=== PATIENT | female | born 1930 ===

== ENCOUNTER 2017-06-21 14:39 | Inpatient (IN) | payer MEDICARE, MEDICAID ==
[2017-06-21] MEDS ORDERED: Iohexol 240 (50 ml) PO ONE (16:01)
[2017-06-21] MEDS ORDERED: Iohexol 240 (50 ml) ONE (16:18)
[2017-06-21 16:35] LABS: BASO % 0.3 % (0.0-2.0); EOS % 0.4 % (0.0-4.0); LYMPH # 0.5 K/uL (1.0-4.3); LYMPH % 16.1 % (20.0-40.0); MEAN CELL VOLUME 93.2 fl (81.0-99.0); MEAN CORPUSCULAR HEMOGLOBIN 29.6 pg (27.0-31.0); MEAN CORPUSCULAR HGB CONC 31.7 g/dL (33.0-37.0); MEAN PLATELET VOLUME 10.7 fl (7.2-11.7); MONO # 0.1 K/uL (0.0-0.8); MONO % 4.3 % (0.0-10.0); NEUT # 2.7 K/uL (1.8-7.0); NEUT % 78.9 % (50.0-75.0); RED CELL DISTRIBUTION WIDTH 13.4 % (11.5-14.5); WHITE BLOOD COUNT 3.4 K/uL (4.8-10.8)
[2017-06-21] MEDS ORDERED: Morphine 4 MG/ML VIAL IV ONE (16:36)
--- NOTE | 2017-06-21 16:46 | ED PDOC ---
HPI: Abdomen Time Seen by Provider: 06/21/17 15:00 Chief Complaint (Nursing): Abdominal Pain Chief Complaint (Provider): Abdominal pain History Per: Patient History/Exam Limitations: no limitations Onset/Duration Of Symptoms: Days (x1) Current Symptoms Are (Timing): Still Present Severity: Mild Pain Scale Rating Of: 3 Location Of Pain/Discomfort: Diffuse Associated Symptoms: Nausea, Urinary Symptoms (dysuria, ). denies: Fever, Vomiting, Diarrhea Additional Complaint(s): Clarice Cazares is an 86 year old female, with a past medical history of hypertension, who presents to the emergency department complaining of diffuse abdominal pain associated with difficulty urinating, and nausea. Patient has a pacemaker in place. She denies any fever, vomiting or diarrhea. No further medical complaints. PMD: None provided. Past Medical History Reviewed: Historical Data, Nursing Documentation, Vital Signs Vital Signs: Last Vital Signs Temp 97.9 F 06/30/17 16:00 Pulse 92 H 06/30/17 16:00 Resp 16 06/30/17 16:01 BP 127/71 06/30/17 16:00 Pulse Ox 98 06/30/17 17:20 - Medical History PMH: HTN, Hypercholesterolemia Denies: Chronic Kidney Disease - Surgical History Surgical History: Pacemaker - Family History Family History: States: Unknown Family Hx - Social History Current smoker - smoking cessation education provided: No Alcohol: None Drugs: Denies - Home Medications Home Medications: Ambulatory Orders Medication Instructions Recorded Aspirin [Aspirin Chewable] 1 tab PO DAILY 06/21/17 Carvedilol [Coreg] 1 tab PO DAILY 06/21/17 Esomeprazole Magnesium [Nexium] 40 mg PO DAILY 06/21/17 Ferrous Sulfate [Feosol] 1 tab PO DAILY 06/21/17 Glycerin/Propylene Glycol [Soothe 2 drp OU DAILY 06/21/17 Lubricant Eye Drops] Magnesium Oxide [Magnesium] 400 mg PO DAILY 06/21/17 Mirtazapine [Remeron] 15 mg PO DAILY 06/21/17 Rivaroxaban [Xarelto] 1 tab PO DAILY 06/21/17 Valsartan/Hydrochlorothiazide 1 tab PO DAILY 06/21/17 [Diovan Hct 320-12.5 mg Tab] Vit C/E/Zn/Coppr/Lutein/Zeaxan 2 cap PO DAILY 06/21/17 [Preservision Areds 2 Softgel] amLODIPine [Norvasc] 1 tab PO DAILY 06/21/17 - Allergies Allergies/Adverse Reactions: Allergies Allergy/AdvReac Type Severity Reaction Status Date / Time No Known Allergies Allergy Verified 06/21/17 14:42 Review of Systems ROS Statement: Except As Marked, All Systems Reviewed And Found Negative Constitutional: Negative for: Fever Gastrointestinal: Positive for: Nausea, Abdominal Pain (diffused). Negative for : Vomiting, Diarrhea Genitourinary Female: Positive for: Dysuria Physical Exam - Reviewed Nursing Documentation Reviewed: Yes Vital Signs Reviewed: Yes - Physical Exam Appears: Positive for: Non-toxic, No Acute Distress, Uncomfortable Head Exam: Positive for: ATRAUMATIC, NORMAL INSPECTION, NORMOCEPHALIC Skin: Positive for: Normal Color, Warm, Dry Eye Exam: Positive for: EOMI, Normal appearance, PERRL Neck: Positive for: Normal, Painless ROM, Supple Cardiovascular/Chest: Positive for: Regular Rate, Rhythm. Negative for: Murmur Respiratory: Positive for: Normal Breath Sounds. Negative for: Respiratory Distress Gastrointestinal/Abdominal: Positive for: Tenderness (diffused ). Negative for : Guarding, Rebound Back: Positive for: Normal Inspection. Negative for: L CVA Tenderness, R CVA Tenderness Extremity: Positive for: Normal ROM. Negative for: Pedal Edema, Deformity, Swelling Neurologic/Psych: Positive for: Alert, Oriented - Laboratory Results Result Diagrams: 06/30/17 04:25 06/30/17 04:25 - ECG O2 Sat by Pulse Oximetry: 98 (RA) Pulse Ox Interpretation: Normal Medical Decision Making Medical Decision Making: Initial Impression: Abdominal pain rule out intraabdominal pathology Initial Plan: --Abd & Pelvis PO & IV contrast [CT] --Comp Metabolic Panel --Omnipaque 240 50 ml PO --Morphine 2 mg IV --Zofran Inj 4 mg IV --Urine culture --Urinalysis --reevaluation 1700 -Patient will be signed out to Dr. Martinez, pending labs and CT. Scribe Attestation: Documented by Quan Boateng, acting as a scribe for Arcelia Solorio MD Provider Scribe Attestation: All medical record entries made by the Scribe were at my direction and personally dictated by me. I have reviewed the chart and agree that the record accurately reflects my personal performance of the history, physical exam, medical decision making, and the department course for this patient. I have also personally directed, reviewed, and agree with the discharge instructions and disposition. Disposition - Clinical Impression Clinical Impression: Perforated sigmoid colon - Patient ED Disposition Is Patient to be Admitted: Transfer of Care - Disposition Disposition: Transfer of Care Disposition Time: 17:00 Condition: STABLE
--- NOTE | 2017-06-21 16:52 | ED PDOC ---
- Laboratory Results Result Diagrams: 06/30/17 04:25 07/01/17 06:15 - ECG O2 Sat by Pulse Oximetry: 98 (RA) Medical Decision Making Medical Decision Makin -Patient will be transferred to [place] by Dr. Solorio, pending labs and CT 1900 Stable in ED. Pending CT abdomen. Labs reviewed. Disposition Counseled Patient/Family Regarding: Studies Performed, Diagnosis - Clinical Impression Clinical Impression: Perforated sigmoid colon, Abdominal pain - POA Present On Arrival: None - Disposition Disposition: Transfer of Care Disposition Time: 19:00 Condition: STABLE Patient Signed Over To: Ramakrishna Smith
[2017-06-21] MEDS ORDERED: Morphine 4 MG/ML VIAL ONE ×2 (16:55→19:50)
[2017-06-21 16:56] LABS: ALB/GLOB RATIO 1.4 (1.0-2.1); BILIRUBIN,TOTAL 0.9 mg/dl (0.2-1.3); POTASSIUM 6.1 MMOL/L (3.6-5.0); TOTAL PROTEIN 7.2 G/DL (6.3-8.2)
[2017-06-21] MEDS ORDERED: Iohexol 300 100 ML IJ ONE (18:33)
[2017-06-21] MEDS ORDERED: Sodium Chloride 0.9% 50 ML IV ONE (18:34)
[2017-06-21 18:42] LABS: RBC URINE 2 /hpf (0-3); URINE BACTERIA RARE (<OCC); URINE BILIRUBIN NEGATIVE (NEGATIVE); URINE BLOOD NEGATIVE (NEGATIVE); URINE COLOR YELLOW (YELLOW); URINE GLUCOSE (UA) NEG (Normal); URINE KETONE NEGATIVE (NEGATIVE); URINE LEUKOCYTE ESTERASE NEG Leu/uL (Negative); URINE PROTEIN NEGATIVE (NEGATIVE); URINE UROBILINOGEN 0.2-1.0 mg/dL (0.2-1.0); WBC URINE < 1 /hpf (0-5)
--- NOTE | 2017-06-21 19:38 | ED PDOC ---
- Laboratory Results Result Diagrams: 06/21/17 16:32 06/21/17 21:30 - ECG O2 Sat by Pulse Oximetry: 98 (RA) Medical Decision Making Medical Decision Making: Time: 19:00 Patient is signed over to me by Dr. Martinez pending CT and reevaluation. Time: 19:38 Abdomen/Pelvis CT FINDINGS: Lower thorax: The heart is enlarged.There is streak artifact from pacemaker leads. There is a hiatal hernia. There is reflux of oral contrast into the hernia and distal esophagus. There is airspace disease at the lung bases. ABDOMEN: Liver: There is fatty infiltration of the liver. Gallbladder and bile ducts: Gallbladder is absent.There is prominence of the common duct. There is mild intrahepatic biliary ductal prominence. Pancreas: Pancreas is mildly atrophic. Spleen: unremarkable Adrenals: unremarkable Kidneys and ureters: There is a low attenuation right renal lesion too small to accurately characterize possibly cysts. There is a left renal cyst. There is bilateral cortical scarring.There is no pelvocaliectasis or ureterectasis. Stomach and bowel: Stomach is partially distended with contrast. There is a contrast fluid level. Rotation is normal. Small bowel is incompletely opacified with oral contrast. Distal small bowel loops in the pelvis are abnormal. There is mild dilatation. There is mild wall thickening and fold thickening. There is no small bowel obstruction. There is terminal ileal wall thickening. Appendix is not visualized.Colon is incompletely distended which limits evaluation. There is scattered diverticulosis. There is sigmoid diverticulitis. There is perforation with free air and free fluid in the pelvis. Appendix: See stomach and bowel PELVIS: Bladder: Bladder is partially distended. There is bladder wall thickening. There is a Rivera catheter. There is air in the bladder. Reproductive: Uterus is not visualized suggesting hysterectomy. There are no adnexal masses. ABDOMEN and PELVIS: Intraperitoneal space: There is free fluid in the pelvis. There is free air in the pelvis. Bones/joints: Bony structures are osteopenic. There are degenerative changes. There is L5 spondylolysis with spondylolisthesis. There is narrowing of the L5-S1 disc space. Soft tissues: There is a fat containing ventral hernia. There is a small fat containing umbilical hernia. There is surgical mesh in the abdominal wall. There are multiple surgical clips in the right inguinal region. 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 There are vascular calcifications. Lymph nodes: There are is shotty adenopathy. IMPRESSION: Perforated sigmoid diverticulitis with ileus 20:[address] Kirt Medley who agrees to consult on patient. Dr. Haynes, hospitalist aware. Dr. Johnson, surgical specialist, at bedside evaluating patient. Patient seen and examined at bedside, abdomen is distended and diffusely tender, however no acute abdomen at this time. Cultures gathered, fluids started, ABx given, NGT and rivera inserted. Scribe Attestation: Documented by Cortney Shannon acting as a scribe for Ramakrishna Smith MD. Scribe Attestation: All medical record entries made by the Scribe were at my direction and personally dictated by me. I have reviewed the chart and agree that the record accurately reflects my personal performance of the history, physical exam, medical decision making, and the department course for this patient. I have also personally directed, reviewed, and agree with the discharge instructions and disposition. Disposition - Clinical Impression Clinical Impression: Perforated sigmoid colon - POA Present On Arrival: None - Disposition Disposition: Admitted as In-Patient Disposition Time: 20:00 Condition: STABLE
[2017-06-21] MEDS ORDERED: Sodium Chloride 0.9% 1,000 ML IV STA (19:39)
[2017-06-21] MEDS ORDERED: Piperacillin/Tazobact 3.375 GM in Sodium Chloride 0.9% 100 ML IVPB STA (19:45)
[2017-06-21] MEDS ORDERED: Morphine 4 MG/ML VIAL IVP STA (19:46)
[2017-06-21] MEDS ORDERED: Sodium Chloride 0.9% 1,000 ML IV SCH (20:30)
[2017-06-21 20:38] LABS: VENOUS BLOOD GAS BASE EXCESS 2.4 mmol/L (0.0-2.0); VENOUS BLOOD GAS PCO2 60 mmHg (40-60); VENOUS BLOOD PH 7.31 (7.32-7.43)
--- NOTE | 2017-06-21 20:51 | CP.PCM.HP ---
History of Present Illness - History of Present Illness History of Present Illness: PCP: Luz Liu MD Chief Complaint: Abdominal pain The patient was seen and examined in [facility] ED with her family present HPI: The Hx was obtained from the Patient , her Son and with review of the medical chart. She is an 86 years old Female with hx of Left Total Knee replaement, HTN, and Cardiac arrhythmia with Permanent Pacemaker inserted, . She comes to the ED with 2 weeks of diffuse abdominal pain which has become worse over the past day and associated with nausea, diarrhea and dysuria. She refers no fever, Chills, PMH: HTN; HLD; Cardiac dysrrhythmia on Xarelto; PSH: Varicose veins Stripping X4; Appendectomy; Cholecystectomy; Permanent Pace Maker Insertion;Umbilical and left inguinal hernia reapir with Mesh; Left Total Knee replacement SH: Never Smoked; no alcohol; no illegal drugs; Live alone FH: States: Unknown Family Hx Allergies: NKDA Medications: Reviewed Present on Admission - Present on Admission Any Indicators Present on Admission: No History of DVT/PE: No History of Uncontrolled Diabetes: No Urinary Catheter: No Decubitus Ulcer Present: No Review of Systems - Constitutional Constitutional: Headache. absent: Anorexia, Fever, Lethargy, Malaise - EENT Eyes: Requires Corrective Lenses. absent: Diplopia, Dry Eye, Floaters Ears: absent: Decreased Hearing, Ear Discharge, Tinnitus Nose/Mouth/Throat: absent: Epistaxis, Nasal Congestion, Nasal Discharge, Sinus Pressure, Bleeding Gums, Change in Voice - Cardiovascular Cardiovascular: Syncope. absent: Chest Pain, Dyspnea, Leg Edema, Leg Ulcers - Respiratory Respiratory: absent: Cough, Dyspnea, Snoring, Chest Congestion - Gastrointestinal Gastrointestinal: Abdominal Pain, Diarrhea, Nausea. absent: Constipation, Melena - Musculoskeletal Musculoskeletal: Arthralgias. absent: Muscle Cramps, Muscle Weakness - Integumentary Integumentary: absent: Skin Pain, Skin Ulcer, Sores, Striae, Swelling - Psychiatric Psychiatric: absent: Anxiety, Depression, Panic Attacks - Endocrine Endocrine: absent: Palpitations, Polydipsia, Polyphagia, Polyuria - Hematologic/Lymphatic Hematologic: absent: Easy Bleeding, Easy Bruising Past Patient History - Past Medical History & Family History Past Medical History?: Yes - Past Social History Smoking Status: Never Smoked Chewing Tobacco Use: No Cigar Use: No Alcohol: None Drugs: Denies Home Situation {Lives}: Alone - CARDIAC Hx Hypercholesterolemia: Yes Hx Hypertension: Yes Hx Pacemaker: Yes - PULMONARY Hx Respiratory Disorders: No - NEUROLOGICAL Hx Neurological Disorder: No - HEENT Hx HEENT Problems: No - RENAL Hx Chronic Kidney Disease: No - ENDOCRINE/METABOLIC Hx Endocrine Disorders: No - HEMATOLOGICAL/ONCOLOGICAL Hx Blood Disorders: No - INTEGUMENTARY Hx Dermatological Problems: No - MUSCULOSKELETAL/RHEUMATOLOGICAL Hx Musculoskeletal Disorders: No - GASTROINTESTINAL Hx Gastrointestinal Disorders: No - GENITOURINARY/GYNECOLOGICAL Hx Genitourinary Disorders: No - PSYCHIATRIC Hx Psychophysiologic Disorder: No Hx Substance Use: No - SURGICAL HISTORY Hx Surgeries: Yes Hx Appendectomy: Yes Hx Herniorrhaphy: Yes Hx Hysterectomy: Yes Other/Comment: Stripping of varicose veins Meds Allergies/Adverse Reactions: Allergies Allergy/AdvReac Type Severity Reaction Status Date / Time No Known Allergies Allergy Verified 06/21/17 14:42 Physical Exam - Constitutional Appears: No Acute Distress - Head Exam Head Exam: ATRAUMATIC, NORMAL INSPECTION, NORMOCEPHALIC - Eye Exam Eye Exam: EOMI, Normal appearance Pupil Exam: NORMAL ACCOMODATION, PERRL - ENT Exam ENT Exam: absent: Mucous Membranes Moist, Normal External Ear Exam, Normal Oropharynx - Neck Exam Neck exam: Positive for: Full Rom, Normal Inspection. Negative for: Lymphadenopathy, Tenderness - Respiratory Exam Respiratory Exam: Clear to Auscultation Bilateral, NORMAL BREATHING PATTERN. absent: Rales, Rhonchi, Wheezes - Cardiovascular Exam Cardiovascular Exam: REGULAR RHYTHM, RRR, +S1, +S2. absent: Gallop, JVD - GI/Abdominal Exam Additional comments: Flat, soft, periumbilical tenderness, No guarding, no rebound, decreased bowel sounds - Rectal Exam Rectal Exam: Deferred - Extremities Exam Extremities exam: Positive for: full ROM, normal inspection. Negative for: calf tenderness, pedal edema - Back Exam Back exam: NORMAL INSPECTION. absent: CVA tenderness (L), CVA tenderness (R) - Neurological Exam Neurological exam: CN II-XII Intact, Oriented x3, Reflexes Normal - Psychiatric Exam Psychiatric exam: Normal Affect, Normal Mood - Skin Skin Exam: Dry, Intact, Normal Color, Warm Results - Vital Signs Recent Vital Signs: Last Vital Signs Temp 100.3 F H 06/21/17 20:02 Pulse 88 06/21/17 20:02 Resp 16 11/28/17 20:02 BP 133/58 L 06/21/17 20:02 Pulse Ox 91 L 06/21/17 20:02 - Labs Result Diagrams: 06/21/17 16:32 06/21/17 21:30 Labs: Laboratory Results - last 24 hr 06/21/17 06/21/17 06/21/17 16:32 16:32 18:30 WBC 3.4 L RBC 4.08 Hgb 12.1 Hct 38.0 MCV 93.2 MCH 29.6 MCHC 31.7 L RDW 13.4 Plt Count 142 MPV 10.7 Neut % (Auto) 78.9 H Lymph % (Auto) 16.1 L Ramsey % (Auto) 4.3 Eos % (Auto) 0.4 Baso % (Auto) 0.3 Neut # 2.7 Lymph # 0.5 L Ramsey # 0.1 Eos # 0.0 Baso # 0.0 pO2 VBG pH VBG pCO2 VBG HCO3 VBG Total CO2 VBG O2 Sat (Calc) VBG Base Excess VBG Potassium Glucose Lactate FiO2 Sodium 138 Potassium 6.1 H Chloride 100 Carbon Dioxide 28 Anion Gap 16 BUN 29 H Creatinine 1.1 Est GFR ( Amer) 57 Est GFR (Non-Af Amer) 47 Random Glucose 105 Calcium 9.0 Total Bilirubin 0.9 AST 34 ALT 29 Alkaline Phosphatase 68 Total Protein 7.2 Albumin 4.2 Globulin 3.0 Albumin/Globulin Ratio 1.4 Venous Blood Potassium Urine Color Yellow Urine Clarity Clear Urine pH 6.0 Ur Specific [place] 1.016 Urine Protein Negative Urine Glucose (UA) Neg Urine Ketones Negative Urine Blood Negative Urine Nitrate Negative Urine Bilirubin Negative Urine Urobilinogen 0.2-1.0 Ur Leukocyte Esterase Neg Urine RBC (Auto) 2 Urine Microscopic WBC < 1 Urine Bacteria Rare 06/21/17 20:20 WBC RBC Hgb Hct MCV MCH MCHC RDW Plt Count MPV Neut % (Auto) Lymph % (Auto) Ramsey % (Auto) Eos % (Auto) Baso % (Auto) Neut # Lymph # Ramsey # Eos # Baso # pO2 25 L VBG pH 7.31 L VBG pCO2 60 VBG HCO3 25.2 VBG Total CO2 32.0 H VBG O2 Sat (Calc) 46.4 VBG Base Excess 2.4 H VBG Potassium 5.8 H Glucose 111 H Lactate 2.4 H FiO2 21.0 Sodium 131.0 L Potassium Chloride 98.0 Carbon Dioxide Anion Gap BUN Creatinine Est GFR ( Amer) Est GFR (Non-Af Amer) Random Glucose Calcium Total Bilirubin AST ALT Alkaline Phosphatase Total Protein Albumin Globulin Albumin/Globulin Ratio Venous Blood Potassium 5.8 H Urine Color Urine Clarity Urine pH Ur Specific [place] Urine Protein Urine Glucose (UA) Urine Ketones Urine Blood Urine Nitrate Urine Bilirubin Urine Urobilinogen Ur Leukocyte Esterase Urine RBC (Auto) Urine Microscopic WBC Urine Bacteria - EKG Data EKG comments: Sinus Rhythm with PVC 96/min Low voltage - Imaging and Cardiology CT scan - abdomen Status: Report reviewed by me Additional comment: EXAM: CT Abdomen and Pelvis With Intravenous Contrast EXAM DATE/TIME: 06/21/2017 4:01 PM FINDINGS: Lower thorax: The heart is enlarged.There is streak artifact from pacemaker leads. There is a hiatal hernia. There is reflux of oral contrast into the hernia and distal esophagus. There is airspace disease at the lung bases. ABDOMEN: Liver: There is fatty infiltration of the liver. Gallbladder and bile ducts: Gallbladder is absent.There is prominence of the common duct. There is mild intrahepatic biliary ductal prominence. Pancreas: Pancreas is mildly atrophic. Spleen: unremarkable Adrenals: unremarkable Kidneys and ureters: There is a low attenuation right renal lesion too small to accurately characterize possibly cysts. There is a left renal cyst. There is bilateral cortical scarring.There is no pelvocaliectasis or ureterectasis. Stomach and bowel: Stomach is partially distended with contrast. There is a contrast fluid level. Rotation is normal. Small bowel is incompletely opacified with oral contrast. Distal small bowel loops in the pelvis are abnormal. There is mild dilatation. There is mild wall thickening and fold thickening. There is no small bowel obstruction. There is terminal ileal wall thickening. Appendix is not visualized.Colon is incompletely distended which limits evaluation. There is scattered diverticulosis. There is sigmoid diverticulitis. There is perforation with free air and free fluid in the pelvis. Appendix: See stomach and bowel PELVIS: Bladder: Bladder is partially distended. There is bladder wall thickening. There is a Harris catheter. There is air in the bladder. Reproductive: Uterus is not visualized suggesting hysterectomy. There are no adnexal masses. ABDOMEN and PELVIS: Intraperitoneal space: There is free fluid in the pelvis. There is free air in the pelvis. Bones/joints: Bony structures are osteopenic. There are degenerative changes. There is L5 spondylolysis with spondylolisthesis. There is narrowing of the L5-S1 disc space. Soft tissues: There is a fat containing ventral hernia. There is a small fat containing umbilical hernia. There is surgical mesh in the abdominal wall. There are multiple surgical clips in the right inguinal region. 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 There are vascular calcifications. Lymph nodes: There are is shotty adenopathy. IMPRESSION: Perforated sigmoid diverticulitis with ileus Additional findings as described above. CT scan - chest Status: Image reviewed by me Additional comment: Increased bronchovascular markings No active disease Assessment & Plan - Assessment and Plan (Free Text) Assessment: #. Perforated Sygmoid Diverticulitis with Ileus #. Dehydration #. HTN #. Hx of Cardiac Dysrrhythmia with PPM Plan: 86 years old Female with hx of Left Total Knee replaement, HTN, and Cardiac arrhythmia with Permanent Pacemaker inserted,. She comes to the ED with 2 weeks of diffuse abdominal pain which has become worse over the past day and associated with nausea, diarrhea and dysuria. She refers no fever, Chills, #. Perforated Sygmoid Diverticulitis with Ileus - Consult Dr Medley surgery - NG tube placed in ED - Pain management - Zosyn - Zofran #. Dehydration - IV fluids - follow Renal labs #. HTN - Will treat with IV metoprolol #. Hx of Cardiac Dysrrhythmia with PPM - cardiac monitoring - Hold Xarelto at least 24 hrs prior to surgery - Cardiology consult for Clearance to surgery Dr Blanchard 3> Stress Ulcer prophylaxis with Pepcid #. DVT prophylaxis with SCD #. Code Status: Full - Date & Time Date: 06/21/17 Time: 20:51
--- NOTE | 2017-06-21 21:14 | CP.PCM.CON ---
History of Present Illness - History of Present Illness History of Present Illness: General Surgery Consult Note for Dr. Medley Reason for consult: perforated acute diverticulitis 86 F with PMH of HTN, HLD, arrthymias presents to [facility] ED for complaint of diffuse abdominal pain. History was supplemented by her Son. She reports that she has had this pain for 2 weeks. SHe states that she has never experienced this type of pain before. She reports gradual onset and has gotten progressively worse. She decided to come in today because the was worse over the past day. Patient reports associated nausea and diarrhea. Patient rates pain as severe. She describes pain as constant as sharp located diffusely throughout abdomen. Moving and certain positions exacerbates her pain but denies alleviatinf factors. Admits to subjective fever/chills. Denies palpitations, cp, sob, vomiting, constipation, incontinence, melena, hematemesis , hematochezia. PMD: Dr. Luz Liu PMH: HTN; HLD; Cardiac arrthymia on anticoagulation Meds: As per EMR (includes ASA and Xarelto) Allergies: NKDA PSH: Varicose veins Stripping X4, Appendectomy, Cholecystectomy, Permanent Pace Maker Insertion, Umbilical hernia repair, inguinal hernia repair with Mesh; Left Total Knee replacement FH: unknown Social: denies [place]/illicit drug use; Lives alone Past Patient History - Past Social History Alcohol: None Drugs: Denies - CARDIAC Hx Hypercholesterolemia: Yes Hx Hypertension: Yes Hx Pacemaker: Yes - PULMONARY Hx Respiratory Disorders: No - NEUROLOGICAL Hx Neurological Disorder: No - HEENT Hx HEENT Problems: No - RENAL Hx Chronic Kidney Disease: No - ENDOCRINE/METABOLIC Hx Endocrine Disorders: No - HEMATOLOGICAL/ONCOLOGICAL Hx Blood Disorders: No - INTEGUMENTARY Hx Dermatological Problems: No - MUSCULOSKELETAL/RHEUMATOLOGICAL Hx Musculoskeletal Disorders: No - PSYCHIATRIC Hx Psychophysiologic Disorder: No Hx Substance Use: No - SURGICAL HISTORY Hx Surgeries: Yes Meds Allergies/Adverse Reactions: Allergies Allergy/AdvReac Type Severity Reaction Status Date / Time No Known Allergies Allergy Verified 06/21/17 14:42 - Medications Medications: Current Medications Sodium Chloride (Sodium Chloride 0.9%) 1,000 mls @ 125 mls/hr IV .Q8H TERRY Stop: 06/22/17 20:18 Physical Exam - Constitutional Appears: Toxic, No Acute Distress - Head Exam Head Exam: ATRAUMATIC, NORMOCEPHALIC - Eye Exam Eye Exam: EOMI, Normal appearance Pupil Exam: PERRL - ENT Exam ENT Exam: Mucous Membranes Dry - Respiratory Exam Respiratory Exam: NORMAL BREATHING PATTERN - Cardiovascular Exam Cardiovascular Exam: REGULAR RHYTHM Additional comments: AICD on L chest - GI/Abdominal Exam GI & Abdominal Exam: Distended, Firm, Guarding, Hernia (ventral hernia), Rebound , Tenderness (diffuse) - Extremities Exam Extremities exam: Positive for: normal capillary refill, pedal pulses present - Back Exam Back exam: absent: CVA tenderness (L), CVA tenderness (R) - Neurological Exam Neurological exam: Alert, CN II-XII Intact, Oriented x3 - Psychiatric Exam Psychiatric exam: Normal Affect, Normal Mood - Skin Skin Exam: Dry, Intact, Normal Color, Warm Results - Vital Signs Recent Vital Signs: Last Vital Signs Temp 100.3 F H 06/21/17 20:02 Pulse 88 06/21/17 20:02 Resp 16 06/21/17 20:02 BP 133/58 L 06/21/17 20:02 Pulse Ox 91 L 06/21/17 20:02 - Labs Result Diagrams: 06/21/17 16:32 06/21/17 21:30 Labs: Laboratory Results - last 24 hr 06/21/17 06/21/17 06/21/17 16:32 16:32 18:30 WBC 3.4 L RBC 4.08 Hgb 12.1 Hct 38.0 MCV 93.2 MCH 29.6 MCHC 31.7 L RDW 13.4 Plt Count 142 MPV 10.7 Neut % (Auto) 78.9 H Lymph % (Auto) 16.1 L [place] % (Auto) 4.3 Eos % (Auto) 0.4 Baso % (Auto) 0.3 Neut # 2.7 Lymph # 0.5 L [place] # 0.1 Eos # 0.0 Baso # 0.0 pO2 VBG pH VBG pCO2 VBG HCO3 VBG Total CO2 VBG O2 Sat (Calc) VBG Base Excess VBG Potassium Glucose Lactate FiO2 Sodium 138 Potassium 6.1 H Chloride 100 Carbon Dioxide 28 Anion Gap 16 BUN 29 H Creatinine 1.1 Est GFR ( Amer) 57 Est GFR (Non-Af Amer) 47 Random Glucose 105 Calcium 9.0 Total Bilirubin 0.9 AST 34 ALT 29 Alkaline Phosphatase 68 Total Protein 7.2 Albumin 4.2 Globulin 3.0 Albumin/Globulin Ratio 1.4 Venous Blood Potassium Urine Color Yellow Urine Clarity Clear Urine pH 6.0 Ur Specific [place] 1.016 Urine Protein Negative Urine Glucose (UA) Neg Urine Ketones Negative Urine Blood Negative Urine Nitrate Negative Urine Bilirubin Negative Urine Urobilinogen 0.2-1.0 Ur Leukocyte Esterase Neg Urine RBC (Auto) 2 Urine Microscopic WBC < 1 Urine Bacteria Rare 06/21/17 20:20 WBC RBC Hgb Hct MCV MCH MCHC RDW Plt Count MPV Neut % (Auto) Lymph % (Auto) [place] % (Auto) Eos % (Auto) Baso % (Auto) Neut # Lymph # [place] # Eos # Baso # pO2 25 L VBG pH 7.31 L VBG pCO2 60 VBG HCO3 25.2 VBG Total CO2 32.0 H VBG O2 Sat (Calc) 46.4 VBG Base Excess 2.4 H VBG Potassium 5.8 H Glucose 111 H Lactate 2.4 H FiO2 21.0 Sodium 131.0 L Potassium Chloride 98.0 Carbon Dioxide Anion Gap BUN Creatinine Est GFR ( Amer) Est GFR (Non-Af Amer) Random Glucose Calcium Total Bilirubin AST ALT Alkaline Phosphatase Total Protein Albumin Globulin Albumin/Globulin Ratio Venous Blood Potassium 5.8 H Urine Color Urine Clarity Urine pH Ur Specific [place] Urine Protein Urine Glucose (UA) Urine Ketones Urine Blood Urine Nitrate Urine Bilirubin Urine Urobilinogen Ur Leukocyte Esterase Urine RBC (Auto) Urine Microscopic WBC Urine Bacteria Assessment & Plan - Assessment and Plan (Free Text) Plan: 86 F with perforated acute diverticulitis -NPO -IV fluids -IV antibiotics -NG tube/rivera -Strict I's & O's -Analgesics/Anti-emetics/Anti-pyretics PRN -Plan for OR Tue -Discussed with Dr. Galindo Umaña PGY1
[2017-06-21 21:47] LABS: PARTIAL THROMBOPLASTIN TIME 34.4 Seconds (25.6-37.1)
[2017-06-21] MEDS: Sodium Chloride 0.9% 1,000 ML IV SCH (22:26)
[2017-06-22] MEDS: Piperacillin/Tazobact 3.375 GM in Sodium Chloride 0.9% 100 ML IVPB SCH ×4 (01:45→23:00)
[2017-06-22] MEDS ORDERED: Metoprolol 1 mg/ml Inj IVP SCH (04:00)
--- NOTE | 2017-06-22 04:56 | PCM.RRT ---
<Luis Manuel Shannon - Last Filed: 06/22/17 04:53> [employer]ATION WORKER Nurse Assessment - Situation TEA PLANTATION WORKER Responder Arrival Time: 03:40 Location: 4th floor Room Number: 403 [employer] PLANTATION WORK[employer] Reason for Call: Hypotension TEA PLANTATION WORKER Called By: RN - IV IV Inserted during TEA PLANTATION WORKER?: No - Respiratory Oxygen Delivery Method: Nasal Cannula Received Nebulizer Treatments: No Was the Patient Ventilated with Bag/Mask 100% O2?: No Secretions Suctioned?: No Was the Patient Intubated?: No Was the Patient Placed on a Ventilator?: No - Diagnostic Test Ordered EKG: No Chest X-Ray: No CT Scan: No CPR started during TEA PLANTATION WORKER?: No I.Reason for TEA PLANTATION WORKER - A) Acute Change in Patient: (Select all that apply): Staff member or family is worried about patient, Acute change in SBP below (80) Subjective: TEA PLANTATION WORKER was called due to Hypotension for 86 years old Female who is admitted for perforated diverticulitis, s/p 3L IVF, with PMH of Left Total Knee replaement, HTN, and Cardiac arrhythmia with Permanent Pacemaker inserted. Upon arrival, patient is alert, awake and verbally responsive, BP: 108/62. Right femoral line placed during TEA PLANTATION WORKER by medical surgical tech and patient was started on IVF. Possible surgery today for perforated diverticulitis. Case discussed with Dr. Haynes --- Luis Manuel Shannon, PGY-1 - Neurological Status (Select all that apply): Alert, Responsive, Verbal, Follows Commands - Respiratory Oxygen Delivery Method: Nasal Cannula @L/min - Constitutional Appears: No Acute Distress - Head Head Exam: ATRAUMATIC, NORMAL INSPECTION, NORMOCEPHALIC - Eyes Eye Exam: EOMI, Normal appearance - Respiratory Exam Respiratory Exam: Clear to Ausculation Bilateral, NORMAL BREATHING PATTERN - Cardiovascular Exam Cardiovascular Exam: REGULAR RHYTHM, RRR, +S1, +S2. absent: Gallop, JVD - GI/Abdominal Exam Additional comments: Flat, soft, periumbilical tenderness, No guarding, no rebound, decreased bowel sounds - Neurological Exam Neurological Exam: Alert, Awake, Oriented x3 - Extremities Exam Additional comments: Varicose veins <Jerald Haynes - Last Filed: 06/22/17 07:20> TE[employer] PLANTATION WORKER Nurse Assessment - Vital Signs Vital Signs: Rapid Response Vital Sign Blood Pressure 48/35 - Vital Signs at end of TEA PLANTATION WORKER Vital Signs at end of TEA PLANTATION WORKER: Rapid Response End Vital Sign Blood Pressure 135/72 Attending/Attestation - Attestation I have personally seen and examined this patient.: No I have fully participated in the care of the patient.: No I have reviewed all pertinent clinical information, including history, physical exam and plan: No Notes (Text): 06/22/17 07:15 I saw and examined this patientshoulder to shoulder with Dr Shannon. The impression and plan mentioned represent my direcct inpu, The Patiet's Blood pressure droped to a s SBP of 40, #. Hypovolemic Shock with Septic Shock - IV fluids alone could not increase the BP - A Rigfht Femoral TLC was inserted by the vice president of advertising. - [facility] s[facility] started. The Family was notified.
[2017-06-22] MEDS: Sodium Chloride 0.9% 1,000 ML IV SCH ×4 (05:08→20:44)
[2017-06-22] MEDS ORDERED: Sodium Chloride 0.9% 1,000 ML IV SCH ×3 (05:30→08:45)
[2017-06-22 05:58] LABS: EOS % 0.1 % (0.0-4.0); HEMATOCRIT 28.6 % (34.0-47.0); LYMPH # 0.7 K/uL (1.0-4.3); LYMPH % 9.1 % (20.0-40.0); MEAN CELL VOLUME 94.6 fl (81.0-99.0); MEAN CORPUSCULAR HEMOGLOBIN 30.3 pg (27.0-31.0); MEAN CORPUSCULAR HGB CONC 32.1 g/dL (33.0-37.0); MEAN PLATELET VOLUME 11.8 fl (7.2-11.7); MONO # 0.3 K/uL (0.0-0.8); MONO % 4.1 % (0.0-10.0); NEUT # 6.3 K/uL (1.8-7.0); NEUT % 86.7 % (50.0-75.0); PLATELET COUNT 96 K/uL (130-400); RED CELL DISTRIBUTION WIDTH 13.5 % (11.5-14.5); WHITE BLOOD COUNT 7.3 K/uL (4.8-10.8)
[2017-06-22 06:03] LABS: CALCIUM 6.9 mg/dL (8.4-10.2); POTASSIUM 4.3 MMOL/L (3.6-5.0)
--- NOTE | 2017-06-22 08:06 | CARD ---
APPROVED REPORT EKG Measurement Heart [id number] <Conclusion> Sinus rhythm with occasional premature ventricular complexes Nonspecific ST and T wave abnormality Abnormal ECG
[2017-06-22 08:19] LABS: ABG ALLEN TEST YES; ARTERIAL BLOOD GAS HCO3 19.9 mmol/L (21-28); ARTERIAL BLOOD GAS O2 CAPACITY 12.9 mL/dL (16-24); ARTERIAL BLOOD GAS O2 CONTENT 12.3 ML/dL (15-23); ARTERIAL BLOOD GAS PH 7.25 (7.35-7.45); ARTERIAL BLOOD GAS PO2 70 mm/Hg (80-100); ARTERIAL BLOOD HGB O2 SAT 94.1 % (95.0-98.0); CARBOXYHEMOGLOBIN 1.1 % (0.5-1.5); HHB 4.3 % (0.0-5.0); METHEMOGLOBIN 0.5 % (0.0-3.0)
--- NOTE | 2017-06-22 08:46 | RAD ---
HISTORY: Abdominal pain COMPARISON: 05/21/2016 FINDINGS: LUNGS: No active pulmonary disease. PLEURA: No significant pleural effusion identified, no pneumothorax apparent. CARDIOVASCULAR: Cardiomegaly. No evidence of acute, significant cardiovascular disease. Position/ configuration of pacemaker Satisfactory. OSSEOUS STRUCTURES: No significant abnormalities. VISUALIZED UPPER ABDOMEN: Normal. OTHER FINDINGS: None. IMPRESSION: No active disease. No significant interval change compared to the prior examination(s). Concordant results with the preliminary interpretation rendered by the emergency department physician procedure. :
[2017-06-22] MEDS: HYDROmorphone 0.5 mg/0.5 ml ISec IVP SCH ×3 (09:00→16:34)
--- NOTE | 2017-06-22 09:56 | CP.PCM.CON ---
History of Present Illness - History of Present Illness History of Present Illness: This 86-year-old female, came to the emergency room with approximately 10-14 days of diffuse abdominal pain along with intense nausea and diarrhea. She denies any chills or fever and is being treated for a ruptured diverticulum. She has a medical history that includes a knee replacement last year and has had a defibrillator inserted for "an irregular heartbeat"approximately 9 years back and has been taking Xarelto last couple of years. She denies any history of chest pain or myocardial infarction. Following her knee replacement she went through physical therapy and subsequently had capacity to independently ambulate 2-3 blocks without getting short of breath. There is no prior history of pedal edema or orthopnea. Her last dose of aspirin and Xarelto was yesterday. The patient arrived in the emergency room profoundly hypotensive and has been on intravenous IV fluids and antibiotic ever since. This morning between 6:00 and 8:00 she had made approximately 80 mL of urine. On examination this is an elderly lady who was lying flat in bed with a nasogastric tube in place attached to low intermittent suction, and able to carry on a conversation. She was alert, awake and coherent. Her extremities were warm and there was no central or peripheral cyanosis. Her heart rate was 80 bpm and regular and her blood pressure was 84/50 mmHg. Her jugular venous pressure was not elevated and there was no edema over her lower extremity. There were no carotid bruits. Pedal pulses were well felt. There were varicosities over both lower extremities and the patient had a history of venous stripping in the past. [place] was not palpable. First and second heart sounds are normal. There was a very brief apical systolic murmur. There was no gallop rhythm and there were no rales. Her abdomen had diffuse tenderness intestinal sounds were distant. Her electrocardiogram showed sinus rhythm with nonspecific ST changes. There were no Q waves indicative of a prior myocardial infarction. Her lab data showed elevated lactate at admission with a normal level subsequently. This morning she is mildly azotemic with a creatinine of 1.3 mg percent. Her potassium was normal. Blood gases were noted. 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 History of AICD implant for cardiac arrhythmia the precise nature of which is uncertain. Patient's systolic blood pressure has significantly improved since her admission with intravenous fluid resuscitation and her ability to produce 80 mL of urine over 2 hours indicated significant improvement in her renal perfusion, and by inference her cardiac output. I have discussed her case with the surgeon. From the point of view of having taken Xarelto she could go to surgery 24 hours from now, while the effect of aspirin will take 6 more days to wear off. I also requested an echocardiogram to evaluate her left ventricular systolic function. Past Patient History - Past Medical History & Family History Past Medical History?: Yes - Past Social History Smoking Status: Never Smoked Chewing Tobacco Use: No Cigar Use: No Alcohol: None Drugs: Denies Home Situation {Lives}: Alone - CARDIAC Hx Hypercholesterolemia: Yes Hx Hypertension: Yes Hx Pacemaker: Yes - PULMONARY Hx Respiratory Disorders: No - NEUROLOGICAL Hx Neurological Disorder: No - HEENT Hx HEENT Problems: No - RENAL Hx Chronic Kidney Disease: No - ENDOCRINE/METABOLIC Hx Endocrine Disorders: No - HEMATOLOGICAL/ONCOLOGICAL Hx Blood Disorders: No - INTEGUMENTARY Hx Dermatological Problems: No - MUSCULOSKELETAL/RHEUMATOLOGICAL Hx Musculoskeletal Disorders: No - GASTROINTESTINAL Hx Gastrointestinal Disorders: No - GENITOURINARY/GYNECOLOGICAL Hx Genitourinary Disorders: No - PSYCHIATRIC Hx Psychophysiologic Disorder: No Hx Substance Use: No - SURGICAL HISTORY Hx Surgeries: Yes Hx Appendectomy: Yes Hx Herniorrhaphy: Yes Hx Hysterectomy: Yes Other/Comment: Stripping of varicose veins - ANESTHESIA Hx Anesthesia: Yes Hx Anesthesia Reactions: No Hx Malignant Hyperthermia: No Has any member of the family had a problem w/ anesthesia?: No Meds Allergies/Adverse Reactions: Allergies Allergy/AdvReac Type Severity Reaction Status Date / Time No Known Allergies Allergy Verified 06/21/17 14:42 - Medications Medications: Current Medications Acetaminophen (Tylenol 650 Mg Supp) 650 mg DE Q6 PRN PRN Reason: Fever >100.4 F Hydromorphone HCl (Dilaudid) 0.5 mg IVP Q4 TERRY Piperacillin Sod/Tazobactam (Sod 3.375 gm/ Sodium Chloride) 100 mls @ 100 mls/ hr IVPB Q6 TERRY PRN Reason: Protocol Last Admin: 06/22/17 01:45 Dose: 100 mls/hr Sodium Chloride (Sodium Chloride 0.9%) 1,000 mls @ 200 mls/hr IV .Q5H TERRY Stop: 06/23/17 20:18 Last Admin: 06/22/17 06:11 Dose: 200 mls/hr Norepinephrine Bitartrate 4 mg (/ Dextrose) 254 mls @ 9.52 mls/hr IV .Q24H TERRY ; 2.5 MCG/MIN PRN Reason: Protocol Last Titration: 06/22/17 07:00 Dose: 10 mcg/min, 38.1 mls/hr Sodium Chloride (Sodium Chloride 0.9%) 1,000 mls @ 999 mls/hr IV .Q1H1M TERRY Stop: 06/23/17 07:14 Metoprolol Tartrate (Lopressor) 2.5 mg IVP Q6 TERRY Last Admin: 06/22/17 05:07 Dose: Not Given Ondansetron HCl (Zofran Inj) 4 mg IVP Q6 PRN PRN Reason: Nausea/Vomiting Pantoprazole Sodium (Protonix Inj) 40 mg IVP DAILY [facility] Results - Vital Signs Recent Vital Signs: Last Vital Signs Temp 97.6 F 06/22/17 08:00 Pulse 75 06/22/17 08:00 Resp 14 06/22/17 08:00 BP 105/84 06/22/17 08:00 Pulse Ox 97 06/22/17 08:00 - Labs Result Diagrams: 06/22/17 04:40 06/22/17 04:40 Labs: Laboratory Results - last 24 hr 06/21/17 06/21/17 06/21/17 16:32 16:32 18:30 WBC 3.4 L RBC 4.08 Hgb 12.1 Hct 38.0 MCV 93.2 MCH 29.6 MCHC 31.7 L RDW 13.4 Plt Count 142 MPV 10.7 Neut % (Auto) 78.9 H Lymph % (Auto) 16.1 L [place] % (Auto) 4.3 Eos % (Auto) 0.4 Baso % (Auto) 0.3 Neut # 2.7 Lymph # 0.5 L [place] # 0.1 Eos # 0.0 Baso # 0.0 PT INR APTT pCO2 pO2 HCO3 ABG pH ABG Total CO2 ABG O2 Saturation ABG O2 Content ABG Base Excess ABG Hemoglobin ABG Carboxyhemoglobin POC ABG HHb (Measured) ABG Methemoglobin ABG O2 Capacity Rich Test VBG pH VBG pCO2 VBG HCO3 VBG Total CO2 VBG O2 Sat (Calc) VBG Base Excess VBG Potassium A-a O2 Difference Hgb O2 Saturation Glucose Lactate FiO2 Sodium 138 Potassium 6.1 H Chloride 100 Carbon Dioxide 28 Anion Gap 16 BUN 29 H Creatinine 1.1 Est GFR ( Amer) 57 Est GFR (Non-Af Amer) 47 POC Glucose (mg/dL) Random Glucose 105 Lactic Acid Calcium 9.0 Total Bilirubin 0.9 AST 34 ALT 29 Alkaline Phosphatase 68 Total Protein 7.2 Albumin 4.2 Globulin 3.0 Albumin/Globulin Ratio 1.4 Venous Blood Potassium Urine Color Yellow Urine Clarity Clear Urine pH 6.0 Ur Specific [place] 1.016 Urine Protein Negative Urine Glucose (UA) Neg Urine Ketones Negative Urine Blood Negative Urine Nitrate Negative Urine Bilirubin Negative Urine Urobilinogen 0.2-1.0 Ur Leukocyte Esterase Neg Urine RBC (Auto) 2 Urine Microscopic WBC < 1 Urine Bacteria Rare Blood Type Antibody Screen BBK History Checked 06/21/17 06/21/17 06/21/17 20:20 21:30 21:30 WBC RBC Hgb Hct MCV MCH MCHC RDW Plt Count MPV Neut % (Auto) Lymph % (Auto) [place] % (Auto) Eos % (Auto) Baso % (Auto) Neut # Lymph # [place] # Eos # Baso # PT 16.0 H INR 1.4 H APTT 34.4 pCO2 pO2 25 L HCO3 ABG pH ABG Total CO2 ABG O2 Saturation ABG O2 Content ABG Base Excess ABG Hemoglobin ABG Carboxyhemoglobin POC ABG HHb (Measured) ABG Methemoglobin ABG O2 Capacity Rich Test VBG pH 7.31 L VBG pCO2 60 VBG HCO3 25.2 VBG Total CO2 32.0 H VBG O2 Sat (Calc) 46.4 VBG Base Excess 2.4 H VBG Potassium 5.8 H A-a O2 Difference Hgb O2 Saturation Glucose 111 H Lactate 2.4 H FiO2 21.0 Sodium 131.0 L Potassium Chloride 98.0 Carbon Dioxide Anion Gap BUN Creatinine Est GFR ( Amer) Est GFR (Non-Af Amer) POC Glucose (mg/dL) Random Glucose Lactic Acid Calcium Total Bilirubin AST ALT Alkaline Phosphatase Total Protein Albumin Globulin Albumin/Globulin Ratio Venous Blood Potassium 5.8 H Urine Color Urine Clarity Urine pH Ur Specific [place] Urine Protein Urine Glucose (UA) Urine Ketones Urine Blood Urine Nitrate Urine Bilirubin Urine Urobilinogen Ur Leukocyte Esterase Urine RBC (Auto) Urine Microscopic WBC Urine Bacteria Blood Type O POSITIVE Antibody Screen Negative BBK History Checked No verified bt 06/21/17 06/22/17 06/22/17 21:30 03:02 04:40 WBC 7.3 D RBC 3.02 L Hgb 9.2 L D Hct 28.6 L MCV 94.6 MCH 30.3 MCHC 32.1 L RDW 13.5 Plt Count 96 L D MPV 11.8 H Neut % (Auto) 86.7 H Lymph % (Auto) 9.1 L [place] % (Auto) 4.1 Eos % (Auto) 0.1 Baso % (Auto) 0.0 Neut # 6.3 Lymph # 0.7 L [place] # 0.3 Eos # 0.0 Baso # 0.0 PT INR APTT pCO2 pO2 HCO3 ABG pH ABG Total CO2 ABG O2 Saturation ABG O2 Content ABG Base Excess ABG Hemoglobin ABG Carboxyhemoglobin POC ABG HHb (Measured) ABG Methemoglobin ABG O2 Capacity Rich Test VBG pH VBG pCO2 VBG HCO3 VBG Total CO2 VBG O2 Sat (Calc) VBG Base Excess VBG Potassium A-a O2 Difference Hgb O2 Saturation Glucose Lactate FiO2 Sodium Potassium 5.0 Chloride Carbon Dioxide Anion Gap BUN Creatinine Est GFR ( Amer) Est GFR (Non-Af Amer) POC Glucose (mg/dL) 121 H Random Glucose Lactic Acid Calcium Total Bilirubin AST ALT Alkaline Phosphatase Total Protein Albumin Globulin Albumin/Globulin Ratio Venous Blood Potassium Urine Color Urine Clarity Urine pH Ur Specific [place] Urine Protein Urine Glucose (UA) Urine Ketones Urine Blood Urine Nitrate Urine Bilirubin Urine Urobilinogen Ur Leukocyte Esterase Urine RBC (Auto) Urine Microscopic WBC Urine Bacteria Blood Type Antibody Screen BBK History Checked 06/22/17 06/22/17 06/22/17 04:40 08:10 08:51 WBC RBC Hgb Hct MCV MCH MCHC RDW Plt Count MPV Neut % (Auto) Lymph % (Auto) [place] % (Auto) Eos % (Auto) Baso % (Auto) Neut # Lymph # [place] # Eos # Baso # PT INR APTT pCO2 47 H pO2 70 L HCO3 19.9 L ABG pH 7.25 L ABG Total CO2 22.0 ABG O2 Saturation 95.6 ABG O2 Content 12.3 L ABG Base Excess -6.4 L ABG Hemoglobin 9.2 L ABG Carboxyhemoglobin 1.1 POC ABG HHb (Measured) 4.3 ABG Methemoglobin 0.5 ABG O2 Capacity 12.9 L Rich Test Yes VBG pH VBG pCO2 VBG HCO3 VBG Total CO2 VBG O2 Sat (Calc) VBG Base Excess VBG Potassium A-a O2 Difference 71.0 Hgb O2 Saturation 94.1 L Glucose Lactate FiO2 28.0 Sodium 138 Potassium 4.3 Chloride 108 H Carbon Dioxide 22 Anion Gap 12 BUN 26 H Creatinine 1.3 H Est GFR ( Amer) 47 Est GFR (Non-Af Amer) 39 POC Glucose (mg/dL) Random Glucose 104 Lactic Acid 1.8 Calcium 6.9 L Total Bilirubin AST ALT Alkaline Phosphatase Total Protein Albumin Globulin Albumin/Globulin Ratio Venous Blood Potassium Urine Color Urine Clarity Urine pH Ur Specific [place] Urine Protein Urine Glucose (UA) Urine Ketones Urine Blood Urine Nitrate Urine Bilirubin Urine Urobilinogen Ur Leukocyte Esterase Urine RBC (Auto) Urine Microscopic WBC Urine Bacteria Blood Type Antibody Screen BBK History Checked
[2017-06-22 09:59] LABS: NEUTROPHIL 75 % (42-75); TOTAL CELLS COUNTED 100
[2017-06-22 10:09] LABS: LARGE PLATELETS PRESENT
--- NOTE | 2017-06-22 11:41 | CP.CCUPN ---
CCU Subjective - Physician Review Subjective (Free Text): 86F admitted overnight for perforated bowel 2 Sigmoid diverticulitis, transferred to ICU post [employer] eval for hypotension. BPs improved after initial fluid challenge of 1.5L followed by Norepinephrine drip. Urine output remained oliguric overnight, improved a bit after fluid challenge. PMH and PSH reviewed. Home meds reviewed and last dose of Xarelto was yesterday according to son. Presently eyes closed, but easily arousable, c/o abdominal pain on palpation. No BMS reported overnight. Other vitals reviewed, and I/O's noted. Allergies: NKDA Meds: Norvasc, Coreg, Nexium, Remeron, Valsartan, MVIs, Feosol. ROS: No other pertinent negs or positives on 10+ system review. PMSFH: All Nursing and physician documentation reviewed to date; no new pertinent info noted relevant to current medical problems. MAJOR PROBLEMS: 1. Perforated Sigmoid diverticulitis 2. Severe sepsis/ shock 2 #1 3. Azotemia / Dehydration: r/o ALBER 4. Thromobocytopenia / Coagulopathy PLAN: 1. IVF resuscitation / hydration. 2. Taper vasopressors if BP tolerates. 3. Lactate levels have improved. 4. Empiric abx coverage noted. 5. Hold antihypertensives and Psych drugs for now. 6. Check repeat coags. Last dose of Xarelto almost 24H ago; and has been on ASA. Low platelets 2 septic process, r/o DIC, check Fibrinogen level. If operative procedure considered, will need platelet transfusion and FFP. But no need for acute reversal with PCC. 7. Surgical eval reviewed. Conservative mgmt contemplated. CCU Objective - Vital Signs / Intake & Output Vital Signs (Last 4 hours): Vital Signs Temp Pulse Resp BP Pulse Ox 06/22/17 10:00 75 11 L 71/49 L 10 L 06/22/17 09:00 73 10 L 78/44 L 96 06/22/17 08:00 97.6 F 75 14 105/84 97 Intake and Output (Last 8hrs): Intake & Output 06/21/17 06/22/17 06/22/17 22:59 06:59 14:59 Intake Total 0 2000 Output Total 125 Balance 0 1875 Intake: IV 0 1999 Output: Urine 125 Urethral (Harris) 125 - Physical Exam Head: Positive for: Normocephalic Pupils: Positive for: PERRL Conjunctiva: Positive for: Normal. Negative for: Icteric Mouth: Positive for: Moist Mucous Membranes Neck: Positive for: Normal Range of Motion. Negative for: JVD Respiratory/Chest: Positive for: Clear to Auscultation. Negative for: Accessory Muscle Use, Wheezes Cardiovascular: Positive for: Regular Rate and Rhythm, Normal S1, S2, Tachycardic. Negative for: Murmurs, Rub Abdomen: Positive for: Tenderness, Distention (minimal), Guarding Lower Extremity: Positive for: NORMAL PULSES. Negative for: CALF TENDERNESS, Cyanosis Neurological: Positive for: GCS=15, Motor Func Grossly Intact, Normal Sensory Function Skin: Positive for: Warm, Dry. Negative for: Rashes Psychiatric: Positive for: Alert, Oriented x 3 - Medications Active Medications: Active Medications Generic Name Dose Route Start Last Admin Trade Name Freq PRN Reason Stop Dose Admin Acetaminophen 650 mg 06/21/17 22:04 Tylenol 650 Mg Supp MI Q6 PRN Fever >100.4 F Hydromorphone HCl 0.5 mg 06/22/17 05:25 Dilaudid IVP Q4 TERRY Piperacillin Sod/Tazobactam 100 mls @ 100 mls/hr 06/22/17 02:45 06/22/17 01: 45 Sod 3.375 gm/ Sodium Chloride IVPB 100 mls/hr Q6 TERRY Administration Protocol Sodium Chloride 1,000 mls @ 200 mls/hr 06/22/17 05:20 06/22/17 10:00 Sodium Chloride 0.9% IV 06/23/17 20:18 200 mls/hr .Q5H TERRY Administration Norepinephrine Bitartrate 4 mg 254 mls @ 9.52 mls/hr 06/22/17 06:00 06/22/17 10:21 / Dextrose IV 12.5 mcg/min .Q24H TERRY 47.62 mls/hr Protocol Titration 2.5 MCG/MIN Sodium Chloride 1,000 mls @ 999 mls/hr 06/22/17 07:15 Sodium Chloride 0.9% IV 06/23/17 07:14 .Q1H1M TERRY Metoprolol Tartrate 2.5 mg 06/22/17 04:00 06/22/17 05:07 Lopressor IVP Not Given Q6 TERRY Ondansetron HCl 4 mg 06/21/17 21:14 Zofran Inj IVP Q6 PRN Nausea/Vomiting Pantoprazole Sodium 40 mg 06/22/17 09:00 06/22/17 10:27 Protonix Inj IVP 40 mg DAILY TERRY Administration - Patient Studies Lab Studies: Lab Studies 06/22/17 06/22/17 06/22/17 Range/Units 08:51 08:10 04:40 WBC (4.8-10.8) K/uL RBC (3.80-5.20) Mil/uL Hgb (12.0-16.0) g/dL Hct (34.0-47.0) % MCV (81.0-99.0) fl MCH (27.0-31.0) pg MCHC (33.0-37.0) g/dL RDW (11.5-14.5) % Plt Count (130-400) K/uL MPV (7.2-11.7) fl Neut % (Auto) (50.0-75.0) % Lymph % (Auto) (20.0-40.0) % [place] % (Auto) (0.0-10.0) % Eos % (Auto) (0.0-4.0) % Baso % (Auto) (0.0-2.0) % Neut # (1.8-7.0) K/uL Lymph # (1.0-4.3) K/uL [place] # (0.0-0.8) K/uL Eos # (0.0-0.7) K/uL Baso # (0.0-0.2) K/uL Neutrophils % (Manual) (42-75) % Band Neutrophils % (0-2) % Lymphocytes % (Manual) (20-50) % Monocytes % (Manual) (0-10) % Toxic Granulation Platelet Estimate (NORMAL) Large Platelets Hypochromasia (manual) Tear Drop Cells Ovalocytes [place] Cells Schistocytes PT (9.8-13.1) Seconds INR (0.9-1.2) APTT (25.6-37.1) Seconds pCO2 47 H (35-45) mm/Hg pO2 70 L (30-55) mm/Hg HCO3 19.9 L (21-28) mmol/L ABG pH 7.25 L (7.35-7.45) ABG Total CO2 22.0 (22-28) mmol/L ABG O2 Saturation 95.6 (95-98) % ABG O2 Content 12.3 L (15-23) ML/dL ABG Base Excess -6.4 L (-2.0-3.0) mmol/L ABG Hemoglobin 9.2 L (11.7-17.4) g/dL ABG Carboxyhemoglobin 1.1 (0.5-1.5) % POC ABG HHb (Measured) 4.3 (0.0-5.0) % ABG Methemoglobin 0.5 (0.0-3.0) % ABG O2 Capacity 12.9 L (16-24) mL/dL Rich Test Yes VBG pH (7.32-7.43) VBG pCO2 (40-60) mmHg VBG HCO3 mmol/L VBG Total CO2 (22-28) mmol/L VBG O2 Sat (Calc) (40-65) % VBG Base Excess (0.0-2.0) mmol/L VBG Potassium (3.6-5.2) mmol/L A-a O2 Difference 71.0 mm/Hg Hgb O2 Saturation 94.1 L (95.0-98.0) % Glucose (65-105) mg/dL Lactate (0.7-2.1) mmol/L FiO2 28.0 % Sodium 138 (132-148) mmol/l Potassium 4.3 (3.6-5.0) MMOL/L Chloride 108 H (98-107) mmol/L Carbon Dioxide 22 (22-30) mmol/L Anion Gap 12 (10-20) BUN 26 H (7-17) mg/dl Creatinine 1.3 H (0.7-1.2) mg/dl Est GFR ( Amer) 47 Est GFR (Non-Af Amer) 39 POC Glucose (mg/dL) (65-110) mg/dL Random Glucose 104 (65-105) mg/dL Lactic Acid 1.8 (0.7-2.1) MMOL/L Calcium 6.9 L (8.4-10.2) mg/dL Total Bilirubin (0.2-1.3) mg/dl AST (14-36) U/L ALT (9-52) U/L Alkaline Phosphatase (38-126) U/L Total Protein (6.3-8.2) G/DL Albumin (3.5-5.0) g/dL Globulin (2.2-3.9) gm/dL Albumin/Globulin Ratio (1.0-2.1) Venous Blood Potassium (3.6-5.2) mmol/L Urine Color (YELLOW) Urine Clarity (Clear) Urine pH (5.0-8.0) Ur Specific [place] (1.003-1.030) Urine Protein (NEGATIVE) mg/dL Urine Glucose (UA) (Normal) mg/dL Urine Ketones (NEGATIVE) mg/dL Urine Blood (NEGATIVE) Urine Nitrate (NEGATIVE) Urine Bilirubin (NEGATIVE) Urine Urobilinogen (0.2-1.0) mg/dL Ur Leukocyte Esterase (Negative) [place]/uL Urine RBC (Auto) (0-3) /hpf Urine Microscopic WBC (0-5) /hpf Urine Bacteria (<OCC) Blood Type Antibody Screen BBK History Checked 06/22/17 06/22/17 06/21/17 Range/Units 04:40 03:02 21:30 WBC 7.3 D (4.8-10.8) K/uL RBC 3.02 L (3.80-5.20) Mil/uL Hgb 9.2 L D (12.0-16.0) g/dL Hct 28.6 L (34.0-47.0) % MCV 94.6 (81.0-99.0) fl MCH 30.3 (27.0-31.0) pg MCHC 32.1 L (33.0-37.0) g/dL RDW 13.5 (11.5-14.5) % Plt Count 96 L D (130-400) K/uL MPV 11.8 H (7.2-11.7) fl Neut % (Auto) 86.7 H (50.0-75.0) % Lymph % (Auto) 9.1 L (20.0-40.0) % [place] % (Auto) 4.1 (0.0-10.0) % Eos % (Auto) 0.1 (0.0-4.0) % Baso % (Auto) 0.0 (0.0-2.0) % Neut # 6.3 (1.8-7.0) K/uL Lymph # 0.7 L (1.0-4.3) K/uL [place] # 0.3 (0.0-0.8) K/uL Eos # 0.0 (0.0-0.7) K/uL Baso # 0.0 (0.0-0.2) K/uL Neutrophils % (Manual) 75 (42-75) % Band Neutrophils % 12 H* (0-2) % Lymphocytes % (Manual) 10 L (20-50) % Monocytes % (Manual) 3 (0-10) % Toxic Granulation Present Platelet Estimate Decreased L (NORMAL) Large Platelets Present Hypochromasia (manual) Slight Tear Drop Cells Slight Ovalocytes Slight [place] Cells Slight Schistocytes Slight PT (9.8-13.1) Seconds INR (0.9-1.2) APTT (25.6-37.1) Seconds pCO2 (35-45) mm/Hg pO2 (30-55) mm/Hg HCO3 (21-28) mmol/L ABG pH (7.35-7.45) ABG Total CO2 (22-28) mmol/L ABG O2 Saturation (95-98) % ABG O2 Content (15-23) ML/dL ABG Base Excess (-2.0-3.0) mmol/L ABG Hemoglobin (11.7-17.4) g/dL ABG Carboxyhemoglobin (0.5-1.5) % POC ABG HHb (Measured) (0.0-5.0) % ABG Methemoglobin (0.0-3.0) % ABG O2 Capacity (16-24) mL/dL Rich Test VBG pH (7.32-7.43) VBG pCO2 (40-60) mmHg VBG HCO3 mmol/L VBG Total CO2 (22-28) mmol/L VBG O2 Sat (Calc) (40-65) % VBG Base Excess (0.0-2.0) mmol/L VBG Potassium (3.6-5.2) mmol/L A-a O2 Difference mm/Hg Hgb O2 Saturation (95.0-98.0) % Glucose (65-105) mg/dL Lactate (0.7-2.1) mmol/L FiO2 % Sodium (132-148) mmol/l Potassium 5.0 (3.6-5.0) MMOL/L Chloride (98-107) mmol/L Carbon Dioxide (22-30) mmol/L Anion Gap (10-20) BUN (7-17) mg/dl Creatinine (0.7-1.2) mg/dl Est GFR ( Amer) Est GFR (Non-Af Amer) POC Glucose (mg/dL) 121 H (65-110) mg/dL Random Glucose (65-105) mg/dL Lactic Acid (0.7-2.1) MMOL/L Calcium (8.4-10.2) mg/dL Total Bilirubin (0.2-1.3) mg/dl AST (14-36) U/L ALT (9-52) U/L Alkaline Phosphatase (38-126) U/L Total Protein (6.3-8.2) G/DL Albumin (3.5-5.0) g/dL Globulin (2.2-3.9) gm/dL Albumin/Globulin Ratio (1.0-2.1) Venous Blood Potassium (3.6-5.2) mmol/L Urine Color (YELLOW) Urine Clarity (Clear) Urine pH (5.0-8.0) Ur Specific [place] (1.003-1.030) Urine Protein (NEGATIVE) mg/dL Urine Glucose (UA) (Normal) mg/dL Urine Ketones (NEGATIVE) mg/dL Urine Blood (NEGATIVE) Urine Nitrate (NEGATIVE) Urine Bilirubin (NEGATIVE) Urine Urobilinogen (0.2-1.0) mg/dL Ur Leukocyte Esterase (Negative) [place]/uL Urine RBC (Auto) (0-3) /hpf Urine Microscopic WBC (0-5) /hpf Urine Bacteria (<OCC) Blood Type Antibody Screen BBK History Checked 06/21/17 06/21/17 06/21/17 Range/Units 21:30 21:30 20:20 WBC (4.8-10.8) K/uL RBC (3.80-5.20) Mil/uL Hgb (12.0-16.0) g/dL Hct (34.0-47.0) % MCV (81.0-99.0) fl MCH (27.0-31.0) pg MCHC (33.0-37.0) g/dL RDW (11.5-14.5) % Plt Count (130-400) K/uL MPV (7.2-11.7) fl Neut % (Auto) (50.0-75.0) % Lymph % (Auto) (20.0-40.0) % [place] % (Auto) (0.0-10.0) % Eos % (Auto) (0.0-4.0) % Baso % (Auto) (0.0-2.0) % Neut # (1.8-7.0) K/uL Lymph # (1.0-4.3) K/uL [place] # (0.0-0.8) K/uL Eos # (0.0-0.7) K/uL Baso # (0.0-0.2) K/uL Neutrophils % (Manual) (42-75) % Band Neutrophils % (0-2) % Lymphocytes % (Manual) (20-50) % Monocytes % (Manual) (0-10) % Toxic Granulation Platelet Estimate (NORMAL) Large Platelets Hypochromasia (manual) Tear Drop Cells Ovalocytes [place] Cells Schistocytes PT 16.0 H (9.8-13.1) Seconds INR 1.4 H (0.9-1.2) APTT 34.4 (25.6-37.1) Seconds pCO2 (35-45) mm/Hg pO2 25 L (30-55) mm/Hg HCO3 (21-28) mmol/L ABG pH (7.35-7.45) ABG Total CO2 (22-28) mmol/L ABG O2 Saturation (95-98) % ABG O2 Content (15-23) ML/dL ABG Base Excess (-2.0-3.0) mmol/L ABG Hemoglobin (11.7-17.4) g/dL ABG Carboxyhemoglobin (0.5-1.5) % POC ABG HHb (Measured) (0.0-5.0) % ABG Methemoglobin (0.0-3.0) % ABG O2 Capacity (16-24) mL/dL Rich Test VBG pH 7.31 L (7.32-7.43) VBG pCO2 60 (40-60) mmHg VBG HCO3 25.2 mmol/L VBG Total CO2 32.0 H (22-28) mmol/L VBG O2 Sat (Calc) 46.4 (40-65) % VBG Base Excess 2.4 H (0.0-2.0) mmol/L VBG Potassium 5.8 H (3.6-5.2) mmol/L A-a O2 Difference mm/Hg Hgb O2 Saturation (95.0-98.0) % Glucose 111 H (65-105) mg/dL Lactate 2.4 H (0.7-2.1) mmol/L FiO2 21.0 % Sodium 131.0 L (132-148) mmol/l Potassium (3.6-5.0) MMOL/L Chloride 98.0 (98-107) mmol/L Carbon Dioxide (22-30) mmol/L Anion Gap (10-20) BUN (7-17) mg/dl Creatinine (0.7-1.2) mg/dl Est GFR ( Amer) Est GFR (Non-Af Amer) POC Glucose (mg/dL) (65-110) mg/dL Random Glucose (65-105) mg/dL Lactic Acid (0.7-2.1) MMOL/L Calcium (8.4-10.2) mg/dL Total Bilirubin (0.2-1.3) mg/dl AST (14-36) U/L ALT (9-52) U/L Alkaline Phosphatase (38-126) U/L Total Protein (6.3-8.2) G/DL Albumin (3.5-5.0) g/dL Globulin (2.2-3.9) gm/dL Albumin/Globulin Ratio (1.0-2.1) Venous Blood Potassium 5.8 H (3.6-5.2) mmol/L Urine Color (YELLOW) Urine Clarity (Clear) Urine pH (5.0-8.0) Ur Specific [place] (1.003-1.030) Urine Protein (NEGATIVE) mg/dL Urine Glucose (UA) (Normal) mg/dL Urine Ketones (NEGATIVE) mg/dL Urine Blood (NEGATIVE) Urine Nitrate (NEGATIVE) Urine Bilirubin (NEGATIVE) Urine Urobilinogen (0.2-1.0) mg/dL Ur Leukocyte Esterase (Negative) [place]/uL Urine RBC (Auto) (0-3) /hpf Urine Microscopic WBC (0-5) /hpf Urine Bacteria (<OCC) Blood Type O POSITIVE Antibody Screen Negative BBK History Checked No verified bt 06/21/17 06/21/17 06/21/17 Range/Units 18:30 16:32 16:32 WBC 3.4 L (4.8-10.8) K/uL RBC 4.08 (3.80-5.20) Mil/uL Hgb 12.1 (12.0-16.0) g/dL Hct 38.0 (34.0-47.0) % MCV 93.2 (81.0-99.0) fl MCH 29.6 (27.0-31.0) pg MCHC 31.7 L (33.0-37.0) g/dL RDW 13.4 (11.5-14.5) % Plt Count 142 (130-400) K/uL MPV 10.7 (7.2-11.7) fl Neut % (Auto) 78.9 H (50.0-75.0) % Lymph % (Auto) 16.1 L (20.0-40.0) % [place] % (Auto) 4.3 (0.0-10.0) % Eos % (Auto) 0.4 (0.0-4.0) % Baso % (Auto) 0.3 (0.0-2.0) % Neut # 2.7 (1.8-7.0) K/uL Lymph # 0.5 L (1.0-4.3) K/uL [place] # 0.1 (0.0-0.8) K/uL Eos # 0.0 (0.0-0.7) K/uL Baso # 0.0 (0.0-0.2) K/uL Neutrophils % (Manual) (42-75) % Band Neutrophils % (0-2) % Lymphocytes % (Manual) (20-50) % Monocytes % (Manual) (0-10) % Toxic Granulation Platelet Estimate (NORMAL) Large Platelets Hypochromasia (manual) Tear Drop Cells Ovalocytes [place] Cells Schistocytes PT (9.8-13.1) Seconds INR (0.9-1.2) APTT (25.6-37.1) Seconds pCO2 (35-45) mm/Hg pO2 (30-55) mm/Hg HCO3 (21-28) mmol/L ABG pH (7.35-7.45) ABG Total CO2 (22-28) mmol/L ABG O2 Saturation (95-98) % ABG O2 Content (15-23) ML/dL ABG Base Excess (-2.0-3.0) mmol/L ABG Hemoglobin (11.7-17.4) g/dL ABG Carboxyhemoglobin (0.5-1.5) % POC ABG HHb (Measured) (0.0-5.0) % ABG Methemoglobin (0.0-3.0) % ABG O2 Capacity (16-24) mL/dL Rich Test VBG pH (7.32-7.43) VBG pCO2 (40-60) mmHg VBG HCO3 mmol/L VBG Total CO2 (22-28) mmol/L VBG O2 Sat (Calc) (40-65) % VBG Base Excess (0.0-2.0) mmol/L VBG Potassium (3.6-5.2) mmol/L A-a O2 Difference mm/Hg Hgb O2 Saturation (95.0-98.0) % Glucose (65-105) mg/dL Lactate (0.7-2.1) mmol/L FiO2 % Sodium 138 (132-148) mmol/l Potassium 6.1 H (3.6-5.0) MMOL/L Chloride 100 (98-107) mmol/L Carbon Dioxide 28 (22-30) mmol/L Anion Gap 16 (10-20) BUN 29 H (7-17) mg/dl Creatinine 1.1 (0.7-1.2) mg/dl Est GFR ( Amer) 57 Est GFR (Non-Af Amer) 47 POC Glucose (mg/dL) (65-110) mg/dL Random Glucose 105 (65-105) mg/dL Lactic Acid (0.7-2.1) MMOL/L Calcium 9.0 (8.4-10.2) mg/dL Total Bilirubin 0.9 (0.2-1.3) mg/dl AST 34 (14-36) U/L ALT 29 (9-52) U/L Alkaline Phosphatase 68 (38-126) U/L Total Protein 7.2 (6.3-8.2) G/DL Albumin 4.2 (3.5-5.0) g/dL Globulin 3.0 (2.2-3.9) gm/dL Albumin/Globulin Ratio 1.4 (1.0-2.1) Venous Blood Potassium (3.6-5.2) mmol/L Urine Color Yellow (YELLOW) Urine Clarity Clear (Clear) Urine pH 6.0 (5.0-8.0) Ur Specific [place] 1.016 (1.003-1.030) Urine Protein Negative (NEGATIVE) mg/dL Urine Glucose (UA) Neg (Normal) mg/dL Urine Ketones Negative (NEGATIVE) mg/dL Urine Blood Negative (NEGATIVE) Urine Nitrate Negative (NEGATIVE) Urine Bilirubin Negative (NEGATIVE) Urine Urobilinogen 0.2-1.0 (0.2-1.0) mg/dL Ur Leukocyte Esterase Neg (Negative) [place]/uL Urine RBC (Auto) 2 (0-3) /hpf Urine Microscopic WBC < 1 (0-5) /hpf Urine Bacteria Rare (<OCC) Blood Type Antibody Screen BBK History Checked Laboratory Results - last 24 hr 06/21/17 06/21/17 06/21/17 16:32 16:32 18:30 WBC 3.4 L RBC 4.08 Hgb 12.1 Hct 38.0 MCV 93.2 MCH 29.6 MCHC 31.7 L RDW 13.4 Plt Count 142 MPV 10.7 Neut % (Auto) 78.9 H Lymph % (Auto) 16.1 L [place] % (Auto) 4.3 Eos % (Auto) 0.4 Baso % (Auto) 0.3 Neut # 2.7 Lymph # 0.5 L [place] # 0.1 Eos # 0.0 Baso # 0.0 Neutrophils % (Manual) Band Neutrophils % Lymphocytes % (Manual) Monocytes % (Manual) Toxic Granulation Platelet Estimate Large Platelets Hypochromasia (manual) Tear Drop Cells Ovalocytes [place] Cells Schistocytes PT INR APTT pCO2 pO2 HCO3 ABG pH ABG Total CO2 ABG O2 Saturation ABG O2 Content ABG Base Excess ABG Hemoglobin ABG Carboxyhemoglobin POC ABG HHb (Measured) ABG Methemoglobin ABG O2 Capacity Rich Test VBG pH VBG pCO2 VBG HCO3 VBG Total CO2 VBG O2 Sat (Calc) VBG Base Excess VBG Potassium A-a O2 Difference Hgb O2 Saturation Glucose Lactate FiO2 Sodium 138 Potassium 6.1 H Chloride 100 Carbon Dioxide 28 Anion Gap 16 BUN 29 H Creatinine 1.1 Est GFR ( Amer) 57 Est GFR (Non-Af Amer) 47 POC Glucose (mg/dL) Random Glucose 105 Lactic Acid Calcium 9.0 Total Bilirubin 0.9 AST 34 ALT 29 Alkaline Phosphatase 68 Total Protein 7.2 Albumin 4.2 Globulin 3.0 Albumin/Globulin Ratio 1.4 Venous Blood Potassium Urine Color Yellow Urine Clarity Clear Urine pH 6.0 Ur Specific [place] 1.016 Urine Protein Negative Urine Glucose (UA) Neg Urine Ketones Negative Urine Blood Negative Urine Nitrate Negative Urine Bilirubin Negative Urine Urobilinogen 0.2-1.0 Ur Leukocyte Esterase Neg Urine RBC (Auto) 2 Urine Microscopic WBC < 1 Urine Bacteria Rare Blood Type Antibody Screen BBK History Checked 06/21/17 06/21/17 06/21/17 20:20 21:30 21:30 WBC RBC Hgb Hct MCV MCH MCHC RDW Plt Count MPV Neut % (Auto) Lymph % (Auto) [place] % (Auto) Eos % (Auto) Baso % (Auto) Neut # Lymph # [place] # Eos # Baso # Neutrophils % (Manual) Band Neutrophils % Lymphocytes % (Manual) Monocytes % (Manual) Toxic Granulation Platelet Estimate Large Platelets Hypochromasia (manual) Tear Drop Cells Ovalocytes [place] Cells Schistocytes PT 16.0 H INR 1.4 H APTT 34.4 pCO2 pO2 25 L HCO3 ABG pH ABG Total CO2 ABG O2 Saturation ABG O2 Content ABG Base Excess ABG Hemoglobin ABG Carboxyhemoglobin POC ABG HHb (Measured) ABG Methemoglobin ABG O2 Capacity Rich Test VBG pH 7.31 L VBG pCO2 60 VBG HCO3 25.2 VBG Total CO2 32.0 H VBG O2 Sat (Calc) 46.4 VBG Base Excess 2.4 H VBG Potassium 5.8 H A-a O2 Difference Hgb O2 Saturation Glucose 111 H Lactate 2.4 H FiO2 21.0 Sodium 131.0 L Potassium Chloride 98.0 Carbon Dioxide Anion Gap BUN Creatinine Est GFR ( Amer) Est GFR (Non-Af Amer) POC Glucose (mg/dL) Random Glucose Lactic Acid Calcium Total Bilirubin AST ALT Alkaline Phosphatase Total Protein Albumin Globulin Albumin/Globulin Ratio Venous Blood Potassium 5.8 H Urine Color Urine Clarity Urine pH Ur Specific [place] Urine Protein Urine Glucose (UA) Urine Ketones Urine Blood Urine Nitrate Urine Bilirubin Urine Urobilinogen Ur Leukocyte Esterase Urine RBC (Auto) Urine Microscopic WBC Urine Bacteria Blood Type O POSITIVE Antibody Screen Negative BBK History Checked No verified bt 06/21/17 06/22/17 06/22/17 21:30 03:02 04:40 WBC 7.3 D RBC 3.02 L Hgb 9.2 L D Hct 28.6 L MCV 94.6 MCH 30.3 MCHC 32.1 L RDW 13.5 Plt Count 96 L D MPV 11.8 H Neut % (Auto) 86.7 H Lymph % (Auto) 9.1 L [place] % (Auto) 4.1 Eos % (Auto) 0.1 Baso % (Auto) 0.0 Neut # 6.3 Lymph # 0.7 L [place] # 0.3 Eos # 0.0 Baso # 0.0 Neutrophils % (Manual) 75 Band Neutrophils % 12 H* Lymphocytes % (Manual) 10 L Monocytes % (Manual) 3 Toxic Granulation Present Platelet Estimate Decreased L Large Platelets Present Hypochromasia (manual) Slight Tear Drop Cells Slight Ovalocytes Slight [place] Cells Slight Schistocytes Slight PT INR APTT pCO2 pO2 HCO3 ABG pH ABG Total CO2 ABG O2 Saturation ABG O2 Content ABG Base Excess ABG Hemoglobin ABG Carboxyhemoglobin POC ABG HHb (Measured) ABG Methemoglobin ABG O2 Capacity Rich Test VBG pH VBG pCO2 VBG HCO3 VBG Total CO2 VBG O2 Sat (Calc) VBG Base Excess VBG Potassium A-a O2 Difference Hgb O2 Saturation Glucose Lactate FiO2 Sodium Potassium 5.0 Chloride Carbon Dioxide Anion Gap BUN Creatinine Est GFR ( Amer) Est GFR (Non-Af Amer) POC Glucose (mg/dL) 121 H Random Glucose Lactic Acid Calcium Total Bilirubin AST ALT Alkaline Phosphatase Total Protein Albumin Globulin Albumin/Globulin Ratio Venous Blood Potassium Urine Color Urine Clarity Urine pH Ur Specific [place] Urine Protein Urine Glucose (UA) Urine Ketones Urine Blood Urine Nitrate Urine Bilirubin Urine Urobilinogen Ur Leukocyte Esterase Urine RBC (Auto) Urine Microscopic WBC Urine Bacteria Blood Type Antibody Screen BBK History Checked 06/22/17 06/22/17 06/22/17 04:40 08:10 08:51 WBC RBC Hgb Hct MCV MCH MCHC RDW Plt Count MPV Neut % (Auto) Lymph % (Auto) [place] % (Auto) Eos % (Auto) Baso % (Auto) Neut # Lymph # [place] # Eos # Baso # Neutrophils % (Manual) Band Neutrophils % Lymphocytes % (Manual) Monocytes % (Manual) Toxic Granulation Platelet Estimate Large Platelets Hypochromasia (manual) Tear Drop Cells Ovalocytes [place] Cells Schistocytes PT INR APTT pCO2 47 H pO2 70 L HCO3 19.9 L ABG pH 7.25 L ABG Total CO2 22.0 ABG O2 Saturation 95.6 ABG O2 Content 12.3 L ABG Base Excess -6.4 L ABG Hemoglobin 9.2 L ABG Carboxyhemoglobin 1.1 POC ABG HHb (Measured) 4.3 ABG Methemoglobin 0.5 ABG O2 Capacity 12.9 L Rich Test Yes VBG pH VBG pCO2 VBG HCO3 VBG Total CO2 VBG O2 Sat (Calc) VBG Base Excess VBG Potassium A-a O2 Difference 71.0 Hgb O2 Saturation 94.1 L Glucose Lactate FiO2 28.0 Sodium 138 Potassium 4.3 Chloride 108 H Carbon Dioxide 22 Anion Gap 12 BUN 26 H Creatinine 1.3 H Est GFR ( Amer) 47 Est GFR (Non-Af Amer) 39 POC Glucose (mg/dL) Random Glucose 104 Lactic Acid 1.8 Calcium 6.9 L Total Bilirubin AST ALT Alkaline Phosphatase Total Protein Albumin Globulin Albumin/Globulin Ratio Venous Blood Potassium Urine Color Urine Clarity Urine pH Ur Specific [place] Urine Protein Urine Glucose (UA) Urine Ketones Urine Blood Urine Nitrate Urine Bilirubin Urine Urobilinogen Ur Leukocyte Esterase Urine RBC (Auto) Urine Microscopic WBC Urine Bacteria Blood Type Antibody Screen BBK History Checked Review of Systems - Review of Systems All systems: reviewed and no additional remarkable complaints except (as above) Critical Care Progress Note - Nutrition Nutrition: Nutrition Category Date Time Status NPO Diet [DIET] Diets 06/21/17 Breakfast Active
--- NOTE | 2017-06-22 11:58 | CARD ---
APPROVED REPORT EXAM: Two-dimensional and M-mode echocardiogram with Doppler and color Doppler. Other Information Quality : GoodRhythm : Pacemaker INDICATION Abnormal EKG/Arrhythmia Surgery/Intervention ICD/Pacemaker: 2D DIMENSIONS IVSd0.92 (0.7-1.1cm)LVDd3.84 (3.9-5.9cm) LVOT Diameter2.09 (1.8-2.4cm)PWd0.96 (0.7-1.1cm) IVSs1.27 (0.8-1.2cm)LVDs2.68 (2.5-4.0cm) FS (%) 30.1 %PWs1.19 (0.8-1.2cm) M-Mode DIMENSIONS Left Atrium (MM)4.72 (2.5-4.0cm)IVSd0.66 (0.7-1.1cm) Aortic Root3.47 (2.2-3.7cm)LVDd6.81 (4.0-5.6cm) Aortic Cusp Exc.2.07 (1.5-2.0cm)PWd0.83 (0.7-1.1cm) IVSs1.21 cmFS (%) 41 % LVDs4.03 (2.0-3.8cm)PWs1.68 cm Mitral Valve MV E Fxoocxhr60.0cm/sMV DECEL [id number] A Ptaoqlsn82.5cm/s MV [id number]/A ratio1.1MVA (PHT)5.55cm2 TDI E/Lateral E'0.0E/Medial E'0.0 Pulmonary Valve PV Peak Qhxyfqmp25.6cm/s Tricuspid Valve TR Peak [id number] [id number] Peak Gr.23mmHg [id number] LEFT VENTRICLE The left ventricle is normal size. The left ventricular function is normal. The left ventricular ejection fraction is within the normal range. The Ejection Fraction is 60-65%. There is normal LV segmental wall motion. The left ventricular diastolic function is normal. RIGHT VENTRICLE The right ventricle is normal size. The right ventricular systolic function is normal. ATRIA The left atrium is mildly dilated. The right atrium size is normal. AORTIC VALVE The aortic valve is normal in structure. No aortic regurgitation is present. There is no aortic valvular stenosis. MITRAL VALVE The mitral valve is normal in structure. There is no mitral valve stenosis. Mitral regurgitation is mild. TRICUSPID VALVE The tricuspid valve is normal in structure. There is no tricuspid valve regurgitation noted. PULMONIC VALVE The pulmonary valve is normal in structure. There is no pulmonic valvular regurgitation. GREAT VESSELS The aortic root is normal in size. The IVC is normal in size and collapses >50% with inspiration. PERICARDIAL EFFUSION The pericardium appears normal. <Conclusion> The left atrium is mildly dilated. Mitral regurgitation is mild. The left ventricle is normal size. The left ventricular function is normal. The left ventricular ejection fraction is within the normal range. The Ejection Fraction is 60-65%.
--- NOTE | 2017-06-22 12:48 | CP.PCM.PN ---
Subjective - Date & Time of Evaluation Date of Evaluation: 06/22/17 Time of Evaluation: 11:30 - Subjective Subjective: Pt is afebrile at present Tmax 100.3 on admission alert, oriented, not in distress on pressors- Levophed abd pain controlled however abd tender to palpation Full Code Surrogate decision maker - wil Pichardo Objective - Vital Signs/Intake and Output Vital Signs (last 24 hours): Temp Pulse Resp BP Pulse Ox 98.2 F 80 20 93/60 L 95 06/22/17 12:00 06/22/17 12:00 06/22/17 12:00 06/22/17 12:00 06/22/17 12:00 Intake and Output: 06/22/17 06/22/17 06:59 18:59 Intake Total 0 2254 Output Total 170 Balance 0 2084 - Medications Medications: Current Medications Acetaminophen (Tylenol 650 Mg Supp) 650 mg [place] Q6 PRN PRN Reason: Fever >100.4 F Hydromorphone HCl (Dilaudid) 0.5 mg IVP Q4 TERRY Piperacillin Sod/Tazobactam (Sod 3.375 gm/ Sodium Chloride) 100 mls @ 100 mls/ hr IVPB Q6 TERRY PRN Reason: Protocol Last Admin: 06/22/17 01:45 Dose: 100 mls/hr Sodium Chloride (Sodium Chloride 0.9%) 1,000 mls @ 200 mls/hr IV .Q5H TERRY Stop: 06/23/17 20:18 Last Admin: 06/22/17 10:00 Dose: 200 mls/hr Norepinephrine Bitartrate 4 mg (/ Dextrose) 254 mls @ 9.52 mls/hr IV .Q24H TERRY ; 2.5 MCG/MIN PRN Reason: Protocol Last Admin: 06/22/17 11:55 Dose: 12.5 mcg/min, 47.62 mls/hr Sodium Chloride (Sodium Chloride 0.9%) 1,000 mls @ 999 mls/hr IV .Q1H1M TERRY Stop: 06/23/17 07:14 Metoprolol Tartrate (Lopressor) 2.5 mg IVP Q6 TERRY Last Admin: 06/22/17 05:07 Dose: Not Given Ondansetron HCl (Zofran Inj) 4 mg IVP Q6 PRN PRN Reason: Nausea/Vomiting Pantoprazole Sodium (Protonix Inj) 40 mg IVP DAILY TERRY Last Admin: 06/22/17 10:27 Dose: 40 mg - Labs Labs: 06/22/17 04:40 06/22/17 04:40 PT 16.0 Seconds (9.8-13.1) H 06/21/17 21:30 INR 1.4 (0.9-1.2) H 06/21/17 21:30 APTT 34.4 Seconds (25.6-37.1) 06/21/17 21:30 - Constitutional Appears: No Acute Distress - Head Exam Head Exam: NORMAL INSPECTION, NORMOCEPHALIC - Eye Exam Eye Exam: EOMI, Normal appearance Pupil Exam: NORMAL ACCOMODATION - ENT Exam ENT Exam: Mucous Membranes Dry, Normal External Ear Exam - Neck Exam Neck Exam: Full ROM. absent: Meningismus - Respiratory Exam Respiratory Exam: NORMAL BREATHING PATTERN. absent: Rales, Wheezes, Respiratory Distress - Cardiovascular Exam Cardiovascular Exam: REGULAR RHYTHM, +S1, +S2 - GI/Abdominal Exam GI & Abdominal Exam: Distended, Guarding, Tenderness, Hypoactive Bowel Sounds - Extremities Exam Extremities Exam: Full ROM, Normal Capillary Refill. absent: Calf Tenderness, Pedal Edema - Back Exam Back Exam: absent: CVA tenderness (L), CVA tenderness (R) - Psychiatric Exam Psychiatric exam: Normal Affect, Normal Mood - Skin Skin Exam: Dry, Normal Color, Warm Assessment and Plan (1) Septic shock Status: Acute (2) Perforated sigmoid colon Status: Acute (3) ALBER (acute kidney injury) Status: Acute (4) History of cardiac arrhythmia Status: Chronic - Assessment and Plan (Free Text) Assessment: 86y/o lady with hx of Cardiac Arrhythmia s/p PPM , on Xarelto , came in bec of abd pain. CT of abdomen : Perforated Sigmoid Diverticulitis Pt developed hypotension - admitted to ICU , started on IVF fluid resuscitation , Levophed and IV antibiotics. Surgery consulted. (1) Septic shock sec to perforated sigmoid Diverticulitis Status: Acute Pt in ICU IVF resuscitation on Levophed cont IV Zosyn Surgery consulted - discussed case with Dr Zunilda Medley- rec medicl management for now ID consult (2) Perforated sigmoid colon Status: Acute (3) ALBER (acute kidney injury) Status: Acute likely sec to Sepsis oliguric IVF hydration maintain BP with pressors (4) History of cardiac arrhythmia Status: Chronic unclear cardiac diagnosis hx of Pacemaker placement pt on Xarelto -on hold for now in anticipation of poss surgery Cardiology consulted- Dr Blanchard 5. Thrombocytopenia probs ec to Sepsis will monitor
--- NOTE | 2017-06-22 13:43 | CP.PCM.PN ---
Subjective - Date & Time of Evaluation Date of Evaluation: 06/22/17 Time of Evaluation: 09:30 - Subjective Subjective: General Surgery Pt S&E at bedside this AM. Pt currently able to talk and converse during encounter. Harris, NGT, and TLC R. Fem in place. One one pressor at this time. Denies F/C CP/SOB N/V/D Objective - Vital Signs/Intake and Output Vital Signs (last 24 hours): Temp Pulse Resp BP Pulse Ox 98.2 F 80 20 93/60 L 95 06/22/17 12:00 06/22/17 12:00 06/22/17 12:00 06/22/17 12:00 06/22/17 12:00 Intake and Output: 06/22/17 06/22/17 06:59 18:59 Intake Total 0 2254 Output Total 170 Balance 0 2084 - Medications Medications: Current Medications Acetaminophen (Tylenol 650 Mg Supp) 650 mg [place] Q6 PRN PRN Reason: Fever >100.4 F Hydromorphone HCl (Dilaudid) 0.5 mg IVP Q4 TERRY Piperacillin Sod/Tazobactam (Sod 3.375 gm/ Sodium Chloride) 100 mls @ 100 mls/ hr IVPB Q6 TERRY PRN Reason: Protocol Last Admin: 06/22/17 01:45 Dose: 100 mls/hr Sodium Chloride (Sodium Chloride 0.9%) 1,000 mls @ 200 mls/hr IV .Q5H TERRY Stop: 06/23/17 20:18 Last Admin: 06/22/17 10:00 Dose: 200 mls/hr Norepinephrine Bitartrate 4 mg (/ Dextrose) 254 mls @ 9.52 mls/hr IV .Q24H TERRY ; 2.5 MCG/MIN PRN Reason: Protocol Last Admin: 06/22/17 11:55 Dose: 12.5 mcg/min, 47.62 mls/hr Sodium Chloride (Sodium Chloride 0.9%) 1,000 mls @ 999 mls/hr IV .Q1H1M TERRY Stop: 06/23/17 07:14 Metoprolol Tartrate (Lopressor) 2.5 mg IVP Q6 TERRY Last Admin: 06/22/17 05:07 Dose: Not Given Ondansetron HCl (Zofran Inj) 4 mg IVP Q6 PRN PRN Reason: Nausea/Vomiting Pantoprazole Sodium (Protonix Inj) 40 mg IVP DAILY TERRY Last Admin: 06/22/17 10:27 Dose: 40 mg - Labs Labs: 06/22/17 04:40 06/22/17 04:40 PT 16.0 Seconds (9.8-13.1) H 06/21/17 21:30 INR 1.4 (0.9-1.2) H 06/21/17 21:30 APTT 34.4 Seconds (25.6-37.1) 06/21/17 21:30 - Constitutional Appears: Non-toxic, No Acute Distress - Eye Exam Eye Exam: absent: Scleral icterus - ENT Exam ENT Exam: Mucous Membranes Dry - Respiratory Exam Respiratory Exam: NORMAL BREATHING PATTERN. absent: Accessory Muscle Use, Respiratory Distress - Cardiovascular Exam Cardiovascular Exam: Tachycardia, +S1, +S2. absent: Bradycardia - GI/Abdominal Exam GI & Abdominal Exam: Distended, Guarding, Soft, Tenderness, Rebound. absent: Firm, Rigid Additional comments: tenderness to palpation in RLQ and LLQ involuntary guarding - Extremities Exam Extremities Exam: Normal Inspection. absent: Calf Tenderness - Neurological Exam Neurological Exam: Alert, Awake - Skin Skin Exam: Intact Assessment and Plan - Assessment and Plan (Free Text) Assessment: 86F perforated diverticulitis, no free air seen on imaging Plan: - continue aggressive fluid rehydration - strict I/O - NPO - f/u AM labs - serial abd exams - discussed w/ surgical attending Santana Palacios PGY1
--- NOTE | 2017-06-22 14:33 | PN ---
DATE: 06/22/2017 SUBJECTIVE: Ms. Cazares is an 86-year-old female very well known to me that was admitted last night with a diagnoses of an acute abdomen, sepsis, severe dehydration, ruptured perforated diverticulitis. She is a well known patient with multiple medical problems, on Xarelto. She developed abdominal pain approximately 2 weeks previous to admission and has progressively gotten worse. She came to the Emergency Room when the pain did not subside and she was distended. The CT scan showed pelvic fluid and CT scan consistent with ruptured diverticulitis. She was admitted, and with my consultation, we began aggressive hydration. This was slightly deficient. She was transferred to ICU, placed on vasopressors. At this point, we are weaning her from the vasopressors, increasing the intravenous fluids. After a bolus of 2 L, she is starting to put out approximately 20 to 25 mL of urine an hour. PHYSICAL EXAMINATION: GENERAL: She is awake, alert, oriented x3. States she has no abdominal pain at this point unless she is pressed. HEENT: She is normocephalic, atraumatic. CHEST: Clear. HEART: S1, S2. Regular rate and rhythm. ABDOMEN: Slightly distended, but not much for her habitus. She has pelvic guarding and rebound. The upper abdomen is very soft. EXTREMITIES: Bilaterally symmetrical. LABORATORY DATA: Her white count upon admission was 3.4, repeat this morning is 7.3; her hemoglobin upon admission was 12.1, today is 9.2. The INR is 1.4. Blood gas done this morning shows metabolic acidosis with a base excess of -6.4. Her electrolytes are within normal limits even though yesterday, the potassium was 6.1, today is 4.3; creatinine is 1.3. DIAGNOSIS: Pelvic peritonitis, possibly from a perforated diverticulitis. PLAN: I had discussed at length with the family at this point because of Xarelto and because of the INR, I would like to hold off any surgical intervention. Second, we need to aggressively hydrate her before we will contemplate any surgical intervention. The daughter and son and , all were explained and all in agreement to try conservative treatment until her risks are somewhat decreased. We will follow very closely with you. Kirt Medley MD [facility] # [phone]
[2017-06-22 14:59] LABS: ABG ALLEN TEST YES; ARTERIAL BLOOD GAS PH 7.28 (7.35-7.45); ARTERIAL BLOOD GAS PO2 56 mm/Hg (80-100)
[2017-06-22] MEDS: HYDROmorphone 0.5 mg/0.5 ml ISec IVP PRN ×2 (18:07→23:53)
[2017-06-23] MEDS: metroNIDAZOLE 500mg/100ml NS 100 ML IVPB SCH ×3 (02:00→18:38)
[2017-06-23] MEDS: Piperacillin/Tazobact 3.375 GM in Sodium Chloride 0.9% 100 ML IVPB SCH ×2 (05:09→09:31)
[2017-06-23 05:18] LABS: BASO % 0.2 % (0.0-2.0); EOS # 0.1 K/uL (0.0-0.7); EOS % 0.6 % (0.0-4.0); HEMATOCRIT 26.5 % (34.0-47.0); LYMPH # 0.6 K/uL (1.0-4.3); LYMPH % 6.9 % (20.0-40.0); MEAN CELL VOLUME 93.5 fl (81.0-99.0); MEAN CORPUSCULAR HEMOGLOBIN 30.2 pg (27.0-31.0); MEAN CORPUSCULAR HGB CONC 32.3 g/dL (33.0-37.0); MEAN PLATELET VOLUME 11.7 fl (7.2-11.7); MONO # 0.1 K/uL (0.0-0.8); MONO % 1.5 % (0.0-10.0); NEUT # 8.6 K/uL (1.8-7.0); NEUT % 90.8 % (50.0-75.0); PLATELET COUNT 78 K/uL (130-400); RED CELL DISTRIBUTION WIDTH 13.9 % (11.5-14.5); WHITE BLOOD COUNT 9.4 K/uL (4.8-10.8)
[2017-06-23 05:32] LABS: ALB/GLOB RATIO 1.1 (1.0-2.1); BILIRUBIN,TOTAL 0.5 mg/dl (0.2-1.3); CALCIUM 6.8 mg/dL (8.4-10.2); POTASSIUM 3.9 MMOL/L (3.6-5.0); TOTAL PROTEIN 5.4 G/DL (6.3-8.2)
[2017-06-23 05:39] LABS: VENOUS BLOOD GAS BASE EXCESS -5.3 mmol/L (0.0-2.0); VENOUS BLOOD GAS MODE 2L NC; VENOUS BLOOD GAS PCO2 44 mmHg (40-60); VENOUS BLOOD PH 7.29 (7.32-7.43)
[2017-06-23] MEDS: HYDROmorphone 0.5 mg/0.5 ml ISec IVP PRN (06:53)
--- NOTE | 2017-06-23 08:21 | CP.PCM.PCO ---
Physician Communication Note - Physician Communication Note Physician Communication Note: OR for exploratory lap @ ~ 1PM
--- NOTE | 2017-06-23 09:31 | CP.PCM.PN ---
Subjective - Date & Time of Evaluation Date of Evaluation: 06/23/17 Time of Evaluation: 08:40 - Subjective Subjective: Laying flat comfortably Afebrile Sinus rhythm at 78 BPM BP 110/74 mm Hg No gallop, no rales JVP flat, no calf tenderness, no oedema over feet Echo of reviewed LV syst function well preserved Harris catheter bag has 300 Ml of urine in it (last emptied at 6 AM) Labs show no leucosytosis and normal creatinin, K+ normal Pt stable to go to OR if needed. Objective - Vital Signs/Intake and Output Vital Signs (last 24 hours): Temp Pulse Resp BP Pulse Ox 98.7 F 84 14 103/43 L 91 L 06/23/17 08:00 06/23/17 08:00 06/23/17 08:00 06/23/17 08:00 06/23/17 08:00 Intake and Output: 06/23/17 06/23/17 06:59 18:59 Intake Total 1493 Output Total 440 Balance 1053 - Medications Medications: Current Medications Acetaminophen (Tylenol 650 Mg Supp) 650 mg [place] Q6 PRN PRN Reason: Fever >100.4 F Hydromorphone HCl (Dilaudid) 0.5 mg IVP Q4 PRN PRN Reason: Pain, moderate (4-7) Last Admin: 06/23/17 06:53 Dose: 0.5 mg Piperacillin Sod/Tazobactam (Sod 3.375 gm/ Sodium Chloride) 100 mls @ 100 mls/ hr IVPB Q6 TERRY PRN Reason: Protocol Last Admin: 06/23/17 05:09 Dose: 100 mls/hr Fluconazole (Diflucan Iv 100 Mg/50 Ml Ns) 50 mls @ 50 mls/hr IVPB DAILY TERRY PRN Reason: Protocol Metronidazole (Flagyl 500mg/100ml Ns) 100 mls @ 100 mls/hr IVPB Q8 TERRY PRN Reason: Protocol Last Admin: 06/23/17 02:00 Dose: 100 mls/hr Metoprolol Tartrate (Lopressor) 2.5 mg IVP Q6 TERRY Last Admin: 06/22/17 05:07 Dose: Not Given Ondansetron HCl (Zofran Inj) 4 mg IVP Q6 PRN PRN Reason: Nausea/Vomiting Pantoprazole Sodium (Protonix Inj) 40 mg IVP DAILY TERRY Last Admin: 06/22/17 10:27 Dose: 40 mg - Labs Labs: 06/23/17 04:20 06/23/17 04:20 PT 16.0 Seconds (9.8-13.1) H 06/21/17 21:30 INR 1.4 (0.9-1.2) H 06/21/17 21:30 APTT 18.8 Seconds (25.6-37.1) L D 06/23/17 04:20
--- NOTE | 2017-06-23 09:52 | RAD ---
PROCEDURE: CHEST RADIOGRAPH, 1 VIEW HISTORY: hypoxia COMPARISON: Chest radiograph dated 06/21/2017. FINDINGS: LUNGS: Stable chronic prominence of the bilateral interstitial markings. PLEURA: No pneumothorax or pleural fluid seen. CARDIOVASCULAR: Left subclavian access AICD/ pacemaker redemonstrated. Cardiomediastinal silhouette stably prominent. . OSSEOUS STRUCTURES: Unchanged. VISUALIZED UPPER ABDOMEN: Normal. OTHER FINDINGS: Enteric tube, unchanged. IMPRESSION: No active disease. No significant interval change.
[2017-06-23] MEDS: Fluconazole IV 100mg/50 ml NS 50 ML IVPB SCH (10:51)
--- NOTE | 2017-06-23 10:53 | CP.PCM.CON ---
History of Present Illness - History of Present Illness History of Present Illness: Infectious Disease Consultation Note- asked to see this patietn at the request of for help with antibiotic management in pt. with perforated intestine. HPI- History obtained mostly from the medical chart and hospitalist and some from patient herself as she is weak in ICU. Pt. is a pleasant 86 year old female with PMH of HTN, cardiac arrythmia s/p PPM , left knee total knee replacement who came in to ED the other day with c/o 2 weeks of worsening abdominal pain . as per pt. pain got much worse the other day along with new onset nausea and hence she came to Ed to be evaluated and on admission CT she was found to have perforated sigmoid diverticuli . pt. had SUPPORT ARCHITECT yesterday for HTN and hence was transferred to ICU and was given fluid bolus and pressors but is off pressor today. pt. is awake and alert in ICU but has NGT in placing draianing bilious fluid and she c/o all over abdominal pain but denies any diarrhea and denies any dysurea. per hospitalist pt. may go for surgery if coags get better. pt. has been on IV zosyn as per primary team I added flagyl and IV fluconazole as well. PMH: HTN; HLD; Cardiac dysrrhythmia on Xarelto; PSH: Varicose veins Stripping X4; Appendectomy; Cholecystectomy; Permanent Pace Maker Insertion;Umbilical and left inguinal hernia reapir with Mesh; Left Total Knee replacement SH: Never Smoked; no alcohol; no illegal drugs; Live alone FH: States: Unknown Family Hx Allergies: NKDA Review of Systems - Review of Systems Review of Systems: ROS- denies any fever or chills, denies any PÉREZ, denies any cough, denies any sob, denies any chest pain, denies any vomiting but had nausea on admission, + abdominal pain throughout her abdomen, denies any diarrhea Past Patient History - Past Medical History & Family History Past Medical History?: Yes - Past Social History Smoking Status: Never Smoked Alcohol: None Drugs: Denies Home Situation {Lives}: Alone - CARDIAC Hx Hypercholesterolemia: Yes Hx Hypertension: Yes Hx Pacemaker: Yes - PULMONARY Hx Respiratory Disorders: No - NEUROLOGICAL Hx Neurological Disorder: No - HEENT Hx HEENT Problems: No - RENAL Hx Chronic Kidney Disease: No - ENDOCRINE/METABOLIC Hx Endocrine Disorders: No - HEMATOLOGICAL/ONCOLOGICAL Hx Blood Disorders: No - INTEGUMENTARY Hx Dermatological Problems: No - MUSCULOSKELETAL/RHEUMATOLOGICAL Hx Musculoskeletal Disorders: No - GASTROINTESTINAL Hx Gastrointestinal Disorders: No - GENITOURINARY/GYNECOLOGICAL Hx Genitourinary Disorders: No - PSYCHIATRIC Hx Psychophysiologic Disorder: No Hx Substance Use: No - SURGICAL HISTORY Hx Surgeries: Yes - ANESTHESIA Hx Anesthesia: Yes Hx Anesthesia Reactions: No Hx Malignant Hyperthermia: No Has any member of the family had a problem w/ anesthesia?: No Meds Allergies/Adverse Reactions: Allergies Allergy/AdvReac Type Severity Reaction Status Date / Time No Known Allergies Allergy Verified 06/21/17 14:42 - Medications Medications: Current Medications Acetaminophen (Tylenol 650 Mg Supp) 650 mg MI Q6 PRN PRN Reason: Fever >100.4 F Hydromorphone HCl (Dilaudid) 0.5 mg IVP Q4 PRN PRN Reason: Pain, moderate (4-7) Last Admin: 06/23/17 06:53 Dose: 0.5 mg Piperacillin Sod/Tazobactam (Sod 3.375 gm/ Sodium Chloride) 100 mls @ 100 mls/ hr IVPB Q6 TERRY PRN Reason: Protocol Last Admin: 06/23/17 09:31 Dose: 100 mls/hr Fluconazole (Diflucan Iv 100 Mg/50 Ml Ns) 50 mls @ 50 mls/hr IVPB DAILY TERRY PRN Reason: Protocol Last Admin: 06/23/17 10:51 Dose: 50 mls/hr Metronidazole (Flagyl 500mg/100ml Ns) 100 mls @ 100 mls/hr IVPB Q8 TERRY PRN Reason: Protocol Last Admin: 06/23/17 09:26 Dose: 100 mls/hr Metoprolol Tartrate (Lopressor) 2.5 mg IVP Q6 [facility] Last Admin: 06/22/17 05:07 Dose: Not Given Ondansetron HCl (Zofran Inj) 4 mg IVP Q6 PRN PRN Reason: Nausea/Vomiting Pantoprazole Sodium (Protonix Inj) 40 mg IVP DAILY [facility] Last Admin: 06/23/17 09:30 Dose: 40 mg Physical Exam - Constitutional Appears: No Acute Distress - Head Exam Head Exam: ATRAUMATIC - Eye Exam Eye Exam: EOMI, PERRL - ENT Exam Additional comments: has NGT in place draining bilious fluid - Neck Exam Neck exam: Positive for: Full Rom - Respiratory Exam Respiratory Exam: Clear to Auscultation Bilateral, NORMAL BREATHING PATTERN - Cardiovascular Exam Cardiovascular Exam: RRR, +S1, +S2 - GI/Abdominal Exam Additional comments: mildly distended, + tenderness throughout all 4 quadrants,, does have some bowel sounds + guarding - Extremities Exam Extremities exam: Positive for: normal inspection - Neurological Exam Neurological exam: Alert, Oriented x3 Results - Vital Signs Recent Vital Signs: Last Vital Signs Temp 98.7 F 06/23/17 08:00 Pulse 84 06/23/17 08:00 Resp 14 06/23/17 08:00 BP 103/43 L 06/23/17 08:00 Pulse Ox 91 L 06/23/17 08:00 - Labs Result Diagrams: 06/23/17 04:20 06/23/17 04:20 Labs: Laboratory Results - last 24 hr 06/21/17 06/22/17 06/23/17 21:30 14:45 04:20 WBC 9.4 RBC 2.83 L Hgb 8.6 L Hct 26.5 L MCV 93.5 MCH 30.2 MCHC 32.3 L RDW 13.9 Plt Count 78 L MPV 11.7 Neut % (Auto) 90.8 H Lymph % (Auto) 6.9 L [place] % (Auto) 1.5 Eos % (Auto) 0.6 Baso % (Auto) 0.2 Neut # 8.6 H Lymph # 0.6 L [place]ill # 0.1 Eos # 0.1 Baso # 0.0 PT INR APTT pCO2 41 pO2 56 L HCO3 19.0 L ABG pH 7.28 L ABG Total CO2 20.6 L ABG O2 Saturation 91.3 L ABG Base Excess -7.1 L Rich Test Yes ABG Potassium 4.2 VBG pH VBG pCO2 VBG HCO3 VBG Total CO2 VBG O2 Sat (Calc) VBG Base Excess VBG Potassium A-a O2 Difference 92.0 Sodium 137.0 Chloride 112.0 H Glucose 119 H Lactate 1.1 FiO2 28.0 Potassium Carbon Dioxide Anion Gap BUN Creatinine Est GFR ( Amer) Est GFR (Non-Af Amer) Random Glucose Lactic Acid Calcium Total Bilirubin AST ALT Alkaline Phosphatase Total Protein Albumin Globulin Albumin/Globulin Ratio Arterial Blood Potassium 4.2 Venous Blood Potassium Blood Type O POSITIVE Antibody Screen Negative Crossmatch See Detail BBK History Checked No verified bt 06/23/17 06/23/17 06/23/17 04:20 04:20 04:20 WBC RBC Hgb Hct MCV MCH MCHC RDW Plt Count MPV Neut % (Auto) Lymph % (Auto) [place] % (Auto) Eos % (Auto) Baso % (Auto) Neut # Lymph # [place]ill # Eos # Baso # PT INR APTT 18.8 L D pCO2 pO2 HCO3 ABG pH ABG Total CO2 ABG O2 Saturation ABG Base Excess Rich Test ABG Potassium VBG pH VBG pCO2 VBG HCO3 VBG Total CO2 VBG O2 Sat (Calc) VBG Base Excess VBG Potassium A-a O2 Difference Sodium 140 Chloride 111 H Glucose Lactate FiO2 Potassium 3.9 Carbon Dioxide 22 Anion Gap 11 BUN 18 H Creatinine 1.1 Est GFR ( Amer) 57 Est GFR (Non-Af Amer) 47 Random Glucose 112 H Lactic Acid 1.3 Calcium 6.8 L Total Bilirubin 0.5 AST 203 H D ALT 347 H D Alkaline Phosphatase 92 Total Protein 5.4 L Albumin 2.8 L D Globulin 2.6 Albumin/Globulin Ratio 1.1 Arterial Blood Potassium Venous Blood Potassium Blood Type Antibody Screen Crossmatch BBK History Checked 06/23/17 06/23/17 06/23/17 05:16 08:56 10:07 WBC RBC Hgb Hct MCV MCH MCHC RDW Plt Count MPV Neut % (Auto) Lymph % (Auto) [place] % (Auto) Eos % (Auto) Baso % (Auto) Neut # Lymph # [place]ill # Eos # Baso # PT Cancelled 19.0 H INR Cancelled 1.7 H APTT pCO2 pO2 37 HCO3 ABG pH ABG Total CO2 ABG O2 Saturation ABG Base Excess Rich Test ABG Potassium VBG pH 7.29 L VBG pCO2 44 VBG HCO3 19.9 VBG Total CO2 22.6 VBG O2 Sat (Calc) 79.9 H VBG Base Excess -5.3 L VBG Potassium 3.8 A-a O2 Difference Sodium 138.0 Chloride 111.0 H Glucose 116 H Lactate 1.4 FiO2 28.0 Potassium Carbon Dioxide Anion Gap BUN Creatinine Est GFR ( Amer) Est GFR (Non-Af Amer) Random Glucose Lactic Acid Calcium Total Bilirubin AST ALT Alkaline Phosphatase Total Protein Albumin Globulin Albumin/Globulin Ratio Arterial Blood Potassium Venous Blood Potassium 3.8 Blood Type Antibody Screen Crossmatch BBK History Checked Laboratory Results - last 72 hr 06/21/17 06/21/17 06/21/17 16:32 16:32 18:30 WBC 3.4 L RBC 4.08 Hgb 12.1 Hct 38.0 MCV 93.2 MCH 29.6 MCHC 31.7 L RDW 13.4 Plt Count 142 MPV 10.7 Neut % (Auto) 78.9 H Lymph % (Auto) 16.1 L [place] % (Auto) 4.3 Eos % (Auto) 0.4 Baso % (Auto) 0.3 Neut # 2.7 Lymph # 0.5 L [place]ill # 0.1 Eos # 0.0 Baso # 0.0 Neutrophils % (Manual) Band Neutrophils % Lymphocytes % (Manual) Monocytes % (Manual) Metamyelocytes % Toxic Granulation Platelet Estimate Large Platelets Hypochromasia (manual) Tear Drop Cells Ovalocytes [place] Cells Schistocytes PT INR APTT pCO2 pO2 HCO3 ABG pH ABG Total CO2 ABG O2 Saturation ABG O2 Content ABG Base Excess ABG Hemoglobin ABG Carboxyhemoglobin POC ABG HHb (Measured) ABG Methemoglobin ABG O2 Capacity Rich Test ABG Potassium VBG pH VBG pCO2 VBG HCO3 VBG Total CO2 VBG O2 Sat (Calc) VBG Base Excess VBG Potassium A-a O2 Difference Hgb O2 Saturation Glucose Lactate FiO2 Sodium 138 Potassium 6.1 H Chloride 100 Carbon Dioxide 28 Anion Gap 16 BUN 29 H Creatinine 1.1 Est GFR ( Amer) 57 Est GFR (Non-Af Amer) 47 POC Glucose (mg/dL) Random Glucose 105 Lactic Acid Calcium 9.0 Total Bilirubin 0.9 AST 34 ALT 29 Alkaline Phosphatase 68 Total Protein 7.2 Albumin 4.2 Globulin 3.0 Albumin/Globulin Ratio 1.4 Arterial Blood Potassium Venous Blood Potassium Urine Color Yellow Urine Clarity Clear Urine pH 6.0 Ur Specific [place]nn 1.016 Urine Protein Negative Urine Glucose (UA) Neg Urine Ketones Negative Urine Blood Negative Urine Nitrate Negative Urine Bilirubin Negative Urine Urobilinogen 0.2-1.0 Ur Leukocyte Esterase Neg Urine RBC (Auto) 2 Urine Microscopic WBC < 1 Urine Bacteria Rare Blood Type Antibody Screen Crossmatch BBK History Checked 11/28/17 11/28/17 11/28/17 20:20 21:30 21:30 WBC RBC Hgb Hct MCV MCH MCHC RDW Plt Count MPV Neut % (Auto) Lymph % (Auto) [place] % (Auto) Eos % (Auto) Baso % (Auto) Neut # Lymph # [place] # Eos # Baso # Neutrophils % (Manual) Band Neutrophils % Lymphocytes % (Manual) Monocytes % (Manual) Metamyelocytes % Toxic Granulation Platelet Estimate Large Platelets Hypochromasia (manual) Tear Drop Cells Ovalocytes [place] Cells Schistocytes PT 16.0 H INR 1.4 H APTT 34.4 pCO2 pO2 25 L HCO3 ABG pH ABG Total CO2 ABG O2 Saturation ABG O2 Content ABG Base Excess ABG Hemoglobin ABG Carboxyhemoglobin POC ABG HHb (Measured) ABG Methemoglobin ABG O2 Capacity Rich Test ABG Potassium VBG pH 7.31 L VBG pCO2 60 VBG HCO3 25.2 VBG Total CO2 32.0 H VBG O2 Sat (Calc) 46.4 VBG Base Excess 2.4 H VBG Potassium 5.8 H A-a O2 Difference Hgb O2 Saturation Glucose 111 H Lactate 2.4 H FiO2 21.0 Sodium 131.0 L Potassium Chloride 98.0 Carbon Dioxide Anion Gap BUN Creatinine Est GFR ( Amer) Est GFR (Non-Af Amer) POC Glucose (mg/dL) Random Glucose Lactic Acid Calcium Total Bilirubin AST ALT Alkaline Phosphatase Total Protein Albumin Globulin Albumin/Globulin Ratio Arterial Blood Potassium Venous Blood Potassium 5.8 H Urine Color Urine Clarity Urine pH Ur Specific [place] Urine Protein Urine Glucose (UA) Urine Ketones Urine Blood Urine Nitrate Urine Bilirubin Urine Urobilinogen Ur Leukocyte Esterase Urine RBC (Auto) Urine Microscopic WBC Urine Bacteria Blood Type O POSITIVE Antibody Screen Negative Crossmatch See Detail BBK History Checked No verified bt 06/21/17 06/22/17 06/22/17 21:30 03:02 04:40 WBC 7.3 D RBC 3.02 L Hgb 9.2 L D Hct 28.6 L MCV 94.6 MCH 30.3 MCHC 32.1 L RDW 13.5 Plt Count 96 L D MPV 11.8 H Neut % (Auto) 86.7 H Lymph % (Auto) 9.1 L [place] % (Auto) 4.1 Eos % (Auto) 0.1 Baso % (Auto) 0.0 Neut # 6.3 Lymph # 0.7 L [place]ill # 0.3 Eos # 0.0 Baso # 0.0 Neutrophils % (Manual) 75 Band Neutrophils % 12 H* Lymphocytes % (Manual) 10 L Monocytes % (Manual) 3 Metamyelocytes % Toxic Granulation Present Platelet Estimate Decreased L Large Platelets Present Hypochromasia (manual) Slight Tear Drop Cells Slight Ovalocytes Slight [place] Cells Slight Schistocytes Slight PT INR APTT pCO2 pO2 HCO3 ABG pH ABG Total CO2 ABG O2 Saturation ABG O2 Content ABG Base Excess ABG Hemoglobin ABG Carboxyhemoglobin POC ABG HHb (Measured) ABG Methemoglobin ABG O2 Capacity Rich Test ABG Potassium VBG pH VBG pCO2 VBG HCO3 VBG Total CO2 VBG O2 Sat (Calc) VBG Base Excess VBG Potassium A-a O2 Difference Hgb O2 Saturation Glucose Lactate FiO2 Sodium Potassium 5.0 Chloride Carbon Dioxide Anion Gap BUN Creatinine Est GFR ( Amer) Est GFR (Non-Af Amer) POC Glucose (mg/dL) 121 H Random Glucose Lactic Acid Calcium Total Bilirubin AST ALT Alkaline Phosphatase Total Protein Albumin Globulin Albumin/Globulin Ratio Arterial Blood Potassium Venous Blood Potassium Urine Color Urine Clarity Urine pH Ur Specific [place] Urine Protein Urine Glucose (UA) Urine Ketones Urine Blood Urine Nitrate Urine Bilirubin Urine Urobilinogen Ur Leukocyte Esterase Urine RBC (Auto) Urine Microscopic WBC Urine Bacteria Blood Type Antibody Screen Crossmatch BBK History Checked 06/22/17 06/22/17 06/22/17 04:40 08:10 08:51 WBC RBC Hgb Hct MCV MCH MCHC RDW Plt Count MPV Neut % (Auto) Lymph % (Auto) [place] % (Auto) Eos % (Auto) Baso % (Auto) Neut # Lymph # [place] # Eos # Baso # Neutrophils % (Manual) Band Neutrophils % Lymphocytes % (Manual) Monocytes % (Manual) Metamyelocytes % Toxic Granulation Platelet Estimate Large Platelets Hypochromasia (manual) Tear Drop Cells Ovalocytes [place] Cells Schistocytes PT INR APTT pCO2 47 H pO2 70 L HCO3 19.9 L ABG pH 7.25 L ABG Total CO2 22.0 ABG O2 Saturation 95.6 ABG O2 Content 12.3 L ABG Base Excess -6.4 L ABG Hemoglobin 9.2 L ABG Carboxyhemoglobin 1.1 POC ABG HHb (Measured) 4.3 ABG Methemoglobin 0.5 ABG O2 Capacity 12.9 L Rich Test Yes ABG Potassium VBG pH VBG pCO2 VBG HCO3 VBG Total CO2 VBG O2 Sat (Calc) VBG Base Excess VBG Potassium A-a O2 Difference 71.0 Hgb O2 Saturation 94.1 L Glucose Lactate FiO2 28.0 Sodium 138 Potassium 4.3 Chloride 108 H Carbon Dioxide 22 Anion Gap 12 BUN 26 H Creatinine 1.3 H Est GFR ( Amer) 47 Est GFR (Non-Af Amer) 39 POC Glucose (mg/dL) Random Glucose 104 Lactic Acid 1.8 Calcium 6.9 L Total Bilirubin AST ALT Alkaline Phosphatase Total Protein Albumin Globulin Albumin/Globulin Ratio Arterial Blood Potassium Venous Blood Potassium Urine Color Urine Clarity Urine pH Ur Specific [place] Urine Protein Urine Glucose (UA) Urine Ketones Urine Blood Urine Nitrate Urine Bilirubin Urine Urobilinogen Ur Leukocyte Esterase Urine RBC (Auto) Urine Microscopic WBC Urine Bacteria Blood Type Antibody Screen Crossmatch BBK History Checked 06/22/17 06/23/17 06/23/17 14:45 04:20 04:20 WBC 9.4 RBC 2.83 L Hgb 8.6 L Hct 26.5 L MCV 93.5 MCH 30.2 MCHC 32.3 L RDW 13.9 Plt Count 78 L MPV 11.7 Neut % (Auto) 90.8 H Lymph % (Auto) 6.9 L [place] % (Auto) 1.5 Eos % (Auto) 0.6 Baso % (Auto) 0.2 Neut # 8.6 H Lymph # 0.6 L [place] # 0.1 Eos # 0.1 Baso # 0.0 Neutrophils % (Manual) 83 H Band Neutrophils % 5 H Lymphocytes % (Manual) 10 L Monocytes % (Manual) 1 Metamyelocytes % 1 H Toxic Granulation Present Platelet Estimate Decreased L Large Platelets Hypochromasia (manual) Slight Tear Drop Cells Ovalocytes Slight [place] Cells Schistocytes PT INR APTT pCO2 41 pO2 56 L HCO3 19.0 L ABG pH 7.28 L ABG Total CO2 20.6 L ABG O2 Saturation 91.3 L ABG O2 Content ABG Base Excess -7.1 L ABG Hemoglobin ABG Carboxyhemoglobin POC ABG HHb (Measured) ABG Methemoglobin ABG O2 Capacity Rich Test Yes ABG Potassium 4.2 VBG pH VBG pCO2 VBG HCO3 VBG Total CO2 VBG O2 Sat (Calc) VBG Base Excess VBG Potassium A-a O2 Difference 92.0 Hgb O2 Saturation Glucose 119 H Lactate 1.1 FiO2 28.0 Sodium 137.0 140 Potassium 3.9 Chloride 112.0 H 111 H Carbon Dioxide 22 Anion Gap 11 BUN 18 H Creatinine 1.1 Est GFR ( Amer) 57 Est GFR (Non-Af Amer) 47 POC Glucose (mg/dL) Random Glucose 112 H Lactic Acid Calcium 6.8 L Total Bilirubin 0.5 AST 203 H D ALT 347 H D Alkaline Phosphatase 92 Total Protein 5.4 L Albumin 2.8 L D Globulin 2.6 Albumin/Globulin Ratio 1.1 Arterial Blood Potassium 4.2 Venous Blood Potassium Urine Color Urine Clarity Urine pH Ur Specific [place] Urine Protein Urine Glucose (UA) Urine Ketones Urine Blood Urine Nitrate Urine Bilirubin Urine Urobilinogen Ur Leukocyte Esterase Urine RBC (Auto) Urine Microscopic WBC Urine Bacteria Blood Type Antibody Screen Crossmatch BBK History Checked 06/23/17 06/23/17 06/23/17 04:20 04:20 05:16 WBC RBC Hgb Hct MCV MCH MCHC RDW Plt Count MPV Neut % (Auto) Lymph % (Auto) [place] % (Auto) Eos % (Auto) Baso % (Auto) Neut # Lymph # [place] # Eos # Baso # Neutrophils % (Manual) Band Neutrophils % Lymphocytes % (Manual) Monocytes % (Manual) Metamyelocytes % Toxic Granulation Platelet Estimate Large Platelets Hypochromasia (manual) Tear Drop Cells Ovalocytes [place] Cells Schistocytes PT INR APTT 18.8 L D pCO2 pO2 37 HCO3 ABG pH ABG Total CO2 ABG O2 Saturation ABG O2 Content ABG Base Excess ABG Hemoglobin ABG Carboxyhemoglobin POC ABG HHb (Measured) ABG Methemoglobin ABG O2 Capacity Rich Test ABG Potassium VBG pH 7.29 L VBG pCO2 44 VBG HCO3 19.9 VBG Total CO2 22.6 VBG O2 Sat (Calc) 79.9 H VBG Base Excess -5.3 L VBG Potassium 3.8 A-a O2 Difference Hgb O2 Saturation Glucose 116 H Lactate 1.4 FiO2 28.0 Sodium 138.0 Potassium Chloride 111.0 H Carbon Dioxide Anion Gap BUN Creatinine Est GFR ( Amer) Est GFR (Non-Af Amer) POC Glucose (mg/dL) Random Glucose Lactic Acid 1.3 Calcium Total Bilirubin AST ALT Alkaline Phosphatase Total Protein Albumin Globulin Albumin/Globulin Ratio Arterial Blood Potassium Venous Blood Potassium 3.8 Urine Color Urine Clarity Urine pH Ur Specific [place] Urine Protein Urine Glucose (UA) Urine Ketones Urine Blood Urine Nitrate Urine Bilirubin Urine Urobilinogen Ur Leukocyte Esterase Urine RBC (Auto) Urine Microscopic WBC Urine Bacteria Blood Type Antibody Screen Crossmatch BBK History Checked 06/23/17 06/23/17 08:56 10:07 WBC RBC Hgb Hct MCV MCH MCHC RDW Plt Count MPV Neut % (Auto) Lymph % (Auto) [place] % (Auto) Eos % (Auto) Baso % (Auto) Neut # Lymph # [place] # Eos # Baso # Neutrophils % (Manual) Band Neutrophils % Lymphocytes % (Manual) Monocytes % (Manual) Metamyelocytes % Toxic Granulation Platelet Estimate Large Platelets Hypochromasia (manual) Tear Drop Cells Ovalocytes [place] Cells Schistocytes PT Cancelled 19.0 H INR Cancelled 1.7 H APTT pCO2 pO2 HCO3 ABG pH ABG Total CO2 ABG O2 Saturation ABG O2 Content ABG Base Excess ABG Hemoglobin ABG Carboxyhemoglobin POC ABG HHb (Measured) ABG Methemoglobin ABG O2 Capacity Rich Test ABG Potassium VBG pH VBG pCO2 VBG HCO3 VBG Total CO2 VBG O2 Sat (Calc) VBG Base Excess VBG Potassium A-a O2 Difference Hgb O2 Saturation Glucose Lactate FiO2 Sodium Potassium Chloride Carbon Dioxide Anion Gap BUN Creatinine Est GFR ( Amer) Est GFR (Non-Af Amer) POC Glucose (mg/dL) Random Glucose Lactic Acid Calcium Total Bilirubin AST ALT Alkaline Phosphatase Total Protein Albumin Globulin Albumin/Globulin Ratio Arterial Blood Potassium Venous Blood Potassium Urine Color Urine Clarity Urine pH Ur Specific [place] Urine Protein Urine Glucose (UA) Urine Ketones Urine Blood Urine Nitrate Urine Bilirubin Urine Urobilinogen Ur Leukocyte Esterase Urine RBC (Auto) Urine Microscopic WBC Urine Bacteria Blood Type Antibody Screen Crossmatch BBK History Checked Microbiology 06/22/17 11:24 Naris MRSA Culture (Admit) - Final MRSA NOT DETECTED 06/21/17 20:35 Blood Blood Culture - Preliminary NO GROWTH AFTER 24 HOURS 06/21/17 20:15 Blood Blood Culture - Preliminary NO GROWTH AFTER 24 HOURS Accession No. : [id number] Patient Name / ID : LING IVEY / [id number] Exam Date : 06/23/2017 00:45:26 ( Approved ) Study Comment : Sex / Age : F / 86Y Creator : Abhishek Lovelace MD Dictator : Abhishek Lovelace MD Sales Associate Fishing : Rug Inspector : Abhishek Lovelace MD Approver2 : Report Date : 06/23/2017 09:50:49 My Comment : PROCEDURE: CHEST RADIOGRAPH, 1 VIEW HISTORY: hypoxia COMPARISON: Chest radiograph dated 06/21/2017. FINDINGS: LUNGS: Stable chronic prominence of the bilateral interstitial markings. PLEURA: No pneumothorax or pleural fluid seen. CARDIOVASCULAR: Left subclavian access AICD/ pacemaker redemonstrated. Cardiomediastinal silhouette stably prominent. . OSSEOUS STRUCTURES: Unchanged. VISUALIZED UPPER ABDOMEN: Normal. OTHER FINDINGS: Enteric tube, unchanged. IMPRESSION: No active disease. No significant interval change. Accession No. : [id number] Patient Name / ID : LING IVEY / [id number] Exam Date : 06/21/2017 18:40:14 ( Approved ) Study Comment : Sex / Age : F / 86Y Creator : ELVA POTTER Dictator : Sales Associate Fishing : Rug Inspector : ELVA POTTER Approver2 : Report Date : 06/21/2017 19:38:00 My Comment : [facility] Division of Radiology [address] [place] [address] Tel. no. Patient Name: LONI DUBON Pt. Address: [address] [place] [address] Rec #: [id number] [place] [address]: Lyndsey MCCOY,Arcelia Berry Pt HOME Order Location: [facility] : 1930 Female Age: 86 Order #: [id number] Reason for exam: abd pain CT Scan ABD PELVIS PO IV CONTRAST Exam Date: 06/21/17 This imaging exam was performed at [facility] ADDENDUM Addendum created by Elva Potter MD on 06/21/2017 7:46:27 PM EST Findings were discussed with Dr. Smith at 7:46 PM EST on 06/21/2017. Initial report created on 06/21/2017 7:38:13 PM EST EXAM: CT Abdomen and Pelvis With Intravenous Contrast EXAM DATE/TIME: 06/21/2017 4:01 PM CLINICAL HISTORY: 86 years old, female; Pain; Abdominal pain; Generalized; Patient HX: Pat C/O of diffused abdominal pain associated with difficoultu urinating and nausea; Additional info: Abd pain TECHNIQUE: Axial computed tomography images of the abdomen and pelvis with intravenous contrast. All CT scans at this facility use one or more dose reduction techniques, viz.: automated exposure control; ma/kV adjustment per patient size (including targeted exams where dose is matched to indication; i.e. head); or iterative reconstruction technique. Coronal and sagittal reformatted images were created and reviewed. CONTRAST: 95 mL of OMNIPAQUE 300 administered intravenously. COMPARISON: There are no prior studies for comparison. FINDINGS: Lower thorax: The heart is enlarged.There is streak artifact from pacemaker leads. There is a hiatal hernia. There is reflux of oral contrast into the hernia and distal esophagus. There is airspace disease at the lung bases. ABDOMEN: Liver: There is fatty infiltration of the liver. Gallbladder and bile ducts: Gallbladder is absent.There is prominence of the common duct. There is mild intrahepatic biliary ductal prominence. Pancreas: Pancreas is mildly atrophic. Spleen: unremarkable Adrenals: unremarkable Kidneys and ureters: There is a low attenuation right renal lesion too small to accurately characterize possibly cysts. There is a left renal cyst. There is bilateral cortical scarring.There is no pelvocaliectasis or ureterectasis. Stomach and bowel: Stomach is partially distended with contrast. There is a contrast fluid level. Rotation is normal. Small bowel is incompletely opacified with oral contrast. Distal small bowel loops in the pelvis are abnormal. There is mild dilatation. There is mild wall thickening and fold thickening. There is no small bowel obstruction. There is terminal ileal wall thickening. Appendix is not visualized.Colon is incompletely distended which limits evaluation. There is scattered diverticulosis. There is sigmoid diverticulitis. There is perforation with free air and free fluid in the pelvis. Appendix: See stomach and bowel PELVIS: Bladder: Bladder is partially distended. There is bladder wall thickening. There is a Harris catheter. There is air in the bladder. Reproductive: Uterus is not visualized suggesting hysterectomy. There are no adnexal masses. ABDOMEN and PELVIS: Intraperitoneal space: There is free fluid in the pelvis. There is free air in the pelvis. Bones/joints: Bony structures are osteopenic. There are degenerative changes. There is L5 spondylolysis with spondylolisthesis. There is narrowing of the L5-S1 disc space. Soft tissues: There is a fat containing ventral hernia. There is a small fat containing umbilical hernia. There is surgical mesh in the abdominal wall. There are multiple surgical clips in the right inguinal region. 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 There are vascular calcifications. Lymph nodes: There are is shotty adenopathy. IMPRESSION: Perforated sigmoid diverticulitis with ileus Additional findings as described above. Addendum Dictated By: Elva Potter MD Addendum Dictated Date Time:06/21/17 Addendum Signed by:Elva Potter MD Addendum signed Date Time: 06/21/171945 Addendum Transcribed By: ESTEBAN Addendum Transcribed Date Time: 06/21/17 KAITLIN/BRAIN EXAM: CT Abdomen and Pelvis With Intravenous Contrast EXAM DATE/TIME: 06/21/2017 4:01 PM CLINICAL HISTORY: 86 years old, female; Pain; Abdominal pain; Generalized; Patient HX: Pat C/O of diffused abdominal pain associated with difficoultu urinating and nausea; Additional info: Abd pain TECHNIQUE: Axial computed tomography images of the abdomen and pelvis with intravenous contrast. All CT scans at this facility use one or more dose reduction techniques, viz.: automated exposure control; ma/kV adjustment per patient size (including targeted exams where dose is matched to indication; i.e. head); or iterative reconstruction technique. Coronal and sagittal reformatted images were created and reviewed. CONTRAST: 95 mL of OMNIPAQUE 300 administered intravenously. COMPARISON: There are no prior studies for comparison. FINDINGS: Lower thorax: The heart is enlarged.There is streak artifact from pacemaker leads. There is a hiatal hernia. There is reflux of oral contrast into the hernia and distal esophagus. There is airspace disease at the lung bases. ABDOMEN: Liver: There is fatty infiltration of the liver. Gallbladder and bile ducts: Gallbladder is absent.There is prominence of the common duct. There is mild intrahepatic biliary ductal prominence. Pancreas: Pancreas is mildly atrophic. Spleen: unremarkable Adrenals: unremarkable Kidneys and ureters: There is a low attenuation right renal lesion too small to accurately characterize possibly cysts. There is a left renal cyst. There is bilateral cortical scarring.There is no pelvocaliectasis or ureterectasis. Stomach and bowel: Stomach is partially distended with contrast. There is a contrast fluid level. Rotation is normal. Small bowel is incompletely opacified with oral contrast. Distal small bowel loops in the pelvis are abnormal. There is mild dilatation. There is mild wall thickening and fold thickening. There is no small bowel obstruction. There is terminal ileal wall thickening. Appendix is not visualized.Colon is incompletely distended which limits evaluation. There is scattered diverticulosis. There is sigmoid diverticulitis. There is perforation with free air and free fluid in the pelvis. Appendix: See stomach and bowel PELVIS: Bladder: Bladder is partially distended. There is bladder wall thickening. There is a Harris catheter. There is air in the bladder. Reproductive: Uterus is not visualized suggesting hysterectomy. There are no adnexal masses. ABDOMEN and PELVIS: Intraperitoneal space: There is free fluid in the pelvis. There is free air in the pelvis. Bones/joints: Bony structures are osteopenic. There are degenerative changes. There is L5 spondylolysis with spondylolisthesis. There is narrowing of the L5-S1 disc space. Soft tissues: There is a fat containing ventral hernia. There is a small fat containing umbilical hernia. There is surgical mesh in the abdominal wall. There are multiple surgical clips in the right inguinal region. 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 There are vascular calcifications. Lymph nodes: There are is shotty adenopathy. IMPRESSION: Perforated sigmoid diverticulitis with ileus Additional findings as described above. Dictated By: Elva Potter MD, MD Dictated Date/Time: 06/21/171937 Signed By: Elva Potter MD Date Signed: 1935 Transcribed By: ESTEBAN Transcribe Date/Time : 06/21/171937 KAITLIN/BRAIN Assessment & Plan (1) Perforated sigmoid colon Status: Acute (2) Septic shock Status: Acute (3) History of cardiac arrhythmia Status: Chronic - Assessment and Plan (Free Text) Assessment: A/P- 86 year old female with perforated sigmoid diverticuli . pt. afebrile and has normal wbc count but has elevated lactate level. blood cx- neg x [address] report note and all imaging and labs reviewed. advise to continue to cover with broad spectrum antibiotics and antifungal in light of perforated colon . plan- continue with IV zosyn. day #2. continue with IV flagyl and IV fluconazole day #1. f/u surgical input. f/u lactate and WBC levels. all above d/w patient and with and with [facility] . ICU time spent 60 minutes.
[2017-06-23] MEDS ORDERED: Sodium Chloride 0.9% 1,000 ML IV SCH (11:00)
[2017-06-23] MEDS ORDERED: Desmopressin 4 mcg/ml Inj (10 ml) IV ONE (11:05)
[2017-06-23] MEDS ORDERED: Phytonadione 1 mg/0.5 ml Inj (Neonatal) IM ONE (11:07)
[2017-06-23 11:13] LABS: METAMYELOCYTE 1 % (0-0); NEUTROPHIL 83 % (42-75); TOTAL CELLS COUNTED 100
[2017-06-23] MEDS ORDERED: Phytonadione 10 mg/ml Inj (Adult) IVPB ONE (11:13)
--- NOTE | 2017-06-23 11:40 | CP.PCM.PN ---
Subjective - Date & Time of Evaluation Date of Evaluation: 06/23/17 Time of Evaluation: 10:45 - Subjective Subjective: No fever hemodynamically stable, off pressors abd pain controlled denies CP no SOB Plan for Surgery today Platelet 78 - Platelet transfusion ordered INR= 1.7 - transfused 2 units FFP , 2 more units ordered Objective - Vital Signs/Intake and Output Vital Signs (last 24 hours): Temp Pulse Resp BP Pulse Ox 98.7 F 84 14 103/43 L 91 L 06/23/17 08:00 06/23/17 08:00 06/23/17 08:00 06/23/17 08:00 06/23/17 08:00 Intake and Output: 06/23/17 06/23/17 06:59 18:59 Intake Total 1493 Output Total 440 Balance 1053 - Medications Medications: Current Medications Acetaminophen (Tylenol 650 Mg Supp) 650 mg GA Q6 PRN PRN Reason: Fever >100.4 F Desmopressin Acetate (Ddavp) 10 mcg IV ONCE ONE Stop: 06/23/17 11:06 Hydromorphone HCl (Dilaudid) 0.5 mg IVP Q4 PRN PRN Reason: Pain, moderate (4-7) Last Admin: 06/23/17 06:53 Dose: 0.5 mg Piperacillin Sod/Tazobactam (Sod 3.375 gm/ Sodium Chloride) 100 mls @ 100 mls/ hr IVPB Q6 TERRY PRN Reason: Protocol Last Admin: 06/23/17 09:31 Dose: 100 mls/hr Fluconazole (Diflucan Iv 100 Mg/50 Ml Ns) 50 mls @ 50 mls/hr IVPB DAILY TERRY PRN Reason: Protocol Last Admin: 06/23/17 10:51 Dose: 50 mls/hr Metronidazole (Flagyl 500mg/100ml Ns) 100 mls @ 100 mls/hr IVPB Q8 TERRY PRN Reason: Protocol Last Admin: 06/23/17 09:26 Dose: 100 mls/hr Sodium Chloride (Sodium Chloride 0.9%) 1,000 mls @ 150 mls/hr IV .Q6H40M TERRY Stop: 06/26/17 10:54 Metoprolol Tartrate (Lopressor) 2.5 mg IVP Q6 TERRY Last Admin: 06/22/17 05:07 Dose: Not Given Ondansetron HCl (Zofran Inj) 4 mg IVP Q6 PRN PRN Reason: Nausea/Vomiting Pantoprazole Sodium (Protonix Inj) 40 mg IVP DAILY TERRY Last Admin: 06/23/17 09:30 Dose: 40 mg Phytonadione (Vitamin K Inj) 10 mg IVPB ONCE ONE Stop: 06/23/17 11:14 - Labs Labs: 06/23/17 04:20 06/23/17 04:20 PT 19.0 Seconds (9.8-13.1) H 06/23/17 10:07 INR 1.7 (0.9-1.2) H 06/23/17 10:07 APTT 18.8 Seconds (25.6-37.1) L D 06/23/17 04:20 - Constitutional Appears: No Acute Distress - Head Exam Head Exam: NORMAL INSPECTION, NORMOCEPHALIC - Eye Exam Eye Exam: EOMI, Normal appearance Pupil Exam: NORMAL ACCOMODATION - ENT Exam ENT Exam: Mucous Membranes Dry, Normal External Ear Exam - Neck Exam Neck Exam: Full ROM. absent: Meningismus - Respiratory Exam Respiratory Exam: NORMAL BREATHING PATTERN. absent: Rales, Wheezes, Respiratory Distress - Cardiovascular Exam Cardiovascular Exam: REGULAR RHYTHM, +S1, +S2 - GI/Abdominal Exam GI & Abdominal Exam: Distended, Guarding, Tenderness, Hypoactive Bowel Sounds - Extremities Exam Extremities Exam: Full ROM, Normal Capillary Refill. absent: Calf Tenderness, Pedal Edema - Back Exam Back Exam: absent: CVA tenderness (L), CVA tenderness (R) - Psychiatric Exam Psychiatric exam: Normal Affect, Normal Mood - Skin Skin Exam: Dry, Normal Color, Warm Assessment and Plan (1) Septic shock Status: Acute (2) Perforated sigmoid colon Status: Acute (3) ALBER (acute kidney injury) Status: Acute (4) History of cardiac arrhythmia Status: Chronic - Assessment and Plan (Free Text) Assessment: 86y/o lady with hx of Cardiac Arrhythmia s/p PPM , on Xarelto , came in bec of abd pain. CT of abdomen : Perforated Sigmoid Diverticulitis Initially admitted to [facility] , started on IVF fluid and IV antibiotics, Surgery consulted. Pt then had [employer] for Hypotension - transferred to ICU - started on IVF resuscitation , Levophed. Plan for Surgery this afternoon. (1) Septic shock sec to perforated sigmoid Diverticulitis Status: Acute Pt in ICU IVF resuscitation was on Levophed- now off BP stable cont IV Zosyn, IV Flagyl added by Dr Rice Surgery consulted - Dr Zunilda Medley- plan for (2) Perforated sigmoid colon Status: Acute as above (3) ALBER (acute kidney injury) Status: Acute likely sec to Sepsis initially oliguric , UO better today IVF hydration, now off pressors (4) History of cardiac arrhythmia Status: Chronic unclear cardiac diagnosis hx of Pacemaker placement pt was on Xarelto at home Cardiology consulted- Dr Blanchard 5. Thrombocytopenia/ Coagulopathy prob sec to Sepsis INR=1.7 Platelet =78 Hematology consult: discussed case with Dr Dawn Blanchard - rec FFP , platelet transfusion DDAVP 30 minutes prior to surgery Vit K 10 mg IV given 6. Abn LFT ? sec to Shock liver, meds will monitor DVT proph : SCD no anticoag sec to low Platelet and coagulopathy
[2017-06-23] MEDS ORDERED: Phytonadione 10 MG in Dextrose 5% In Water 50 ML IV ONE (12:00)
[2017-06-23 12:16] LABS: HEMATOCRIT 30.3 % (34.0-47.0); MEAN CELL VOLUME 93.4 fl (81.0-99.0); MEAN CORPUSCULAR HEMOGLOBIN 30.1 pg (27.0-31.0); MEAN CORPUSCULAR HGB CONC 32.2 g/dL (33.0-37.0)
[2017-06-23 12:23] LABS: PARTIAL THROMBOPLASTIN TIME 34.8 Seconds (25.6-37.1)
[2017-06-23] MEDS ORDERED: Lidocaine 1% Inj (20ml) ONE (12:25)
[2017-06-23] MEDS ORDERED: ceFAZolin IV 1 gm in Dextrose 1 GM/50 ML BAG IVPB ONE (12:25)
[2017-06-23] MEDS ORDERED: ceFAZolin IV 1 gm in Dextrose 0 GM/0 ML BAG IVPB ONE (12:25)
[2017-06-23] MEDS ORDERED: Bupivacaine 0.5% Inj(30mL) ONE (12:25)
[2017-06-23] MEDS ORDERED: metroNIDAZOLE 500mg/100ml NS 0 ML IVPB ONE (12:31)
--- NOTE | 2017-06-23 13:39 | CP.CCUPN ---
CCU Subjective - Physician Review Subjective (Free Text): Arousable and responsive, NGT has drained approx 1800 ml. Intermittent abd pain , relieved with Dilaudid. Had SOB last night, IVF NSS stopped for a few hours. Other vitals reviewed, and I/O's noted. ROS: No other pertinent negs or positives on 10+ system review. PMSFH: All Nursing and physician documentation reviewed to date; no new pertinent info noted relevant to current medical problems. CXR: Increased congestive changes bibasilar areas (my interp). MAJOR PROBLEMS: 1. Perforated Sigmoid diverticulitis 2. Severe sepsis/ shock 2 #1 3. Azotemia / Dehydration: r/o ALBER 4. Thrombocytopenia / Coagulopathy PLAN: 1. Decrease IVF hydration, Lasix prn. Check ECHO, SvO2. 2. Tapered vasopressor off. 3. Lactate levels have normalized. 4. Empiric abx coverage noted. 5. Hold antihypertensives and Psych drugs for now. 6. Coags still elevated, may be hemodilutional effect, too. PMD with Heme Onc ordering more FFP, Vit K and DDAVP. CCU Objective - Vital Signs / Intake & Output Vital Signs (Last 4 hours): Vital Signs Temp Pulse Resp BP Pulse Ox 06/23/17 12:00 97.5 F L 87 15 132/59 L 92 L Intake and Output (Last 8hrs): Intake & Output 06/22/17 06/23/17 06/23/17 22:59 06:59 14:59 Intake Total 9594 769 0015 Output Total 485 335 500 Balance 627 300 550 Intake: IV 2930 746 5740 Oral 0 Blood Product 375 Output: Gastric Amount 180 Right Nares 180 Urine 305 335 500 Urethral (Harris) 305 335 500 - Physical Exam Head: Positive for: Normocephalic Pupils: Positive for: PERRL Conjunctiva: Positive for: Normal. Negative for: Icteric Mouth: Positive for: Moist Mucous Membranes Neck: Positive for: Normal Range of Motion. Negative for: JVD Respiratory/Chest: Positive for: Clear to Auscultation. Negative for: Accessory Muscle Use, Wheezes Cardiovascular: Positive for: Regular Rate and Rhythm, Normal S1, S2, Tachycardic. Negative for: Murmurs, Rub Abdomen: Positive for: Tenderness, Distention (minimal), Guarding Lower Extremity: Positive for: NORMAL PULSES. Negative for: CALF TENDERNESS, Cyanosis Neurological: Positive for: GCS=15, Motor Func Grossly Intact, Normal Sensory Function Skin: Positive for: Warm, Dry. Negative for: Rashes Psychiatric: Positive for: Alert, Oriented x 3 - Medications Active Medications: Active Medications Generic Name Dose Route Start Last Admin Trade Name Freq PRN Reason Stop Dose Admin Acetaminophen 650 mg 06/21/17 22:04 Tylenol 650 Mg Supp NV Q6 PRN Fever >100.4 F Hydromorphone HCl 0.5 mg 06/22/17 18:01 06/23/17 06:53 Dilaudid IVP 0.5 mg Q4 PRN Administration Pain, moderate (4-7) Piperacillin Sod/Tazobactam 100 mls @ 100 mls/hr 06/22/17 02:45 06/23/17 09: 31 Sod 3.375 gm/ Sodium Chloride IVPB 100 mls/hr Q6 TERRY Administration Protocol Fluconazole 50 mls @ 50 mls/hr 06/23/17 09:00 06/23/17 10:51 Diflucan Iv 100 Mg/50 Ml Ns IVPB 50 mls/hr DAILY TERRY Administration Protocol Metronidazole 100 mls @ 100 mls/hr 06/23/17 01:00 06/23/17 09:26 Flagyl 500mg/100ml Ns IVPB 100 mls/hr Q8 TERRY Administration Protocol Sodium Chloride 1,000 mls @ 150 mls/hr 06/23/17 11:00 Sodium Chloride 0.9% IV 06/26/17 10:54 .[id number] [facility] Metoprolol Tartrate 2.5 mg 06/22/17 04:00 06/22/17 05:07 Lopressor IVP Not Given Q6 [facility] Ondansetron HCl 4 mg 06/21/17 21:14 Zofran Inj IVP Q6 PRN Nausea/Vomiting Pantoprazole Sodium 40 mg 06/22/17 09:00 06/23/17 09:30 Protonix Inj IVP 40 mg DAILY TERRY Administration - Patient Studies Lab Studies: Microbiology Studies 06/21/17 18:30 Urine Culture - Final Urine,Catheterized No Growth (<1,000 CFU/ML) 06/22/17 11:24 MRSA Culture (Admit) - Final Naris MRSA NOT DETECTED 06/21/17 20:35 Blood Culture - Preliminary Blood NO GROWTH AFTER 24 HOURS 06/21/17 20:15 Blood Culture - Preliminary Blood NO GROWTH AFTER 24 HOURS Lab Studies 06/23/17 06/23/17 06/23/17 Range/Units 12:06 12:06 10:07 WBC 9.0 (4.8-10.8) K/uL RBC 3.25 L (3.80-5.20) Mil/uL Hgb 9.8 L (12.0-16.0) g/dL Hct 30.3 L (34.0-47.0) % MCV 93.4 (81.0-99.0) fl MCH 30.1 (27.0-31.0) pg MCHC 32.2 L (33.0-37.0) g/dL RDW 14.0 (11.5-14.5) % Plt Count 78 L (130-400) K/uL MPV (7.2-11.7) fl Neut % (Auto) (50.0-75.0) % Lymph % (Auto) (20.0-40.0) % [place] % (Auto) (0.0-10.0) % Eos % (Auto) (0.0-4.0) % Baso % (Auto) (0.0-2.0) % Neut # (1.8-7.0) K/uL Lymph # (1.0-4.3) K/uL [place] # (0.0-0.8) K/uL Eos # (0.0-0.7) K/uL Baso # (0.0-0.2) K/uL Neutrophils % (Manual) (42-75) % Band Neutrophils % (0-2) % Lymphocytes % (Manual) (20-50) % Monocytes % (Manual) (0-10) % Metamyelocytes % (0-0) % Toxic Granulation Platelet Estimate (NORMAL) Hypochromasia (manual) Ovalocytes PT 18.6 H 19.0 H INR 1.7 H 1.7 H APTT 34.8 D (25.6-37.1) Seconds pCO2 (35-45) mm/Hg pO2 (80-100) mm/Hg HCO3 (21-28) mmol/L ABG pH (7.35-7.45) ABG Total CO2 (22-28) mmol/L ABG O2 Saturation (95-98) % ABG Base Excess (-2.0-3.0) mmol/L Rich Test ABG Potassium (3.6-5.2) mmol/L VBG pH (7.32-7.43) VBG pCO2 (40-60) mmHg VBG HCO3 mmol/L VBG Total CO2 (22-28) mmol/L VBG O2 Sat (Calc) (40-65) % VBG Base Excess (0.0-2.0) mmol/L VBG Potassium (3.6-5.2) mmol/L A-a O2 Difference mm/Hg Sodium (132-148) mmol/L Chloride (98-107) mmol/L Glucose (65-105) mg/dL Lactate (0.7-2.1) mmol/L FiO2 % Potassium (3.6-5.0) MMOL/L Carbon Dioxide (22-30) mmol/L Anion Gap (10-20) BUN (7-17) mg/dl Creatinine (0.7-1.2) mg/dl Est GFR ( Amer) Est GFR (Non-Af Amer) Random Glucose (65-105) mg/dL Lactic Acid (0.7-2.1) MMOL/L Calcium (8.4-10.2) mg/dL Total Bilirubin (0.2-1.3) mg/dl AST (14-36) U/L ALT (9-52) U/L Alkaline Phosphatase (38-126) U/L Total Protein (6.3-8.2) G/DL Albumin (3.5-5.0) g/dL Globulin (2.2-3.9) gm/dL Albumin/Globulin Ratio (1.0-2.1) Procalcitonin (0.19-0.49) NG/ML Arterial Blood Potassium (3.6-5.2) mmol/L Venous Blood Potassium (3.6-5.2) mmol/L Blood Type Antibody Screen Crossmatch BBK History Checked 06/23/17 06/23/17 06/23/17 Range/Units 08:56 05:16 04:20 WBC (4.8-10.8) K/uL RBC (3.80-5.20) Mil/uL Hgb (12.0-16.0) g/dL Hct (34.0-47.0) % MCV (81.0-99.0) fl MCH (27.0-31.0) pg MCHC (33.0-37.0) g/dL RDW (11.5-14.5) % Plt Count (130-400) K/uL MPV (7.2-11.7) fl Neut % (Auto) (50.0-75.0) % Lymph % (Auto) (20.0-40.0) % [place] % (Auto) (0.0-10.0) % Eos % (Auto) (0.0-4.0) % Baso % (Auto) (0.0-2.0) % Neut # (1.8-7.0) K/uL Lymph # (1.0-4.3) K/uL [place] # (0.0-0.8) K/uL Eos # (0.0-0.7) K/uL Baso # (0.0-0.2) K/uL Neutrophils % (Manual) (42-75) % Band Neutrophils % (0-2) % Lymphocytes % (Manual) (20-50) % Monocytes % (Manual) (0-10) % Metamyelocytes % (0-0) % Toxic Granulation Platelet Estimate (NORMAL) Hypochromasia (manual) Ovalocytes PT Cancelled INR Cancelled APTT 18.8 L D (25.6-37.1) Seconds pCO2 (35-45) mm/Hg pO2 37 (80-100) mm/Hg HCO3 (21-28) mmol/L ABG pH (7.35-7.45) ABG Total CO2 (22-28) mmol/L ABG O2 Saturation (95-98) % ABG Base Excess (-2.0-3.0) mmol/L Rich Test ABG Potassium (3.6-5.2) mmol/L VBG pH 7.29 L (7.32-7.43) VBG pCO2 44 (40-60) mmHg VBG HCO3 19.9 mmol/L VBG Total CO2 22.6 (22-28) mmol/L VBG O2 Sat (Calc) 79.9 H (40-65) % VBG Base Excess -5.3 L (0.0-2.0) mmol/L VBG Potassium 3.8 (3.6-5.2) mmol/L A-a O2 Difference mm/Hg Sodium 138.0 (132-148) mmol/L Chloride 111.0 H (98-107) mmol/L Glucose 116 H (65-105) mg/dL Lactate 1.4 (0.7-2.1) mmol/L FiO2 28.0 % Potassium (3.6-5.0) MMOL/L Carbon Dioxide (22-30) mmol/L Anion Gap (10-20) BUN (7-17) mg/dl Creatinine (0.7-1.2) mg/dl Est GFR ( Amer) Est GFR (Non-Af Amer) Random Glucose (65-105) mg/dL Lactic Acid (0.7-2.1) MMOL/L Calcium (8.4-10.2) mg/dL Total Bilirubin (0.2-1.3) mg/dl AST (14-36) U/L ALT (9-52) U/L Alkaline Phosphatase (38-126) U/L Total Protein (6.3-8.2) G/DL Albumin (3.5-5.0) g/dL Globulin (2.2-3.9) gm/dL Albumin/Globulin Ratio (1.0-2.1) Procalcitonin (0.19-0.49) NG/ML Arterial Blood Potassium (3.6-5.2) mmol/L Venous Blood Potassium 3.8 (3.6-5.2) mmol/L Blood Type Antibody Screen Crossmatch BBK History Checked 06/23/17 06/23/17 06/23/17 Range/Units 04:20 04:20 04:20 WBC (4.8-10.8) K/uL RBC (3.80-5.20) Mil/uL Hgb (12.0-16.0) g/dL Hct (34.0-47.0) % MCV (81.0-99.0) fl MCH (27.0-31.0) pg MCHC (33.0-37.0) g/dL RDW (11.5-14.5) % Plt Count (130-400) K/uL MPV (7.2-11.7) fl Neut % (Auto) (50.0-75.0) % Lymph % (Auto) (20.0-40.0) % [place] % (Auto) (0.0-10.0) % Eos % (Auto) (0.0-4.0) % Baso % (Auto) (0.0-2.0) % Neut # (1.8-7.0) K/uL Lymph # (1.0-4.3) K/uL [place] # (0.0-0.8) K/uL Eos # (0.0-0.7) K/uL Baso # (0.0-0.2) K/uL Neutrophils % (Manual) (42-75) % Band Neutrophils % (0-2) % Lymphocytes % (Manual) (20-50) % Monocytes % (Manual) (0-10) % Metamyelocytes % (0-0) % Toxic Granulation Platelet Estimate (NORMAL) Hypochromasia (manual) Ovalocytes PT INR APTT (25.6-37.1) Seconds pCO2 (35-45) mm/Hg pO2 (80-100) mm/Hg HCO3 (21-28) mmol/L ABG pH (7.35-7.45) ABG Total CO2 (22-28) mmol/L ABG O2 Saturation (95-98) % ABG Base Excess (-2.0-3.0) mmol/L Rich Test ABG Potassium (3.6-5.2) mmol/L VBG pH (7.32-7.43) VBG pCO2 (40-60) mmHg VBG HCO3 mmol/L VBG Total CO2 (22-28) mmol/L VBG O2 Sat (Calc) (40-65) % VBG Base Excess (0.0-2.0) mmol/L VBG Potassium (3.6-5.2) mmol/L A-a O2 Difference mm/Hg Sodium 140 (132-148) mmol/L Chloride 111 H (98-107) mmol/L Glucose (65-105) mg/dL Lactate (0.7-2.1) mmol/L FiO2 % Potassium 3.9 (3.6-5.0) MMOL/L Carbon Dioxide 22 (22-30) mmol/L Anion Gap 11 (10-20) BUN 18 H (7-17) mg/dl Creatinine 1.1 (0.7-1.2) mg/dl Est GFR ( Amer) 57 Est GFR (Non-Af Amer) 47 Random Glucose 112 H (65-105) mg/dL Lactic Acid 1.3 (0.7-2.1) MMOL/L Calcium 6.8 L (8.4-10.2) mg/dL Total Bilirubin 0.5 (0.2-1.3) mg/dl AST 203 H D (14-36) U/L ALT 347 H D (9-52) U/L Alkaline Phosphatase 92 (38-126) U/L Total Protein 5.4 L (6.3-8.2) G/DL Albumin 2.8 L D (3.5-5.0) g/dL Globulin 2.6 (2.2-3.9) gm/dL Albumin/Globulin Ratio 1.1 (1.0-2.1) Procalcitonin 33.88 H (0.19-0.49) NG/ML Arterial Blood Potassium (3.6-5.2) mmol/L Venous Blood Potassium (3.6-5.2) mmol/L Blood Type Antibody Screen Crossmatch BBK History Checked 06/23/17 06/22/17 06/21/17 Range/Units 04:20 14:45 21:30 WBC 9.4 (4.8-10.8) K/uL RBC 2.83 L (3.80-5.20) Mil/uL Hgb 8.6 L (12.0-16.0) g/dL Hct 26.5 L (34.0-47.0) % MCV 93.5 (81.0-99.0) fl MCH 30.2 (27.0-31.0) pg MCHC 32.3 L (33.0-37.0) g/dL RDW 13.9 (11.5-14.5) % Plt Count 78 L (130-400) K/uL MPV 11.7 (7.2-11.7) fl Neut % (Auto) 90.8 H (50.0-75.0) % Lymph % (Auto) 6.9 L (20.0-40.0) % [place] % (Auto) 1.5 (0.0-10.0) % Eos % (Auto) 0.6 (0.0-4.0) % Baso % (Auto) 0.2 (0.0-2.0) % Neut # 8.6 H (1.8-7.0) K/uL Lymph # 0.6 L (1.0-4.3) K/uL [place] # 0.1 (0.0-0.8) K/uL Eos # 0.1 (0.0-0.7) K/uL Baso # 0.0 (0.0-0.2) K/uL Neutrophils % (Manual) 83 H (42-75) % Band Neutrophils % 5 H (0-2) % Lymphocytes % (Manual) 10 L (20-50) % Monocytes % (Manual) 1 (0-10) % Metamyelocytes % 1 H (0-0) % Toxic Granulation Present Platelet Estimate Decreased L (NORMAL) Hypochromasia (manual) Slight Ovalocytes Slight PT INR APTT (25.6-37.1) Seconds pCO2 41 (35-45) mm/Hg pO2 56 L (80-100) mm/Hg HCO3 19.0 L (21-28) mmol/L ABG pH 7.28 L (7.35-7.45) ABG Total CO2 20.6 L (22-28) mmol/L ABG O2 Saturation 91.3 L (95-98) % ABG Base Excess -7.1 L (-2.0-3.0) mmol/L Rich Test Yes ABG Potassium 4.2 (3.6-5.2) mmol/L VBG pH (7.32-7.43) VBG pCO2 (40-60) mmHg VBG HCO3 mmol/L VBG Total CO2 (22-28) mmol/L VBG O2 Sat (Calc) (40-65) % VBG Base Excess (0.0-2.0) mmol/L VBG Potassium (3.6-5.2) mmol/L A-a O2 Difference 92.0 mm/Hg Sodium 137.0 (132-148) mmol/L Chloride 112.0 H (98-107) mmol/L Glucose 119 H (65-105) mg/dL Lactate 1.1 (0.7-2.1) mmol/L FiO2 28.0 % Potassium (3.6-5.0) MMOL/L Carbon Dioxide (22-30) mmol/L Anion Gap (10-20) BUN (7-17) mg/dl Creatinine (0.7-1.2) mg/dl Est GFR ( Amer) Est GFR (Non-Af Amer) Random Glucose (65-105) mg/dL Lactic Acid (0.7-2.1) MMOL/L Calcium (8.4-10.2) mg/dL Total Bilirubin (0.2-1.3) mg/dl AST (14-36) U/L ALT (9-52) U/L Alkaline Phosphatase (38-126) U/L Total Protein (6.3-8.2) G/DL Albumin (3.5-5.0) g/dL Globulin (2.2-3.9) gm/dL Albumin/Globulin Ratio (1.0-2.1) Procalcitonin (0.19-0.49) NG/ML Arterial Blood Potassium 4.2 (3.6-5.2) mmol/L Venous Blood Potassium (3.6-5.2) mmol/L Blood Type O POSITIVE Antibody Screen Negative Crossmatch See Detail BBK History Checked No verified bt Laboratory Results - last 24 hr 06/21/17 06/22/17 06/23/17 21:30 14:45 04:20 WBC 9.4 RBC 2.83 L Hgb 8.6 L Hct 26.5 L MCV 93.5 MCH 30.2 MCHC 32.3 L RDW 13.9 Plt Count 78 L MPV 11.7 Neut % (Auto) 90.8 H Lymph % (Auto) 6.9 L [place] % (Auto) 1.5 Eos % (Auto) 0.6 Baso % (Auto) 0.2 Neut # 8.6 H Lymph # 0.6 L [place] # 0.1 Eos # 0.1 Baso # 0.0 Neutrophils % (Manual) 83 H Band Neutrophils % 5 H Lymphocytes % (Manual) 10 L Monocytes % (Manual) 1 Metamyelocytes % 1 H Toxic Granulation Present Platelet Estimate Decreased L Hypochromasia (manual) Slight Ovalocytes Slight PT INR APTT pCO2 41 pO2 56 L HCO3 19.0 L ABG pH 7.28 L ABG Total CO2 20.6 L ABG O2 Saturation 91.3 L ABG Base Excess -7.1 L Rich Test Yes ABG Potassium 4.2 VBG pH VBG pCO2 VBG HCO3 VBG Total CO2 VBG O2 Sat (Calc) VBG Base Excess VBG Potassium A-a O2 Difference 92.0 Sodium 137.0 Chloride 112.0 H Glucose 119 H Lactate 1.1 FiO2 28.0 Potassium Carbon Dioxide Anion Gap BUN Creatinine Est GFR ( Amer) Est GFR (Non-Af Amer) Random Glucose Lactic Acid Calcium Total Bilirubin AST ALT Alkaline Phosphatase Total Protein Albumin Globulin Albumin/Globulin Ratio Procalcitonin Arterial Blood Potassium 4.2 Venous Blood Potassium Blood Type O POSITIVE Antibody Screen Negative Crossmatch See Detail BBK History Checked No verified bt 06/23/17 06/23/17 06/23/17 04:20 04:20 04:20 WBC RBC Hgb Hct MCV MCH MCHC RDW Plt Count MPV Neut % (Auto) Lymph % (Auto) [place] % (Auto) Eos % (Auto) Baso % (Auto) Neut # Lymph # [place] # Eos # Baso # Neutrophils % (Manual) Band Neutrophils % Lymphocytes % (Manual) Monocytes % (Manual) Metamyelocytes % Toxic Granulation Platelet Estimate Hypochromasia (manual) Ovalocytes PT INR APTT pCO2 pO2 HCO3 ABG pH ABG Total CO2 ABG O2 Saturation ABG Base Excess Rich Test ABG Potassium VBG pH VBG pCO2 VBG HCO3 VBG Total CO2 VBG O2 Sat (Calc) VBG Base Excess VBG Potassium A-a O2 Difference Sodium 140 Chloride 111 H Glucose Lactate FiO2 Potassium 3.9 Carbon Dioxide 22 Anion Gap 11 BUN 18 H Creatinine 1.1 Est GFR ( Amer) 57 Est GFR (Non-Af Amer) 47 Random Glucose 112 H Lactic Acid 1.3 Calcium 6.8 L Total Bilirubin 0.5 AST 203 H D ALT 347 H D Alkaline Phosphatase 92 Total Protein 5.4 L Albumin 2.8 L D Globulin 2.6 Albumin/Globulin Ratio 1.1 Procalcitonin 33.88 H Arterial Blood Potassium Venous Blood Potassium Blood Type Antibody Screen Crossmatch BBK History Checked 06/23/17 06/23/17 06/23/17 04:20 05:16 08:56 WBC RBC Hgb Hct MCV MCH MCHC RDW Plt Count MPV Neut % (Auto) Lymph % (Auto) [place] % (Auto) Eos % (Auto) Baso % (Auto) Neut # Lymph # [place] # Eos # Baso # Neutrophils % (Manual) Band Neutrophils % Lymphocytes % (Manual) Monocytes % (Manual) Metamyelocytes % Toxic Granulation Platelet Estimate Hypochromasia (manual) Ovalocytes PT Cancelled INR Cancelled APTT 18.8 L D pCO2 pO2 37 HCO3 ABG pH ABG Total CO2 ABG O2 Saturation ABG Base Excess Rich Test ABG Potassium VBG pH 7.29 L VBG pCO2 44 VBG HCO3 19.9 VBG Total CO2 22.6 VBG O2 Sat (Calc) 79.9 H VBG Base Excess -5.3 L VBG Potassium 3.8 A-a O2 Difference Sodium 138.0 Chloride 111.0 H Glucose 116 H Lactate 1.4 FiO2 28.0 Potassium Carbon Dioxide Anion Gap BUN Creatinine Est GFR ( Amer) Est GFR (Non-Af Amer) Random Glucose Lactic Acid Calcium Total Bilirubin AST ALT Alkaline Phosphatase Total Protein Albumin Globulin Albumin/Globulin Ratio Procalcitonin Arterial Blood Potassium Venous Blood Potassium 3.8 Blood Type Antibody Screen Crossmatch BBK History Checked 06/23/17 06/23/17 06/23/17 10:07 12:06 12:06 WBC 9.0 RBC 3.25 L Hgb 9.8 L Hct 30.3 L MCV 93.4 MCH 30.1 MCHC 32.2 L RDW 14.0 Plt Count 78 L MPV Neut % (Auto) Lymph % (Auto) [place] % (Auto) Eos % (Auto) Baso % (Auto) Neut # Lymph # [place] # Eos # Baso # Neutrophils % (Manual) Band Neutrophils % Lymphocytes % (Manual) Monocytes % (Manual) Metamyelocytes % Toxic Granulation Platelet Estimate Hypochromasia (manual) Ovalocytes PT 19.0 H 18.6 H INR 1.7 H 1.7 H APTT 34.8 D pCO2 pO2 HCO3 ABG pH ABG Total CO2 ABG O2 Saturation ABG Base Excess Rich Test ABG Potassium VBG pH VBG pCO2 VBG HCO3 VBG Total CO2 VBG O2 Sat (Calc) VBG Base Excess VBG Potassium A-a O2 Difference Sodium Chloride Glucose Lactate FiO2 Potassium Carbon Dioxide Anion Gap BUN Creatinine Est GFR ( Amer) Est GFR (Non-Af Amer) Random Glucose Lactic Acid Calcium Total Bilirubin AST ALT Alkaline Phosphatase Total Protein Albumin Globulin Albumin/Globulin Ratio Procalcitonin Arterial Blood Potassium Venous Blood Potassium Blood Type Antibody Screen Crossmatch BBK History Checked Critical Care Progress Note - Nutrition Nutrition: Nutrition Category Date Time Status NPO Diet [DIET] Diets 06/21/17 Breakfast Active
[2017-06-23] MEDS ORDERED: Lactated Ringer's 1,000 ML IV ONE (14:55)
[2017-06-23] MEDS ORDERED: Rocuronium 10 mg/ml (5 ml) ONE ×2 (14:58→15:49)
[2017-06-23] MEDS ORDERED: Etomidate 20 mg/10ml Inj IV ONE (14:58)
[2017-06-23] MEDS ORDERED: Phenylephrine 10 mg/ml Inj ONE (15:17)
[2017-06-23] MEDS ORDERED: Liquid Adhesive TOP ONE ×2 (15:52→16:00)
--- NOTE | 2017-06-23 16:41 | PCM.SURG1 ---
Surgeon's Initial Post Op Note - Surgeon's Notes Surgeon: ludy Powdered Sugar Supervisor: stacy manning Type of Anesthesia: General Endo Anesthesia Administered By: teresa Pre-Operative Diagnosis: perforated diverticulitis Operative Findings: intramesenteric perforation Post-Operative Diagnosis: same Operation Performed: colon resection with end colostomy Specimen/Specimens Removed: sigmoid Estimated Blood Loss: EBL {In ML}: 50 Drains Used: Ryan Breen Post-Op Condition: Poor Date of Surgery/Procedure: 06/23/17 Time of Surgery/Procedure: 15:15
[2017-06-23] MEDS: Lactated Ringer's 1,000 ML IV SCH (18:39)
--- NOTE | 2017-06-23 21:24 | OP ---
PROCEDURE DATE: 06/23/2017 PREOPERATIVE DIAGNOSIS: Perforated diverticulitis. POSTOPERATIVE DIAGNOSIS: Perforated diverticulitis. PROCEDURE: Laparotomy, sigmoid resection and end colostomy. SURGEON: Kirt Medley MD. OIL CHANGE TECHNICIAN: Dr. Phan and Dr. Gonsalez. TYPE OF ANESTHESIA: General endotracheal. ANESTHESIA ADMINISTERED BY: Dr. Banda. OPERATIVE FINDINGS: Intramesenteric perforation. DESCRIPTION OF PROCEDURE: After obtaining informed consent, the patient was taken to the operating room. After time-out obtained and induction of general endotracheal anesthesia was obtained, the abdomen was prepped and draped in usual manner. The abdomen was entered through a midline incision from the umbilicus to the pubis. This was carried down into the abdominal cavity using hemocautery availing the part of the mesh of the previous umbilical hernia. This part of the mesh was resected and sent down for pathological evaluation. At this point, a full laparotomy revealed a very thickened, dusky distal sigmoid with some ischemic changes. There was some fluid in the pelvis, but no feces. No purulent material, although cultures were obtained. At this point, at the level of the distal descending colon, using a TAINA, the colon was divided. This area had severe diverticulosis. Using the Harmonic scalpel, the mesocolon was taken down all the way through the peritoneal reflection of the rectum. At this point, it was obvious that the perforation had been contained in between the mesocolon, so using a contour, the rectosigmoid was divided distal to the perforation removing the specimen and sending it to pathological examination. The area was copiously irrigated with saline. The mesocolon itself was visualized for meticulous hemostasis placing multiple fine suture ligatures of fine Vicryl. At this point, an incision was made in the left lower quadrant to accept the end colostomy. This was done and the colon was matured without any difficulty. Once this was done and making sure that hemostasis was excellent, a Ryan drain was placed at the pelvic cavity, brought out through separate incision. The abdomen was then closed using heavy PDS in a running fashion, the skin with nydia. The end colostomy was now matured using fine Vicryl from the fascia to the serosa and then maturing the ostomy with fine Vicryl to the skin. The estimated blood loss was 50 mL. The patient tolerated the procedure very well and was transferred to recovery room in critical condition. Kirt Medley MD
[2017-06-24] MEDS: HYDROmorphone 0.5 mg/0.5 ml ISec IVP PRN ×4 (00:21→21:39)
[2017-06-24] MEDS: Lactated Ringer's 1,000 ML IV SCH ×2 (01:00→08:49)
[2017-06-24] MEDS: metroNIDAZOLE 500mg/100ml NS 100 ML IVPB SCH ×3 (02:00→17:02)
[2017-06-24] MEDS: Piperacillin/Tazobact 3.375 GM in Sodium Chloride 0.9% 100 ML IVPB SCH ×4 (05:00→21:38)
[2017-06-24 05:42] LABS: ABG ALLEN TEST YES; ABG MECHANICAL RATE 12; ARTERIAL BLOOD GAS HCO3 26.3 mmol/L (21-28); ARTERIAL BLOOD GAS MODE PRVC AC; ARTERIAL BLOOD GAS PO2 162 mm/Hg (80-100); ATERIAL BLOOD GAS PEEP 4
[2017-06-24 06:24] LABS: BASO % 0.1 % (0.0-2.0); EOS % 0.3 % (0.0-4.0); HEMATOCRIT 27.6 % (34.0-47.0); LYMPH # 0.8 K/uL (1.0-4.3); LYMPH % 9.5 % (20.0-40.0); MEAN CELL VOLUME 91.7 fl (81.0-99.0); MEAN CORPUSCULAR HEMOGLOBIN 30.2 pg (27.0-31.0); MEAN CORPUSCULAR HGB CONC 32.9 g/dL (33.0-37.0); MEAN PLATELET VOLUME 11.9 fl (7.2-11.7); MONO # 0.2 K/uL (0.0-0.8); MONO % 2.7 % (0.0-10.0); NEUT # 7.1 K/uL (1.8-7.0); NEUT % 87.4 % (50.0-75.0); RED CELL DISTRIBUTION WIDTH 14.1 % (11.5-14.5); WHITE BLOOD COUNT 8.2 K/uL (4.8-10.8)
[2017-06-24 06:42] LABS: ALKALINE PHOSPHATASE 75 U/L (38-126); ALT/SGPT 191 U/L (9-52); AST/SGOT 77 U/L (14-36); BILIRUBIN,TOTAL 0.8 mg/dl (0.2-1.3); BLOOD UREA NITROGEN 16 mg/dl (7-17); CALCIUM 7.7 mg/dL (8.4-10.2); CARBON DIOXIDE 25 mmol/L (22-30); CHLORIDE 109 mmol/L (98-107); GFR AFRICAN-AMERICAN > 60; GLUCOSE,RANDOM 95 mg/dL (65-105); POTASSIUM 3.5 MMOL/L (3.6-5.0); SODIUM 141 mmol/l (132-148); TOTAL PROTEIN 5.2 G/DL (6.3-8.2)
--- NOTE | 2017-06-24 08:30 | CP.PCM.PN ---
Subjective - Date & Time of Evaluation Date of Evaluation: 06/24/17 Time of Evaluation: 08:30 - Subjective Subjective: Patient seen and examined bedside. elderly female of stated age , lying in bed intubated on MV PRVc/ Ac mode 7/450/5/50 % with ABG this AM 31/162/26/7.5, not sedated, not on pressors. Responds to name calling by opening her eyes, points to her abdomen when asked if she has any pain. s/p colon resection and colostomy yesterday. Colostomy bag to LLQ with brownish liquid output , Ellis rabago to RLq with serosanguinous output BP 95/44 HR 85 saturating 98 % , afebrile CXR today showed right side pleural effusion (pending official report ) WBC 8.2 Hgb 9.1 Plt 91 INR 1.7 Na 141 Cl 109 K 3.5 AST/ALt 77/[address] with minimal output 110 ml Objective - Vital Signs/Intake and Output Vital Signs (last 24 hours): Temp Pulse Resp BP Pulse Ox 97.5 F L 83 12 123/62 100 06/23/17 20:00 06/24/17 06:00 06/24/17 06:00 06/24/17 06:00 06/24/17 06:00 Intake and Output: 06/24/17 06/24/17 06:59 18:59 Intake Total 1975 125 Output Total 1400 Balance 575 125 - Medications Medications: Current Medications Acetaminophen (Tylenol 650 Mg Supp) 650 mg MS Q6 PRN PRN Reason: Fever >100.4 F Hydromorphone HCl (Dilaudid) 0.5 mg IVP Q4 PRN PRN Reason: Pain, moderate (4-7) Last Admin: 06/24/17 07:09 Dose: 0.5 mg Hydromorphone HCl (Dilaudid) 0.5 mg IVP Q4 PRN PRN Reason: Pain, severe (8-10) Fluconazole (Diflucan Iv 100 Mg/50 Ml Ns) 50 mls @ 50 mls/hr IVPB DAILY TERRY PRN Reason: Protocol Last Admin: 06/23/17 10:51 Dose: 50 mls/hr Metronidazole (Flagyl 500mg/100ml Ns) 100 mls @ 100 mls/hr IVPB Q8 TERRY PRN Reason: Protocol Last Admin: 06/24/17 02:00 Dose: 100 mls/hr Lactated Ringer's (Lactated Ringer's) 1,000 mls @ 125 mls/hr IV .Q8H [facility] Last Admin: 06/24/17 01:00 Dose: 125 mls/hr Piperacillin Sod/Tazobactam (Sod 3.375 gm/ Sodium Chloride) 100 mls @ 100 mls/ hr IVPB Q6 TERRY PRN Reason: Protocol Last Admin: 06/24/17 05:00 Dose: 100 mls/hr Metoprolol Tartrate (Lopressor) 2.5 mg IVP Q6 [facility] Last Admin: 06/22/17 05:07 Dose: Not Given Ondansetron HCl (Zofran Inj) 4 mg IVP Q6 PRN PRN Reason: Nausea/Vomiting Pantoprazole Sodium (Protonix Inj) 40 mg IVP DAILY [facility] Last Admin: 06/23/17 09:30 Dose: 40 mg - Labs Labs: 06/24/17 05:30 06/24/17 05:30 PT 18.6 Seconds (9.8-13.1) H 06/23/17 12:06 INR 1.7 (0.9-1.2) H 06/23/17 12:06 APTT 34.8 Seconds (25.6-37.1) D 06/23/17 12:06 - Constitutional Appears: Other (intubated on MV not sedated , responds to name calling ) - Head Exam Head Exam: ATRAUMATIC, NORMAL INSPECTION, NORMOCEPHALIC - Eye Exam Eye Exam: EOMI, PERRL Pupil Exam: NORMAL ACCOMODATION - ENT Exam ENT Exam: Mucous Membranes Dry - Neck Exam Neck Exam: Normal Inspection - Respiratory Exam Respiratory Exam: Decreased Breath Sounds (right base) Additional comments: coarse breath sounds bilaterally good air entry bilaterally - Cardiovascular Exam Cardiovascular Exam: REGULAR RHYTHM, RRR, +S1, +S2. absent: JVD - GI/Abdominal Exam GI & Abdominal Exam: Soft, Tenderness, Normal Bowel Sounds. absent: Guarding, Rebound Additional comments: midline surgical incision with dressing , dry and intact RLQ Ellis Rabago drainage with sero sanguineous output LLQ colostomy in place with brownish liquid output - Rectal Exam Rectal Exam: Deferred - Extremities Exam Extremities Exam: Normal Capillary Refill, Normal Inspection. absent: Pedal Edema Additional comments: upper extremity edema - Neurological Exam Additional comments: responds to name calling by opening her eyes and follows simple commands - Skin Skin Exam: Dry, Warm Assessment and Plan - Assessment and Plan (Free Text) Assessment: 86y/o lady with hx of Cardiac Arrhythmia s/p PPM , on Xarelto , came in bec of abd pain. CT of abdomen showed Perforated Sigmoid Diverticulitis Initially admitted to Tele , started on IVF fluid and IV antibiotics, Surgery consulted. Pt then had [employer] for Hypotension - transferred to ICU - started on IVF resuscitation Levophed.Patient taken to OR yesterday by surgery and underwent colon resection with colostomy . today is post op day 1 , intubated on MV, responding to verbal command, not on pressors. 1. Septic shock sec to perforated sigmoid Diverticulitis Acute s/p colon resection with colostomy performed 06/23. Surgery following colostomy bag to LLQ with brownish liquid output and bowel sounds present Was on levophed drip initially but at present maintaining her BP without pressors Continue IVF Vent management . Will try to wean off vent . CXR today showed RLL pleural effusion On Zosyn , Flagyl and diflucan 2.Perforated sigmoid colon Acute as above s/p colon resection with colsotomy 3. ALBER (acute kidney injury)-improved Acute likely sec to Sepsis initially oliguric . with 2300 ml urine output last 24 hours Continue IVF hydration and monitor I/O 4.Anemia of acute blood loss Hgb dropped from 12-- 9.1 s/p 1 unit PRBC transfusion preop. Will transfuse 1 more unit today as per hematology Hem/on consulted Dr. Blanchard 5. Thrombocytopenia/ Coagulopathy prob sec to Sepsis INR=1.7 Platelet 91 today. s/p 4 unit Platelet transfusion yesterday. Will transfuse 1 more unit Plt and 1 FFP today Hematology consult with Dr Dawn Blanchard appreciated DDAVP Vit K 10 mg IV given 6. Respiratory insufficiency post op Intubated for surgery and kept intubated CX today showed RLL pleural effusion on MV PRVC / AC mode 7/450/5/50 % with ABG 31/162/26/7.5 Will start weaning protocol 7. History of cardiac arrhythmia Chronic unclear cardiac diagnosis hx of Pacemaker placement pt was on Xarelto at home Cardiology consulted- Dr Blanchard and patient cleared for surgery 8. Abn LFT sec to Shock liver improving 9.Hypokalemia secondary to NPO status and GI loss replace 10.DVT prophylaxis SCD no anticoag sec to low Platelet and coagulopathy
[2017-06-24] MEDS: Fluconazole IV 100mg/50 ml NS 50 ML IVPB SCH (08:48)
--- NOTE | 2017-06-24 09:08 | RAD ---
PROCEDURE: CHEST RADIOGRAPH, 1 VIEW HISTORY: post intubation from OR COMPARISON: Chest radiograph performed approximately 16 hours prior. FINDINGS: LUNGS: Stable chronic prominence of the bilateral interstitial markings with superimposed pulmonary vascular congestion. Bibasilar atelectasis. PLEURA: Small bilateral pleural effusions. No appreciable pneumothorax. CARDIOVASCULAR: Left subclavian access AICD/ pacemaker redemonstrated. Cardiomediastinal silhouette stably prominent. OSSEOUS STRUCTURES: Unchanged. VISUALIZED UPPER ABDOMEN: Normal. OTHER FINDINGS: Interval intubation with catheter tip at the level of the janneth. Enteric tube, unchanged. IMPRESSION: Interval intubation with catheter tip at the level of janneth. Slight retraction is recommended. Pulmonary vascular congestion with development of small bilateral pleural effusions. At the time of this dictation, a more recent chest radiograph had already been performed.
[2017-06-24] MEDS ORDERED: Potassium CL 10 MEQ/50 ML 50 ML IVPB ONE (09:12)
--- NOTE | 2017-06-24 09:42 | CP.PCM.PN ---
Subjective - Date & Time of Evaluation Date of Evaluation: 06/24/17 Time of Evaluation: 08:20 - Subjective Subjective: Pt had exploratory lap. yesterday followed by partial colectomy Has been in the ICU since and has done well Has a steady sinus rhythm with BP 110/70 mm Hg Chest clear, heart sounds pure Excellent urine out put Today's labs show no leucocytosis and BUN/Creatinin continuing to drop K+ being replaced Stable from cardiac point of view. Objective - Vital Signs/Intake and Output Vital Signs (last 24 hours): Temp Pulse Resp BP Pulse Ox 99.1 F 79 8 L 95/44 L 97 06/24/17 08:46 06/24/17 08:46 06/24/17 08:46 06/24/17 08:46 06/24/17 08:46 Intake and Output: 06/24/17 06/24/17 06:59 18:59 Intake Total 1975 375 Output Total 1400 Balance 575 375 - Medications Medications: Current Medications Acetaminophen (Tylenol 650 Mg Supp) 650 mg MS Q6 PRN PRN Reason: Fever >100.4 F Hydromorphone HCl (Dilaudid) 0.5 mg IVP Q4 PRN PRN Reason: Pain, moderate (4-7) Last Admin: 06/24/17 07:09 Dose: 0.5 mg Hydromorphone HCl (Dilaudid) 0.5 mg IVP Q4 PRN PRN Reason: Pain, severe (8-10) Fluconazole (Diflucan Iv 100 Mg/50 Ml Ns) 50 mls @ 50 mls/hr IVPB DAILY TERRY PRN Reason: Protocol Last Admin: 06/24/17 08:48 Dose: 50 mls/hr Metronidazole (Flagyl 500mg/100ml Ns) 100 mls @ 100 mls/hr IVPB Q8 TERRY PRN Reason: Protocol Last Admin: 06/24/17 08:49 Dose: 100 mls/hr Lactated Ringer's (Lactated Ringer's) 1,000 mls @ 125 mls/hr IV .Q8H [facility] Last Admin: 06/24/17 08:49 Dose: 125 mls/hr Piperacillin Sod/Tazobactam (Sod 3.375 gm/ Sodium Chloride) 100 mls @ 100 mls/ hr IVPB Q6 TERRY PRN Reason: Protocol Last Admin: 06/24/17 05:00 Dose: 100 mls/hr Potassium Chloride (Potassium Cl 10meq/50ml Sterile Water) 50 mls @ 50 mls/hr IVPB ONCE ONE Stop: 06/24/17 10:11 Metoprolol Tartrate (Lopressor) 2.5 mg IVP Q6 [facility] Last Admin: 06/22/17 05:07 Dose: Not Given Ondansetron HCl (Zofran Inj) 4 mg IVP Q6 PRN PRN Reason: Nausea/Vomiting Pantoprazole Sodium (Protonix Inj) 40 mg IVP DAILY [facility] Last Admin: 06/24/17 08:50 Dose: 40 mg - Labs Labs: 06/24/17 05:30 06/24/17 05:30 PT 18.6 Seconds (9.8-13.1) H 06/23/17 12:06 INR 1.7 (0.9-1.2) H 06/23/17 12:06 APTT 34.8 Seconds (25.6-37.1) D 06/23/17 12:06
--- NOTE | 2017-06-24 09:59 | CP.PCM.PN ---
Subjective - Date & Time of Evaluation Date of Evaluation: 06/24/17 Time of Evaluation: 07:00 - Subjective Subjective: GENERAL SURGERY PROGRESS NOTE FOR DR. SANCHEZ Patient seen and examined at bedside in the ICU. She remains intubated but is awake and alert. She shakes her head no when asked if she has pain. There is small amount of brown liquid in the colostomy. NG tube has minimal output. Overnight, urine had 1400cc and Ryan had 60cc output over 12 hour shift. On PRVC: Peep 5, FIO2 50%, RR 8 Objective - Vital Signs/Intake and Output Vital Signs (last 24 hours): Temp Pulse Resp BP Pulse Ox 99.1 F 79 8 L 95/44 L 97 06/24/17 08:46 06/24/17 08:46 06/24/17 08:46 06/24/17 08:46 06/24/17 08:46 Intake and Output: 06/24/17 06/24/17 06:59 18:59 Intake Total 1975 375 Output Total 1400 Balance 575 375 - Medications Medications: Current Medications Acetaminophen (Tylenol 650 Mg Supp) 650 mg AR Q6 PRN PRN Reason: Fever >100.4 F Hydromorphone HCl (Dilaudid) 0.5 mg IVP Q4 PRN PRN Reason: Pain, moderate (4-7) Last Admin: 06/24/17 07:09 Dose: 0.5 mg Hydromorphone HCl (Dilaudid) 0.5 mg IVP Q4 PRN PRN Reason: Pain, severe (8-10) Fluconazole (Diflucan Iv 100 Mg/50 Ml Ns) 50 mls @ 50 mls/hr IVPB DAILY TERRY PRN Reason: Protocol Last Admin: 06/24/17 08:48 Dose: 50 mls/hr Metronidazole (Flagyl 500mg/100ml Ns) 100 mls @ 100 mls/hr IVPB Q8 TERRY PRN Reason: Protocol Last Admin: 06/24/17 08:49 Dose: 100 mls/hr Lactated Ringer's (Lactated Ringer's) 1,000 mls @ 125 mls/hr IV .Q8H [facility] Last Admin: 06/24/17 08:49 Dose: 125 mls/hr Piperacillin Sod/Tazobactam (Sod 3.375 gm/ Sodium Chloride) 100 mls @ 100 mls/ hr IVPB Q6 TERRY PRN Reason: Protocol Last Admin: 06/24/17 05:00 Dose: 100 mls/hr Potassium Chloride (Potassium Cl 10meq/50ml Sterile Water) 50 mls @ 50 mls/hr IVPB ONCE ONE Stop: 06/24/17 10:11 Metoprolol Tartrate (Lopressor) 2.5 mg IVP Q6 [facility] Last Admin: 06/22/17 05:07 Dose: Not Given Ondansetron HCl (Zofran Inj) 4 mg IVP Q6 PRN PRN Reason: Nausea/Vomiting Pantoprazole Sodium (Protonix Inj) 40 mg IVP DAILY [facility] Last Admin: 06/24/17 08:50 Dose: 40 mg - Labs Labs: 06/24/17 05:30 06/24/17 05:30 PT 18.6 Seconds (9.8-13.1) H 06/23/17 12:06 INR 1.7 (0.9-1.2) H 06/23/17 12:06 APTT 34.8 Seconds (25.6-37.1) D 06/23/17 12:06 - Constitutional Appears: Non-toxic, No Acute Distress - Head Exam Head Exam: ATRAUMATIC, NORMAL INSPECTION - Respiratory Exam Respiratory Exam: NORMAL BREATHING PATTERN (on mechanical ventilation). absent : Respiratory Distress - Cardiovascular Exam Cardiovascular Exam: +S1, +S2 - GI/Abdominal Exam GI & Abdominal Exam: Soft, Tenderness (tender around midline incision). absent : Distended, Firm, Guarding, Rigid, Rebound Additional comments: small amount dried blood on dressing Colostomy bag with gas and small amount brown liquid Ryan drain with serous drainage - Extremities Exam Additional comments: TLC in Right femoral - Neurological Exam Neurological Exam: Alert, Awake, Oriented x3 - Psychiatric Exam Psychiatric exam: Normal Affect, Normal Mood - Skin Skin Exam: Dry, Normal Color, Warm Assessment and Plan - Assessment and Plan (Free Text) Assessment: 86yo F with perforated diverticulitis s/p colon resection with end colostomy POD #1 - Has small amount liquid in colostomy - Will continue to follow up Ryan output and NG tube output - Will monitor for return of bowel function - Discussed plan with Dr. Galindo Vila PGY-3
--- NOTE | 2017-06-24 10:03 | RAD ---
HISTORY: intubated COMPARISON: Chest radiograph dated 06/23/2017 FINDINGS: LUNGS: Pulmonary vascular congestion. Bibasilar atelectasis. PLEURA: Similar small bilateral pleural effusions. No pneumothorax apparent. CARDIOVASCULAR: Left subclavian access AICD/ pacemaker unchanged. Cardiomediastinal silhouette stably enlarged. OSSEOUS STRUCTURES: Unchanged. VISUALIZED UPPER ABDOMEN: Right upper quadrant surgical clips. OTHER FINDINGS: Endotracheal tube has been slightly retracted, but the tip is just above the janneth. Enteric tube, unchanged. IMPRESSION: Endotracheal tube tip just above the janneth; slight retraction is recommended. Similar pulmonary vascular congestion and small bilateral pleural effusions.
--- NOTE | 2017-06-24 10:34 | CP.PCM.CON ---
History of Present Illness - History of Present Illness History of Present Illness: This is a 86 yrs old female who was admitted with severe abdominal pain, . On CT scan she was found to have a ruptured diverticuli. she also has a h/o left hector replacement, Hypertension, arrythmia on xarelto, and has a permanent pacemaker in place. Because of the xarelto pt was not able to go for surgery the same day. I was called to help with the coagulation problem. Pt's INR was also elevated to 1.7. She had already received 2 units of FFP and she was being managed conservatively with NGT, Fluids , antibiotics and pressors. I gave her another 2 units of FFP, for the elevated INR, 2 units of platelets because they were low due to the sepsis. She was also given DDAVP and yesterday was sent to surgery. She had no problems during surgery but is intubated. This morning she alert awake and responds to questions. Her vital signs are more or less stablw. WBC is 8.2, hgb is 9.1gms, and platelets 91K. Past Patient History - Past Medical History & Family History Past Medical History?: Yes - Past Social History Smoking Status: Never Smoked Alcohol: None Drugs: Denies Home Situation {Lives}: Alone - CARDIAC Hx Hypercholesterolemia: Yes Hx Hypertension: Yes Hx Pacemaker: Yes - PULMONARY Hx Respiratory Disorders: No - NEUROLOGICAL Hx Neurological Disorder: No - HEENT Hx HEENT Problems: No - RENAL Hx Chronic Kidney Disease: No - ENDOCRINE/METABOLIC Hx Endocrine Disorders: No - HEMATOLOGICAL/ONCOLOGICAL Hx Blood Disorders: No - INTEGUMENTARY Hx Dermatological Problems: No - MUSCULOSKELETAL/RHEUMATOLOGICAL Hx Musculoskeletal Disorders: No - GASTROINTESTINAL Hx Gastrointestinal Disorders: No - GENITOURINARY/GYNECOLOGICAL Hx Genitourinary Disorders: No - PSYCHIATRIC Hx Psychophysiologic Disorder: No Hx Substance Use: No - SURGICAL HISTORY Hx Surgeries: Yes - ANESTHESIA Hx Anesthesia: Yes Hx Anesthesia Reactions: No Hx Malignant Hyperthermia: No Has any member of the family had a problem w/ anesthesia?: No Meds Allergies/Adverse Reactions: Allergies Allergy/AdvReac Type Severity Reaction Status Date / Time No Known Allergies Allergy Verified 06/21/17 14:42 - Medications Medications: Current Medications Acetaminophen (Tylenol 650 Mg Supp) 650 mg ND Q6 PRN PRN Reason: Fever >100.4 F Hydromorphone HCl (Dilaudid) 0.5 mg IVP Q4 PRN PRN Reason: Pain, moderate (4-7) Last Admin: 06/24/17 07:09 Dose: 0.5 mg Hydromorphone HCl (Dilaudid) 0.5 mg IVP Q4 PRN PRN Reason: Pain, severe (8-10) Fluconazole (Diflucan Iv 100 Mg/50 Ml Ns) 50 mls @ 50 mls/hr IVPB DAILY TERRY PRN Reason: Protocol Last Admin: 06/24/17 08:48 Dose: 50 mls/hr Metronidazole (Flagyl 500mg/100ml Ns) 100 mls @ 100 mls/hr IVPB Q8 TERRY PRN Reason: Protocol Last Admin: 06/24/17 08:49 Dose: 100 mls/hr Lactated Ringer's (Lactated Ringer's) 1,000 mls @ 125 mls/hr IV .Q8H [facility] Last Admin: 06/24/17 08:49 Dose: 125 mls/hr Piperacillin Sod/Tazobactam (Sod 3.375 gm/ Sodium Chloride) 100 mls @ 100 mls/ hr IVPB Q6 TERRY PRN Reason: Protocol Last Admin: 06/24/17 05:00 Dose: 100 mls/hr Metoprolol Tartrate (Lopressor) 2.5 mg IVP Q6 [facility] Last Admin: 06/22/17 05:07 Dose: Not Given Ondansetron HCl (Zofran Inj) 4 mg IVP Q6 PRN PRN Reason: Nausea/Vomiting Pantoprazole Sodium (Protonix Inj) 40 mg IVP DAILY [facility] Last Admin: 06/24/17 08:50 Dose: 40 mg Physical Exam - Additional Findings Additional findings: Phjysical exam; Alert, obeys commands Neck; supple, no adenopathy Chest; clear, scattered rales bilaterally Heart; RSR, no murmur Abd; Soft, bowel sounds good, there are some stools in the colostomy bag. Results - Vital Signs Recent Vital Signs: Last Vital Signs Temp 99.1 F 06/24/17 08:46 Pulse 79 06/24/17 08:46 Resp 8 L 06/24/17 08:46 BP 95/44 L 06/24/17 08:46 Pulse Ox 97 06/24/17 08:46 - Labs Result Diagrams: 06/24/17 05:30 06/24/17 05:30 Labs: Laboratory Results - last 24 hr 06/21/17 06/23/17 06/23/17 21:30 04:20 04:20 WBC RBC Hgb Hct MCV MCH MCHC RDW Plt Count MPV Neut % (Auto) Lymph % (Auto) Jack % (Auto) Eos % (Auto) Baso % (Auto) Neut # Lymph # Jack # Eos # Baso # Neutrophils % (Manual) 83 H Band Neutrophils % 5 H Lymphocytes % (Manual) 10 L Monocytes % (Manual) 1 Metamyelocytes % 1 H Toxic Granulation Present Platelet Estimate Decreased L Hypochromasia (manual) Slight Ovalocytes Slight PT INR APTT pCO2 pO2 HCO3 ABG pH ABG Total CO2 ABG O2 Saturation ABG Base Excess Rich Test ABG Potassium A-a O2 Difference Glucose Lactate Vent Mode Mechanical Rate FiO2 Tidal Volume PEEP Sodium Potassium Chloride Carbon Dioxide Anion Gap BUN Creatinine Est GFR ( Amer) Est GFR (Non-Af Amer) Random Glucose Lactic Acid Calcium Total Bilirubin AST ALT Alkaline Phosphatase Total Protein Albumin Globulin Albumin/Globulin Ratio Procalcitonin 33.88 H Arterial Blood Potassium Blood Type O POSITIVE Antibody Screen Negative Crossmatch See Detail BBK History Checked No verified bt 06/23/17 06/23/17 06/24/17 12:06 12:06 05:30 WBC 9.0 8.2 RBC 3.25 L 3.01 L Hgb 9.8 L 9.1 L Hct 30.3 L 27.6 L MCV 93.4 91.7 MCH 30.1 30.2 MCHC 32.2 L 32.9 L RDW 14.0 14.1 Plt Count 78 L 91 L MPV 11.9 H Neut % (Auto) 87.4 H Lymph % (Auto) 9.5 L Jack % (Auto) 2.7 Eos % (Auto) 0.3 Baso % (Auto) 0.1 Neut # 7.1 H Lymph # 0.8 L Jack # 0.2 Eos # 0.0 Baso # 0.0 Neutrophils % (Manual) Band Neutrophils % Lymphocytes % (Manual) Monocytes % (Manual) Metamyelocytes % Toxic Granulation Platelet Estimate Hypochromasia (manual) Ovalocytes PT 18.6 H INR 1.7 H APTT 34.8 D pCO2 pO2 HCO3 ABG pH ABG Total CO2 ABG O2 Saturation ABG Base Excess Rich Test ABG Potassium A-a O2 Difference Glucose Lactate Vent Mode Mechanical Rate FiO2 Tidal Volume PEEP Sodium Potassium Chloride Carbon Dioxide Anion Gap BUN Creatinine Est GFR ( Amer) Est GFR (Non-Af Amer) Random Glucose Lactic Acid Calcium Total Bilirubin AST ALT Alkaline Phosphatase Total Protein Albumin Globulin Albumin/Globulin Ratio Procalcitonin Arterial Blood Potassium Blood Type Antibody Screen Crossmatch BBK History Checked 06/24/17 06/24/17 06/24/17 05:30 05:30 05:32 WBC RBC Hgb Hct MCV MCH MCHC RDW Plt Count MPV Neut % (Auto) Lymph % (Auto) Jack % (Auto) Eos % (Auto) Baso % (Auto) Neut # Lymph # Jack # Eos # Baso # Neutrophils % (Manual) Band Neutrophils % Lymphocytes % (Manual) Monocytes % (Manual) Metamyelocytes % Toxic Granulation Platelet Estimate Hypochromasia (manual) Ovalocytes PT INR APTT pCO2 31 L pO2 162 H HCO3 26.3 ABG pH 7.50 H ABG Total CO2 25.2 ABG O2 Saturation 98.9 H ABG Base Excess 1.7 Rich Test Yes ABG Potassium 3.0 L A-a O2 Difference 370.0 Glucose 106 H Lactate 1.2 Vent Mode Prvc ac Mechanical Rate 12 FiO2 80.0 Tidal Volume 450 PEEP 4 Sodium 141 139.0 Potassium 3.5 L Chloride 109 H 111.0 H Carbon Dioxide 25 Anion Gap 11 BUN 16 Creatinine 1.0 Est GFR ( Amer) > 60 Est GFR (Non-Af Amer) 53 Random Glucose 95 Lactic Acid 1.8 Calcium 7.7 L Total Bilirubin 0.8 AST 77 H D ALT 191 H D Alkaline Phosphatase 75 Total Protein 5.2 L Albumin 2.7 L Globulin 2.6 Albumin/Globulin Ratio 1.0 Procalcitonin Arterial Blood Potassium 3.0 L Blood Type Antibody Screen Crossmatch BBK History Checked Assessment & Plan - Assessment and Plan (Free Text) Assessment: I Coagulopathy due to xarelto and sepsis as improved. mp; Ruptured diverticuli, needed surgery for a colectomy with a colostomy. Plan: Plan; will monitor CBC, and INR. - Date & Time Date: 06/24/17 Time: 10:48
--- NOTE | 2017-06-24 12:16 | CP.CCUPN ---
CCU Subjective - Physician Review Subjective (Free Text): Arousable and responsive, came back from OR yesterday on MV support, on 60% oxygen this AM and tolerated reduction to 50%, noted ++ positive fluid balance noted, CXR shows increased bi basilar interstitial changes c/w fluid overload. Ostomy with liquid bstool already. Other vitals reviewed, and I/O's noted. ROS: No other pertinent negs or positives on 10+ system review. PMSFH: All Nursing and physician documentation reviewed to date; no new pertinent info noted relevant to current medical problems. CXR: Increased congestive changes bibasilar areas (my interp). MAJOR PROBLEMS: 1. Perforated Sigmoid diverticulitis 2. Severe sepsis/ shock 2 #1 3. Azotemia / Dehydration: r/o ALBER 4. Thrombocytopenia / Coagulopathy PLAN: 1. Hold IVF hydration, Lasix prn. Check ECHO, SvO2. If FIO2 requirements imporve further, will try extubation today. 2. Vasopressors off. 3. Lactate levels have normalized. 4. Empiric abx coverage noted. 5. Hold antihypertensives and Psych drugs for now. CCU Objective - Vital Signs / Intake & Output Vital Signs (Last 4 hours): Vital Signs Temp Pulse Resp BP Pulse Ox 06/24/17 10:00 99.1 F 87 13 119/60 97 06/24/17 08:46 99.1 F 79 8 L 95/44 L 97 Intake and Output (Last 8hrs): Intake & Output 06/23/17 06/24/17 06/24/17 22:59 06:59 14:59 Intake Total 1450 1175 375 Output Total 460 1400 Balance 990 -225 375 Intake: IV 825 875 125 Intake, Piggyback 100 250 Blood Product 525 300 Output: Gastric Amount 110 Right Nares 110 Urine 350 1400 Urethral (Harris) 50 1400 - Physical Exam Head: Positive for: Normocephalic Pupils: Positive for: PERRL Conjunctiva: Positive for: Normal. Negative for: Icteric Mouth: Positive for: Moist Mucous Membranes Neck: Positive for: Normal Range of Motion. Negative for: JVD Respiratory/Chest: Positive for: Clear to Auscultation. Negative for: Accessory Muscle Use, Wheezes Cardiovascular: Positive for: Regular Rate and Rhythm, Normal S1, S2, Tachycardic. Negative for: Murmurs, Rub Abdomen: Positive for: Tenderness, Distention (minimal), Guarding Lower Extremity: Positive for: NORMAL PULSES. Negative for: CALF TENDERNESS, Cyanosis Neurological: Positive for: GCS=15, Motor Func Grossly Intact, Normal Sensory Function Skin: Positive for: Warm, Dry. Negative for: Rashes Psychiatric: Positive for: Alert, Oriented x 3 - Medications Active Medications: Active Medications Generic Name Dose Route Start Last Admin Trade Name Freq PRN Reason Stop Dose Admin Acetaminophen 650 mg 06/21/17 22:04 Tylenol 650 Mg Supp MA Q6 PRN Fever >100.4 F Hydromorphone HCl 0.5 mg 06/22/17 18:01 06/24/17 07:09 Dilaudid IVP 0.5 mg Q4 PRN Administration Pain, moderate (4-7) Hydromorphone HCl 0.5 mg 06/23/17 20:17 Dilaudid IVP Q4 PRN Pain, severe (8-10) Fluconazole 50 mls @ 50 mls/hr 06/23/17 09:00 06/24/17 08:48 Diflucan Iv 100 Mg/50 Ml Ns IVPB 50 mls/hr DAILY TERRY Administration Protocol Metronidazole 100 mls @ 100 mls/hr 06/23/17 01:00 06/24/17 08:49 Flagyl 500mg/100ml Ns IVPB 100 mls/hr Q8 TERRY Administration Protocol Lactated Ringer's 1,000 mls @ 125 mls/hr 06/23/17 16:30 06/24/17 08:49 Lactated Ringer's IV 125 mls/hr .Q8H TERRY Administration Piperacillin Sod/Tazobactam 100 mls @ 100 mls/hr 06/23/17 22:00 06/24/17 10: 00 Sod 3.375 gm/ Sodium Chloride IVPB 100 mls/hr Q6 TERRY Administration Protocol Metoprolol Tartrate 2.5 mg 06/22/17 04:00 06/22/17 05:07 Lopressor IVP Not Given Q6 TERRY Ondansetron HCl 4 mg 06/21/17 21:14 Zofran Inj IVP Q6 PRN Nausea/Vomiting Pantoprazole Sodium 40 mg 06/22/17 09:00 06/24/17 08:50 Protonix Inj IVP 40 mg DAILY TERRY Administration - Patient Studies Lab Studies: Microbiology Studies 06/23/17 16:54 Gram Stain - Final Other: Please Indicate Wound Culture - Preliminary NO GROWTH AFTER 24 HOURS 06/21/17 20:35 Blood Culture - Preliminary Blood NO GROWTH AFTER 48 HOURS 06/21/17 20:15 Blood Culture - Preliminary Blood NO GROWTH AFTER 48 HOURS 06/21/17 18:30 Urine Culture - Final Urine,Catheterized No Growth (<1,000 CFU/ML) 06/22/17 11:24 MRSA Culture (Admit) - Final Naris MRSA NOT DETECTED Lab Studies 06/24/17 06/24/17 06/24/17 Range/Units 05:32 05:30 05:30 WBC (4.8-10.8) K/uL RBC (3.80-5.20) Mil/uL Hgb (12.0-16.0) g/dL Hct (34.0-47.0) % MCV (81.0-99.0) fl MCH (27.0-31.0) pg MCHC (33.0-37.0) g/dL RDW (11.5-14.5) % Plt Count (130-400) K/uL MPV (7.2-11.7) fl Neut % (Auto) (50.0-75.0) % Lymph % (Auto) (20.0-40.0) % Upton % (Auto) (0.0-10.0) % Eos % (Auto) (0.0-4.0) % Baso % (Auto) (0.0-2.0) % Neut # (1.8-7.0) K/uL Lymph # (1.0-4.3) K/uL Upton # (0.0-0.8) K/uL Eos # (0.0-0.7) K/uL Baso # (0.0-0.2) K/uL PT (9.8-13.1) Seconds INR (0.9-1.2) APTT (25.6-37.1) Seconds pCO2 31 L (35-45) mm/Hg pO2 162 H (80-100) mm/Hg HCO3 26.3 (21-28) mmol/L ABG pH 7.50 H (7.35-7.45) ABG Total CO2 25.2 (22-28) mmol/L ABG O2 Saturation 98.9 H (95-98) % ABG Base Excess 1.7 (-2.0-3.0) mmol/L Rich Test Yes ABG Potassium 3.0 L (3.6-5.2) mmol/L A-a O2 Difference 370.0 mm/Hg Glucose 106 H (65-105) mg/dL Lactate 1.2 (0.7-2.1) mmol/L Vent Mode Prvc ac Mechanical Rate 12 FiO2 80.0 % Tidal Volume 450 PEEP 4 Sodium 139.0 141 (132-148) mmol/l Potassium 3.5 L (3.6-5.0) MMOL/L Chloride 111.0 H 109 H (98-107) mmol/L Carbon Dioxide 25 (22-30) mmol/L Anion Gap 11 (10-20) BUN 16 (7-17) mg/dl Creatinine 1.0 (0.7-1.2) mg/dl Est GFR ( Amer) > 60 Est GFR (Non-Af Amer) 53 Random Glucose 95 (65-105) mg/dL Lactic Acid 1.8 (0.7-2.1) MMOL/L Calcium 7.7 L (8.4-10.2) mg/dL Total Bilirubin 0.8 (0.2-1.3) mg/dl AST 77 H D (14-36) U/L ALT 191 H D (9-52) U/L Alkaline Phosphatase 75 (38-126) U/L Total Protein 5.2 L (6.3-8.2) G/DL Albumin 2.7 L (3.5-5.0) g/dL Globulin 2.6 (2.2-3.9) gm/dL Albumin/Globulin Ratio 1.0 (1.0-2.1) Procalcitonin (0.19-0.49) NG/ML Arterial Blood Potassium 3.0 L (3.6-5.2) mmol/L Blood Type Antibody Screen Crossmatch BBK History Checked 06/24/17 06/23/17 06/23/17 Range/Units 05:30 12:06 12:06 WBC 8.2 9.0 (4.8-10.8) K/uL RBC 3.01 L 3.25 L (3.80-5.20) Mil/uL Hgb 9.1 L 9.8 L (12.0-16.0) g/dL Hct 27.6 L 30.3 L (34.0-47.0) % MCV 91.7 93.4 (81.0-99.0) fl MCH 30.2 30.1 (27.0-31.0) pg MCHC 32.9 L 32.2 L (33.0-37.0) g/dL RDW 14.1 14.0 (11.5-14.5) % Plt Count 91 L 78 L (130-400) K/uL MPV 11.9 H (7.2-11.7) fl Neut % (Auto) 87.4 H (50.0-75.0) % Lymph % (Auto) 9.5 L (20.0-40.0) % Upton % (Auto) 2.7 (0.0-10.0) % Eos % (Auto) 0.3 (0.0-4.0) % Baso % (Auto) 0.1 (0.0-2.0) % Neut # 7.1 H (1.8-7.0) K/uL Lymph # 0.8 L (1.0-4.3) K/uL Upton # 0.2 (0.0-0.8) K/uL Eos # 0.0 (0.0-0.7) K/uL Baso # 0.0 (0.0-0.2) K/uL PT 18.6 H (9.8-13.1) Seconds INR 1.7 H (0.9-1.2) APTT 34.8 D (25.6-37.1) Seconds pCO2 (35-45) mm/Hg pO2 (80-100) mm/Hg HCO3 (21-28) mmol/L ABG pH (7.35-7.45) ABG Total CO2 (22-28) mmol/L ABG O2 Saturation (95-98) % ABG Base Excess (-2.0-3.0) mmol/L Rich Test ABG Potassium (3.6-5.2) mmol/L A-a O2 Difference mm/Hg Glucose (65-105) mg/dL Lactate (0.7-2.1) mmol/L Vent Mode Mechanical Rate FiO2 % Tidal Volume PEEP Sodium (132-148) mmol/l Potassium (3.6-5.0) MMOL/L Chloride (98-107) mmol/L Carbon Dioxide (22-30) mmol/L Anion Gap (10-20) BUN (7-17) mg/dl Creatinine (0.7-1.2) mg/dl Est GFR ( Amer) Est GFR (Non-Af Amer) Random Glucose (65-105) mg/dL Lactic Acid (0.7-2.1) MMOL/L Calcium (8.4-10.2) mg/dL Total Bilirubin (0.2-1.3) mg/dl AST (14-36) U/L ALT (9-52) U/L Alkaline Phosphatase (38-126) U/L Total Protein (6.3-8.2) G/DL Albumin (3.5-5.0) g/dL Globulin (2.2-3.9) gm/dL Albumin/Globulin Ratio (1.0-2.1) Procalcitonin (0.19-0.49) NG/ML Arterial Blood Potassium (3.6-5.2) mmol/L Blood Type Antibody Screen Crossmatch BBK History Checked 06/23/17 06/21/17 Range/Units 04:20 21:30 WBC (4.8-10.8) K/uL RBC (3.80-5.20) Mil/uL Hgb (12.0-16.0) g/dL Hct (34.0-47.0) % MCV (81.0-99.0) fl MCH (27.0-31.0) pg MCHC (33.0-37.0) g/dL RDW (11.5-14.5) % Plt Count (130-400) K/uL MPV (7.2-11.7) fl Neut % (Auto) (50.0-75.0) % Lymph % (Auto) (20.0-40.0) % Upton % (Auto) (0.0-10.0) % Eos % (Auto) (0.0-4.0) % Baso % (Auto) (0.0-2.0) % Neut # (1.8-7.0) K/uL Lymph # (1.0-4.3) K/uL Upton # (0.0-0.8) K/uL Eos # (0.0-0.7) K/uL Baso # (0.0-0.2) K/uL PT (9.8-13.1) Seconds INR (0.9-1.2) APTT (25.6-37.1) Seconds pCO2 (35-45) mm/Hg pO2 (80-100) mm/Hg HCO3 (21-28) mmol/L ABG pH (7.35-7.45) ABG Total CO2 (22-28) mmol/L ABG O2 Saturation (95-98) % ABG Base Excess (-2.0-3.0) mmol/L Rich Test ABG Potassium (3.6-5.2) mmol/L A-a O2 Difference mm/Hg Glucose (65-105) mg/dL Lactate (0.7-2.1) mmol/L Vent Mode Mechanical Rate FiO2 % Tidal Volume PEEP Sodium (132-148) mmol/l Potassium (3.6-5.0) MMOL/L Chloride (98-107) mmol/L Carbon Dioxide (22-30) mmol/L Anion Gap (10-20) BUN (7-17) mg/dl Creatinine (0.7-1.2) mg/dl Est GFR ( Amer) Est GFR (Non-Af Amer) Random Glucose (65-105) mg/dL Lactic Acid (0.7-2.1) MMOL/L Calcium (8.4-10.2) mg/dL Total Bilirubin (0.2-1.3) mg/dl AST (14-36) U/L ALT (9-52) U/L Alkaline Phosphatase (38-126) U/L Total Protein (6.3-8.2) G/DL Albumin (3.5-5.0) g/dL Globulin (2.2-3.9) gm/dL Albumin/Globulin Ratio (1.0-2.1) Procalcitonin 33.88 H (0.19-0.49) NG/ML Arterial Blood Potassium (3.6-5.2) mmol/L Blood Type O POSITIVE Antibody Screen Negative Crossmatch See Detail BBK History Checked No verified bt Laboratory Results - last 24 hr 11/28/17 11/30/17 11/30/17 21:30 04:20 12:06 WBC 9.0 RBC 3.25 L Hgb 9.8 L Hct 30.3 L MCV 93.4 MCH 30.1 MCHC 32.2 L RDW 14.0 Plt Count 78 L MPV Neut % (Auto) Lymph % (Auto) Upton % (Auto) Eos % (Auto) Baso % (Auto) Neut # Lymph # Upton # Eos # Baso # PT INR APTT pCO2 pO2 HCO3 ABG pH ABG Total CO2 ABG O2 Saturation ABG Base Excess Rich Test ABG Potassium A-a O2 Difference Glucose Lactate Vent Mode Mechanical Rate FiO2 Tidal Volume PEEP Sodium Potassium Chloride Carbon Dioxide Anion Gap BUN Creatinine Est GFR ( Amer) Est GFR (Non-Af Amer) Random Glucose Lactic Acid Calcium Total Bilirubin AST ALT Alkaline Phosphatase Total Protein Albumin Globulin Albumin/Globulin Ratio Procalcitonin 33.88 H Arterial Blood Potassium Blood Type O POSITIVE Antibody Screen Negative Crossmatch See Detail BBK History Checked No verified bt 06/23/17 06/24/17 06/24/17 12:06 05:30 05:30 WBC 8.2 RBC 3.01 L Hgb 9.1 L Hct 27.6 L MCV 91.7 MCH 30.2 MCHC 32.9 L RDW 14.1 Plt Count 91 L MPV 11.9 H Neut % (Auto) 87.4 H Lymph % (Auto) 9.5 L Upton % (Auto) 2.7 Eos % (Auto) 0.3 Baso % (Auto) 0.1 Neut # 7.1 H Lymph # 0.8 L Upton # 0.2 Eos # 0.0 Baso # 0.0 PT 18.6 H INR 1.7 H APTT 34.8 D pCO2 pO2 HCO3 ABG pH ABG Total CO2 ABG O2 Saturation ABG Base Excess Rich Test ABG Potassium A-a O2 Difference Glucose Lactate Vent Mode Mechanical Rate FiO2 Tidal Volume PEEP Sodium 141 Potassium 3.5 L Chloride 109 H Carbon Dioxide 25 Anion Gap 11 BUN 16 Creatinine 1.0 Est GFR ( Amer) > 60 Est GFR (Non-Af Amer) 53 Random Glucose 95 Lactic Acid Calcium 7.7 L Total Bilirubin 0.8 AST 77 H D ALT 191 H D Alkaline Phosphatase 75 Total Protein 5.2 L Albumin 2.7 L Globulin 2.6 Albumin/Globulin Ratio 1.0 Procalcitonin Arterial Blood Potassium Blood Type Antibody Screen Crossmatch BBK History Checked 06/24/17 06/24/17 05:30 05:32 WBC RBC Hgb Hct MCV MCH MCHC RDW Plt Count MPV Neut % (Auto) Lymph % (Auto) Upton % (Auto) Eos % (Auto) Baso % (Auto) Neut # Lymph # Upton # Eos # Baso # PT INR APTT pCO2 31 L pO2 162 H HCO3 26.3 ABG pH 7.50 H ABG Total CO2 25.2 ABG O2 Saturation 98.9 H ABG Base Excess 1.7 Rich Test Yes ABG Potassium 3.0 L A-a O2 Difference 370.0 Glucose 106 H Lactate 1.2 Vent Mode Prvc ac Mechanical Rate 12 FiO2 80.0 Tidal Volume 450 PEEP 4 Sodium 139.0 Potassium Chloride 111.0 H Carbon Dioxide Anion Gap BUN Creatinine Est GFR ( Amer) Est GFR (Non-Af Amer) Random Glucose Lactic Acid 1.8 Calcium Total Bilirubin AST ALT Alkaline Phosphatase Total Protein Albumin Globulin Albumin/Globulin Ratio Procalcitonin Arterial Blood Potassium 3.0 L Blood Type Antibody Screen Crossmatch BBK History Checked Review of Systems - Review of Systems Systems not reviewed;Unavailable: Intubated Critical Care Progress Note - Ventilator Checklist Head of Bed 30 Degrees: Yes Daily Sedation Vacation: Yes Daily Assessment of Readiness to Wean: Yes Daily Spontaneous Breathing Trial: Yes PUD Prophalyxis: Yes DVT Prophylaxis: Yes Oral Care with Chlorhexidine Gluconate {CHG}: Yes - Vent Settings MODE:: ASSIST CONTROL TIDAL VOLUME:: 450 RESP RATE:: 8 FIO2:: 50 PEEP:: 5 - Extremities/Vascular Does the Patient have a Central Venous Catheter?: Yes Does the Patient need a Central Venous Catheter?: Yes Does the Patient have a Harris Catheter?: Yes Does the Patient need a Harris Catheter?: Yes Catheter Insertion Criteria: Need for accurate measurement of output in critically ill patient - Prophylaxis GI Prophylaxis GI: PPI - Prophylaxis DVT Prophylaxis DVT: SCDs - Nutrition Nutrition: Nutrition Category Date Time Status NPO Diet [DIET] Diets 06/21/17 Breakfast Active
--- NOTE | 2017-06-24 12:16 | CP.PCM.PN ---
Subjective - Date & Time of Evaluation Date of Evaluation: 06/24/17 Time of Evaluation: 13:00 - Subjective Subjective: ID Note- Pt. seen and examined today in ICU. pt. is s/p colon resection with end colostomy for perforated sigmoid colon pod #1 and remains intubated post OP Ryan Breen is awake and alert and denies any chills but does nod yes to abd pain. Objective - Vital Signs/Intake and Output Vital Signs (last 24 hours): Temp Pulse Resp BP Pulse Ox 99.1 F 87 13 129/65 97 06/24/17 10:00 06/24/17 10:00 06/24/17 10:00 06/24/17 12:15 06/24/17 10:00 Intake and Output: 06/24/17 06/24/17 06:59 18:59 Intake Total 1975 375 Output Total 1400 Balance 575 375 - Medications Medications: Current Medications Acetaminophen (Tylenol 650 Mg Supp) 650 mg MI Q6 PRN PRN Reason: Fever >100.4 F Hydromorphone HCl (Dilaudid) 0.5 mg IVP Q4 PRN PRN Reason: Pain, moderate (4-7) Last Admin: 06/24/17 07:09 Dose: 0.5 mg Hydromorphone HCl (Dilaudid) 0.5 mg IVP Q4 PRN PRN Reason: Pain, severe (8-10) Fluconazole (Diflucan Iv 100 Mg/50 Ml Ns) 50 mls @ 50 mls/hr IVPB DAILY TERRY PRN Reason: Protocol Last Admin: 06/24/17 08:48 Dose: 50 mls/hr Metronidazole (Flagyl 500mg/100ml Ns) 100 mls @ 100 mls/hr IVPB Q8 TERRY PRN Reason: Protocol Last Admin: 06/24/17 08:49 Dose: 100 mls/hr Lactated Ringer's (Lactated Ringer's) 1,000 mls @ 125 mls/hr IV .Q8H TERRY Last Admin: 06/24/17 08:49 Dose: 125 mls/hr Piperacillin Sod/Tazobactam (Sod 3.375 gm/ Sodium Chloride) 100 mls @ 100 mls/ hr IVPB Q6 TERRY PRN Reason: Protocol Last Admin: 06/24/17 10:00 Dose: 100 mls/hr Metoprolol Tartrate (Lopressor) 2.5 mg IVP Q6 [facility] Last Admin: 06/22/17 05:07 Dose: Not Given Ondansetron HCl (Zofran Inj) 4 mg IVP Q6 PRN PRN Reason: Nausea/Vomiting Pantoprazole Sodium (Protonix Inj) 40 mg IVP DAILY [facility] Last Admin: 06/24/17 08:50 Dose: 40 mg - Labs Labs: - Additional Findings Additional findings: - Constitutional Appears: No Acute Distress - Head Exam Head Exam: ATRAUMATIC - Eye Exam Eye Exam: EOMI, PERRL - ENT Exam Additional comments: has NGT in place draining bilious fluid - Neck Exam Neck exam: Positive for: Full Rom - Respiratory Exam Respiratory Exam: Clear to Auscultation Bilateral, NORMAL BREATHING PATTERN - Cardiovascular Exam Cardiovascular Exam: RRR, +S1, +S2 - GI/Abdominal Exam Additional comments: has colostomy bag in place with brown liquid, right side drain in place with sanguinous fluid mid abdominal surgical site covered by gauze - Extremities Exam Extremities exam: Positive for: normal inspection - Neurological Exam Neurological exam: Alert, Oriented x 3 Laboratory Results - last 72 hr 06/21/17 06/21/17 06/21/17 16:32 16:32 18:30 WBC 3.4 L RBC 4.08 Hgb 12.1 Hct 38.0 MCV 93.2 MCH 29.6 MCHC 31.7 L RDW 13.4 Plt Count 142 MPV 10.7 Neut % (Auto) 78.9 H Lymph % (Auto) 16.1 L [place] % (Auto) 4.3 Eos % (Auto) 0.4 Baso % (Auto) 0.3 Neut # 2.7 Lymph # 0.5 L [place] # 0.1 Eos # 0.0 Baso # 0.0 Neutrophils % (Manual) Band Neutrophils % Lymphocytes % (Manual) Monocytes % (Manual) Metamyelocytes % Toxic Granulation Platelet Estimate Large Platelets Hypochromasia (manual) Tear Drop Cells Ovalocytes [place] Cells Schistocytes PT INR APTT pCO2 pO2 HCO3 ABG pH ABG Total CO2 ABG O2 Saturation ABG O2 Content ABG Base Excess ABG Hemoglobin ABG Carboxyhemoglobin POC ABG HHb (Measured) ABG Methemoglobin ABG O2 Capacity Rich Test ABG Potassium VBG pH VBG pCO2 VBG HCO3 VBG Total CO2 VBG O2 Sat (Calc) VBG Base Excess VBG Potassium A-a O2 Difference Hgb O2 Saturation Glucose Lactate Vent Mode Mechanical Rate FiO2 Tidal Volume PEEP Sodium 138 Potassium 6.1 H Chloride 100 Carbon Dioxide 28 Anion Gap 16 BUN 29 H Creatinine 1.1 Est GFR ( Amer) 57 Est GFR (Non-Af Amer) 47 POC Glucose (mg/dL) Random Glucose 105 Lactic Acid Calcium 9.0 Total Bilirubin 0.9 AST 34 ALT 29 Alkaline Phosphatase 68 Total Protein 7.2 Albumin 4.2 Globulin 3.0 Albumin/Globulin Ratio 1.4 Procalcitonin Arterial Blood Potassium Venous Blood Potassium Urine Color Yellow Urine Clarity Clear Urine pH 6.0 Ur Specific [place] 1.016 Urine Protein Negative Urine Glucose (UA) Neg Urine Ketones Negative Urine Blood Negative Urine Nitrate Negative Urine Bilirubin Negative Urine Urobilinogen 0.2-1.0 Ur Leukocyte Esterase Neg Urine RBC (Auto) 2 Urine Microscopic WBC < 1 Urine Bacteria Rare Blood Type Antibody Screen Crossmatch BBK History Checked 06/21/17 06/21/17 06/21/17 20:20 21:30 21:30 WBC RBC Hgb Hct MCV MCH MCHC RDW Plt Count MPV Neut % (Auto) Lymph % (Auto) [place] % (Auto) Eos % (Auto) Baso % (Auto) Neut # Lymph # [place] # Eos # Baso # Neutrophils % (Manual) Band Neutrophils % Lymphocytes % (Manual) Monocytes % (Manual) Metamyelocytes % Toxic Granulation Platelet Estimate Large Platelets Hypochromasia (manual) Tear Drop Cells Ovalocytes [place] Cells Schistocytes PT 16.0 H INR 1.4 H APTT 34.4 pCO2 pO2 25 L HCO3 ABG pH ABG Total CO2 ABG O2 Saturation ABG O2 Content ABG Base Excess ABG Hemoglobin ABG Carboxyhemoglobin POC ABG HHb (Measured) ABG Methemoglobin ABG O2 Capacity Rich Test ABG Potassium VBG pH 7.31 L VBG pCO2 60 VBG HCO3 25.2 VBG Total CO2 32.0 H VBG O2 Sat (Calc) 46.4 VBG Base Excess 2.4 H VBG Potassium 5.8 H A-a O2 Difference Hgb O2 Saturation Glucose 111 H Lactate 2.4 H Vent Mode Mechanical Rate FiO2 21.0 Tidal Volume PEEP Sodium 131.0 L Potassium Chloride 98.0 Carbon Dioxide Anion Gap BUN Creatinine Est GFR ( Amer) Est GFR (Non-Af Amer) POC Glucose (mg/dL) Random Glucose Lactic Acid Calcium Total Bilirubin AST ALT Alkaline Phosphatase Total Protein Albumin Globulin Albumin/Globulin Ratio Procalcitonin Arterial Blood Potassium Venous Blood Potassium 5.8 H Urine Color Urine Clarity Urine pH Ur Specific [place] Urine Protein Urine Glucose (UA) Urine Ketones Urine Blood Urine Nitrate Urine Bilirubin Urine Urobilinogen Ur Leukocyte Esterase Urine RBC (Auto) Urine Microscopic WBC Urine Bacteria Blood Type O POSITIVE Antibody Screen Negative Crossmatch See Detail BBK History Checked No verified bt 06/21/17 06/22/17 06/22/17 21:30 03:02 04:40 WBC 7.3 D RBC 3.02 L Hgb 9.2 L D Hct 28.6 L MCV 94.6 MCH 30.3 MCHC 32.1 L RDW 13.5 Plt Count 96 L D MPV 11.8 H Neut % (Auto) 86.7 H Lymph % (Auto) 9.1 L [place] % (Auto) 4.1 Eos % (Auto) 0.1 Baso % (Auto) 0.0 Neut # 6.3 Lymph # 0.7 L [place] # 0.3 Eos # 0.0 Baso # 0.0 Neutrophils % (Manual) 75 Band Neutrophils % 12 H* Lymphocytes % (Manual) 10 L Monocytes % (Manual) 3 Metamyelocytes % Toxic Granulation Present Platelet Estimate Decreased L Large Platelets Present Hypochromasia (manual) Slight Tear Drop Cells Slight Ovalocytes Slight [place] Cells Slight Schistocytes Slight PT INR APTT pCO2 pO2 HCO3 ABG pH ABG Total CO2 ABG O2 Saturation ABG O2 Content ABG Base Excess ABG Hemoglobin ABG Carboxyhemoglobin POC ABG HHb (Measured) ABG Methemoglobin ABG O2 Capacity Rich Test ABG Potassium VBG pH VBG pCO2 VBG HCO3 VBG Total CO2 VBG O2 Sat (Calc) VBG Base Excess VBG Potassium A-a O2 Difference Hgb O2 Saturation Glucose Lactate Vent Mode Mechanical Rate FiO2 Tidal Volume PEEP Sodium Potassium 5.0 Chloride Carbon Dioxide Anion Gap BUN Creatinine Est GFR ( Amer) Est GFR (Non-Af Amer) POC Glucose (mg/dL) 121 H Random Glucose Lactic Acid Calcium Total Bilirubin AST ALT Alkaline Phosphatase Total Protein Albumin Globulin Albumin/Globulin Ratio Procalcitonin Arterial Blood Potassium Venous Blood Potassium Urine Color Urine Clarity Urine pH Ur Specific [place] Urine Protein Urine Glucose (UA) Urine Ketones Urine Blood Urine Nitrate Urine Bilirubin Urine Urobilinogen Ur Leukocyte Esterase Urine RBC (Auto) Urine Microscopic WBC Urine Bacteria Blood Type Antibody Screen Crossmatch BBK History Checked 06/22/17 06/22/17 06/22/17 04:40 08:10 08:51 WBC RBC Hgb Hct MCV MCH MCHC RDW Plt Count MPV Neut % (Auto) Lymph % (Auto) [place] % (Auto) Eos % (Auto) Baso % (Auto) Neut # Lymph # [place] # Eos # Baso # Neutrophils % (Manual) Band Neutrophils % Lymphocytes % (Manual) Monocytes % (Manual) Metamyelocytes % Toxic Granulation Platelet Estimate Large Platelets Hypochromasia (manual) Tear Drop Cells Ovalocytes [place] Cells Schistocytes PT INR APTT pCO2 47 H pO2 70 L HCO3 19.9 L ABG pH 7.25 L ABG Total CO2 22.0 ABG O2 Saturation 95.6 ABG O2 Content 12.3 L ABG Base Excess -6.4 L ABG Hemoglobin 9.2 L ABG Carboxyhemoglobin 1.1 POC ABG HHb (Measured) 4.3 ABG Methemoglobin 0.5 ABG O2 Capacity 12.9 L Rich Test Yes ABG Potassium VBG pH VBG pCO2 VBG HCO3 VBG Total CO2 VBG O2 Sat (Calc) VBG Base Excess VBG Potassium A-a O2 Difference 71.0 Hgb O2 Saturation 94.1 L Glucose Lactate Vent Mode Mechanical Rate FiO2 28.0 Tidal Volume PEEP Sodium 138 Potassium 4.3 Chloride 108 H Carbon Dioxide 22 Anion Gap 12 BUN 26 H Creatinine 1.3 H Est GFR ( Amer) 47 Est GFR (Non-Af Amer) 39 POC Glucose (mg/dL) Random Glucose 104 Lactic Acid 1.8 Calcium 6.9 L Total Bilirubin AST ALT Alkaline Phosphatase Total Protein Albumin Globulin Albumin/Globulin Ratio Procalcitonin Arterial Blood Potassium Venous Blood Potassium Urine Color Urine Clarity Urine pH Ur Specific [place] Urine Protein Urine Glucose (UA) Urine Ketones Urine Blood Urine Nitrate Urine Bilirubin Urine Urobilinogen Ur Leukocyte Esterase Urine RBC (Auto) Urine Microscopic WBC Urine Bacteria Blood Type Antibody Screen Crossmatch BBK History Checked 06/22/17 06/23/17 06/23/17 14:45 04:20 04:20 WBC 9.4 RBC 2.83 L Hgb 8.6 L Hct 26.5 L MCV 93.5 MCH 30.2 MCHC 32.3 L RDW 13.9 Plt Count 78 L MPV 11.7 Neut % (Auto) 90.8 H Lymph % (Auto) 6.9 L [place] % (Auto) 1.5 Eos % (Auto) 0.6 Baso % (Auto) 0.2 Neut # 8.6 H Lymph # 0.6 L [place] # 0.1 Eos # 0.1 Baso # 0.0 Neutrophils % (Manual) 83 H Band Neutrophils % 5 H Lymphocytes % (Manual) 10 L Monocytes % (Manual) 1 Metamyelocytes % 1 H Toxic Granulation Present Platelet Estimate Decreased L Large Platelets Hypochromasia (manual) Slight Tear Drop Cells Ovalocytes Slight [place] Cells Schistocytes PT INR APTT pCO2 41 pO2 56 L HCO3 19.0 L ABG pH 7.28 L ABG Total CO2 20.6 L ABG O2 Saturation 91.3 L ABG O2 Content ABG Base Excess -7.1 L ABG Hemoglobin ABG Carboxyhemoglobin POC ABG HHb (Measured) ABG Methemoglobin ABG O2 Capacity Rich Test Yes ABG Potassium 4.2 VBG pH VBG pCO2 VBG HCO3 VBG Total CO2 VBG O2 Sat (Calc) VBG Base Excess VBG Potassium A-a O2 Difference 92.0 Hgb O2 Saturation Glucose 119 H Lactate 1.1 Vent Mode Mechanical Rate FiO2 28.0 Tidal Volume PEEP Sodium 137.0 Potassium Chloride 112.0 H Carbon Dioxide Anion Gap BUN Creatinine Est GFR ( Amer) Est GFR (Non-Af Amer) POC Glucose (mg/dL) Random Glucose Lactic Acid Calcium Total Bilirubin AST ALT Alkaline Phosphatase Total Protein Albumin Globulin Albumin/Globulin Ratio Procalcitonin 33.88 H Arterial Blood Potassium 4.2 Venous Blood Potassium Urine Color Urine Clarity Urine pH Ur Specific [place] Urine Protein Urine Glucose (UA) Urine Ketones Urine Blood Urine Nitrate Urine Bilirubin Urine Urobilinogen Ur Leukocyte Esterase Urine RBC (Auto) Urine Microscopic WBC Urine Bacteria Blood Type Antibody Screen Crossmatch BBK History Checked 06/23/17 06/23/17 06/23/17 04:20 04:20 04:20 WBC RBC Hgb Hct MCV MCH MCHC RDW Plt Count MPV Neut % (Auto) Lymph % (Auto) [place] % (Auto) Eos % (Auto) Baso % (Auto) Neut # Lymph # [place] # Eos # Baso # Neutrophils % (Manual) Band Neutrophils % Lymphocytes % (Manual) Monocytes % (Manual) Metamyelocytes % Toxic Granulation Platelet Estimate Large Platelets Hypochromasia (manual) Tear Drop Cells Ovalocytes [place] Cells Schistocytes PT INR APTT 18.8 L D pCO2 pO2 HCO3 ABG pH ABG Total CO2 ABG O2 Saturation ABG O2 Content ABG Base Excess ABG Hemoglobin ABG Carboxyhemoglobin POC ABG HHb (Measured) ABG Methemoglobin ABG O2 Capacity Rich Test ABG Potassium VBG pH VBG pCO2 VBG HCO3 VBG Total CO2 VBG O2 Sat (Calc) VBG Base Excess VBG Potassium A-a O2 Difference Hgb O2 Saturation Glucose Lactate Vent Mode Mechanical Rate FiO2 Tidal Volume PEEP Sodium 140 Potassium 3.9 Chloride 111 H Carbon Dioxide 22 Anion Gap 11 BUN 18 H Creatinine 1.1 Est GFR ( Amer) 57 Est GFR (Non-Af Amer) 47 POC Glucose (mg/dL) Random Glucose 112 H Lactic Acid 1.3 Calcium 6.8 L Total Bilirubin 0.5 AST 203 H D ALT 347 H D Alkaline Phosphatase 92 Total Protein 5.4 L Albumin 2.8 L D Globulin 2.6 Albumin/Globulin Ratio 1.1 Procalcitonin Arterial Blood Potassium Venous Blood Potassium Urine Color Urine Clarity Urine pH Ur Specific [place] Urine Protein Urine Glucose (UA) Urine Ketones Urine Blood Urine Nitrate Urine Bilirubin Urine Urobilinogen Ur Leukocyte Esterase Urine RBC (Auto) Urine Microscopic WBC Urine Bacteria Blood Type Antibody Screen Crossmatch BBK History Checked 06/23/17 06/23/17 06/23/17 05:16 08:56 10:07 WBC RBC Hgb Hct MCV MCH MCHC RDW Plt Count MPV Neut % (Auto) Lymph % (Auto) [place] % (Auto) Eos % (Auto) Baso % (Auto) Neut # Lymph # [place] # Eos # Baso # Neutrophils % (Manual) Band Neutrophils % Lymphocytes % (Manual) Monocytes % (Manual) Metamyelocytes % Toxic Granulation Platelet Estimate Large Platelets Hypochromasia (manual) Tear Drop Cells Ovalocytes [place] Cells Schistocytes PT Cancelled 19.0 H INR Cancelled 1.7 H APTT pCO2 pO2 37 HCO3 ABG pH ABG Total CO2 ABG O2 Saturation ABG O2 Content ABG Base Excess ABG Hemoglobin ABG Carboxyhemoglobin POC ABG HHb (Measured) ABG Methemoglobin ABG O2 Capacity Rich Test ABG Potassium VBG pH 7.29 L VBG pCO2 44 VBG HCO3 19.9 VBG Total CO2 22.6 VBG O2 Sat (Calc) 79.9 H VBG Base Excess -5.3 L VBG Potassium 3.8 A-a O2 Difference Hgb O2 Saturation Glucose 116 H Lactate 1.4 Vent Mode Mechanical Rate FiO2 28.0 Tidal Volume PEEP Sodium 138.0 Potassium Chloride 111.0 H Carbon Dioxide Anion Gap BUN Creatinine Est GFR ( Amer) Est GFR (Non-Af Amer) POC Glucose (mg/dL) Random Glucose Lactic Acid Calcium Total Bilirubin AST ALT Alkaline Phosphatase Total Protein Albumin Globulin Albumin/Globulin Ratio Procalcitonin Arterial Blood Potassium Venous Blood Potassium 3.8 Urine Color Urine Clarity Urine pH Ur Specific [place] Urine Protein Urine Glucose (UA) Urine Ketones Urine Blood Urine Nitrate Urine Bilirubin Urine Urobilinogen Ur Leukocyte Esterase Urine RBC (Auto) Urine Microscopic WBC Urine Bacteria Blood Type Antibody Screen Crossmatch BBK History Checked 06/23/17 06/23/17 06/24/17 12:06 12:06 05:30 WBC 9.0 8.2 RBC 3.25 L 3.01 L Hgb 9.8 L 9.1 L Hct 30.3 L 27.6 L MCV 93.4 91.7 MCH 30.1 30.2 MCHC 32.2 L 32.9 L RDW 14.0 14.1 Plt Count 78 L 91 L MPV 11.9 H Neut % (Auto) 87.4 H Lymph % (Auto) 9.5 L [place] % (Auto) 2.7 Eos % (Auto) 0.3 Baso % (Auto) 0.1 Neut # 7.1 H Lymph # 0.8 L [place] # 0.2 Eos # 0.0 Baso # 0.0 Neutrophils % (Manual) Band Neutrophils % Lymphocytes % (Manual) Monocytes % (Manual) Metamyelocytes % Toxic Granulation Platelet Estimate Large Platelets Hypochromasia (manual) Tear Drop Cells Ovalocytes [place] Cells Schistocytes PT 18.6 H INR 1.7 H APTT 34.8 D pCO2 pO2 HCO3 ABG pH ABG Total CO2 ABG O2 Saturation ABG O2 Content ABG Base Excess ABG Hemoglobin ABG Carboxyhemoglobin POC ABG HHb (Measured) ABG Methemoglobin ABG O2 Capacity Rich Test ABG Potassium VBG pH VBG pCO2 VBG HCO3 VBG Total CO2 VBG O2 Sat (Calc) VBG Base Excess VBG Potassium A-a O2 Difference Hgb O2 Saturation Glucose Lactate Vent Mode Mechanical Rate FiO2 Tidal Volume PEEP Sodium Potassium Chloride Carbon Dioxide Anion Gap BUN Creatinine Est GFR ( Amer) Est GFR (Non-Af Amer) POC Glucose (mg/dL) Random Glucose Lactic Acid Calcium Total Bilirubin AST ALT Alkaline Phosphatase Total Protein Albumin Globulin Albumin/Globulin Ratio Procalcitonin Arterial Blood Potassium Venous Blood Potassium Urine Color Urine Clarity Urine pH Ur Specific [place] Urine Protein Urine Glucose (UA) Urine Ketones Urine Blood Urine Nitrate Urine Bilirubin Urine Urobilinogen Ur Leukocyte Esterase Urine RBC (Auto) Urine Microscopic WBC Urine Bacteria Blood Type Antibody Screen Crossmatch BBK History Checked 06/24/17 06/24/17 06/24/17 05:30 05:30 05:32 WBC RBC Hgb Hct MCV MCH MCHC RDW Plt Count MPV Neut % (Auto) Lymph % (Auto) [place] % (Auto) Eos % (Auto) Baso % (Auto) Neut # Lymph # [place] # Eos # Baso # Neutrophils % (Manual) Band Neutrophils % Lymphocytes % (Manual) Monocytes % (Manual) Metamyelocytes % Toxic Granulation Platelet Estimate Large Platelets Hypochromasia (manual) Tear Drop Cells Ovalocytes [place] Cells Schistocytes PT INR APTT pCO2 31 L pO2 162 H HCO3 26.3 ABG pH 7.50 H ABG Total CO2 25.2 ABG O2 Saturation 98.9 H ABG O2 Content ABG Base Excess 1.7 ABG Hemoglobin ABG Carboxyhemoglobin POC ABG HHb (Measured) ABG Methemoglobin ABG O2 Capacity Rich Test Yes ABG Potassium 3.0 L VBG pH VBG pCO2 VBG HCO3 VBG Total CO2 VBG O2 Sat (Calc) VBG Base Excess VBG Potassium A-a O2 Difference 370.0 Hgb O2 Saturation Glucose 106 H Lactate 1.2 Vent Mode Prvc ac Mechanical Rate 12 FiO2 80.0 Tidal Volume 450 PEEP 4 Sodium 141 139.0 Potassium 3.5 L Chloride 109 H 111.0 H Carbon Dioxide 25 Anion Gap 11 BUN 16 Creatinine 1.0 Est GFR ( Amer) > 60 Est GFR (Non-Af Amer) 53 POC Glucose (mg/dL) Random Glucose 95 Lactic Acid 1.8 Calcium 7.7 L Total Bilirubin 0.8 AST 77 H D ALT 191 H D Alkaline Phosphatase 75 Total Protein 5.2 L Albumin 2.7 L Globulin 2.6 Albumin/Globulin Ratio 1.0 Procalcitonin Arterial Blood Potassium 3.0 L Venous Blood Potassium Urine Color Urine Clarity Urine pH Ur Specific [place] Urine Protein Urine Glucose (UA) Urine Ketones Urine Blood Urine Nitrate Urine Bilirubin Urine Urobilinogen Ur Leukocyte Esterase Urine RBC (Auto) Urine Microscopic WBC Urine Bacteria Blood Type Antibody Screen Crossmatch BBK History Checked Microbiology 06/23/17 16:54 Other: Please Indicate Gram Stain - Final 06/23/17 16:54 Other: Please Indicate Wound Culture - Preliminary NO GROWTH AFTER 24 HOURS 06/21/17 20:35 Blood Blood Culture - Preliminary NO GROWTH AFTER 48 HOURS 06/21/17 20:15 Blood Blood Culture - Preliminary NO GROWTH AFTER 48 HOURS 06/21/17 18:30 Urine,Catheterized Urine Culture - Final No Growth (<1,000 CFU/ML) 06/22/17 11:24 Naris MRSA Culture (Admit) - Final MRSA NOT DETECTED Accession No. : [id number] Patient Name / ID : LING [id number] / [id number] Exam Date : 06/24/2017 04:59:30 ( Approved ) Study Comment : Sex / Age : F / [id number] Creator : Abhishek Lovelace MD Dictator : Abhishek Lovelace MD Computer Systems Security Administrator : Vocal Music Teacher : Abhishek Lovelace MD Approver2 : Report Date : 06/24/2017 09:57:57 My Comment : HISTORY: intubated COMPARISON: Chest radiograph dated 06/23/2017 FINDINGS: LUNGS: Pulmonary vascular congestion. Bibasilar atelectasis. PLEURA: Similar small bilateral pleural effusions. No pneumothorax apparent. CARDIOVASCULAR: Left subclavian access AICD/ pacemaker unchanged. Cardiomediastinal silhouette stably enlarged. OSSEOUS STRUCTURES: Unchanged. VISUALIZED UPPER ABDOMEN: Right upper quadrant surgical clips. OTHER FINDINGS: Endotracheal tube has been slightly retracted, but the tip is just above the janneth. Enteric tube, unchanged. IMPRESSION: Endotracheal tube tip just above the janneth; slight retraction is recommended. Similar pulmonary vascular congestion and small bilateral pleural effusions. Assessment and Plan (1) Perforated sigmoid colon Status: Acute (2) Septic shock Status: Acute (3) History of cardiac arrhythmia Status: Chronic - Assessment and Plan (Free Text) Assessment: A/P- 86 year old female with perforated sigmoid diverticuli . s/p colon resection and colostomy pod #1 remains intubated post-op afebrile normal wbc count . blood cx- neg x 2 urine cx- neg lactate level has normalized plan- continue with IV zosyn. day #3 continue with IV flagyl and IV fluconazole day #2. monitor temps and wbc. surgical f/u. ICU time 45 minutes.
--- NOTE | 2017-06-24 19:23 | PCM.PROC ---
Procedures Attestation:: I certify that I have explained the specified Operation(s) or Procedure(s), risks, benefits and reasonable alternatives to the Patient and/or other person responsible. The opportunity was given to ask questions and all questions answered - Extubation Clinical Parameters: Resolution/Stabilization of disease process, Hemodynamically Stable, Intact Cough/Gag Reflex, Spontaneous Respirations, Acceptable Vent Settings (FIO2<50%, PEEP<8, PaO2>75, pH>7.25) Weaning Criteria Met: Yes General Weaning Approaches: Spontaneous breathing trials and use of T-Piece Patient Condition: Patient has been successfully extubated and assessed Oxygen Therapy: O2 via Venti Mask Patient Tolerated Procedure: Well
[2017-06-25] MEDS: metroNIDAZOLE 500mg/100ml NS 100 ML IVPB SCH ×3 (01:14→16:07)
[2017-06-25] MEDS: Piperacillin/Tazobact 3.375 GM in Sodium Chloride 0.9% 100 ML IVPB SCH ×4 (05:00→21:18)
[2017-06-25] MEDS: HYDROmorphone 0.5 mg/0.5 ml ISec IVP PRN ×4 (05:22→21:09)
--- NOTE | 2017-06-25 06:07 | CP.PCM.PN ---
<Jennifer Roldan - Last Filed: 06/25/17 09:26> Subjective - Date & Time of Evaluation Date of Evaluation: 06/25/17 Time of Evaluation: 05:50 - Subjective Subjective: General surgery progress note for Dr. Weir-Jennifer Roldan, PGY-1 Pt S & E at bedside. Pt ex-tubated overnight. Doing well. Is in some pain, requiring pain meds x 2. Doing well on venti-mask. There is a large amount of dark brown liquid in her colostomy. NGT w/500cc of dark greenish liquid since 7pm last night. UOP is 1000cc since 7pm last night. Ryan drain with mostly serous, slightly sanginous output- approximately 150 cc since 7pm last night. Pt with no other complaints regarding the surgery. Objective - Vital Signs/Intake and Output Vital Signs (last 24 hours): Temp Pulse Resp BP Pulse Ox 98.0 F 85 18 142/69 96 06/25/17 04:00 06/25/17 04:00 06/25/17 04:00 06/25/17 04:00 06/25/17 04:00 Intake and Output: 06/24/17 06/25/17 18:59 06:59 Intake Total 1530 300 Output Total 2025 1500 Balance -495 -1200 - Medications Medications: Current Medications Acetaminophen (Tylenol 650 Mg Supp) 650 mg MA Q6 PRN PRN Reason: Fever >100.4 F Hydromorphone HCl (Dilaudid) 0.5 mg IVP Q4 PRN PRN Reason: Pain, moderate (4-7) Last Admin: 06/25/17 05:22 Dose: 0.5 mg Hydromorphone HCl (Dilaudid) 0.5 mg IVP Q4 PRN PRN Reason: Pain, severe (8-10) Fluconazole (Diflucan Iv 100 Mg/50 Ml Ns) 50 mls @ 50 mls/hr IVPB DAILY TERRY PRN Reason: Protocol Last Admin: 06/24/17 08:48 Dose: 50 mls/hr Metronidazole (Flagyl 500mg/100ml Ns) 100 mls @ 100 mls/hr IVPB Q8 TERRY PRN Reason: Protocol Last Admin: 06/25/17 01:14 Dose: 100 mls/hr Lactated Ringer's (Lactated Ringer's) 1,000 mls @ 125 mls/hr IV .Q8H [facility] Last Admin: 06/24/17 08:49 Dose: 125 mls/hr Piperacillin Sod/Tazobactam (Sod 3.375 gm/ Sodium Chloride) 100 mls @ 100 mls/ hr IVPB Q6 TERRY PRN Reason: Protocol Last Admin: 06/25/17 05:00 Dose: 100 mls/hr Metoprolol Tartrate (Lopressor) 2.5 mg IVP Q6 [facility] Last Admin: 06/22/17 05:07 Dose: Not Given Ondansetron HCl (Zofran Inj) 4 mg IVP Q6 PRN PRN Reason: Nausea/Vomiting Pantoprazole Sodium (Protonix Inj) 40 mg IVP DAILY [facility] Last Admin: 06/24/17 08:50 Dose: 40 mg - Labs Labs: 06/24/17 05:30 06/24/17 05:30 PT 18.6 Seconds (9.8-13.1) H 06/23/17 12:06 INR 1.7 (0.9-1.2) H 06/23/17 12:06 APTT 34.8 Seconds (25.6-37.1) D 06/23/17 12:06 - Constitutional Appears: Non-toxic, No Acute Distress - Head Exam Head Exam: ATRAUMATIC, NORMAL INSPECTION, NORMOCEPHALIC - Eye Exam Eye Exam: EOMI, Normal appearance - ENT Exam Additional comments: NGT in place in nares - Neck Exam Neck Exam: Full ROM, Normal Inspection - Respiratory Exam Respiratory Exam: Clear to Ausculation Bilateral, NORMAL BREATHING PATTERN. absent: Accessory Muscle Use - Cardiovascular Exam Cardiovascular Exam: REGULAR RHYTHM, +S1, +S2 - GI/Abdominal Exam GI & Abdominal Exam: Soft, Normal Bowel Sounds. absent: Distended, Firm, Guarding, Rigid, Tenderness Additional comments: Ostomy with large amount of dark brown, non bloody liquid output. Stoma patent. Midline incision with nydia in place, dressing removed, no drainage or erythema noted. Ryan with mostly serous, streaks of sanguinous output, approximately 25 cc in drain. Dressing over insertion site of drain is clean/ dry/intact - Neurological Exam Neurological Exam: Alert, Awake, Oriented x3 (yoruba speaking only) - Psychiatric Exam Psychiatric exam: Normal Affect, Normal Mood - Skin Skin Exam: Dry, Intact, Normal Color, Warm Assessment and Plan - Assessment and Plan (Free Text) Assessment: 86yo F with perforated diverticulitis s/p colon resection with end colostomy POD #2 Plan: Ostomy with output to bag Cont to monitor Keep NGT in place Do not advance diet until cleared by surgery Dressing removed from midline surgical site Cont to monitor Ryan and NGT output DW attending Yuli, PGY-1 <Jhon Weir - Last Filed: 06/25/17 12:28> Subjective - Date & Time of Evaluation Time of Evaluation: 11:55 - Subjective Subjective: Patient was seen and examined at the bedside. Agree with resident's note above Objective - Vital Signs/Intake and Output Vital Signs (last 24 hours): Temp Pulse Resp BP Pulse Ox 97.7 F 90 23 147/73 94 L 06/25/17 12:07 06/25/17 11:58 06/25/17 11:58 06/25/17 11:58 06/25/17 11:58 Intake and Output: 06/25/17 06/25/17 06:59 18:59 Intake Total 300 350 Output Total 1500 600 Balance -1200 -250 - Medications Medications: Current Medications Acetaminophen (Tylenol 650 Mg Supp) 650 mg MA Q6 PRN PRN Reason: Fever >100.4 F Hydromorphone HCl (Dilaudid) 0.5 mg IVP Q4 PRN PRN Reason: Pain, moderate (4-7) Last Admin: 06/25/17 12:18 Dose: 0.5 mg Hydromorphone HCl (Dilaudid) 0.5 mg IVP Q4 PRN PRN Reason: Pain, severe (8-10) Fluconazole (Diflucan Iv 100 Mg/50 Ml Ns) 50 mls @ 50 mls/hr IVPB DAILY TERRY PRN Reason: Protocol Last Admin: 06/25/17 08:44 Dose: 50 mls/hr Metronidazole (Flagyl 500mg/100ml Ns) 100 mls @ 100 mls/hr IVPB Q8 TERRY PRN Reason: Protocol Last Admin: 06/25/17 08:44 Dose: 100 mls/hr Lactated Ringer's (Lactated Ringer's) 1,000 mls @ 125 mls/hr IV .Q8H [facility]ERRY Last Admin: 06/25/17 08:45 Dose: 125 mls/hr Piperacillin Sod/Tazobactam (Sod 3.375 gm/ Sodium Chloride) 100 mls @ 100 mls/ hr IVPB Q6 TERRY PRN Reason: Protocol Last Admin: 06/25/17 09:59 Dose: 100 mls/hr Potassium Chloride (Potassium Cl 10meq/50ml Sterile Water) 50 mls @ 50 mls/hr IVPB Q1 [facility]ERRY Stop: 06/25/17 13:59 Last Admin: 06/25/17 11:47 Dose: 50 mls/hr Metoprolol Tartrate (Lopressor) 2.5 mg IVP Q6 [facility]ERRY Last Admin: 06/22/17 05:07 Dose: Not Given Ondansetron HCl (Zofran Inj) 4 mg IVP Q6 PRN PRN Reason: Nausea/Vomiting Pantoprazole Sodium (Protonix Inj) 40 mg IVP DAILY [facility] Last Admin: 06/25/17 08:45 Dose: 40 mg - Labs Labs: 06/25/17 05:20 06/25/17 05:20 PT 18.6 Seconds (9.8-13.1) H 06/23/17 12:06 INR 1.7 (0.9-1.2) H 06/23/17 12:06 APTT 34.8 Seconds (25.6-37.1) D 06/23/17 12:06 - GI/Abdominal Exam Additional comments: soft, jerson-incisional tenderness, mildly distended, BS hypoactive, no rebound, no guarding, ostomy in place, Ryan drain in place, incision with some mild erythema, no drainage, nydia in place Assessment and Plan - Assessment and Plan (Free Text) Plan: - Keep NPO for now - NG tube - Pain control - IV fluids - Continue antibiotics - Insentive spiroemtry - DVT ppx - Repeat labs in am - Out of bed to chair - Will follow
--- NOTE | 2017-06-25 07:31 | CP.CCUPN ---
CCU Subjective - Physician Review Subjective (Free Text): Sleeping, easily awakened with name calling, no distress since extubation yesterday afternoon, remains NPO, NGT in place an draining bilious output, colostomy output noted with liquid brown stool. Afebrile, no fever spikes. BP levels stable off vasopressors. Other vitals reviewed, and I/O's noted. Negative 1.6 L fluid balance. ROS: No other pertinent negs or positives on 10+ system review. PMSFH: All Nursing and physician documentation reviewed to date; no new pertinent info noted relevant to current medical problems. MAJOR PROBLEMS: 1. Perforated Sigmoid diverticulitis 2. Severe sepsis/ shock 2 #1 3. Azotemia / Dehydration: r/o ALBER 4. Thrombocytopenia / Coagulopathy PLAN: 1. Resume IVF maintenanace hydration as she remains NPO, Lasix prn. 2. Incentives Spirometry, ventimask to nasal cannula. 3. Get OOB 4. Empiric abx coverage noted. 5. Hold antihypertensives and Psych drugs for another 24H before considering resumption. CCU Objective - Vital Signs / Intake & Output Vital Signs (Last 4 hours): Vital Signs Temp Pulse Resp BP Pulse Ox 06/25/17 04:00 98.0 F 85 18 142/69 96 Intake and Output (Last 8hrs): Intake & Output 06/24/17 06/25/17 06/25/17 22:59 06:59 14:59 Intake Total 880 200 Output Total 2385 1050 Balance -1505 -850 Intake: IV 680 200 Intake, Piggyback 200 Output: Gastric Amount 425 Right Nares 425 Drainage 110 Nare 60 Right Abdomen 50 Urine 1800 1050 Urethral (Harris) 1800 1050 Stool 50 - Physical Exam Head: Positive for: Normocephalic Pupils: Positive for: PERRL Conjunctiva: Positive for: Normal. Negative for: Icteric Mouth: Positive for: Moist Mucous Membranes Neck: Positive for: Normal Range of Motion. Negative for: JVD Respiratory/Chest: Positive for: Clear to Auscultation. Negative for: Accessory Muscle Use, Wheezes Cardiovascular: Positive for: Regular Rate and Rhythm, Normal S1, S2, Tachycardic. Negative for: Murmurs, Rub Abdomen: Positive for: Tenderness (deep palpation). Negative for: Mass/ Organomegaly Lower Extremity: Positive for: NORMAL PULSES. Negative for: CALF TENDERNESS, Cyanosis Neurological: Positive for: GCS=15, Motor Func Grossly Intact, Normal Sensory Function Skin: Positive for: Warm, Dry. Negative for: Rashes Psychiatric: Positive for: Alert, Oriented x 3 - Medications Active Medications: Active Medications Generic Name Dose Route Start Last Admin Trade Name Freq PRN Reason Stop Dose Admin Acetaminophen 650 mg 06/21/17 22:04 Tylenol 650 Mg Supp NE Q6 PRN Fever >100.4 F Hydromorphone HCl 0.5 mg 06/22/17 18:01 06/25/17 05:22 Dilaudid IVP 0.5 mg Q4 PRN Administration Pain, moderate (4-7) Hydromorphone HCl 0.5 mg 06/23/17 20:17 Dilaudid IVP Q4 PRN Pain, severe (8-10) Fluconazole 50 mls @ 50 mls/hr 06/23/17 09:00 06/24/17 08:48 Diflucan Iv 100 Mg/50 Ml Ns IVPB 50 mls/hr DAILY TERRY Administration Protocol Metronidazole 100 mls @ 100 mls/hr 06/23/17 01:00 06/25/17 01:14 Flagyl 500mg/100ml Ns IVPB 100 mls/hr Q8 TERRY Administration Protocol Lactated Ringer's 1,000 mls @ 125 mls/hr 06/23/17 16:30 06/24/17 08:49 Lactated Ringer's IV 125 mls/hr .Q8H TERRY Administration Piperacillin Sod/Tazobactam 100 mls @ 100 mls/hr 06/23/17 22:00 06/25/17 05: 00 Sod 3.375 gm/ Sodium Chloride IVPB 100 mls/hr Q6 TERRY Administration Protocol Metoprolol Tartrate 2.5 mg 06/22/17 04:00 06/22/17 05:07 Lopressor IVP Not Given Q6 TERRY Ondansetron HCl 4 mg 06/21/17 21:14 Zofran Inj IVP Q6 PRN Nausea/Vomiting Pantoprazole Sodium 40 mg 06/22/17 09:00 06/24/17 08:50 Protonix Inj IVP 40 mg DAILY TERRY Administration - Patient Studies Lab Studies: Microbiology Studies 06/21/17 20:35 Blood Culture - Preliminary Blood NO GROWTH AFTER 3 DAYS 06/21/17 20:15 Blood Culture - Preliminary Blood NO GROWTH AFTER 3 DAYS 06/24/17 14:00 Gram Stain - Final Sputum 06/23/17 16:54 Gram Stain - Final Other: Please Indicate Wound Culture - Preliminary NO GROWTH AFTER 24 HOURS Lab Studies 06/21/17 Range/Units 21:30 Blood Type O POSITIVE Antibody Screen Negative Crossmatch See Detail BBK History Checked No verified bt Laboratory Results - last 24 hr 06/21/17 21:30 Blood Type O POSITIVE Antibody Screen Negative Crossmatch See Detail BBK History Checked No verified bt Review of Systems - Review of Systems All systems: reviewed and no additional remarkable complaints except (as above) Critical Care Progress Note - Nutrition Nutrition: Nutrition Category Date Time Status NPO Diet [DIET] Diets 06/21/17 Breakfast Active
[2017-06-25 07:35] LABS: HEMATOCRIT 31.7 % (34.0-47.0); MEAN CELL VOLUME 90.6 fl (81.0-99.0); MEAN CORPUSCULAR HEMOGLOBIN 30.4 pg (27.0-31.0); MEAN CORPUSCULAR HGB CONC 33.6 g/dL (33.0-37.0); RED CELL DISTRIBUTION WIDTH 14.2 % (11.5-14.5)
[2017-06-25 08:07] LABS: ALKALINE PHOSPHATASE 75 U/L (38-126); ALT/SGPT 134 U/L (9-52); AST/SGOT 39 U/L (14-36); BLOOD UREA NITROGEN 17 mg/dl (7-17); CARBON DIOXIDE 27 mmol/L (22-30); CHLORIDE 106 mmol/L (98-107); GFR AFRICAN-AMERICAN > 60; GLUCOSE,RANDOM 87 mg/dL (65-105); POTASSIUM 2.7 MMOL/L (3.6-5.0); SODIUM 144 mmol/l (132-148); TOTAL PROTEIN 5.3 G/DL (6.3-8.2)
--- NOTE | 2017-06-25 08:22 | CP.PCM.PN ---
Objective - Vital Signs/Intake and Output Vital Signs (last 24 hours): Temp Pulse Resp BP Pulse Ox 98.0 F 85 18 142/69 96 06/25/17 04:00 06/25/17 04:00 06/25/17 04:00 06/25/17 04:00 06/25/17 04:00 Intake and Output: 06/25/17 06/25/17 06:59 18:59 Intake Total 300 Output Total 1500 Balance -1200 - Medications Medications: Current Medications Acetaminophen (Tylenol 650 Mg Supp) 650 mg [place] Q6 PRN PRN Reason: Fever >100.4 F Hydromorphone HCl (Dilaudid) 0.5 mg IVP Q4 PRN PRN Reason: Pain, moderate (4-7) Last Admin: 06/25/17 05:22 Dose: 0.5 mg Hydromorphone HCl (Dilaudid) 0.5 mg IVP Q4 PRN PRN Reason: Pain, severe (8-10) Fluconazole (Diflucan Iv 100 Mg/50 Ml Ns) 50 mls @ 50 mls/hr IVPB DAILY TERRY PRN Reason: Protocol Last Admin: 06/24/17 08:48 Dose: 50 mls/hr Metronidazole (Flagyl 500mg/100ml Ns) 100 mls @ 100 mls/hr IVPB Q8 TERRY PRN Reason: Protocol Last Admin: 06/25/17 01:14 Dose: 100 mls/hr Lactated Ringer's (Lactated Ringer's) 1,000 mls @ 125 mls/hr IV .Q8H [facility] Last Admin: 06/24/17 08:49 Dose: 125 mls/hr Piperacillin Sod/Tazobactam (Sod 3.375 gm/ Sodium Chloride) 100 mls @ 100 mls/ hr IVPB Q6 TERRY PRN Reason: Protocol Last Admin: 06/25/17 05:00 Dose: 100 mls/hr Metoprolol Tartrate (Lopressor) 2.5 mg IVP Q6 [facility] Last Admin: 06/22/17 05:07 Dose: Not Given Ondansetron HCl (Zofran Inj) 4 mg IVP Q6 PRN PRN Reason: Nausea/Vomiting Pantoprazole Sodium (Protonix Inj) 40 mg IVP DAILY [facility] Last Admin: 06/24/17 08:50 Dose: 40 mg - Labs Labs: 06/25/17 05:20 06/24/17 05:30 PT 18.6 Seconds (9.8-13.1) H 06/23/17 12:06 INR 1.7 (0.9-1.2) H 06/23/17 12:06 APTT 34.8 Seconds (25.6-37.1) D 06/23/17 12:06
[2017-06-25] MEDS: Fluconazole IV 100mg/50 ml NS 50 ML IVPB SCH (08:44)
[2017-06-25] MEDS: Lactated Ringer's 1,000 ML IV SCH ×2 (08:45→18:43)
--- NOTE | 2017-06-25 09:22 | CP.PCM.PN ---
Subjective - Date & Time of Evaluation Date of Evaluation: 06/25/17 Time of Evaluation: 09:20 - Subjective Subjective: Pt is awake and alert, but c/o some shortness of breath.Just had xray , not resulted yet. Her CBC is stable. I will sign off the case . Please recall if needed Objective - Vital Signs/Intake and Output Vital Signs (last 24 hours): Temp Pulse Resp BP Pulse Ox 97.5 F L 93 H 31 H 143/64 96 06/25/17 08:00 06/25/17 08:00 06/25/17 08:00 06/25/17 08:00 06/25/17 08:00 Intake and Output: 06/25/17 06/25/17 06:59 18:59 Intake Total 300 250 Output Total 1500 Balance -1200 250 - Medications Medications: Current Medications Acetaminophen (Tylenol 650 Mg Supp) 650 mg MD Q6 PRN PRN Reason: Fever >100.4 F Hydromorphone HCl (Dilaudid) 0.5 mg IVP Q4 PRN PRN Reason: Pain, moderate (4-7) Last Admin: 06/25/17 05:22 Dose: 0.5 mg Hydromorphone HCl (Dilaudid) 0.5 mg IVP Q4 PRN PRN Reason: Pain, severe (8-10) Fluconazole (Diflucan Iv 100 Mg/50 Ml Ns) 50 mls @ 50 mls/hr IVPB DAILY TERRY PRN Reason: Protocol Last Admin: 06/25/17 08:44 Dose: 50 mls/hr Metronidazole (Flagyl 500mg/100ml Ns) 100 mls @ 100 mls/hr IVPB Q8 TERRY PRN Reason: Protocol Last Admin: 06/25/17 08:44 Dose: 100 mls/hr Lactated Ringer's (Lactated Ringer's) 1,000 mls @ 125 mls/hr IV .Q8H [facility] Last Admin: 06/25/17 08:45 Dose: 125 mls/hr Piperacillin Sod/Tazobactam (Sod 3.375 gm/ Sodium Chloride) 100 mls @ 100 mls/ hr IVPB Q6 TERRY PRN Reason: Protocol Last Admin: 06/25/17 05:00 Dose: 100 mls/hr Potassium Chloride (Potassium Cl 10meq/50ml Sterile Water) 50 mls @ 50 mls/hr IVPB Q1 [facility] Stop: 06/25/17 13:59 Metoprolol Tartrate (Lopressor) 2.5 mg IVP Q6 [facility] Last Admin: 06/22/17 05:07 Dose: Not Given Ondansetron HCl (Zofran Inj) 4 mg IVP Q6 PRN PRN Reason: Nausea/Vomiting Pantoprazole Sodium (Protonix Inj) 40 mg IVP DAILY [facility] Last Admin: 06/25/17 08:45 Dose: 40 mg - Labs Labs: 06/25/17 05:20 06/25/17 05:20 PT 18.6 Seconds (9.8-13.1) H 06/23/17 12:06 INR 1.7 (0.9-1.2) H 06/23/17 12:06 APTT 34.8 Seconds (25.6-37.1) D 06/23/17 12:06
--- NOTE | 2017-06-25 09:31 | CP.PCM.PN ---
Subjective - Date & Time of Evaluation Date of Evaluation: 06/25/17 Time of Evaluation: 09:28 - Subjective Subjective: Pt's pain is a little lesser today. The xrays did not show any evidence of fractures. He also had a MRI the results are not yet available. CBC is stable.He is moving his led freely. He only hurts when he tries to turn on his side Objective - Vital Signs/Intake and Output Vital Signs (last 24 hours): Temp Pulse Resp BP Pulse Ox 97.5 F L 93 H 31 H 143/64 96 06/25/17 08:00 06/25/17 08:00 06/25/17 08:00 06/25/17 08:00 06/25/17 08:00 Intake and Output: 06/25/17 06/25/17 06:59 18:59 Intake Total 300 250 Output Total 1500 Balance -1200 250 - Medications Medications: Current Medications Acetaminophen (Tylenol 650 Mg Supp) 650 mg [place] Q6 PRN PRN Reason: Fever >100.4 F Hydromorphone HCl (Dilaudid) 0.5 mg IVP Q4 PRN PRN Reason: Pain, moderate (4-7) Last Admin: 06/25/17 05:22 Dose: 0.5 mg Hydromorphone HCl (Dilaudid) 0.5 mg IVP Q4 PRN PRN Reason: Pain, severe (8-10) Fluconazole (Diflucan Iv 100 Mg/50 Ml Ns) 50 mls @ 50 mls/hr IVPB DAILY TERRY PRN Reason: Protocol Last Admin: 06/25/17 08:44 Dose: 50 mls/hr Metronidazole (Flagyl 500mg/100ml Ns) 100 mls @ 100 mls/hr IVPB Q8 TERRY PRN Reason: Protocol Last Admin: 06/25/17 08:44 Dose: 100 mls/hr Lactated Ringer's (Lactated Ringer's) 1,000 mls @ 125 mls/hr IV .Q8H [facility] Last Admin: 06/25/17 08:45 Dose: 125 mls/hr Piperacillin Sod/Tazobactam (Sod 3.375 gm/ Sodium Chloride) 100 mls @ 100 mls/ hr IVPB Q6 TERRY PRN Reason: Protocol Last Admin: 06/25/17 05:00 Dose: 100 mls/hr Potassium Chloride (Potassium Cl 10meq/50ml Sterile Water) 50 mls @ 50 mls/hr IVPB Q1 [facility] Stop: 06/25/17 13:59 Metoprolol Tartrate (Lopressor) 2.5 mg IVP Q6 [facility] Last Admin: 06/22/17 05:07 Dose: Not Given Ondansetron HCl (Zofran Inj) 4 mg IVP Q6 PRN PRN Reason: Nausea/Vomiting Pantoprazole Sodium (Protonix Inj) 40 mg IVP DAILY [facility] Last Admin: 06/25/17 08:45 Dose: 40 mg - Labs Labs: 06/25/17 05:20 06/25/17 05:20 PT 18.6 Seconds (9.8-13.1) H 06/23/17 12:06 INR 1.7 (0.9-1.2) H 06/23/17 12:06 APTT 34.8 Seconds (25.6-37.1) D 06/23/17 12:06
[2017-06-25] MEDS: Potassium CL 10 MEQ/50 ML 50 ML IVPB SCH ×4 (09:58→16:10)
--- NOTE | 2017-06-25 10:54 | CP.PCM.PN ---
Subjective - Date & Time of Evaluation Date of Evaluation: 06/25/17 Time of Evaluation: 08:00 - Subjective Subjective: Patient seen and examined bedside. Elderly female of stated age Post op # 2 lying in bed in NAD , with some abdominal pain controlled with pain medication. Extubated yesterday and at present on Venti mask FIO2 50 % Saturating 95 % , afebrile, BP 145/64 HR 93\ WBC 9 K Hgb 10.6 Plt 97K k 2.7 NGT with 500 ml bilious output last 24 hours [address]Q colostomy in place with 150 ml of brownisgh liquid output RLQ ASA drain in place ith 150 ml sero sanguinous output Harris in place with 1000 ml output CXR with vascular congestion and Right pleural effusion Objective - Vital Signs/Intake and Output Vital Signs (last 24 hours): Temp Pulse Resp BP Pulse Ox 97.5 F L 91 H 16 142/76 96 06/25/17 08:00 06/25/17 10:00 06/25/17 10:00 06/25/17 10:00 06/25/17 10:00 Intake and Output: 06/25/17 06/25/17 06:59 18:59 Intake Total 300 300 Output Total 1500 Balance -1200 300 - Medications Medications: Current Medications Acetaminophen (Tylenol 650 Mg Supp) 650 mg [place] Q6 PRN PRN Reason: Fever >100.4 F Hydromorphone HCl (Dilaudid) 0.5 mg IVP Q4 PRN PRN Reason: Pain, moderate (4-7) Last Admin: 06/25/17 05:22 Dose: 0.5 mg Hydromorphone HCl (Dilaudid) 0.5 mg IVP Q4 PRN PRN Reason: Pain, severe (8-10) Fluconazole (Diflucan Iv 100 Mg/50 Ml Ns) 50 mls @ 50 mls/hr IVPB DAILY TERRY PRN Reason: Protocol Last Admin: 06/25/17 08:44 Dose: 50 mls/hr Metronidazole (Flagyl 500mg/100ml Ns) 100 mls @ 100 mls/hr IVPB Q8 TERRY PRN Reason: Protocol Last Admin: 06/25/17 08:44 Dose: 100 mls/hr Lactated Ringer's (Lactated Ringer's) 1,000 mls @ 125 mls/hr IV .Q8H [facility] Last Admin: 12/02/17 08:45 Dose: 125 mls/hr Piperacillin Sod/Tazobactam (Sod 3.375 gm/ Sodium Chloride) 100 mls @ 100 mls/ hr IVPB Q6 TERRY PRN Reason: Protocol Last Admin: 06/25/17 09:59 Dose: 100 mls/hr Potassium Chloride (Potassium Cl 10meq/50ml Sterile Water) 50 mls @ 50 mls/hr IVPB Q1 [facility] Stop: 06/25/17 13:59 Last Admin: 06/25/17 09:58 Dose: 50 mls/hr Metoprolol Tartrate (Lopressor) 2.5 mg IVP Q6 [facility] Last Admin: 06/22/17 05:07 Dose: Not Given Ondansetron HCl (Zofran Inj) 4 mg IVP Q6 PRN PRN Reason: Nausea/Vomiting Pantoprazole Sodium (Protonix Inj) 40 mg IVP DAILY [facility] Last Admin: 06/25/17 08:45 Dose: 40 mg - Labs Labs: 06/25/17 05:20 06/25/17 05:20 PT 18.6 Seconds (9.8-13.1) H 06/23/17 12:06 INR 1.7 (0.9-1.2) H 06/23/17 12:06 APTT 34.8 Seconds (25.6-37.1) D 06/23/17 12:06 - Constitutional Appears: Non-toxic, No Acute Distress - Head Exam Head Exam: ATRAUMATIC, NORMOCEPHALIC - Eye Exam Eye Exam: EOMI, Normal appearance, PERRL Pupil Exam: NORMAL ACCOMODATION - ENT Exam ENT Exam: Mucous Membranes Dry - Neck Exam Neck Exam: Normal Inspection - Respiratory Exam Respiratory Exam: Rales, NORMAL BREATHING PATTERN. absent: Wheezes, Respiratory Distress - Cardiovascular Exam Cardiovascular Exam: Tachycardia, REGULAR RHYTHM, +S1, +S2. absent: JVD - GI/Abdominal Exam GI & Abdominal Exam: Soft, Normal Bowel Sounds. absent: Distended, Guarding, Rebound Additional comments: midline surgical incision with nydia in place healing well RLQ ASA drain with sero sanguinous output LLQ colostomy in place with brownish liquid output - Rectal Exam Rectal Exam: Deferred - Extremities Exam Extremities Exam: Normal Inspection. absent: Calf Tenderness, Pedal Edema - Neurological Exam Neurological Exam: Alert, Awake, CN II-XII Intact, Oriented x3 - Psychiatric Exam Psychiatric exam: Normal Affect - Skin Skin Exam: Dry, Pallor, Warm Assessment and Plan - Assessment and Plan (Free Text) Assessment: 86y/o lady with hx of Cardiac Arrhythmia s/p PPM , on Xarelto , came in because of of abdominal pain. CT of abdomen showed Perforated Sigmoid Diverticulitis Initially admitted to [facility] , started on IVF fluid and IV antibiotics, Surgery consulted. Pt then had PIPELINE WELDER for Hypotension - transferred to ICU - started on IVF resuscitation and Levophed.Patient was taken to OR 06/23 ,by surgery and underwent colon resection with colostomy . Today is post op day 2 , extubated , hemodynamically stable, afebrile, NPO with NGT output 500 ml overnight and with 150 ml brownish liquid output from colostomy 1. Septic shock sec to perforated sigmoid Diverticulitis Acute s/p colon resection with colostomy performed 06/23. Surgery following colostomy bag to LLQ with brownish liquid output and bowel sounds present Was on levophed drip initially ( admission)but at present maintaining her BP without pressors , afebrile Continue IVF S/P extubation , on Venti mask FIO2 50 % saturating well CXR today showed vascular congestion and RLL pleural effusion On Zosyn , Flagyl and diflucan Start out of bed to chair, incentive spirometry Will d/c Harris catheter Replace KCL with 4 runs IV 2.Perforated sigmoid colon Acute as above s/p colon resection with colostomy 3. ALBER (acute kidney injury)-improved Acute likely sec to Sepsis initially oliguric,but at present with good urine output and renal function is normal Continue IVF hydration and monitor I/O 4.Anemia of acute blood loss Hgb dropped from 12-- 9 s/p 2 unit PRBC transfusion Hem/on consulted Dr. Blanchard 5. Thrombocytopenia/ Coagulopathy prob sec to Sepsis INR=1.7 Platelet 97 today. s/p 1 unit Platelet transfusion and 4 FFP Hematology consult with Dr Dawn Blanchard appreciated Given DDAVP and Vit K 10 mg IV preop to correct anticoagulation since patient was on xarelto 6. Respiratory insufficiency post op Intubated for surgery and kept intubated. s/p extubation on FIO@ 50 % saturating well CXR today showed vascular congestion and RLL pleural effusion was given lasix yesterday and diuresed well 7. History of cardiac arrhythmia Chronic unclear cardiac diagnosis hx of Pacemaker placement pt was on Xarelto at home , now on hold Cardiology consulted- Dr Blanchard and patient cleared for surgery 8. Abn LFT sec to Shock liver improving 9.Hypokalemia secondary to NPO status and GI loss replace with 4 runs of KCL 10.DVT prophylaxis SCD no anticoag sec to low Platelet and coagulopathy 11. Hypertension controlled without meds Home medication sNorvasc, Coreg, HCTZ/ valsartan on hold
--- NOTE | 2017-06-25 12:04 | RAD ---
PROCEDURE: CHEST RADIOGRAPH, 1 VIEW HISTORY: post extubAtion , Right pleural effusion COMPARISON: Comparison chest 06/24/2017. FINDINGS: Interval removal ETT. NGT remains in place, the tip of which appears to be located in the mid abdomen. LUNGS: Mild diffuse pulmonary vascular congestive changes with bilateral lower lobe alveolar-type infiltrates and bilateral effusions. PLEURA: No pneumothorax or pleural fluid seen. CARDIOVASCULAR: Heart remains enlarged. No change single lead pacemaker/ defibrillator. OSSEOUS STRUCTURES: No significant abnormalities. VISUALIZED UPPER ABDOMEN: Normal. OTHER FINDINGS: None. IMPRESSION: In situ NGT as described. Interval removal ETT. Mild pulmonary vascular congestive changes with bilateral lower lobe alveolar-type infiltrates and bilateral effusions.
--- NOTE | 2017-06-25 15:14 | CP.PCM.PN ---
Subjective - Date & Time of Evaluation Date of Evaluation: 06/25/17 Time of Evaluation: 15:14 - Subjective Subjective: ID note- pt. seen and examined today in ICU. pt. is s/p extubation and looks much betetr today. as per nurse pt. sat on the chairt today for 2 hours. pt. denies any fever and denies any nausea but states does have some abdominal pain still at surgical site only. Objective - Vital Signs/Intake and Output Vital Signs (last 24 hours): Temp Pulse Resp BP Pulse Ox 97.7 F 79 11 L 116/58 L 99 06/25/17 12:07 06/25/17 14:00 06/25/17 14:00 06/25/17 14:00 06/25/17 14:00 Intake and Output: 06/25/17 06/25/17 06:59 18:59 Intake Total 300 400 Output Total 1500 600 Balance -1200 -200 - Medications Medications: Current Medications Acetaminophen (Tylenol 650 Mg Supp) 650 mg [place] Q6 PRN PRN Reason: Fever >100.4 F Hydromorphone HCl (Dilaudid) 0.5 mg IVP Q4 PRN PRN Reason: Pain, moderate (4-7) Last Admin: 06/25/17 12:18 Dose: 0.5 mg Hydromorphone HCl (Dilaudid) 0.5 mg IVP Q4 PRN PRN Reason: Pain, severe (8-10) Fluconazole (Diflucan Iv 100 Mg/50 Ml Ns) 50 mls @ 50 mls/hr IVPB DAILY TERRY PRN Reason: Protocol Last Admin: 06/25/17 08:44 Dose: 50 mls/hr Metronidazole (Flagyl 500mg/100ml Ns) 100 mls @ 100 mls/hr IVPB Q8 TERRY PRN Reason: Protocol Last Admin: 06/25/17 08:44 Dose: 100 mls/hr Lactated Ringer's (Lactated Ringer's) 1,000 mls @ 125 mls/hr IV .Q8H TERRY Last Admin: 06/25/17 08:45 Dose: 125 mls/hr Piperacillin Sod/Tazobactam (Sod 3.375 gm/ Sodium Chloride) 100 mls @ 100 mls/ hr IVPB Q6 TERRY PRN Reason: Protocol Last Admin: 06/25/17 09:59 Dose: 100 mls/hr Metoprolol Tartrate (Lopressor) 2.5 mg IVP Q6 [facility] Last Admin: 06/22/17 05:07 Dose: Not Given Ondansetron HCl (Zofran Inj) 4 mg IVP Q6 PRN PRN Reason: Nausea/Vomiting Pantoprazole Sodium (Protonix Inj) 40 mg IVP DAILY [facility] Last Admin: 06/25/17 08:45 Dose: 40 mg - Labs Labs: - Additional Findings Additional findings: - Constitutional Appears: No Acute Distress - Head Exam Head Exam: ATRAUMATIC - Eye Exam Eye Exam: EOMI, PERRL - ENT Exam Additional comments: has NGT in place draining bilious fluid - Neck Exam Neck exam: Positive for: Full Rom - Respiratory Exam Respiratory Exam: Clear to Auscultation Bilateral, NORMAL BREATHING PATTERN - Cardiovascular Exam Cardiovascular Exam: RRR, +S1, +S2 - GI/Abdominal Exam Additional comments: has colostomy bag in place with brown semi formed stool, right side drain in place with sersanguinous fluid mid abdominal surgical site clean, no discharge, no erythema - Extremities Exam Extremities exam: Positive for: normal inspection - Neurological Exam Neurological exam: Alert, Oriented x 3 Laboratory Results - last 72 hr 06/21/17 06/23/17 06/23/17 21:30 04:20 04:20 WBC 9.4 RBC 2.83 L Hgb 8.6 L Hct 26.5 L MCV 93.5 MCH 30.2 MCHC 32.3 L RDW 13.9 Plt Count 78 L MPV 11.7 Neut % (Auto) 90.8 H Lymph % (Auto) 6.9 L [place] % (Auto) 1.5 Eos % (Auto) 0.6 Baso % (Auto) 0.2 Neut # 8.6 H Lymph # 0.6 L [place] # 0.1 Eos # 0.1 Baso # 0.0 Neutrophils % (Manual) 83 H Band Neutrophils % 5 H Lymphocytes % (Manual) 10 L Monocytes % (Manual) 1 Metamyelocytes % 1 H Toxic Granulation Present Platelet Estimate Decreased L Hypochromasia (manual) Slight Ovalocytes Slight PT INR APTT pCO2 pO2 HCO3 ABG pH ABG Total CO2 ABG O2 Saturation ABG Base Excess Rich Test ABG Potassium VBG pH VBG pCO2 VBG HCO3 VBG Total CO2 VBG O2 Sat (Calc) VBG Base Excess VBG Potassium A-a O2 Difference Glucose Lactate Vent Mode Mechanical Rate FiO2 Tidal Volume PEEP Sodium Potassium Chloride Carbon Dioxide Anion Gap BUN Creatinine Est GFR ( Amer) Est GFR (Non-Af Amer) Random Glucose Lactic Acid Calcium Total Bilirubin AST ALT Alkaline Phosphatase Total Protein Albumin Globulin Albumin/Globulin Ratio Procalcitonin 33.88 H Arterial Blood Potassium Venous Blood Potassium Blood Type O POSITIVE Antibody Screen Negative Crossmatch See Detail BBK History Checked No verified bt 06/23/17 06/23/17 06/23/17 04:20 04:20 04:20 WBC RBC Hgb Hct MCV MCH MCHC RDW Plt Count MPV Neut % (Auto) Lymph % (Auto) [place] % (Auto) Eos % (Auto) Baso % (Auto) Neut # Lymph # [place] # Eos # Baso # Neutrophils % (Manual) Band Neutrophils % Lymphocytes % (Manual) Monocytes % (Manual) Metamyelocytes % Toxic Granulation Platelet Estimate Hypochromasia (manual) Ovalocytes PT INR APTT 18.8 L D pCO2 pO2 HCO3 ABG pH ABG Total CO2 ABG O2 Saturation ABG Base Excess Rich Test ABG Potassium VBG pH VBG pCO2 VBG HCO3 VBG Total CO2 VBG O2 Sat (Calc) VBG Base Excess VBG Potassium A-a O2 Difference Glucose Lactate Vent Mode Mechanical Rate FiO2 Tidal Volume PEEP Sodium 140 Potassium 3.9 Chloride 111 H Carbon Dioxide 22 Anion Gap 11 BUN 18 H Creatinine 1.1 Est GFR ( Amer) 57 Est GFR (Non-Af Amer) 47 Random Glucose 112 H Lactic Acid 1.3 Calcium 6.8 L Total Bilirubin 0.5 AST 203 H D ALT 347 H D Alkaline Phosphatase 92 Total Protein 5.4 L Albumin 2.8 L D Globulin 2.6 Albumin/Globulin Ratio 1.1 Procalcitonin Arterial Blood Potassium Venous Blood Potassium Blood Type Antibody Screen Crossmatch BBK History Checked 06/23/17 06/23/17 06/23/17 05:16 08:56 10:07 WBC RBC Hgb Hct MCV MCH MCHC RDW Plt Count MPV Neut % (Auto) Lymph % (Auto) [place] % (Auto) Eos % (Auto) Baso % (Auto) Neut # Lymph # [place] # Eos # Baso # Neutrophils % (Manual) Band Neutrophils % Lymphocytes % (Manual) Monocytes % (Manual) Metamyelocytes % Toxic Granulation Platelet Estimate Hypochromasia (manual) Ovalocytes PT Cancelled 19.0 H INR Cancelled 1.7 H APTT pCO2 pO2 37 HCO3 ABG pH ABG Total CO2 ABG O2 Saturation ABG Base Excess Rich Test ABG Potassium VBG pH 7.29 L VBG pCO2 44 VBG HCO3 19.9 VBG Total CO2 22.6 VBG O2 Sat (Calc) 79.9 H VBG Base Excess -5.3 L VBG Potassium 3.8 A-a O2 Difference Glucose 116 H Lactate 1.4 Vent Mode Mechanical Rate FiO2 28.0 Tidal Volume PEEP Sodium 138.0 Potassium Chloride 111.0 H Carbon Dioxide Anion Gap BUN Creatinine Est GFR ( Amer) Est GFR (Non-Af Amer) Random Glucose Lactic Acid Calcium Total Bilirubin AST ALT Alkaline Phosphatase Total Protein Albumin Globulin Albumin/Globulin Ratio Procalcitonin Arterial Blood Potassium Venous Blood Potassium 3.8 Blood Type Antibody Screen Crossmatch BBK History Checked 06/23/17 06/23/17 06/24/17 12:06 12:06 05:30 WBC 9.0 8.2 RBC 3.25 L 3.01 L Hgb 9.8 L 9.1 L Hct 30.3 L 27.6 L MCV 93.4 91.7 MCH 30.1 30.2 MCHC 32.2 L 32.9 L RDW 14.0 14.1 Plt Count 78 L 91 L MPV 11.9 H Neut % (Auto) 87.4 H Lymph % (Auto) 9.5 L [place] % (Auto) 2.7 Eos % (Auto) 0.3 Baso % (Auto) 0.1 Neut # 7.1 H Lymph # 0.8 L [place] # 0.2 Eos # 0.0 Baso # 0.0 Neutrophils % (Manual) Band Neutrophils % Lymphocytes % (Manual) Monocytes % (Manual) Metamyelocytes % Toxic Granulation Platelet Estimate Hypochromasia (manual) Ovalocytes PT 18.6 H INR 1.7 H APTT 34.8 D pCO2 pO2 HCO3 ABG pH ABG Total CO2 ABG O2 Saturation ABG Base Excess Rich Test ABG Potassium VBG pH VBG pCO2 VBG HCO3 VBG Total CO2 VBG O2 Sat (Calc) VBG Base Excess VBG Potassium A-a O2 Difference Glucose Lactate Vent Mode Mechanical Rate FiO2 Tidal Volume PEEP Sodium Potassium Chloride Carbon Dioxide Anion Gap BUN Creatinine Est GFR ( Amer) Est GFR (Non-Af Amer) Random Glucose Lactic Acid Calcium Total Bilirubin AST ALT Alkaline Phosphatase Total Protein Albumin Globulin Albumin/Globulin Ratio Procalcitonin Arterial Blood Potassium Venous Blood Potassium Blood Type Antibody Screen Crossmatch BBK History Checked 06/24/17 06/24/17 06/24/17 05:30 05:30 05:32 WBC RBC Hgb Hct MCV MCH MCHC RDW Plt Count MPV Neut % (Auto) Lymph % (Auto) [place] % (Auto) Eos % (Auto) Baso % (Auto) Neut # Lymph # [place] # Eos # Baso # Neutrophils % (Manual) Band Neutrophils % Lymphocytes % (Manual) Monocytes % (Manual) Metamyelocytes % Toxic Granulation Platelet Estimate Hypochromasia (manual) Ovalocytes PT INR APTT pCO2 31 L pO2 162 H HCO3 26.3 ABG pH 7.50 H ABG Total CO2 25.2 ABG O2 Saturation 98.9 H ABG Base Excess 1.7 Rich Test Yes ABG Potassium 3.0 L VBG pH VBG pCO2 VBG HCO3 VBG Total CO2 VBG O2 Sat (Calc) VBG Base Excess VBG Potassium A-a O2 Difference 370.0 Glucose 106 H Lactate 1.2 Vent Mode Prvc ac Mechanical Rate 12 FiO2 80.0 Tidal Volume 450 PEEP 4 Sodium 141 139.0 Potassium 3.5 L Chloride 109 H 111.0 H Carbon Dioxide 25 Anion Gap 11 BUN 16 Creatinine 1.0 Est GFR ( Amer) > 60 Est GFR (Non-Af Amer) 53 Random Glucose 95 Lactic Acid 1.8 Calcium 7.7 L Total Bilirubin 0.8 AST 77 H D ALT 191 H D Alkaline Phosphatase 75 Total Protein 5.2 L Albumin 2.7 L Globulin 2.6 Albumin/Globulin Ratio 1.0 Procalcitonin Arterial Blood Potassium 3.0 L Venous Blood Potassium Blood Type Antibody Screen Crossmatch BBK History Checked 06/25/17 06/25/17 05:20 05:20 WBC 9.0 RBC 3.49 L Hgb 10.6 L Hct 31.7 L MCV 90.6 MCH 30.4 MCHC 33.6 RDW 14.2 Plt Count 97 L MPV Neut % (Auto) Lymph % (Auto) [place] % (Auto) Eos % (Auto) Baso % (Auto) Neut # Lymph # [place] # Eos # Baso # Neutrophils % (Manual) Band Neutrophils % Lymphocytes % (Manual) Monocytes % (Manual) Metamyelocytes % Toxic Granulation Platelet Estimate Hypochromasia (manual) Ovalocytes PT INR APTT pCO2 pO2 HCO3 ABG pH ABG Total CO2 ABG O2 Saturation ABG Base Excess Rich Test ABG Potassium VBG pH VBG pCO2 VBG HCO3 VBG Total CO2 VBG O2 Sat (Calc) VBG Base Excess VBG Potassium A-a O2 Difference Glucose Lactate Vent Mode Mechanical Rate FiO2 Tidal Volume PEEP Sodium 144 Potassium 2.7 L Chloride 106 Carbon Dioxide 27 Anion Gap 14 BUN 17 Creatinine 1.0 Est GFR ( Amer) > 60 Est GFR (Non-Af Amer) 53 Random Glucose 87 Lactic Acid Calcium 8.0 L Total Bilirubin 1.0 AST 39 H D ALT 134 H D Alkaline Phosphatase 75 Total Protein 5.3 L Albumin 2.6 L Globulin 2.7 Albumin/Globulin Ratio 1.0 Procalcitonin Arterial Blood Potassium Venous Blood Potassium Blood Type Antibody Screen Crossmatch BBK History Checked Microbiology 06/23/17 16:54 Other: Please Indicate Gram Stain - Final 06/23/17 16:54 Other: Please Indicate Wound Culture - Preliminary Gram Negative [place] 06/21/17 20:35 Blood Blood Culture - Preliminary NO GROWTH AFTER 3 DAYS 06/21/17 20:15 Blood Blood Culture - Preliminary NO GROWTH AFTER 3 DAYS 06/24/17 14:00 Sputum Gram Stain - Final 06/21/17 18:30 Urine,Catheterized Urine Culture - Final No Growth (<1,000 CFU/ML) 06/22/17 11:24 Naris MRSA Culture (Admit) - Final MRSA NOT DETECTED Accession No. : [id number] Patient Name / ID : LING IVEY / [id number] Exam Date : 06/25/2017 08:13:37 ( Approved ) Study Comment : Sex / Age : F / 86Y Creator : Juni Jesus MD Dictator : Locker Room Supervisor : Deputy Editor In Chief : Juni Jesus MD Approver2 : Report Date : 06/25/2017 11:59:01 My Comment : PROCEDURE: CHEST RADIOGRAPH, 1 VIEW HISTORY: post extubAtion , Right pleural effusion COMPARISON: Comparison chest 06/24/2017. FINDINGS: Interval removal ETT. NGT remains in place, the tip of which appears to be located in the mid abdomen. LUNGS: Mild diffuse pulmonary vascular congestive changes with bilateral lower lobe alveolar-type infiltrates and bilateral effusions. PLEURA: No pneumothorax or pleural fluid seen. CARDIOVASCULAR: Heart remains enlarged. No change single lead pacemaker/ defibrillator. OSSEOUS STRUCTURES: No significant abnormalities. VISUALIZED UPPER ABDOMEN: Normal. OTHER FINDINGS: None. IMPRESSION: In situ NGT as described. Interval removal ETT. Mild pulmonary vascular congestive changes with bilateral lower lobe alveolar- type infiltrates and bilateral effusions. Assessment and Plan (1) Perforated sigmoid colon Status: Acute (2) Septic shock Status: Acute (3) History of cardiac arrhythmia Status: Chronic - Assessment and Plan (Free Text) Assessment: A/P- 86 year old female with perforated sigmoid diverticuli . s/p colon resection and colostomy pod #2 clinically better. afebrile normal wbc count . blood cx- neg x 2 urine cx- neg lactate level has normalized plan- continue with IV zosyn. day #4 continue with IV flagyl and IV fluconazole day #3 monitor temps and wbc. surgical f/u. ICU time 45 minutes.
[2017-06-25] MEDS: Levalbuterol 1.25 MG/3 ML Inhal Soln UD INH PRN (21:53)
[2017-06-26] MEDS: metroNIDAZOLE 500mg/100ml NS 100 ML IVPB SCH ×3 (01:58→16:44)
[2017-06-26] MEDS: Lactated Ringer's 1,000 ML IV SCH ×3 (01:59→16:30)
[2017-06-26] MEDS: Piperacillin/Tazobact 3.375 GM in Sodium Chloride 0.9% 100 ML IVPB SCH ×4 (04:33→21:28)
[2017-06-26 06:32] LABS: HEMATOCRIT 34.7 % (34.0-47.0); MEAN CORPUSCULAR HGB CONC 32.6 g/dL (33.0-37.0); RED CELL DISTRIBUTION WIDTH 14.3 % (11.5-14.5); WHITE BLOOD COUNT 8.7 K/uL (4.8-10.8)
[2017-06-26 07:00] LABS: ALKALINE PHOSPHATASE 65 U/L (38-126); ALT/SGPT 102 U/L (9-52); AST/SGOT 24 U/L (14-36); BILIRUBIN,TOTAL 1.1 mg/dl (0.2-1.3); BLOOD UREA NITROGEN 18 mg/dl (7-17); CALCIUM 8.7 mg/dL (8.4-10.2); CARBON DIOXIDE 25 mmol/L (22-30); CHLORIDE 109 mmol/L (98-107); GFR AFRICAN-AMERICAN > 60; GLUCOSE,RANDOM 97 mg/dL (65-105); POTASSIUM 2.9 MMOL/L (3.6-5.0); SODIUM 146 mmol/l (132-148); TOTAL PROTEIN 5.4 G/DL (6.3-8.2)
[2017-06-26] MEDS: Fluconazole IV 100mg/50 ml NS 50 ML IVPB SCH (09:00)
--- NOTE | 2017-06-26 09:13 | CP.PCM.PN ---
Subjective - Date & Time of Evaluation Date of Evaluation: 06/26/17 Time of Evaluation: 09:00 - Subjective Subjective: Patient seen and examined bedside. Elderly female of stated age Post op # 3 lying in bed i, complaining of some SOB, cough , palpitations and , abdominal pain . Abdomen appears slightly more distended . Midline surgical incision with nydia in place and mild erythema noted Transferred to telemetry from ICU yesterday BP 142/85 HR 106 afebrile saturating 98 5 on venturi mask Colostomy to LLQ with brownish output RLQ ASA drain with minimal sero sanguinous output Objective - Vital Signs/Intake and Output Vital Signs (last 24 hours): Temp Pulse Resp BP Pulse Ox 98.1 F 83 18 157/83 H 95 06/26/17 08:24 06/26/17 08:24 06/26/17 08:24 06/26/17 08:24 06/26/17 08:24 Intake and Output: 06/26/17 06/26/17 06:59 18:59 Intake Total 1100 Output Total 765 Balance 335 - Medications Medications: Current Medications Acetaminophen (Tylenol 650 Mg Supp) 650 mg [place] Q6 PRN PRN Reason: Fever >100.4 F Hydromorphone HCl (Dilaudid) 0.5 mg IVP Q4 PRN PRN Reason: Pain, moderate (4-7) Last Admin: 06/25/17 21:09 Dose: 0.5 mg Hydromorphone HCl (Dilaudid) 0.5 mg IVP Q4 PRN PRN Reason: Pain, severe (8-10) Fluconazole (Diflucan Iv 100 Mg/50 Ml Ns) 50 mls @ 50 mls/hr IVPB DAILY TERRY PRN Reason: Protocol Last Admin: 06/25/17 08:44 Dose: 50 mls/hr Metronidazole (Flagyl 500mg/100ml Ns) 100 mls @ 100 mls/hr IVPB Q8 TERRY PRN Reason: Protocol Last Admin: 06/26/17 01:58 Dose: 100 mls/hr Lactated Ringer's (Lactated Ringer's) 1,000 mls @ 125 mls/hr IV .Q8H [facility] Last Admin: 06/26/17 01:59 Dose: Not Given Piperacillin Sod/Tazobactam (Sod 3.375 gm/ Sodium Chloride) 100 mls @ 100 mls/ hr IVPB Q6 TERRY PRN Reason: Protocol Last Admin: 06/26/17 04:33 Dose: 100 mls/hr Potassium Chloride (Potassium Cl 10meq/50ml Sterile Water) 50 mls @ 50 mls/hr IVPB Q1 [facility] Stop: 06/26/17 13:59 Levalbuterol HCl (Xopenex) 1.25 mg INH RQ8 PRN PRN Reason: Shortness of Breath Last Admin: 06/25/17 21:53 Dose: 1.25 mg Metoprolol Tartrate (Lopressor) 2.5 mg IVP Q6 [facility] Last Admin: 06/22/17 05:07 Dose: Not Given Ondansetron HCl (Zofran Inj) 4 mg IVP Q6 PRN PRN Reason: Nausea/Vomiting Pantoprazole Sodium (Protonix Inj) 40 mg IVP DAILY [facility] Last Admin: 06/25/17 08:45 Dose: 40 mg - Labs Labs: 06/26/17 05:30 06/26/17 05:30 PT 18.6 Seconds (9.8-13.1) H 06/23/17 12:06 INR 1.7 (0.9-1.2) H 06/23/17 12:06 APTT 34.8 Seconds (25.6-37.1) D 06/23/17 12:06 - Constitutional Appears: Non-toxic, No Acute Distress, Other (elderly female of stated age with some SOb and cough) - Head Exam Head Exam: ATRAUMATIC, NORMAL INSPECTION, NORMOCEPHALIC - Eye Exam Eye Exam: EOMI, Normal appearance, PERRL Pupil Exam: NORMAL ACCOMODATION - ENT Exam ENT Exam: Mucous Membranes Dry, Normal Exam - Neck Exam Neck Exam: Full ROM, Normal Inspection - Respiratory Exam Respiratory Exam: Accessory Muscle Use, Rales (bibasilar ), Respiratory Distress. absent: Wheezes, NORMAL BREATHING PATTERN - Cardiovascular Exam Cardiovascular Exam: Tachycardia, +S1, +S2. absent: JVD - GI/Abdominal Exam GI & Abdominal Exam: Distended, Hypoactive Bowel Sounds. absent: Guarding, Rebound Additional comments: midline surgical nydia in place with minimal surrounding erythema - Rectal Exam Rectal Exam: Deferred - Extremities Exam Extremities Exam: Full ROM, Normal Capillary Refill, Normal Inspection. absent : Pedal Edema - Back Exam Back Exam: NORMAL INSPECTION - Neurological Exam Neurological Exam: Alert, Awake, CN II-XII Intact, Oriented x3 - Psychiatric Exam Psychiatric exam: Normal Affect - Skin Skin Exam: Dry, Pallor, Warm Assessment and Plan - Assessment and Plan (Free Text) Assessment: 86y/o lady with hx of Cardiac Arrhythmia s/p PPM , on Xarelto , came in because of abdominal pain. CT of abdomen showed Perforated Sigmoid Diverticulitis Initially admitted to [facility] , started on IVF fluid and IV antibiotics, Surgery consulted. Pt then had JAMB CUTTER for Hypotension - transferred to ICU - started on IVF resuscitation and Levophed.Patient was taken to OR 06/23 ,by surgery and underwent colon resection with colostomy . Today is post op day 3 , extubated , hemodynamically stable, afebrile, NPO , with some output from colostomy bag .y 1. Septic shock sec to perforated sigmoid Diverticulitis Acute s/p colon resection with colostomy performed 06/23. Surgery following colostomy bag to LLQ with brownish liquid output . Bowel sounds slightly more diminished today and abdomen slightly more distended. Will order Flat Xray to rule out Ileus. Continue IVF Was on levophed drip initially ( admission)but at present maintaining her BP without pressors , afebrile S/P extubation 06/24 With some respiratory distress today . Will place on Venti mask FIO2 50 %, will give Xopenex start and lasix 40 mg IV CXR t showed vascular congestion and RLL pleural effusion On Zosyn , Flagyl and diflucan Started out of bed to chair incentive spirometry 2.Perforated sigmoid colon Acute as above s/p colon resection with colostomy 3. ALBER (acute kidney injury)-improved Acute likely sec to Sepsis initially oliguric,but at present with good urine output and renal function is normal Continue IVF hydration and monitor I/O 4.Anemia of acute blood loss Hgb dropped from 12-- 11 s/p 2 unit PRBC transfusion Hem/on consulted Dr. Blanchard 5. Thrombocytopenia/ Coagulopathy prob sec to Sepsis INR=1.7 on admission ( patient also was on xarelto ) Platelet 97 today. s/p 1 unit Platelet transfusion and 4 FFP Hematology consult with Dr Dawn Blanchard appreciated Given DDAVP and Vit K 10 mg IV preop to correct anticoagulation since patient was on xarelto 6. Respiratory insufficiency post op Intubated for surgery and kept intubated. s/p extubation / Today with some respiratory distress most likely secondary to volume overload and pleural effusion Place on Venti mask FIo2 50 Stat Xopenex and Lasix 40 mg on CXR t showed vascular congestion and RLL pleural effusion 7. History of cardiac arrhythmia Chronic unclear cardiac diagnosis hx of Pacemaker placement pt was on Xarelto at home , now on hold Cardiology consulted- Dr Blanchard and patient cleared for surgery 8. Abn LFT sec to Shock liver improving 9.Hypokalemia secondary to NPO status and GI loss replace with 4 runs of KCL x 2 k 2.9 10.DVT prophylaxis SCD no anticoag sec to low Platelet and coagulopathy 11. Hypertension controlled without meds Home medications Norvasc, Coreg, HCTZ/ valsartan on hold
[2017-06-26] MEDS: Potassium CL 10 MEQ/50 ML 50 ML IVPB SCH ×4 (09:40→17:29)
--- NOTE | 2017-06-26 09:44 | CP.PCM.PN ---
<Dani Cho - Last Filed: 06/26/17 09:48> Subjective - Date & Time of Evaluation Date of Evaluation: 06/26/17 Time of Evaluation: 09:42 - Subjective Subjective: General Surgery Progress note for Dr. Weir This patient was seen ad examined this AM at [facility] no acute events overnight. Her main complaints at this time are a cough and positional back pain. Her stoma is patent with dark output. Abdomen is non tender nydia in place abdominal incision dry well approximated non tender non erythematous,. Objective - Vital Signs/Intake and Output Vital Signs (last 24 hours): Temp Pulse Resp BP Pulse Ox 98.1 F 83 18 157/83 H 95 06/26/17 08:24 06/26/17 08:24 06/26/17 08:24 06/26/17 08:24 06/26/17 08:24 Intake and Output: 06/26/17 06/26/17 06:59 18:59 Intake Total 1100 Output Total 765 Balance 335 - Medications Medications: Current Medications Acetaminophen (Tylenol 650 Mg Supp) 650 mg [place] Q6 PRN PRN Reason: Fever >100.4 F Hydromorphone HCl (Dilaudid) 0.5 mg IVP Q4 PRN PRN Reason: Pain, moderate (4-7) Last Admin: 06/25/17 21:09 Dose: 0.5 mg Hydromorphone HCl (Dilaudid) 0.5 mg IVP Q4 PRN PRN Reason: Pain, severe (8-10) Fluconazole (Diflucan Iv 100 Mg/50 Ml Ns) 50 mls @ 50 mls/hr IVPB DAILY TERRY PRN Reason: Protocol Last Admin: 06/25/17 08:44 Dose: 50 mls/hr Metronidazole (Flagyl 500mg/100ml Ns) 100 mls @ 100 mls/hr IVPB Q8 TERRY PRN Reason: Protocol Last Admin: 06/26/17 01:58 Dose: 100 mls/hr Lactated Ringer's (Lactated Ringer's) 1,000 mls @ 125 mls/hr IV .Q8H TERRY Last Admin: 06/26/17 01:59 Dose: Not Given Piperacillin Sod/Tazobactam (Sod 3.375 gm/ Sodium Chloride) 100 mls @ 100 mls/ hr IVPB Q6 TERRY PRN Reason: Protocol Last Admin: 06/26/17 09:00 Dose: 100 mls/hr Potassium Chloride (Potassium Cl 10meq/50ml Sterile Water) 50 mls @ 50 mls/hr IVPB Q1 [facility] Stop: 06/26/17 13:59 Last Admin: 06/26/17 09:40 Dose: 50 mls/hr Levalbuterol HCl (Xopenex) 1.25 mg INH RQ8 PRN PRN Reason: Shortness of Breath Last Admin: 06/25/17 21:53 Dose: 1.25 mg Metoprolol Tartrate (Lopressor) 2.5 mg IVP Q6 TERRY Last Admin: 06/22/17 05:07 Dose: Not Given Ondansetron HCl (Zofran Inj) 4 mg IVP Q6 PRN PRN Reason: Nausea/Vomiting Pantoprazole Sodium (Protonix Inj) 40 mg IVP DAILY [facility] Last Admin: 06/25/17 08:45 Dose: 40 mg - Labs Labs: 06/26/17 05:30 06/26/17 05:30 PT 18.6 Seconds (9.8-13.1) H 06/23/17 12:06 INR 1.7 (0.9-1.2) H 06/23/17 12:06 APTT 34.8 Seconds (25.6-37.1) D 06/23/17 12:06 - Constitutional Appears: Non-toxic, No Acute Distress - Head Exam Head Exam: ATRAUMATIC, NORMOCEPHALIC - Eye Exam Eye Exam: EOMI, Normal appearance - ENT Exam ENT Exam: Mucous Membranes Moist - Respiratory Exam Respiratory Exam: NORMAL BREATHING PATTERN Additional comments: Cough - Cardiovascular Exam Cardiovascular Exam: REGULAR RHYTHM - GI/Abdominal Exam GI & Abdominal Exam: Soft. absent: Guarding, Rigid, Tenderness Additional comments: Stoma patent with dark output - Neurological Exam Neurological Exam: Alert, Awake - Psychiatric Exam Psychiatric exam: Normal Affect, Normal Mood Assessment and Plan - Assessment and Plan (Free Text) Assessment: 86yo F with perforated diverticulitis s/p colon resection with end colostomy POD #3 Plan: Ostomy with output to bag Cont to monitor Repeat labs in AM continue ABX continue medical management by Dr. Dallas Dove IVF DVt PPX OOB to chair DW Dr. Carmella Cho PGY2 <Jhon Weir - Last Filed: 06/26/17 11:47> Subjective - Date & Time of Evaluation Time of Evaluation: 11:30 - Subjective Subjective: Patient was seen and examined at the bedside. Agree with resident's note above. Objective - Vital Signs/Intake and Output Vital Signs (last 24 hours): Temp Pulse Resp BP Pulse Ox 98.1 F 83 18 142/85 95 06/26/17 08:24 06/26/17 08:24 06/26/17 08:24 06/26/17 10:35 06/26/17 08:24 Intake and Output: 06/26/17 06/26/17 06:59 18:59 Intake Total 1100 Output Total 765 Balance 335 - Medications Medications: Current Medications Acetaminophen (Tylenol 650 Mg Supp) 650 mg [place] Q6 PRN PRN Reason: Fever >100.4 F Hydromorphone HCl (Dilaudid) 0.5 mg IVP Q4 PRN PRN Reason: Pain, moderate (4-7) Last Admin: 06/26/17 09:53 Dose: 0.5 mg Hydromorphone HCl (Dilaudid) 0.5 mg IVP Q4 PRN PRN Reason: Pain, severe (8-10) Fluconazole (Diflucan Iv 100 Mg/50 Ml Ns) 50 mls @ 50 mls/hr IVPB DAILY TERRY PRN Reason: Protocol Last Admin: 06/26/17 09:00 Dose: 50 mls/hr Metronidazole (Flagyl 500mg/100ml Ns) 100 mls @ 100 mls/hr IVPB Q8 TERRY PRN Reason: Protocol Last Admin: 06/26/17 09:00 Dose: 100 mls/hr Lactated Ringer's (Lactated Ringer's) 1,000 mls @ 125 mls/hr IV .Q8H TERRY Last Admin: 06/26/17 01:59 Dose: Not Given Piperacillin Sod/Tazobactam (Sod 3.375 gm/ Sodium Chloride) 100 mls @ 100 mls/ hr IVPB Q6 TERRY PRN Reason: Protocol Last Admin: 06/26/17 09:00 Dose: 100 mls/hr Potassium Chloride (Potassium Cl 10meq/50ml Sterile Water) 50 mls @ 50 mls/hr IVPB Q1 TERRY Stop: 06/26/17 13:59 Last Admin: 06/26/17 10:55 Dose: 50 mls/hr Levalbuterol HCl (Xopenex) 1.25 mg INH RQ8 PRN PRN Reason: Shortness of Breath Last Admin: 06/26/17 09:58 Dose: 1.25 mg Metoprolol Tartrate (Lopressor) 2.5 mg IVP Q6 TERRY Last Admin: 06/22/17 05:07 Dose: Not Given Ondansetron HCl (Zofran Inj) 4 mg IVP Q6 PRN PRN Reason: Nausea/Vomiting Pantoprazole Sodium (Protonix Inj) 40 mg IVP DAILY [facility] Last Admin: 06/25/17 08:45 Dose: 40 mg - Labs Labs: 06/26/17 05:30 06/26/17 05:30 PT 18.6 Seconds (9.8-13.1) H 06/23/17 12:06 INR 1.7 (0.9-1.2) H 06/23/17 12:06 APTT 34.8 Seconds (25.6-37.1) D 06/23/17 12:06 Assessment and Plan - Assessment and Plan (Free Text) Plan: - Start clear liquid diet - Pain control - Continue antibiotics - Insentive spirometry - DVT ppx - Repeat labs in am - Out of bed to chair - Will follow
[2017-06-26] MEDS: HYDROmorphone 0.5 mg/0.5 ml ISec IVP PRN ×2 (09:53→16:41)
[2017-06-26] MEDS: Levalbuterol 1.25 MG/3 ML Inhal Soln UD INH PRN (09:58)
[2017-06-27] MEDS: metroNIDAZOLE 500mg/100ml NS 100 ML IVPB SCH ×3 (00:03→16:42)
[2017-06-27] MEDS: Levalbuterol 1.25 MG/3 ML Inhal Soln UD INH PRN (01:29)
[2017-06-27] MEDS: Piperacillin/Tazobact 3.375 GM in Sodium Chloride 0.9% 100 ML IVPB SCH ×4 (04:25→22:08)
[2017-06-27] MEDS: Lactated Ringer's 1,000 ML IV SCH ×3 (04:25→16:49)
[2017-06-27 05:33] LABS: HEMATOCRIT 33.9 % (34.0-47.0); MEAN CELL VOLUME 91.6 fl (81.0-99.0); MEAN CORPUSCULAR HEMOGLOBIN 29.7 pg (27.0-31.0); MEAN CORPUSCULAR HGB CONC 32.4 g/dL (33.0-37.0); RED CELL DISTRIBUTION WIDTH 14.2 % (11.5-14.5); WHITE BLOOD COUNT 8.5 K/uL (4.8-10.8)
[2017-06-27 05:55] LABS: ALKALINE PHOSPHATASE 65 U/L (38-126); ALT/SGPT 87 U/L (9-52); AST/SGOT 32 U/L (14-36); BILIRUBIN,TOTAL 0.7 mg/dl (0.2-1.3); BLOOD UREA NITROGEN 18 mg/dl (7-17); CALCIUM 8.2 mg/dL (8.4-10.2); CARBON DIOXIDE 32 mmol/L (22-30); CHLORIDE 104 mmol/L (98-107); GFR AFRICAN-AMERICAN > 60; GLUCOSE,RANDOM 131 mg/dL (65-105); SODIUM 144 mmol/l (132-148); TOTAL PROTEIN 5.1 G/DL (6.3-8.2)
[2017-06-27 06:55] LABS: POTASSIUM 2.7 MMOL/L (3.6-5.0)
[2017-06-27] MEDS ORDERED: Potassium Chloride 20 mEq ER Tab PO ONE (08:55)
[2017-06-27] MEDS ORDERED: Potassium CL 10 MEQ/50 ML 50 ML IVPB SCH (09:00)
--- NOTE | 2017-06-27 09:30 | CP.PCM.PN ---
Subjective - Date & Time of Evaluation Date of Evaluation: 06/27/17 Time of Evaluation: 07:00 - Subjective Subjective: GENERAL SURGERY PROGRESS NOTE FOR DR. SANCHEZ Patient seen and examined at bedside. She is tolerating her CLD and denies nausea or vomiting. She denies abdominal pain. She had cough with some phlegm. Flatus and liquid stool in colostomy bag. Ryan had 100cc output over past 24 hours. Objective - Vital Signs/Intake and Output Vital Signs (last 24 hours): Temp Pulse Resp BP Pulse Ox 97.7 F 61 20 133/79 95 06/27/17 07:56 06/27/17 07:56 06/27/17 07:56 06/27/17 07:56 06/27/17 07:56 - Medications Medications: Current Medications Acetaminophen (Tylenol 650 Mg Supp) 650 mg [place] Q6 PRN PRN Reason: Fever >100.4 F Fluconazole (Diflucan Iv 100 Mg/50 Ml Ns) 50 mls @ 50 mls/hr IVPB DAILY TERRY PRN Reason: Protocol Last Admin: 06/26/17 09:00 Dose: 50 mls/hr Metronidazole (Flagyl 500mg/100ml Ns) 100 mls @ 100 mls/hr IVPB Q8 TERRY PRN Reason: Protocol Last Admin: 06/27/17 00:03 Dose: 100 mls/hr Lactated Ringer's (Lactated Ringer's) 1,000 mls @ 125 mls/hr IV .Q8H TERRY Last Admin: 06/27/17 04:25 Dose: 125 mls/hr Piperacillin Sod/Tazobactam (Sod 3.375 gm/ Sodium Chloride) 100 mls @ 100 mls/ hr IVPB Q6 TERRY PRN Reason: Protocol Last Admin: 06/27/17 04:25 Dose: 100 mls/hr Potassium Chloride (Potassium Chloride 10 Meq/100 Ml) 100 mls @ 100 mls/hr IVPB Q1 TERRY Stop: 06/27/17 13:59 Magnesium Sulfate 2 gm/ Sodium (Chloride) 104 mls @ 104 mls/hr IVPB Q2 TERRY PRN Reason: 2 GM/HR Stop: 06/27/17 12:59 Levalbuterol HCl (Xopenex) 1.25 mg INH RQ8 PRN PRN Reason: Shortness of Breath Last Admin: 06/27/17 01:29 Dose: 1.25 mg Metoprolol Tartrate (Lopressor) 2.5 mg IVP Q6 [facility] Last Admin: 06/22/17 05:07 Dose: Not Given Morphine Sulfate (Morphine) 2 mg IVP Q4 PRN PRN Reason: Pain, severe (8-10) Morphine Sulfate (Morphine) 1 mg IVP Q4 PRN PRN Reason: Pain, moderate (4-7) Last Admin: 06/27/17 01:55 Dose: 1 mg Ondansetron HCl (Zofran Inj) 4 mg IVP Q6 PRN PRN Reason: Nausea/Vomiting Pantoprazole Sodium (Protonix Inj) 40 mg IVP DAILY [facility] Last Admin: 06/26/17 11:46 Dose: 40 mg - Labs Labs: 06/27/17 04:30 06/27/17 04:30 PT 18.6 Seconds (9.8-13.1) H 06/23/17 12:06 INR 1.7 (0.9-1.2) H 06/23/17 12:06 APTT 34.8 Seconds (25.6-37.1) D 06/23/17 12:06 - Constitutional Appears: Non-toxic, No Acute Distress - Head Exam Head Exam: ATRAUMATIC, NORMAL INSPECTION - Eye Exam Eye Exam: EOMI, Normal appearance - Respiratory Exam Respiratory Exam: NORMAL BREATHING PATTERN. absent: Respiratory Distress - Cardiovascular Exam Cardiovascular Exam: +S1, +S2 - GI/Abdominal Exam GI & Abdominal Exam: Soft. absent: Distended, Firm, Guarding, Rigid, Tenderness , Rebound Additional comments: Dressing clean/dry/intact - removed, nydia in place, mild erythema noted around incision Colostomy bag with gas and small amount liquid stool Ryan drain with serous drainage - Neurological Exam Neurological Exam: Alert, Awake - Psychiatric Exam Psychiatric exam: Normal Affect, Normal Mood - Skin Skin Exam: Dry, Warm Assessment and Plan - Assessment and Plan (Free Text) Assessment: 86yo F with perforated diverticulitis s/p colon resection with end colostomy POD #4 - Hypokalemia of K 2.7, ordered 40meq PO KCl and 40meq IV KCl - Magnesium 1.0, ordered 4gm total magnesium sulfate - Tolerating clear liquid diet, advanced diet to heart healthy diet - Decreased IV fluids to 80cc/hr - Ordered Ensure supplements - Has air and liquid stool in colostomy - Encourage IS use, OOB and ambulation - Ordered physical therapy, pt needs to be OOB - Continue antibiotics - Will continue to follow up Ryan output - Heparin BID ordered for DVT prophylaxis - Discussed plan with Dr. Galindo Vila PGY-3
[2017-06-27] MEDS: Potassium CL 10 MEQ/50 ML 50 ML IVPB SCH ×4 (09:53→18:02)
--- NOTE | 2017-06-27 10:31 | CP.PCM.PN ---
Subjective - Date & Time of Evaluation Date of Evaluation: 06/27/17 Time of Evaluation: 10:00 - Subjective Subjective: Pt is afebrile tolerating liquid diet small amount of brownish green drainage in Colostomy minimal amount of drainage from ASA drain abd pain controlled denies CP had SOB yesterday but better today Ventimask changed to NC 3-4 liters Right groin TLC removed Objective - Vital Signs/Intake and Output Vital Signs (last 24 hours): Temp Pulse Resp BP Pulse Ox 97.7 F 61 20 133/79 95 06/27/17 07:56 06/27/17 07:56 06/27/17 07:56 06/27/17 07:56 06/27/17 07:56 - Medications Medications: Current Medications Acetaminophen (Tylenol 650 Mg Supp) 650 mg [place] Q6 PRN PRN Reason: Fever >100.4 F Fluconazole (Diflucan Iv 100 Mg/50 Ml Ns) 50 mls @ 50 mls/hr IVPB DAILY TERRY PRN Reason: Protocol Last Admin: 06/26/17 09:00 Dose: 50 mls/hr Metronidazole (Flagyl 500mg/100ml Ns) 100 mls @ 100 mls/hr IVPB Q8 TERRY PRN Reason: Protocol Last Admin: 06/27/17 00:03 Dose: 100 mls/hr Lactated Ringer's (Lactated Ringer's) 1,000 mls @ 125 mls/hr IV .Q8H TERRY Last Admin: 06/27/17 09:55 Dose: Not Given Piperacillin Sod/Tazobactam (Sod 3.375 gm/ Sodium Chloride) 100 mls @ 100 mls/ hr IVPB Q6 TERRY PRN Reason: Protocol Last Admin: 06/27/17 04:25 Dose: 100 mls/hr Potassium Chloride (Potassium Cl 10meq/50ml Sterile Water) 50 mls @ 50 mls/hr IVPB Q1 TERRY Stop: 06/27/17 13:59 Last Admin: 06/27/17 09:53 Dose: 50 mls/hr Magnesium Sulfate (Magnesium Sulfate 2 Gm/50 Ml Water) 2 gm in 50 mls @ 50 mls/ hr IVPB Q2 TERRY PRN Reason: 2 GM/HR Stop: 06/27/17 12:59 Levalbuterol HCl (Xopenex) 1.25 mg INH RQ8 PRN PRN Reason: Shortness of Breath Last Admin: 06/27/17 01:29 Dose: 1.25 mg Metoprolol Tartrate (Lopressor) 2.5 mg IVP Q6 [facility] Last Admin: 06/22/17 05:07 Dose: Not Given Morphine Sulfate (Morphine) 2 mg IVP Q4 PRN PRN Reason: Pain, severe (8-10) Morphine Sulfate (Morphine) 1 mg IVP Q4 PRN PRN Reason: Pain, moderate (4-7) Last Admin: 06/27/17 01:55 Dose: 1 mg Ondansetron HCl (Zofran Inj) 4 mg IVP Q6 PRN PRN Reason: Nausea/Vomiting Pantoprazole Sodium (Protonix Inj) 40 mg IVP DAILY [facility] Last Admin: 06/27/17 09:57 Dose: 40 mg - Labs Labs: 06/27/17 04:30 06/27/17 04:30 PT 18.6 Seconds (9.8-13.1) H 06/23/17 12:06 INR 1.7 (0.9-1.2) H 06/23/17 12:06 APTT 34.8 Seconds (25.6-37.1) D 06/23/17 12:06 - Constitutional Appears: No Acute Distress, Chronically Ill - Head Exam Head Exam: NORMAL INSPECTION, NORMOCEPHALIC - Eye Exam Eye Exam: EOMI, Normal appearance Pupil Exam: NORMAL ACCOMODATION - ENT Exam ENT Exam: Mucous Membranes Moist, Normal External Ear Exam - Neck Exam Neck Exam: Full ROM. absent: Meningismus - Respiratory Exam Respiratory Exam: Rales, Rhonchi. absent: Wheezes Additional comments: on 50% VM - Cardiovascular Exam Cardiovascular Exam: REGULAR RHYTHM, +S1, +S2 Additional comments: + Pacemaker - GI/Abdominal Exam GI & Abdominal Exam: Distended, Soft, Tenderness Additional comments: surgical scar intact ASA drain on the RLQ - Extremities Exam Extremities Exam: Full ROM, Normal Capillary Refill. absent: Calf Tenderness, Pedal Edema - Back Exam Back Exam: absent: CVA tenderness (L), CVA tenderness (R) - Neurological Exam Neurological Exam: Alert, Awake, CN II-XII Intact Neuro motor strength exam: Left Upper Extremity: 5, Right Upper Extremity: 5, Left Lower Extremity: 5, Right Lower Extremity: 5 - Psychiatric Exam Psychiatric exam: Normal Affect, Normal Mood - Skin Skin Exam: Dry, Normal Color, Warm Assessment and Plan (1) Septic shock Status: Acute (2) Perforated sigmoid colon Status: Acute (3) ALBER (acute kidney injury) Status: Acute (4) History of cardiac arrhythmia Status: Chronic (5) Thrombocytopenia Status: Acute (6) Shock liver Status: Acute (7) Hypokalemia Status: Acute (8) Hypomagnesemia Status: Acute - Assessment and Plan (Free Text) Assessment: 86y/o lady with hx of Cardiac Arrhythmia s/p PPM , on Xarelto , came in because of abdominal pain. CT of abdomen showed Perforated Sigmoid Diverticulitis Initially admitted to [facility] , started on IVF fluid and IV antibiotics, Surgery consulted. Pt then had [employer] for Hypotension - transferred to ICU - started on IVF resuscitation and Levophed. Patient was taken to OR 06/23 ,by surgery and underwent colon resection with colostomy . At present, she is hemodynamically stable, afebrile, with some output from colostomy bag and started on Regular diet 1. Septic shock sec to perforated sigmoid Diverticulitis Acute s/p colon resection with colostomy performed 06/23. Surgery following colostomy bag to LLQ with brownish liquid output . Bowel sounds slightly + Was on levophed drip initially ( admission)but at present maintaining her BP without pressors , afebrile S/P extubation 06/24 post op Day 1 On Zosyn , Flagyl and diflucan incentive spirometry Physical therapy consult 2.Perforated sigmoid colon s/p Colon Resection with Colostomy Acute as above s/p colon resection with colostomy 3. ALBER (acute kidney injury)-improved Acute likely sec to Sepsis initially oliguric,but at present with good urine output and renal function is normal Continue IVF hydration and monitor I/O 4.Anemia of acute blood loss Hgb dropped from 12-- 11 s/p 2 unit PRBC transfusion Hem/on consulted Dr. Blanchard 5. Thrombocytopenia/ Coagulopathy prob sec to Sepsis INR=1.7 on admission ( patient also was on xarelto ) Platelet 97 today. s/p 1 unit Platelet transfusion and 4 FFP Hemat[address] consult with Dr Dawn Blanchard appreciated Given DDAVP and Vit K 10 mg IV preop to correct anticoagulation since patient was on xarelto 6. Respiratory insufficiency post op Intubated for surgery and kept intubated. s/p extubation 06/25 06/26 some respiratory distress most likely secondary to volume overload and pleural effusion Placed on Venti mask FIo2 50 Xopenex and Lasix 40 mg given CXR t showed vascular congestion and RLL pleural effusion Pt is better now - will change Oxygen to NC at 3-4 liters 7. History of cardiac arrhythmia Chronic unclear cardiac diagnosis hx of Pacemaker placement pt was on Xarelto at home , now on hold Cardiology consulted- Dr Blanchard and patient cleared for surgery 8. Abn LFT sec to Shock liver improving 9.Hypokalemia secondary to NPO status and GI loss replace with 4 runs of KCL and 40 mg PO 10.DVT prophylaxis SCD no anticoag sec to low Platelet and coagulopathy 11. Hypertension controlled without meds Home medications Norvasc, Coreg, HCTZ/ valsartan on hold
--- NOTE | 2017-06-27 12:21 | CP.PCM.PN ---
Subjective - Date & Time of Evaluation Date of Evaluation: 06/27/17 Time of Evaluation: 14:00 - Subjective Subjective: ID note- Pt. seen and examined today. Pt. denies any fever or chills but does c/o pain kimberly abdominal surgical site and as per pt's nurse 2 of the nydia from the surgical site had opened and pt. had some bleeding from the site but was packed by the surgical team. Objective - Vital Signs/Intake and Output Vital Signs (last 24 hours): Temp Pulse Resp BP Pulse Ox 98.6 F 81 18 132/74 96 06/27/17 11:53 06/27/17 11:53 06/27/17 11:53 06/27/17 11:53 06/27/17 11:53 - Medications Medications: Current Medications Acetaminophen (Tylenol 650 Mg Supp) 650 mg [place] Q6 PRN PRN Reason: Fever >100.4 F Heparin Sodium (Porcine) (Heparin) 5,000 units SC Q12 TERRY PRN Reason: Protocol Fluconazole (Diflucan Iv 100 Mg/50 Ml Ns) 50 mls @ 50 mls/hr IVPB DAILY TERRY PRN Reason: Protocol Last Admin: 06/26/17 09:00 Dose: 50 mls/hr Metronidazole (Flagyl 500mg/100ml Ns) 100 mls @ 100 mls/hr IVPB Q8 TERRY PRN Reason: Protocol Last Admin: 06/27/17 00:03 Dose: 100 mls/hr Piperacillin Sod/Tazobactam (Sod 3.375 gm/ Sodium Chloride) 100 mls @ 100 mls/ hr IVPB Q6 TERRY PRN Reason: Protocol Last Admin: 06/27/17 04:25 Dose: 100 mls/hr Potassium Chloride (Potassium Cl 10meq/50ml Sterile Water) 50 mls @ 50 mls/hr IVPB Q1 TERRY Stop: 06/27/17 13:59 Last Admin: 06/27/17 09:53 Dose: 50 mls/hr Magnesium Sulfate (Magnesium Sulfate 2 Gm/50 Ml Water) 2 gm in 50 mls @ 50 mls/ hr IVPB Q2 TERRY PRN Reason: 2 GM/HR Stop: 06/27/17 12:59 Lactated Ringer's (Lactated Ringer's) 1,000 mls @ 80 mls/hr IV .[id number] TERRY Levalbuterol HCl (Xopenex) 1.25 mg INH RQ8 PRN PRN Reason: Shortness of Breath Last Admin: 06/27/17 01:29 Dose: 1.25 mg Metoprolol Tartrate (Lopressor) 2.5 mg IVP Q6 [facility] Last Admin: 06/22/17 05:07 Dose: Not Given Morphine Sulfate (Morphine) 2 mg IVP Q4 PRN PRN Reason: Pain, severe (8-10) Morphine Sulfate (Morphine) 1 mg IVP Q4 PRN PRN Reason: Pain, moderate (4-7) Last Admin: 06/27/17 01:55 Dose: 1 mg Ondansetron HCl (Zofran Inj) 4 mg IVP Q6 PRN PRN Reason: Nausea/Vomiting Pantoprazole Sodium (Protonix Inj) 40 mg IVP DAILY [facility] Last Admin: 06/27/17 09:57 Dose: 40 mg - Labs Labs: - Additional Findings Additional findings: - Constitutional Appears: No Acute Distress - Head Exam Head Exam: ATRAUMATIC - Eye Exam Eye Exam: EOMI, PERRL - ENT Exam Additional comments: has NGT in place draining bilious fluid - Neck Exam Neck exam: Positive for: Full Rom - Respiratory Exam Respiratory Exam: Clear to Auscultation Bilateral, NORMAL BREATHING PATTERN - Cardiovascular Exam Cardiovascular Exam: RRR, +S1, +S2 - GI/Abdominal Exam Additional comments: has colostomy bag in place with brown semi formed stool, right side drain in place with sersanguinous fluid mid abdominal surgical site clean , has packing in place in place of the 2 nydia that had come off earlier ( as per nurse report) - Extremities Exam Extremities exam: Positive for: normal inspection - Neurological Exam Neurological exam: Alert, Oriented x 3 Intake & Output 06/26/17 06/27/17 06/27/17 18:59 06:59 18:59 Intake Total 1475 Output Total 145 Balance 1330 Intake: IV 375 Intake, Piggyback 500 Oral 600 Output: Drainage 145 Nare 70 Right Abdomen 75 Laboratory Results - last 72 hr 06/25/17 06/25/17 06/26/17 05:20 05:20 05:30 WBC 9.0 RBC 3.49 L Hgb 10.6 L Hct 31.7 L MCV 90.6 MCH 30.4 MCHC 33.6 RDW 14.2 Plt Count 97 L Sodium 144 146 Potassium 2.7 L 2.9 L Chloride 106 109 H Carbon Dioxide 27 25 Anion Gap 14 15 BUN 17 18 H Creatinine 1.0 0.9 Est GFR ( Amer) > 60 > 60 Est GFR (Non-Af Amer) 53 60 Random Glucose 87 97 Calcium 8.0 L 8.7 Magnesium Total Bilirubin 1.0 1.1 AST 39 H D 24 ALT 134 H D 102 H D Alkaline Phosphatase 75 65 Total Protein 5.3 L 5.4 L Albumin 2.6 L 2.7 L Globulin 2.7 2.7 Albumin/Globulin Ratio 1.0 1.0 06/26/17 06/27/17 06/27/17 05:30 04:30 04:30 WBC 8.7 8.5 RBC 3.77 L 3.70 L Hgb 11.3 L 11.0 L Hct 34.7 33.9 L MCV 92.0 91.6 MCH 30.0 29.7 MCHC 32.6 L 32.4 L RDW 14.3 14.2 Plt Count 115 L 121 L Sodium 144 Potassium 2.7 L Chloride 104 Carbon Dioxide 32 H Anion Gap 11 BUN 18 H Creatinine 1.0 Est GFR ( Amer) > 60 Est GFR (Non-Af Amer) 53 Random Glucose 131 H Calcium 8.2 L Magnesium 1.0 L* D Total Bilirubin 0.7 AST 32 ALT 87 H Alkaline Phosphatase 65 Total Protein 5.1 L Albumin 2.6 L Globulin 2.5 Albumin/Globulin Ratio 1.0 Microbiology 06/21/17 20:35 Blood Blood Culture - Final NO GROWTH AFTER 5 DAYS 06/21/17 20:35 Blood Gram Stain - Final TEST NOT PERFORMED 06/21/17 20:15 Blood Blood Culture - Final NO GROWTH AFTER 5 DAYS 06/21/17 20:15 Blood Gram Stain - Final TEST NOT PERFORMED 06/24/17 14:00 Sputum Gram Stain - Final 06/24/17 14:00 Sputum Sputum Culture - Final NORMAL ORAL BRITTNEY 06/23/17 16:54 Other: Please Indicate Gram Stain - Final 06/23/17 16:54 Other: Please Indicate Wound Culture - Final Escherichia Coli 06/21/17 18:30 Urine,Catheterized Urine Culture - Final No Growth (<1,000 CFU/ML) 06/22/17 11:24 Naris MRSA Culture (Admit) - Final MRSA NOT DETECTED Assessment and Plan (1) Perforated sigmoid colon Status: Acute (2) Septic shock Status: Acute (3) History of cardiac arrhythmia Status: Chronic - Assessment and Plan (Free Text) Assessment: A/P- 86 year old female with perforated sigmoid diverticuli . s/p colon resection and colostomy pod #4 clinically better. afebrile normal wbc count . blood cx- neg x 2 urine cx- neg lactate level has normalized plan- continue with IV zosyn. day #6. continue with IV flagyl and IV fluconazole day #5. monitor temps and wbc. surgical f/u.
[2017-06-27] MEDS: Magnesium Sulfate 2 gm/50 ml 2 GM/50 ML BAG IVPB SCH ×2 (14:11→16:48)
[2017-06-27] MEDS: Fluconazole IV 100mg/50 ml NS 50 ML IVPB SCH (16:32)
[2017-06-27 19:22] LABS: BLOOD UREA NITROGEN 20 mg/dl (7-17); CALCIUM 8.4 mg/dL (8.4-10.2); CARBON DIOXIDE 32 mmol/L (22-30); CHLORIDE 104 mmol/L (98-107); GFR AFRICAN-AMERICAN > 60; GLUCOSE,RANDOM 187 mg/dL (65-105); MAGNESIUM 2.6 MG/DL (1.6-2.3); POTASSIUM 3.7 MMOL/L (3.6-5.0); SODIUM 142 mmol/l (132-148)
[2017-06-28] MEDS: metroNIDAZOLE 500mg/100ml NS 100 ML IVPB SCH ×3 (01:29→16:10)
[2017-06-28] MEDS: Lactated Ringer's 1,000 ML IV SCH (01:34)
[2017-06-28] MEDS: Piperacillin/Tazobact 3.375 GM in Sodium Chloride 0.9% 100 ML IVPB SCH ×4 (04:55→21:20)
[2017-06-28 05:55] LABS: BILIRUBIN,TOTAL 0.6 mg/dl (0.2-1.3); CALCIUM 8.2 mg/dL (8.4-10.2); CARBON DIOXIDE 30 mmol/L (22-30); CHLORIDE 106 mmol/L (98-107); GFR AFRICAN-AMERICAN > 60; GLUCOSE,RANDOM 123 mg/dL (65-105); SODIUM 143 mmol/l (132-148); TOTAL PROTEIN 5.6 G/DL (6.3-8.2)
[2017-06-28 06:05] LABS: BASO % 0.3 % (0.0-2.0); EOS # 0.1 K/uL (0.0-0.7); EOS % 0.6 % (0.0-4.0); HEMATOCRIT 37.4 % (34.0-47.0); LYMPH # 1.6 K/uL (1.0-4.3); LYMPH % 13.3 % (20.0-40.0); MEAN CELL VOLUME 93.2 fl (81.0-99.0); MEAN CORPUSCULAR HEMOGLOBIN 29.6 pg (27.0-31.0); MEAN CORPUSCULAR HGB CONC 31.8 g/dL (33.0-37.0); MEAN PLATELET VOLUME 10.9 fl (7.2-11.7); MONO # 1.1 K/uL (0.0-0.8); MONO % 8.8 % (0.0-10.0); NEUT # 9.4 K/uL (1.8-7.0); NRBC % 0.3 % (0.0-0.0); RED CELL DISTRIBUTION WIDTH 14.6 % (11.5-14.5); WHITE BLOOD COUNT 12.2 K/uL (4.8-10.8)
[2017-06-28 06:19] LABS: ALKALINE PHOSPHATASE 59 U/L (38-126); ALT/SGPT 71 U/L (9-52); AST/SGOT 28 U/L (14-36); BLOOD UREA NITROGEN 22 mg/dl (7-17)
[2017-06-28 07:22] LABS: POTASSIUM 3.8 MMOL/L (3.6-5.0)
--- NOTE | 2017-06-28 08:09 | CP.PCM.PN ---
Subjective - Date & Time of Evaluation Date of Evaluation: 06/28/17 Time of Evaluation: 07:40 - Subjective Subjective: Pt noted to be sl tachypneic Saturation 95-96% on 3-4 liters NC noted some coarse rales on auscultation ABG , CXR ordered Pt has no fever states she feels weak denies CP minimal abd pain some dark brown drainage from colostomy minimal drainage from ASA drain Objective - Vital Signs/Intake and Output Vital Signs (last 24 hours): Temp Pulse Resp BP Pulse Ox 97.9 F 65 16 113/67 98 06/28/17 06:00 06/28/17 06:00 06/28/17 06:00 06/28/17 06:00 06/28/17 06:00 Intake and Output: 06/28/17 06/28/17 06:59 18:59 Intake Total 1860 Output Total 110 Balance 1750 - Medications Medications: Current Medications Acetaminophen (Tylenol 650 Mg Supp) 650 mg [place] Q6 PRN PRN Reason: Fever >100.4 F Heparin Sodium (Porcine) (Heparin) 5,000 units SC Q12 TERRY PRN Reason: Protocol Last Admin: 06/27/17 22:13 Dose: 5,000 units Fluconazole (Diflucan Iv 100 Mg/50 Ml Ns) 50 mls @ 50 mls/hr IVPB DAILY TERRY PRN Reason: Protocol Last Admin: 06/27/17 16:32 Dose: 50 mls/hr Metronidazole (Flagyl 500mg/100ml Ns) 100 mls @ 100 mls/hr IVPB Q8 TERRY PRN Reason: Protocol Last Admin: 06/28/17 01:29 Dose: 100 mls/hr Piperacillin Sod/Tazobactam (Sod 3.375 gm/ Sodium Chloride) 100 mls @ 100 mls/ hr IVPB Q6 TERRY PRN Reason: Protocol Last Admin: 06/28/17 04:55 Dose: 100 mls/hr Levalbuterol HCl (Xopenex) 1.25 mg INH RQ8 PRN PRN Reason: Shortness of Breath Last Admin: 06/27/17 01:29 Dose: 1.25 mg Metoprolol Tartrate (Lopressor) 2.5 mg IVP Q6 TERRY Last Admin: 06/22/17 05:07 Dose: Not Given Morphine Sulfate (Morphine) 2 mg IVP Q4 PRN PRN Reason: Pain, severe (8-10) Last Admin: 06/28/17 01:35 Dose: 2 mg Morphine Sulfate (Morphine) 1 mg IVP Q4 PRN PRN Reason: Pain, moderate (4-7) Last Admin: 06/27/17 22:09 Dose: 1 mg Ondansetron HCl (Zofran Inj) 4 mg IVP Q6 PRN PRN Reason: Nausea/Vomiting Pantoprazole Sodium (Protonix Inj) 40 mg IVP DAILY TERRY Last Admin: 06/27/17 09:57 Dose: 40 mg - Labs Labs: 06/28/17 05:00 06/28/17 04:15 PT 18.6 Seconds (9.8-13.1) H 06/23/17 12:06 INR 1.7 (0.9-1.2) H 06/23/17 12:06 APTT 34.8 Seconds (25.6-37.1) D 06/23/17 12:06 - Constitutional Appears: No Acute Distress, Chronically Ill - Head Exam Head Exam: NORMAL INSPECTION, NORMOCEPHALIC - Eye Exam Eye Exam: EOMI, Normal appearance Pupil Exam: NORMAL ACCOMODATION - ENT Exam ENT Exam: Mucous Membranes Moist, Normal External Ear Exam - Neck Exam Neck Exam: Full ROM. absent: Meningismus + JVD - Respiratory Exam Respiratory Exam: Rales, Rhonchi. absent: Wheezes Additional comments: On 4 liters NC - Cardiovascular Exam Cardiovascular Exam: REGULAR RHYTHM, +S1, +S2 Additional comments: + Pacemaker - GI/Abdominal Exam GI & Abdominal Exam: Distended, Soft, Tenderness Additional comments: Colostomy bag with small amount of dark brown drainage surgical scar intact ASA drain on the RLQ - Extremities Exam Extremities Exam: Full ROM, Normal Capillary Refill. absent: Calf Tenderness, Pedal Edema - Back Exam Back Exam: absent: CVA tenderness (L), CVA tenderness (R) - Neurological Exam Neurological Exam: Alert, Awake, CN II-XII Intact Neuro motor strength exam: Left Upper Extremity: 5, Right Upper Extremity: 5, Left Lower Extremity: 5, Right Lower Extremity: 5 - Psychiatric Exam Psychiatric exam: Normal Affect, Normal Mood - Skin Skin Exam: Dry, Normal Color, Warm Assessment and Plan (1) Septic shock Status: Acute (2) Perforated sigmoid colon Status: Acute (3) ALBER (acute kidney injury) Status: Acute (4) History of cardiac arrhythmia Status: Chronic (5) Thrombocytopenia Status: Acute (6) Shock liver Status: Acute (7) Hypokalemia Status: Acute (8) Hypomagnesemia Status: Acute - Assessment and Plan (Free Text) Assessment: 86y/o lady with hx of Cardiac Arrhythmia s/p PPM , on Xarelto , came in because of abdominal pain. CT of abdomen showed Perforated Sigmoid Diverticulitis Initially admitted to [facility] , started on IVF fluid and IV antibiotics, Surgery consulted. Pt then had [employer] for Hypotension - transferred to ICU - started on IVF resuscitation and Levophed. Patient was taken to OR 06/23 ,by surgery and underwent colon resection with colostomy . At present, she is hemodynamically stable, afebrile, with some output from colostomy bag and started on Regular diet 1. Septic shock sec to perforated sigmoid Diverticulitis Acute s/p colon resection with colostomy performed 06/23. Surgery following colostomy bag to LLQ with brownish liquid output . Bowel sounds slightly + Was on levophed drip initially ( admission)but at present maintaining her BP without pressors , afebrile S/P extubation 06/24 post op Day 1 On Zosyn , Flagyl and diflucan ESBL E coli on Wound c/s sensitive to Zosyn 2.Perforated sigmoid colon s/p Colon Resection with Colostomy Acute as above s/p colon resection with colostomy 3. ALBER (acute kidney injury)-improved Acute likely sec to Sepsis initially oliguric,but at present with good urine output and renal function is normal 4.Anemia of acute blood loss Hgb dropped from 12-- 11 s/p 2 unit PRBC transfusion Hem/on consulted Dr. Blanchard 5. Thrombocytopenia/ Coagulopathy prob sec to Sepsis resolved INR=1.7 on admission ( patient also was on xarelto ) s/p 1 unit Platelet transfusion and 4 FFP Hematology consult with Dr Dawn Blanchard appreciated Given DDAVP and Vit K 10 mg IV preop to correct anticoagulation since patient was on xarelto 6. Respiratory insufficiency post op Pt was not extubated post surgery , s/p extubation 06/25 06/26 some respiratory distress most likely secondary to volume overload and pleural effusion Placed on Venti mask FIo2 50% Xopenex and Lasix 40 mg given CXR showed vascular congestion and RLL pleural effusion Today ,06/28 again with some SOB, noted rales, + JVD likely from fluid overload d/c IVF Lasix given ABG CXR elevated proBNP Pulm consult : Dr Hidalgo , discussed case Incentive Spirometry 7. History of cardiac arrhythmia Chronic unclear cardiac diagnosis hx of Pacemaker placement pt was on Xarelto at home , now on hold Cardiology consulted- Dr Blanchard and patient cleared for surgery 8. Abn LFT sec to Shock liver improving 9.Hypokalemia secondary to NPO status and GI loss replaced with 4 runs of KCL and 40 mg PO, now normal 10.DVT prophylaxis SCD Heparin 11. Hypertension controlled without meds Home medications Norvasc, Coreg, HCTZ/ valsartan on hold
[2017-06-28] MEDS: Levalbuterol 1.25 MG/3 ML Inhal Soln UD INH PRN ×2 (08:28→16:16)
[2017-06-28] MEDS: Fluconazole IV 100mg/50 ml NS 50 ML IVPB SCH (08:46)
[2017-06-28 08:55] LABS: ABG ALLEN TEST YES; ARTERIAL BLOOD FLOW 4; ARTERIAL BLOOD GAS HCO3 28.2 mmol/L (21-28); ARTERIAL BLOOD GAS MODE NC; ARTERIAL BLOOD GAS O2 CAPACITY 16.8 mL/dL (16-24); ARTERIAL BLOOD GAS O2 CONTENT 16.2 ML/dL (15-23); ARTERIAL BLOOD GAS PO2 75 mm/Hg (80-100); ARTERIAL BLOOD HGB O2 SAT 94.4 % (95.0-98.0); CARBOXYHEMOGLOBIN 1.5 % (0.5-1.5); HHB 3.4 % (0.0-5.0); METHEMOGLOBIN 0.6 % (0.0-3.0)
--- NOTE | 2017-06-28 09:08 | CP.PCM.PN ---
<Bhavna Vila - Last Filed: 06/28/17 15:45> Subjective - Date & Time of Evaluation Date of Evaluation: 06/28/17 Time of Evaluation: 07:00 - Subjective Subjective: GENERAL SURGERY PROGRESS NOTE FOR DR. SANCHEZ Patient seen and examined at bedside. She is tolerating her regular diet. She ate some food that the family brought her from home. She denies nausea or vomiting. She denies abdominal pain. Flatus and small amount liquid stool in colostomy bag. Ryan had 40cc output over past 24 hours. This morning on rounds, patient reported some SOB. Respiratory therapist came and gave patient a duoneb treatment as well as Lasix. Patient reported relief of symptoms. Objective - Vital Signs/Intake and Output Vital Signs (last 24 hours): Temp Pulse Resp BP Pulse Ox 97.9 F 75 18 111/75 96 06/28/17 08:14 06/28/17 08:14 06/28/17 08:14 06/28/17 08:44 06/28/17 08:14 Intake and Output: 06/28/17 06/28/17 06:59 18:59 Intake Total 1860 Output Total 110 Balance 1750 - Medications Medications: Current Medications Acetaminophen (Tylenol 650 Mg Supp) 650 mg [place] Q6 PRN PRN Reason: Fever >100.4 F Heparin Sodium (Porcine) (Heparin) 5,000 units SC Q12 TERRY PRN Reason: Protocol Last Admin: 06/28/17 08:46 Dose: 5,000 units Fluconazole (Diflucan Iv 100 Mg/50 Ml Ns) 50 mls @ 50 mls/hr IVPB DAILY TERRY PRN Reason: Protocol Last Admin: 06/28/17 08:46 Dose: 50 mls/hr Metronidazole (Flagyl 500mg/100ml Ns) 100 mls @ 100 mls/hr IVPB Q8 TERRY PRN Reason: Protocol Last Admin: 06/28/17 08:46 Dose: 100 mls/hr Piperacillin Sod/Tazobactam (Sod 3.375 gm/ Sodium Chloride) 100 mls @ 100 mls/ hr IVPB Q6 TERRY PRN Reason: Protocol Last Admin: 06/28/17 09:00 Dose: 100 mls/hr Levalbuterol HCl (Xopenex) 1.25 mg INH RQ8 PRN PRN Reason: Shortness of Breath Last Admin: 06/28/17 08:28 Dose: 1.25 mg Metoprolol Tartrate (Lopressor) 2.5 mg IVP Q6 TERRY Last Admin: 06/22/17 05:07 Dose: Not Given Morphine Sulfate (Morphine) 2 mg IVP Q4 PRN PRN Reason: Pain, severe (8-10) Last Admin: 06/28/17 01:35 Dose: 2 mg Morphine Sulfate (Morphine) 1 mg IVP Q4 PRN PRN Reason: Pain, moderate (4-7) Last Admin: 06/27/17 22:09 Dose: 1 mg Ondansetron HCl (Zofran Inj) 4 mg IVP Q6 PRN PRN Reason: Nausea/Vomiting Pantoprazole Sodium (Protonix Inj) 40 mg IVP DAILY [facility] Last Admin: 06/28/17 08:46 Dose: 40 mg - Labs Labs: 06/28/17 05:00 06/28/17 04:15 PT 18.6 Seconds (9.8-13.1) H 06/23/17 12:06 INR 1.7 (0.9-1.2) H 06/23/17 12:06 APTT 34.8 Seconds (25.6-37.1) D 06/23/17 12:06 - Constitutional Appears: Non-toxic, No Acute Distress - Head Exam Head Exam: ATRAUMATIC, NORMAL INSPECTION - Eye Exam Eye Exam: EOMI, Normal appearance - Respiratory Exam Respiratory Exam: Rhonchi (bilat), NORMAL BREATHING PATTERN. absent: Respiratory Distress - Cardiovascular Exam Cardiovascular Exam: +S1, +S2. absent: Tachycardia - GI/Abdominal Exam GI & Abdominal Exam: Soft. absent: Distended, Firm, Guarding, Rigid, Tenderness , Rebound Additional comments: Colostomy bag with gas and small amount liquid stool Ryan drain with serosanguinous drainage Seropurulent material able to be expressed from middle portion of midline incision, packing removed and repacked - Neurological Exam Neurological Exam: Alert, Awake, Oriented x3 - Psychiatric Exam Psychiatric exam: Normal Affect, Normal Mood - Skin Skin Exam: Dry, Normal Color, Warm Assessment and Plan - Assessment and Plan (Free Text) Assessment: 86yo F with perforated diverticulitis s/p colon resection with end colostomy POD #5 - Afebrile, VSS - Leukocytosis WBC 12.2 (8.5 yesterday) - Hypokalemia resolved after 80meq yesterday - Magnesium now normal after replacement - Tolerating HHD - Ensure supplements - Encourage IS use, OOB and ambulation - Ordered physical therapy, pt needs to be OOB - Continue antibiotics per ID, currently on Zosyn & Flagyl - Will continue to follow up Ryan output - Heparin BID ordered for DVT prophylaxis - Packing changed this morning in midline incision and dressing changed - Discussed plan with Dr. Galindo Vila PGY-3 <Jhon Weir - Last Filed: 06/28/17 19:34> Subjective - Date & Time of Evaluation Time of Evaluation: 19:00 - Subjective Subjective: Patient was seen and examined at the bedside. Appears to be short of breath and somnolent. Agree with resident's note above. Objective - Vital Signs/Intake and Output Vital Signs (last 24 hours): Temp Pulse Resp BP Pulse Ox 97.5 F L 90 22 112/58 L 91 L 06/28/17 16:21 06/28/17 16:21 06/28/17 16:21 06/28/17 16:21 06/28/17 16:21 Intake and Output: 06/28/17 06/29/17 18:59 06:59 Intake Total 950 Output Total 140 Balance 810 - Medications Medications: Current Medications Acetaminophen (Tylenol 650 Mg Supp) 650 mg [place] Q6 PRN PRN Reason: Fever >100.4 F Heparin Sodium (Porcine) (Heparin) 5,000 units SC Q12 TERRY PRN Reason: Protocol Last Admin: 06/28/17 08:46 Dose: 5,000 units Fluconazole (Diflucan Iv 100 Mg/50 Ml Ns) 50 mls @ 50 mls/hr IVPB DAILY TERRY PRN Reason: Protocol Last Admin: 06/28/17 08:46 Dose: 50 mls/hr Metronidazole (Flagyl 500mg/100ml Ns) 100 mls @ 100 mls/hr IVPB Q8 TERRY PRN Reason: Protocol Last Admin: 06/28/17 16:10 Dose: 100 mls/hr Piperacillin Sod/Tazobactam (Sod 3.375 gm/ Sodium Chloride) 100 mls @ 100 mls/ hr IVPB Q6 TERRY PRN Reason: Protocol Last Admin: 06/28/17 16:10 Dose: 100 mls/hr Levalbuterol HCl (Xopenex) 1.25 mg INH RQ8 PRN PRN Reason: Shortness of Breath Last Admin: 06/28/17 16:16 Dose: 1.25 mg Metoprolol Tartrate (Lopressor) 2.5 mg IVP Q6 TERRY Last Admin: 06/22/17 05:07 Dose: Not Given Morphine Sulfate (Morphine) 2 mg IVP Q4 PRN PRN Reason: Pain, severe (8-10) Last Admin: 06/28/17 01:35 Dose: 2 mg Morphine Sulfate (Morphine) 1 mg IVP Q4 PRN PRN Reason: Pain, moderate (4-7) Last Admin: 06/27/17 22:09 Dose: 1 mg Ondansetron HCl (Zofran Inj) 4 mg IVP Q6 PRN PRN Reason: Nausea/Vomiting Pantoprazole Sodium (Protonix Inj) 40 mg IVP DAILY TERRY Last Admin: 06/28/17 08:46 Dose: 40 mg - Labs Labs: 06/28/17 05:00 06/28/17 04:15 PT 18.6 Seconds (9.8-13.1) H 06/23/17 12:06 INR 1.7 (0.9-1.2) H 06/23/17 12:06 APTT 34.8 Seconds (25.6-37.1) D 06/23/17 12:06 Assessment and Plan - Assessment and Plan (Free Text) Plan: - Continue diet - Pain control - Insentive spirometry - Continue antibiotics - Non-rebreather mask - CT chest PE protocol - Repeat labs in am - Patient was d/w Dr. Herman from medicine - Will follow
[2017-06-28] MEDS ORDERED: Potassium Chloride 20 mEq ER Tab PO STA (09:45)
--- NOTE | 2017-06-28 09:57 | CON ---
PULMONARY CONSULTATION HISTORY OF PRESENT ILLNESS: Ms. Cazares is an 86-year-old female who is status post abdominal surgery for ruptured diverticula and colostomy placement. She was referred for pulmonary evaluation because of shortness of breath and pulmonary congestion. She appears somewhat dyspneic at rest and has low oxygen saturation associated with pulmonary congestion and abnormal chest x-ray this morning. She has a history of cardiac arrhythmia status post left total knee replacement in the past, hypertension, permanent pacemaker placement and is on Xarelto for arrhythmias. FAMILY HISTORY: Nonrevealing. SOCIAL HISTORY: She does not drink or smoke. PHYSICAL EXAMINATION: GENERAL: The patient is alert and awake, appears dyspneic at rest. VITAL SIGNS: Remarkable for blood pressure of 111/75, pulse of 75, respiratory rate 18 to 20 per minute, she is afebrile, O2 sat 96% on nasal cannula oxygen. SKIN: Shows fair turgor. HEENT: Pupils equal and reactive to light and accommodation. Mouth shows fair hygiene. NECK: JVP slight elevated. LUNGS: Poor aeration bilaterally with audile rales. There is a pacemaker in place over the anterior chest wall. BREASTS: Normal. ABDOMEN: Soft. Colostomy in place. No organomegaly. There is mild tenderness. There are normoactive bowel sounds. EXTREMITIES: She has no edema or cyanosis. CENTRAL NERVOUS SYSTEM: The patient is awake, alert and somewhat oriented. LABORATORY DATA: Remarkable for WBC of 12.2, hemoglobin 11.9, platelet count 177,000. Sodium 143, potassium 3.8, BUN 22, creatinine 0.8. Chest x-ray is remarkable for bilateral pulmonary congestion. Pacemaker in place. There is also mild right pleural effusion. Official report, however, is pending. IMPRESSION: Acute congestive heart failure. This might just be due to fluid overload. One doubts pneumonia. PLAN: The plan will be intravenous diuretics. Discontinue IV fluids. Oxygen therapy. Repeat ABGs in 2 hours. If hypoxia persists, might need BiPAP therapy. Arterial blood gas that was done this morning shows a pH of 7.30, pCO2 of 66, pO2 of 75 with O2 saturation of 96.5. We will continue to follow with you. Paresh Hidalgo MD
--- NOTE | 2017-06-28 11:08 | CP.PCM.PN ---
Subjective - Date & Time of Evaluation Date of Evaluation: 06/28/17 Time of Evaluation: 10:00 - Subjective Subjective: Pt had a ventricular triplet Had received IV K+ replcement yesterday for hypoK+ Today's K+ level is 3.8 mEq/L Vital signs stable Have given pt addl K+ No evidence of CHF Objective - Vital Signs/Intake and Output Vital Signs (last 24 hours): Temp Pulse Resp BP Pulse Ox 97.9 F 75 18 111/75 96 06/28/17 08:14 06/28/17 08:14 06/28/17 08:14 06/28/17 09:49 06/28/17 08:14 Intake and Output: 06/28/17 06/28/17 06:59 18:59 Intake Total 1860 Output Total 110 Balance 1750 - Medications Medications: Current Medications Acetaminophen (Tylenol 650 Mg Supp) 650 mg [place] Q6 PRN PRN Reason: Fever >100.4 F Heparin Sodium (Porcine) (Heparin) 5,000 units SC Q12 TERRY PRN Reason: Protocol Last Admin: 06/28/17 08:46 Dose: 5,000 units Fluconazole (Diflucan Iv 100 Mg/50 Ml Ns) 50 mls @ 50 mls/hr IVPB DAILY TERRY PRN Reason: Protocol Last Admin: 06/28/17 08:46 Dose: 50 mls/hr Metronidazole (Flagyl 500mg/100ml Ns) 100 mls @ 100 mls/hr IVPB Q8 TERRY PRN Reason: Protocol Last Admin: 06/28/17 08:46 Dose: 100 mls/hr Piperacillin Sod/Tazobactam (Sod 3.375 gm/ Sodium Chloride) 100 mls @ 100 mls/ hr IVPB Q6 TERRY PRN Reason: Protocol Last Admin: 06/28/17 09:00 Dose: 100 mls/hr Levalbuterol HCl (Xopenex) 1.25 mg INH RQ8 PRN PRN Reason: Shortness of Breath Last Admin: 06/28/17 08:28 Dose: 1.25 mg Metoprolol Tartrate (Lopressor) 2.5 mg IVP Q6 TERRY Last Admin: 06/22/17 05:07 Dose: Not Given Morphine Sulfate (Morphine) 2 mg IVP Q4 PRN PRN Reason: Pain, severe (8-10) Last Admin: 06/28/17 01:35 Dose: 2 mg Morphine Sulfate (Morphine) 1 mg IVP Q4 PRN PRN Reason: Pain, moderate (4-7) Last Admin: 06/27/17 22:09 Dose: 1 mg Ondansetron HCl (Zofran Inj) 4 mg IVP Q6 PRN PRN Reason: Nausea/Vomiting Pantoprazole Sodium (Protonix Inj) 40 mg IVP DAILY TERRY Last Admin: 06/28/17 08:46 Dose: 40 mg - Labs Labs: 06/28/17 05:00 06/28/17 04:15 PT 18.6 Seconds (9.8-13.1) H 06/23/17 12:06 INR 1.7 (0.9-1.2) H 06/23/17 12:06 APTT 34.8 Seconds (25.6-37.1) D 06/23/17 12:06
--- NOTE | 2017-06-28 11:47 | CP.PCM.PN ---
Subjective - Date & Time of Evaluation Date of Evaluation: 06/28/17 Time of Evaluation: 13:00 - Subjective Subjective: ID Note- pt. seen and examined today. slightly lethargic today but once name is called does respond. denies any fever or chills. Objective - Vital Signs/Intake and Output Vital Signs (last 24 hours): Temp Pulse Resp BP Pulse Ox 97.9 F 75 18 111/75 96 06/28/17 08:14 06/28/17 09:00 06/28/17 08:14 06/28/17 09:49 06/28/17 08:14 Intake and Output: 06/28/17 06/28/17 06:59 18:59 Intake Total 1860 Output Total 110 Balance 1750 - Medications Medications: Current Medications Acetaminophen (Tylenol 650 Mg Supp) 650 mg [place] Q6 PRN PRN Reason: Fever >100.4 F Heparin Sodium (Porcine) (Heparin) 5,000 units SC Q12 TERRY PRN Reason: Protocol Last Admin: 06/28/17 08:46 Dose: 5,000 units Fluconazole (Diflucan Iv 100 Mg/50 Ml Ns) 50 mls @ 50 mls/hr IVPB DAILY TERRY PRN Reason: Protocol Last Admin: 06/28/17 08:46 Dose: 50 mls/hr Metronidazole (Flagyl 500mg/100ml Ns) 100 mls @ 100 mls/hr IVPB Q8 TERRY PRN Reason: Protocol Last Admin: 06/28/17 08:46 Dose: 100 mls/hr Piperacillin Sod/Tazobactam (Sod 3.375 gm/ Sodium Chloride) 100 mls @ 100 mls/ hr IVPB Q6 TERRY PRN Reason: Protocol Last Admin: 06/28/17 09:00 Dose: 100 mls/hr Levalbuterol HCl (Xopenex) 1.25 mg INH RQ8 PRN PRN Reason: Shortness of Breath Last Admin: 06/28/17 08:28 Dose: 1.25 mg Metoprolol Tartrate (Lopressor) 2.5 mg IVP Q6 TERRY Last Admin: 06/22/17 05:07 Dose: Not Given Morphine Sulfate (Morphine) 2 mg IVP Q4 PRN PRN Reason: Pain, severe (8-10) Last Admin: 06/28/17 01:35 Dose: 2 mg Morphine Sulfate (Morphine) 1 mg IVP Q4 PRN PRN Reason: Pain, moderate (4-7) Last Admin: 06/27/17 22:09 Dose: 1 mg Ondansetron HCl (Zofran Inj) 4 mg IVP Q6 PRN PRN Reason: Nausea/Vomiting Pantoprazole Sodium (Protonix Inj) 40 mg IVP DAILY TERRY Last Admin: 06/28/17 08:46 Dose: 40 mg - Labs Labs: - Additional Findings Additional findings: - Constitutional Appears: No Acute Distress but slighjtyly lethargic today - Head Exam Head Exam: ATRAUMATIC - Eye Exam Eye Exam: EOMI, PERRL - ENT Exam Additional comments: has NGT in place draining bilious fluid - Neck Exam Neck exam: Positive for: Full Rom - Respiratory Exam Respiratory Exam: slightly tachypneic today no wheezing decreased breath sounds at bases - Cardiovascular Exam Cardiovascular Exam: RRR, +S1, +S2 - GI/Abdominal Exam Additional comments: has colostomy bag in place with brown semi formed stool, right side drain in place with sersanguinous fluid mid abdominal surgical site clean , gauze dressing in plce, no bloody discharge today - Extremities Exam Extremities exam: Positive for: normal inspection - Neurological Exam Neurological exam: slightly lethargic today but oriented Laboratory Results - last 72 hr 06/27/17 06/27/17 06/27/17 04:30 04:30 18:57 WBC 8.5 RBC 3.70 L Hgb 11.0 L Hct 33.9 L MCV 91.6 MCH 29.7 MCHC 32.4 L RDW 14.2 Plt Count 121 L MPV Neut % (Auto) Lymph % (Auto) [place] % (Auto) Eos % (Auto) Baso % (Auto) Neut # Lymph # [place] # Eos # Baso # PT INR APTT pCO2 pO2 HCO3 ABG pH ABG Total CO2 ABG O2 Saturation ABG O2 Content ABG Base Excess ABG Hemoglobin ABG Carboxyhemoglobin POC ABG HHb (Measured) ABG Methemoglobin ABG O2 Capacity Rich Test A-a O2 Difference Hgb O2 Saturation Liter Flow Vent Mode FiO2 Crit Value Called To Crit Value Called By Crit Value Read Back Blood Gas Notified Time Sodium 144 142 Potassium 2.7 L 3.7 Chloride 104 104 Carbon Dioxide 32 H 32 H Anion Gap 11 10 BUN 18 H 20 H Creatinine 1.0 0.8 Est GFR ( Amer) > 60 > 60 Est GFR (Non-Af Amer) 53 > 60 Random Glucose 131 H 187 H Calcium 8.2 L 8.4 Magnesium 1.0 L* D 2.6 H Total Bilirubin 0.7 AST 32 ALT 87 H Alkaline Phosphatase 65 NT-Pro-B Natriuret Pep Total Protein 5.1 L Albumin 2.6 L Globulin 2.5 Albumin/Globulin Ratio 1.0 06/28/17 06/28/17 06/28/17 04:15 05:00 06:59 WBC 12.2 H RBC 4.02 Hgb 11.9 L Hct 37.4 MCV 93.2 MCH 29.6 MCHC 31.8 L RDW 14.6 H Plt Count 177 MPV 10.9 Neut % (Auto) 77.0 H Lymph % (Auto) 13.3 L [place] % (Auto) 8.8 Eos % (Auto) 0.6 Baso % (Auto) 0.3 Neut # 9.4 H Lymph # 1.6 [place] # 1.1 H Eos # 0.1 Baso # 0.0 PT INR APTT pCO2 pO2 HCO3 ABG pH ABG Total CO2 ABG O2 Saturation ABG O2 Content ABG Base Excess ABG Hemoglobin ABG Carboxyhemoglobin POC ABG HHb (Measured) ABG Methemoglobin ABG O2 Capacity Rich Test A-a O2 Difference Hgb O2 Saturation Liter Flow Vent Mode FiO2 Crit Value Called To Crit Value Called By Crit Value Read Back Blood Gas Notified Time Sodium 143 Potassium 3.8 Chloride 106 Carbon Dioxide 30 Anion Gap 11 BUN 22 H Creatinine 0.8 Est GFR ( Amer) > 60 Est GFR (Non-Af Amer) > 60 Random Glucose 123 H Calcium 8.2 L Magnesium 2.0 Total Bilirubin 0.6 AST 28 ALT 71 H Alkaline Phosphatase 59 NT-Pro-B Natriuret Pep Total Protein 5.6 L Albumin 2.8 L Globulin 2.7 Albumin/Globulin Ratio 1.0 06/28/17 06/28/17 06/28/17 07:46 09:36 11:55 WBC RBC Hgb Hct MCV MCH MCHC RDW Plt Count MPV Neut % (Auto) Lymph % (Auto) [place] % (Auto) Eos % (Auto) Baso % (Auto) Neut # Lymph # [place] # Eos # Baso # PT INR APTT pCO2 66 H 65 H pO2 75 L 82 HCO3 28.2 H 30.0 H ABG pH 7.30 L 7.33 L ABG Total CO2 34.5 H 36.3 H ABG O2 Saturation 96.5 97.1 ABG O2 Content 16.2 15.8 ABG Base Excess 4.3 H 6.5 H ABG Hemoglobin 12.2 11.7 ABG Carboxyhemoglobin 1.5 1.1 POC ABG HHb (Measured) 3.4 2.8 ABG Methemoglobin 0.6 0.7 ABG O2 Capacity 16.8 16.3 Rich Test Yes Yes A-a O2 Difference 99.0 93.0 Hgb O2 Saturation 94.4 L 95.4 Liter Flow 4 4 Vent Mode Nc Nc FiO2 36.0 36.0 Crit Value Called To Crit Value Called By Crit Value Read Back Blood Gas Notified Time Sodium Potassium Chloride Carbon Dioxide Anion Gap BUN Creatinine Est GFR ( Amer) Est GFR (Non-Af Amer) Random Glucose Calcium Magnesium Total Bilirubin AST ALT Alkaline Phosphatase NT-Pro-B Natriuret Pep 27890 H Total Protein Albumin Globulin Albumin/Globulin Ratio 06/28/17 06/29/17 06/29/17 20:55 04:42 05:45 WBC RBC Hgb Hct MCV MCH MCHC RDW Plt Count MPV Neut % (Auto) Lymph % (Auto) [place] % (Auto) Eos % (Auto) Baso % (Auto) Neut # Lymph # [place] # Eos # Baso # PT INR APTT pCO2 57 H 53 H pO2 41 L* 48 L HCO3 32.2 H 32.0 H ABG pH 7.41 7.43 ABG Total CO2 37.8 H 36.8 H ABG O2 Saturation 85.0 L 89.7 L ABG O2 Content 13.1 L 14.3 L ABG Base Excess 9.7 H 9.3 H ABG Hemoglobin 11.3 L 11.6 L ABG Carboxyhemoglobin 1.5 1.4 POC ABG HHb (Measured) 14.6 H 10.1 H ABG Methemoglobin 1.1 1.0 ABG O2 Capacity 15.4 L 15.9 L Rich Test Yes Yes A-a O2 Difference 37.0 242.0 Hgb O2 Saturation 82.8 L 87.5 L Liter Flow 30 Vent Mode Hfov FiO2 21.0 50.0 Crit Value Called To Rn poornima sims Crit Value Called By 292 Crit Value Read Back Y Blood Gas Notified Time 2056 Sodium 141 Potassium 3.0 L Chloride 101 Carbon Dioxide 31 H Anion Gap 12 BUN 20 H Creatinine 0.8 Est GFR ( Amer) > 60 Est GFR (Non-Af Amer) > 60 Random Glucose 118 H Calcium 8.0 L Magnesium Total Bilirubin 0.6 AST 22 ALT 64 H Alkaline Phosphatase 66 NT-Pro-B Natriuret Pep Total Protein 5.3 L Albumin 2.7 L Globulin 2.6 Albumin/Globulin Ratio 1.1 06/29/17 06/29/17 06/29/17 05:45 05:45 12:00 WBC 12.1 H RBC 3.91 Hgb 11.5 L Hct 35.9 MCV 91.9 MCH 29.4 MCHC 32.0 L RDW 14.2 Plt Count 169 MPV Neut % (Auto) Lymph % (Auto) [place] % (Auto) Eos % (Auto) Baso % (Auto) Neut # Lymph # [place] # Eos # Baso # PT 18.5 H INR 1.7 H APTT 34.3 pCO2 50 H pO2 68 L HCO3 37.2 H ABG pH 7.52 H ABG Total CO2 42.3 H ABG O2 Saturation 97.1 ABG O2 Content ABG Base Excess 15.8 H ABG Hemoglobin 11.6 L ABG Carboxyhemoglobin 1.6 H POC ABG HHb (Measured) 2.8 ABG Methemoglobin 0.7 ABG O2 Capacity Rich Test Yes A-a O2 Difference Hgb O2 Saturation 94.9 L Liter Flow Vent Mode FiO2 70.0 Crit Value Called To Crit Value Called By Crit Value Read Back Blood Gas Notified Time Sodium Potassium Chloride Carbon Dioxide Anion Gap BUN Creatinine Est GFR ( Amer) Est GFR (Non-Af Amer) Random Glucose Calcium Magnesium Total Bilirubin AST ALT Alkaline Phosphatase NT-Pro-B Natriuret Pep Total Protein Albumin Globulin Albumin/Globulin Ratio Microbiology 06/26/17 21:20 Nose MRSA Culture (Admit) - Final MRSA NOT DETECTED 06/21/17 20:35 Blood Blood Culture - Final NO GROWTH AFTER 5 DAYS 06/21/17 20:35 Blood Gram Stain - Final TEST NOT PERFORMED 06/21/17 20:15 Blood Blood Culture - Final NO GROWTH AFTER 5 DAYS 06/21/17 20:15 Blood Gram Stain - Final TEST NOT PERFORMED 06/24/17 14:00 Sputum Gram Stain - Final 06/24/17 14:00 Sputum Sputum Culture - Final NORMAL ORAL BRITTNEY 06/23/17 16:54 Other: Please Indicate Gram Stain - Final 06/23/17 16:54 Other: Please Indicate Wound Culture - Final Escherichia Coli 06/21/17 18:30 Urine,Catheterized Urine Culture - Final No Growth (<1,000 CFU/ML) 06/22/17 11:24 Naris MRSA Culture (Admit) - Final MRSA NOT DETECTED Accession No. : [id number] Patient Name / ID : LING IVEY / [id number] Exam Date : 06/28/2017 20:18:16 ( Approved ) Study Comment : Sex / Age : F / 86Y Creator : Tobias Guerrero MD Dictator : Teasel Gig Operator : Glass Driller : Tobias Guerrero MD Approver2 : Report Date : 06/28/2017 21:12:00 My Comment : [facility] Division of Radiology [address] [place] [address] Tel. no. Patient Name: LONI DUBON Pt. Address: [address] [place] [address] Rec #: [id number] [place] [address]: Bhavna Vila DO Pt HOME Order Location: H.TEL : 1930 Female Age: 86 Order #: [id number] Reason for exam: rule out PE CT Scan ANGIO CHEST PE PROTOCOL Exam Date: 06/28/17 This imaging exam was performed at [facility] EXAM: CT Angiography Chest With Intravenous Contrast CLINICAL HISTORY: 86 years old, female; Signs and symptoms; Shortness of breath and other: Arrhythmia; Prior surgery; Surgery date: 6+ months; Surgery type: Pacemaker; Additional info: Rule out pe TECHNIQUE: Axial computed tomographic angiography images of the chest with intravenous contrast using pulmonary embolism protocol. All CT scans at this facility use one or more dose reduction techniques, viz.: automated exposure control; ma/kV adjustment per patient size (including targeted exams where dose is matched to indication; i.e. head); or iterative reconstruction technique. MIP reconstructed images were created and reviewed. Coronal and sagittal reformatted images were created and reviewed. CONTRAST: 70 mL of visipaque administered intravenously. COMPARISON: No relevant prior studies available. FINDINGS: Limitations: Motion artifact - mild to moderate. Streak artifact - mild. Pulmonary arteries: No definite pulmonary embolism. Aorta: Mild atherosclerotic disease. No aneurysm. 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 Inferior vena cava: Retrograde filling of IVC and hepatic veins. Lungs: Minimal mosaic pattern of lung parenchyma with few mild scattered groundglass opacities. Mild interlobular septal thickening. Mild peripheral consolidation RIGHT upper, RIGHT middle lobes with associated volume loss. Moderate peripheral consolidation LEFT lower lobe with associated volume loss. Consolidation RIGHT lower lobe with associated volume loss. Partial filling defects within RIGHT mainstem and RIGHT lower lobe bronchi. Pleural space: Moderate bilateral pleural effusions. No pneumothorax. Heart: Mild cardiomegaly. No significant pericardial effusion. Mediastinum: Small hiatal hernia. Bones/joints: Degenerative changes of spine. No acute fracture. Soft tissues: Unremarkable. Lymph nodes: No pathologically enlarged lymph nodes. Tubes, lines and devices: LEFT pacemaker. IMPRESSION: 1. No definite CT evidence of pulmonary embolism. 2. Probable interstitial edema. Clinical correlation is needed. 3. Bilateral pleural effusions with compressive atelectasis. Superimposed pneumonia not excluded. 4. Filling defects within RIGHT main and lower lobe bronchi, nonspecific but likely mucous. Consider bronchoscopy. 5. Incidental/non-acute findings are described above. Dictated By: Tobias Guerrero MD Dictated Date/Time: 06/28/172111 Signed By: Tobias Guerrero MD Date Signed: 2111 Transcribed By: ESTEBAN Transcribe Date/Time : 06/28/172111 ACYP02/VRD Accession No. : [id number] Patient Name / ID : LING IVEY / [id number] Exam Date : 06/28/2017 07:41:26 ( Approved ) Study Comment : Sex / Age : F / 86Y Creator : Kenneth Bojorquez MD Dictator : Kenneth Bojorquez MD Teasel Gig Operator : Glass Driller : Kenneth Bojorquez MD Approver2 : Report Date : 06/28/2017 14:06:11 My Comment : HISTORY: SOB COMPARISON: Portable chest 06/25/2017. FINDINGS: LUNGS: Prior nasogastric tube is been removed. Pulmonary venous congestion pattern appears improved with cardiac silhouette stable. Right pleural effusion is increased with left pleural effusion obscured by generator from stable appearing implanted defibrillator/ pacemaker. Left-sided effusion is likely unchanged. No pneumothorax bilaterally. Underlying atelectasis or infiltrates are not excluded the bilateral bases. OSSEOUS STRUCTURES: No significant abnormalities. VISUALIZED UPPER ABDOMEN: Normal. OTHER FINDINGS: None. IMPRESSION: Improving pulmonary venous congestion although right pleural effusion is increased. Left pleural effusion is likely stable but is partly obscured by generator from pacemaker/defibrillator device. Underlying bilateral basilar airspace disease not excluded. Assessment and Plan (1) Perforated sigmoid colon Status: Acute (2) Septic shock Status: Acute (3) History of cardiac arrhythmia Status: Chronic (4) Pleural effusion Status: Acute - Assessment and Plan (Free Text) Assessment: A/P- 86 year old female with perforated sigmoid diverticuli . s/p colon resection and colostomy pod #5. slightly lethargic and tachypneic today. afebrile minimal rise in wbc today. blood cx- neg x 2 urine cx- neg wound cx- e.coli ESBl sensitive to zosyn lactate level has normalized plan- continue with IV zosyn. day #7. continue with IV flagyl and IV fluconazole day #7 monitor temps and wbc. surgical f/u for drain and colostomy management. b/l pleural effusions as per cxr and chest CT is being f/u by pulm. check sputum cx. may need thoracentheiss if pleural effusion not resolved by diuresis. all above d/w hospitalist.
[2017-06-28 12:18] LABS: ABG ALLEN TEST YES; ARTERIAL BLOOD FLOW 4; ARTERIAL BLOOD GAS MODE NC; ARTERIAL BLOOD GAS O2 CAPACITY 16.3 mL/dL (16-24); ARTERIAL BLOOD GAS O2 CONTENT 15.8 ML/dL (15-23); ARTERIAL BLOOD GAS PH 7.33 (7.35-7.45); ARTERIAL BLOOD GAS PO2 82 mm/Hg (80-100); ARTERIAL BLOOD HGB O2 SAT 95.4 % (95.0-98.0); CARBOXYHEMOGLOBIN 1.1 % (0.5-1.5); HHB 2.8 % (0.0-5.0); METHEMOGLOBIN 0.7 % (0.0-3.0)
--- NOTE | 2017-06-28 14:07 | RAD ---
HISTORY: SOB COMPARISON: Portable chest 06/25/2017. FINDINGS: LUNGS: Prior nasogastric tube is been removed. Pulmonary venous congestion pattern appears improved with cardiac silhouette stable. Right pleural effusion is increased with left pleural effusion obscured by generator from stable appearing implanted defibrillator/ pacemaker. Left-sided effusion is likely unchanged. No pneumothorax bilaterally. Underlying atelectasis or infiltrates are not excluded the bilateral bases. OSSEOUS STRUCTURES: No significant abnormalities. VISUALIZED UPPER ABDOMEN: Normal. OTHER FINDINGS: None. IMPRESSION: Improving pulmonary venous congestion although right pleural effusion is increased. Left pleural effusion is likely stable but is partly obscured by generator from pacemaker/defibrillator device. Underlying bilateral basilar airspace disease not excluded.
[2017-06-28] MEDS ORDERED: Iodixanol 320 MG/ML 100 ML BOTTLE IV ONE (20:20)
[2017-06-28 20:58] LABS: ABG ALLEN TEST YES; ARTERIAL BLOOD GAS HCO3 32.2 mmol/L (21-28); ARTERIAL BLOOD GAS O2 CAPACITY 15.4 mL/dL (16-24); ARTERIAL BLOOD GAS O2 CONTENT 13.1 ML/dL (15-23); ARTERIAL BLOOD GAS PH 7.41 (7.35-7.45); ARTERIAL BLOOD GAS PO2 41 mm/Hg (80-100); ARTERIAL BLOOD HGB O2 SAT 82.8 % (95.0-98.0); CARBOXYHEMOGLOBIN 1.5 % (0.5-1.5); HHB 14.6 % (0.0-5.0); METHEMOGLOBIN 1.1 % (0.0-3.0)
--- NOTE | 2017-06-28 21:08 | CP.PCM.PCO ---
Physician Communication Note - Physician Communication Note Physician Communication Note: G PH 7.41/57/41/32 on RA. Will start High Flow 30L at 50% FiO2
--- NOTE | 2017-06-28 21:12 | CT ---
EXAM: CT Angiography Chest With Intravenous Contrast CLINICAL HISTORY: 86 years old, female; Signs and symptoms; Shortness of breath and other: Arrhythmia; Prior surgery; Surgery date: 6+ months; Surgery type: Pacemaker; Additional info: Rule out pe TECHNIQUE: Axial computed tomographic angiography images of the chest with intravenous contrast using pulmonary embolism protocol. All CT scans at this facility use one or more dose reduction techniques, viz.: automated exposure control; ma/kV adjustment per patient size (including targeted exams where dose is matched to indication; i.e. head); or iterative reconstruction technique. MIP reconstructed images were created and reviewed. Coronal and sagittal reformatted images were created and reviewed. CONTRAST: 70 mL of visipaque administered intravenously. COMPARISON: No relevant prior studies available. FINDINGS: Limitations: Motion artifact - mild to moderate. Streak artifact - mild. Pulmonary arteries: No definite pulmonary embolism. Aorta: Mild atherosclerotic disease. No aneurysm. 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 Inferior vena cava: Retrograde filling of IVC and hepatic veins. Lungs: Minimal mosaic pattern of lung parenchyma with few mild scattered groundglass opacities. Mild interlobular septal thickening. Mild peripheral consolidation RIGHT upper, RIGHT middle lobes with associated volume loss. Moderate peripheral consolidation LEFT lower lobe with associated volume loss. Consolidation RIGHT lower lobe with associated volume loss. Partial filling defects within RIGHT mainstem and RIGHT lower lobe bronchi. Pleural space: Moderate bilateral pleural effusions. No pneumothorax. Heart: Mild cardiomegaly. No significant pericardial effusion. Mediastinum: Small hiatal hernia. Bones/joints: Degenerative changes of spine. No acute fracture. Soft tissues: Unremarkable. Lymph nodes: No pathologically enlarged lymph nodes. Tubes, lines and devices: LEFT pacemaker. IMPRESSION: 1. No definite CT evidence of pulmonary embolism. 2. Probable interstitial edema. Clinical correlation is needed. 3. Bilateral pleural effusions with compressive atelectasis. Superimposed pneumonia not excluded. 4. Filling defects within RIGHT main and lower lobe bronchi, nonspecific but likely mucous. Consider bronchoscopy. 5. Incidental/non-acute findings are described above.
[2017-06-29] MEDS: metroNIDAZOLE 500mg/100ml NS 100 ML IVPB SCH ×3 (00:21→17:28)
[2017-06-29] MEDS: Piperacillin/Tazobact 3.375 GM in Sodium Chloride 0.9% 100 ML IVPB SCH ×4 (03:55→21:19)
[2017-06-29 04:49] LABS: ABG ALLEN TEST YES; ARTERIAL BLOOD FLOW 30; ARTERIAL BLOOD GAS MODE HFOV; ARTERIAL BLOOD GAS O2 CAPACITY 15.9 mL/dL (16-24); ARTERIAL BLOOD GAS O2 CONTENT 14.3 ML/dL (15-23); ARTERIAL BLOOD GAS PH 7.43 (7.35-7.45); ARTERIAL BLOOD GAS PO2 48 mm/Hg (80-100); ARTERIAL BLOOD HGB O2 SAT 87.5 % (95.0-98.0); CARBOXYHEMOGLOBIN 1.4 % (0.5-1.5); HHB 10.1 % (0.0-5.0)
[2017-06-29] MEDS: Levalbuterol 1.25 MG/3 ML Inhal Soln UD INH PRN (05:33)
[2017-06-29 06:00] LABS: HEMATOCRIT 35.9 % (34.0-47.0); MEAN CELL VOLUME 91.9 fl (81.0-99.0); MEAN CORPUSCULAR HEMOGLOBIN 29.4 pg (27.0-31.0); RED CELL DISTRIBUTION WIDTH 14.2 % (11.5-14.5); WHITE BLOOD COUNT 12.1 K/uL (4.8-10.8)
[2017-06-29 06:14] LABS: ALB/GLOB RATIO 1.1 (1.0-2.1); ALKALINE PHOSPHATASE 66 U/L (38-126); ALT/SGPT 64 U/L (9-52); AST/SGOT 22 U/L (14-36); BILIRUBIN,TOTAL 0.6 mg/dl (0.2-1.3); BLOOD UREA NITROGEN 20 mg/dl (7-17); CARBON DIOXIDE 31 mmol/L (22-30); CHLORIDE 101 mmol/L (98-107); GFR AFRICAN-AMERICAN > 60; GLUCOSE,RANDOM 118 mg/dL (65-105); SODIUM 141 mmol/l (132-148); TOTAL PROTEIN 5.3 G/DL (6.3-8.2)
[2017-06-29 07:44] LABS: PARTIAL THROMBOPLASTIN TIME 34.3 Seconds (25.6-37.1)
[2017-06-29] MEDS ORDERED: Potassium CL 10 MEQ/50 ML 50 ML IVPB ONE (08:10)
[2017-06-29] MEDS ORDERED: Potassium Chloride 20 mEq ER Tab PO ONE (08:10)
[2017-06-29] MEDS: Bacitracin OINT 15GM TOP SCH ×2 (08:50→17:26)
--- NOTE | 2017-06-29 08:59 | CP.PCM.PN ---
Subjective - Date & Time of Evaluation Date of Evaluation: 06/29/17 Time of Evaluation: 09:04 - Subjective Subjective: STILL HAS MILD SOB AT REST AND ON SPEAKING ON HIGH FLOW OXYGEN Objective - Vital Signs/Intake and Output Vital Signs (last 24 hours): Temp Pulse Resp BP Pulse Ox 98.5 F 94 H 18 146/86 98 06/29/17 08:00 06/29/17 08:00 06/29/17 08:00 06/29/17 08:00 06/29/17 08:00 Intake and Output: 06/29/17 06/29/17 06:59 18:59 Intake Total 600 Output Total 80 Balance 520 - Medications Medications: Current Medications Acetaminophen (Tylenol 650 Mg Supp) 650 mg [place] Q6 PRN PRN Reason: Fever >100.4 F Bacitracin (Bacitracin Oint) 1 applic TOP BID [facility] Last Admin: 06/29/17 08:50 Dose: 1 applic Heparin Sodium (Porcine) (Heparin) 5,000 units SC Q12 TERRY PRN Reason: Protocol Last Admin: 06/29/17 08:52 Dose: 5,000 units Fluconazole (Diflucan Iv 100 Mg/50 Ml Ns) 50 mls @ 50 mls/hr IVPB DAILY TERRY PRN Reason: Protocol Last Admin: 06/28/17 08:46 Dose: 50 mls/hr Metronidazole (Flagyl 500mg/100ml Ns) 100 mls @ 100 mls/hr IVPB Q8 TERRY PRN Reason: Protocol Last Admin: 06/29/17 00:21 Dose: 100 mls/hr Piperacillin Sod/Tazobactam (Sod 3.375 gm/ Sodium Chloride) 100 mls @ 100 mls/ hr IVPB Q6 TERRY PRN Reason: Protocol Last Admin: 06/29/17 03:55 Dose: 100 mls/hr Potassium Chloride (Potassium Cl 10meq/50ml Sterile Water) 50 mls @ 50 mls/hr IVPB ONCE ONE Stop: 06/29/17 09:09 Last Admin: 06/29/17 08:50 Dose: 50 mls/hr Levalbuterol HCl (Xopenex) 1.25 mg INH RQ8 PRN PRN Reason: Shortness of Breath Last Admin: 06/29/17 05:33 Dose: 1.25 mg Metoprolol Tartrate (Lopressor) 2.5 mg IVP Q6 [facility] Last Admin: 06/22/17 05:07 Dose: Not Given Morphine Sulfate (Morphine) 2 mg IVP Q4 PRN PRN Reason: Pain, severe (8-10) Last Admin: 06/28/17 01:35 Dose: 2 mg Morphine Sulfate (Morphine) 1 mg IVP Q4 PRN PRN Reason: Pain, moderate (4-7) Last Admin: 06/27/17 22:09 Dose: 1 mg Ondansetron HCl (Zofran Inj) 4 mg IVP Q6 PRN PRN Reason: Nausea/Vomiting Pantoprazole Sodium (Protonix Inj) 40 mg IVP DAILY [facility] Last Admin: 06/29/17 08:51 Dose: 40 mg - Labs Labs: 06/29/17 05:45 06/29/17 05:45 PT 18.5 Seconds (9.8-13.1) H 06/29/17 05:45 INR 1.7 (0.9-1.2) H 06/29/17 05:45 APTT 34.3 Seconds (25.6-37.1) 06/29/17 05:45 - Constitutional Appears: Chronically Ill - Head Exam Head Exam: ATRAUMATIC, NORMAL INSPECTION, NORMOCEPHALIC - Eye Exam Eye Exam: EOMI, Normal appearance, PERRL Pupil Exam: NORMAL ACCOMODATION, PERRL - ENT Exam ENT Exam: Mucous Membranes Moist, Normal Exam - Neck Exam Neck Exam: Full ROM, Normal Inspection. absent: Lymphadenopathy - Respiratory Exam Respiratory Exam: Prolonged Expiratory Phase, Rales, Wheezes, NORMAL BREATHING PATTERN - Cardiovascular Exam Cardiovascular Exam: REGULAR RHYTHM, +S1, +S2. absent: Murmur - GI/Abdominal Exam GI & Abdominal Exam: Soft, Normal Bowel Sounds. absent: Tenderness - Rectal Exam Rectal Exam: NORMAL INSPECTION - Extremities Exam Extremities Exam: Full ROM, Normal Capillary Refill, Normal Inspection. absent : Joint Swelling, Pedal Edema - Back Exam Back Exam: NORMAL INSPECTION - Neurological Exam Neurological Exam: Alert, Awake, CN II-XII Intact - Psychiatric Exam Psychiatric exam: Normal Affect, Normal Mood - Skin Skin Exam: Dry, Intact, Normal Color, Warm Assessment and Plan - Assessment and Plan (Free Text) Assessment: RESPIRATORY DISTRESS DUE TO PULMONARY CONGESTION FROM AND PLEURAL EFFUSION Plan: AGREE WITH HIGH FLOW 02 IV DIURESES MONITOR LYTES AND O2 SAT
[2017-06-29] MEDS: Fluconazole IV 100mg/50 ml NS 50 ML IVPB SCH (10:36)
--- NOTE | 2017-06-29 10:53 | RAD ---
PROCEDURE: CHEST RADIOGRAPH, 1 VIEW HISTORY: CHF COMPARISON: 06/28/2017. FINDINGS: LUNGS: There is severe pulmonary venous congestion and lower lobe airspace disease bilaterally which may represent atelectasis or pneumonia. PLEURA: No pneumothorax. Worsening moderate pleural effusions. CARDIOVASCULAR: The heart remains enlarged. There is stable position of a left-sided AICD. OSSEOUS STRUCTURES: No significant abnormalities. VISUALIZED UPPER ABDOMEN: Normal. OTHER FINDINGS: None. IMPRESSION: Worsening congestive heart failure.
[2017-06-29 12:11] LABS: ABG ALLEN TEST YES; ARTERIAL BLOOD GAS HCO3 37.2 mmol/L (21-28); ARTERIAL BLOOD GAS PH 7.52 (7.35-7.45); ARTERIAL BLOOD GAS PO2 68 mm/Hg (80-100); ARTERIAL BLOOD HGB O2 SAT 94.9 % (95.0-98.0); CARBOXYHEMOGLOBIN 1.6 % (0.5-1.5); HHB 2.8 % (0.0-5.0); METHEMOGLOBIN 0.7 % (0.0-3.0)
--- NOTE | 2017-06-29 12:26 | CP.PCM.PN ---
Subjective - Date & Time of Evaluation Date of Evaluation: 06/29/17 Time of Evaluation: 11:30 - Subjective Subjective: No fever Pt feels better less SOB today had episode of SOB last night - placed on High Flow Oxygen, Lasix given + cough Brownish green stool in Colostomy drainage minimal abd discomfort Objective - Vital Signs/Intake and Output Vital Signs (last 24 hours): Temp Pulse Resp BP Pulse Ox 98.4 F 86 20 134/78 97 06/29/17 12:00 06/29/17 12:00 06/29/17 12:00 06/29/17 12:00 06/29/17 12:00 Intake and Output: 06/29/17 06/29/17 06:59 18:59 Intake Total 600 Output Total 80 Balance 520 - Medications Medications: Current Medications Acetaminophen (Tylenol 650 Mg Supp) 650 mg MD Q6 PRN PRN Reason: Fever >100.4 F Bacitracin (Bacitracin Oint) 1 applic TOP BID [facility] Last Admin: 06/29/17 08:50 Dose: 1 applic Heparin Sodium (Porcine) (Heparin) 5,000 units SC Q12 [facility] PRN Reason: Protocol Last Admin: 06/29/17 08:52 Dose: 5,000 units Fluconazole (Diflucan Iv 100 Mg/50 Ml Ns) 50 mls @ 50 mls/hr IVPB DAILY [facility] PRN Reason: Protocol Last Admin: 06/29/17 10:36 Dose: 50 mls/hr Metronidazole (Flagyl 500mg/100ml Ns) 100 mls @ 100 mls/hr IVPB Q8 [facility] PRN Reason: Protocol Last Admin: 06/29/17 11:44 Dose: 100 mls/hr Piperacillin Sod/Tazobactam (Sod 3.375 gm/ Sodium Chloride) 100 mls @ 100 mls/ hr IVPB Q6 [facility]Y PRN Reason: Protocol Last Admin: 06/29/17 03:55 Dose: 100 mls/hr Levalbuterol HCl (Xopenex) 1.25 mg INH RQ8 [facility] Metoprolol Tartrate (Lopressor) 2.5 mg IVP Q6 [facility] Last Admin: 06/22/17 05:07 Dose: Not Given Morphine Sulfate (Morphine) 2 mg IVP Q4 PRN PRN Reason: Pain, severe (8-10) Last Admin: 06/28/17 01:35 Dose: 2 mg Morphine Sulfate (Morphine) 1 mg IVP Q4 PRN PRN Reason: Pain, moderate (4-7) Last Admin: 06/27/17 22:09 Dose: 1 mg Ondansetron HCl (Zofran Inj) 4 mg IVP Q6 PRN PRN Reason: Nausea/Vomiting Pantoprazole Sodium (Protonix Inj) 40 mg IVP DAILY [facility] Last Admin: 06/29/17 08:51 Dose: 40 mg - Labs Labs: 06/29/17 05:45 06/29/17 05:45 PT 18.5 Seconds (9.8-13.1) H 06/29/17 05:45 INR 1.7 (0.9-1.2) H 06/29/17 05:45 APTT 34.3 Seconds (25.6-37.1) 06/29/17 05:45 - Constitutional Appears: No Acute Distress, Chronically Ill - Head Exam Head Exam: NORMAL INSPECTION, NORMOCEPHALIC - Eye Exam Eye Exam: EOMI, Normal appearance Pupil Exam: NORMAL ACCOMODATION - ENT Exam ENT Exam: Mucous Membranes Moist, Normal External Ear Exam - Neck Exam Neck Exam: Full ROM. absent: Meningismus + JVD - Respiratory Exam Respiratory Exam: Rales, Rhonchi. absent: Wheezes Additional comments: On 4 liters NC - Cardiovascular Exam Cardiovascular Exam: REGULAR RHYTHM, +S1, +S2 Additional comments: + Pacemaker - GI/Abdominal Exam GI & Abdominal Exam: Distended, Soft, Tenderness Additional comments: Colostomy bag with dark brown drainage surgical scar intact with nydia ASA drain on the RLQ - Extremities Exam Extremities Exam: Full ROM, Normal Capillary Refill. absent: Calf Tenderness, Pedal Edema - Back Exam Back Exam: absent: CVA tenderness (L), CVA tenderness (R) - Neurological Exam Neurological Exam: Alert, Awake, CN II-XII Intact Neuro motor strength exam: Left Upper Extremity: 5, Right Upper Extremity: 5, Left Lower Extremity: 5, Right Lower Extremity: 5 - Psychiatric Exam Psychiatric exam: Normal Affect, Normal Mood - Skin Skin Exam: Dry, Normal Color, Warm Assessment and Plan (1) Septic shock Status: Acute (2) Perforated sigmoid colon Status: Acute (3) ALBER (acute kidney injury) Status: Acute (4) History of cardiac arrhythmia Status: Chronic (5) Thrombocytopenia Status: Acute (6) Shock liver Status: Acute (7) Hypokalemia Status: Acute (8) Hypomagnesemia Status: Acute - Assessment and Plan (Free Text) Assessment: 86y/o lady with hx of Cardiac Arrhythmia s/p PPM , on Xarelto , came in because of abdominal pain. CT of abdomen showed Perforated Sigmoid Diverticulitis Initially admitted to [facility] , started on IVF fluid and IV antibiotics, Surgery consulted. Pt then had [employer] for Hypotension - transferred to ICU - started on IVF resuscitation and Levophed. Patient was taken to OR 06/23 ,by surgery and underwent colon resection with colostomy . At present, she is hemodynamically stable, afebrile, with output from colostomy and started on Regular diet. Had episode of resp failure due to fluid overload- on High Flow Oxygen 1. Septic shock sec to perforated sigmoid Diverticulitis Acute s/p colon resection with colostomy performed 06/23. Surgery following colostomy bag to LLQ with brownish liquid output . Bowel sounds + Was on levophed drip initially ( admission)but at present maintaining her BP without pressors , afebrile S/P extubation 06/24 post op Day 1 On Zosyn , Flagyl and diflucan ESBL E coli on Wound c/s ( small area in surgical wound had some drainage) sensitive to Zosyn 2.Perforated sigmoid colon s/p Colon Resection with Colostomy Acute as above s/p colon resection with colostomy 3. ALBER (acute kidney injury)-improved Acute likely sec to Sepsis initially oliguric,but at present with good urine output and renal function is normal 4.Anemia of acute blood loss Hgb dropped from 12-- 11 s/p 2 unit PRBC transfusion Hem/on consulted Dr. Blanchard 5. Thrombocytopenia/ Coagulopathy, improved prob sec to Sepsis resolved INR=1.7 on admission ( patient also was on xarelto ) s/p 1 unit Platelet transfusion and 4 FFP Hematology consult with Dr Dawn Blanchard appreciated Given DDAVP and Vit K 10 mg IV preop to correct anticoagulation since patient was on xarelto 6. Respiratory insufficiency post op Pt was not extubated post surgery , s/p extubation 06/25 06/26 some respiratory distress most likely secondary to volume overload and pleural effusion Placed on Venti mask FIo2 50% Xopenex and Lasix 40 mg given CXR showed vascular congestion and RLL pleural effusion Last night , again with some SOB, noted rales, + JVD likely from fluid overload - Placed on High Flow Oxygen 30 L , 70% FiO2 d/c IVF Lasix given elevated proBNP Pulm consult : Dr Hidalgo , discussed case Incentive Spirometry 7. History of cardiac arrhythmia Chronic unclear cardiac diagnosis hx of Pacemaker placement pt was on Xarelto at home , now on hold Cardiology consulted- Dr Blanchard and patient cleared for surgery 8. Abn LFT sec to Shock liver improving 9.Hypokalemia secondary to NPO status and GI loss replaced with runs of KCL and PO, 10.DVT prophylaxis SCD Heparin 11. Hypertension controlled without meds Home medications Norvasc, Coreg, HCTZ/ valsartan on hold
--- NOTE | 2017-06-29 14:47 | CP.PCM.PN ---
<Jennifer Roldan - Last Filed: 06/29/17 14:47> Subjective - Date & Time of Evaluation Date of Evaluation: 06/29/17 Time of Evaluation: 11:45 - Subjective Subjective: General surgery progress note for Dr. Demond Roldan, PGY-1 Pt S & E at bedside this AM. Pt reports SOB improved, continues to have some abdominal pain- tolerable. Denies N & V, F & C. Is tolerating a diet. PT is getting pt OOBTC. Ryan with 70cc serous output/24H. Ostomy bag with moderate amount of dark browh liquid output & flatus. Objective - Vital Signs/Intake and Output Vital Signs (last 24 hours): Temp Pulse Resp BP Pulse Ox 98.4 F 86 19 134/78 97 06/29/17 12:00 06/29/17 12:00 06/29/17 12:26 06/29/17 12:00 06/29/17 12:00 Intake and Output: 06/29/17 06/29/17 06:59 18:59 Intake Total 600 Output Total 80 Balance 520 - Medications Medications: Current Medications Acetaminophen (Tylenol 650 Mg Supp) 650 mg NE Q6 PRN PRN Reason: Fever >100.4 F Bacitracin (Bacitracin Oint) 1 applic TOP BID [facility] Last Admin: 06/29/17 08:50 Dose: 1 applic Heparin Sodium (Porcine) (Heparin) 5,000 units SC Q12 TERRY PRN Reason: Protocol Last Admin: 06/29/17 08:52 Dose: 5,000 units Fluconazole (Diflucan Iv 100 Mg/50 Ml Ns) 50 mls @ 50 mls/hr IVPB DAILY TERRY PRN Reason: Protocol Last Admin: 06/29/17 10:36 Dose: 50 mls/hr Metronidazole (Flagyl 500mg/100ml Ns) 100 mls @ 100 mls/hr IVPB Q8 TERRY PRN Reason: Protocol Last Admin: 06/29/17 11:44 Dose: 100 mls/hr Piperacillin Sod/Tazobactam (Sod 3.375 gm/ Sodium Chloride) 100 mls @ 100 mls/ hr IVPB Q6 TERRY PRN Reason: Protocol Last Admin: 06/29/17 11:00 Dose: 100 mls/hr Levalbuterol HCl (Xopenex) 1.25 mg INH RQ8 [facility] Metoprolol Tartrate (Lopressor) 2.5 mg IVP Q6 [facility] Last Admin: 06/22/17 05:07 Dose: Not Given Morphine Sulfate (Morphine) 2 mg IVP Q4 PRN PRN Reason: Pain, severe (8-10) Last Admin: 06/28/17 01:35 Dose: 2 mg Morphine Sulfate (Morphine) 1 mg IVP Q4 PRN PRN Reason: Pain, moderate (4-7) Last Admin: 06/27/17 22:09 Dose: 1 mg Ondansetron HCl (Zofran Inj) 4 mg IVP Q6 PRN PRN Reason: Nausea/Vomiting Pantoprazole Sodium (Protonix Inj) 40 mg IVP DAILY [facility] Last Admin: 06/29/17 08:51 Dose: 40 mg - Labs Labs: 06/29/17 05:45 06/29/17 05:45 PT 18.5 Seconds (9.8-13.1) H 06/29/17 05:45 INR 1.7 (0.9-1.2) H 06/29/17 05:45 APTT 34.3 Seconds (25.6-37.1) 06/29/17 05:45 - Constitutional Appears: Non-toxic, No Acute Distress - Head Exam Head Exam: ATRAUMATIC, NORMAL INSPECTION, NORMOCEPHALIC - Eye Exam Eye Exam: EOMI, Normal appearance - ENT Exam ENT Exam: Mucous Membranes Moist, Normal Exam - Neck Exam Neck Exam: Full ROM, Normal Inspection - Respiratory Exam Respiratory Exam: NORMAL BREATHING PATTERN. absent: Accessory Muscle Use, Respiratory Distress - Cardiovascular Exam Cardiovascular Exam: REGULAR RHYTHM, +S1, +S2 - GI/Abdominal Exam GI & Abdominal Exam: Soft, Tenderness (over midline incision site), Normal Bowel Sounds. absent: Distended, Firm, Guarding, Rigid, Mass Additional comments: midline incision site with serosanginous drainage from packing site, packing changed, slight erythema surrounding site - Extremities Exam Extremities Exam: Pedal Edema (bilaterally) - Neurological Exam Neurological Exam: Alert, Awake, CN II-XII Intact, Oriented x3 - Psychiatric Exam Psychiatric exam: Normal Affect, Normal Mood - Skin Skin Exam: Dry, Intact, Normal Color, Warm Assessment and Plan - Assessment and Plan (Free Text) Assessment: 86F w/perforated diverticulitis s/p colon resection w/end colostomy POD # 6 Plan: CTA of chest for PE was neg on 06/28 Cont diet Pain control Encourage IS use Cont IV Abx Cont 02 supplementation Changed packing in midline incision- will monitor/change daily Cont PT OOBTC Replace electrolytes PRN Further mgmt as per primary team Will DW attending Yuli, PGY-1 <Jhon Weir - Last Filed: 06/29/17 15:12> Subjective - Date & Time of Evaluation Time of Evaluation: 15:10 - Subjective Subjective: Patient was seen and examined at the bedside. Agree with resident's note above. Objective - Vital Signs/Intake and Output Vital Signs (last 24 hours): Temp Pulse Resp BP Pulse Ox 98.4 F 86 18 134/78 97 06/29/17 12:00 06/29/17 12:00 06/29/17 15:04 06/29/17 12:00 06/29/17 12:00 Intake and Output: 06/29/17 06/29/17 06:59 18:59 Intake Total 600 Output Total 80 Balance 520 - Medications Medications: Current Medications Acetaminophen (Tylenol 650 Mg Supp) 650 mg NE Q6 PRN PRN Reason: Fever >100.4 F Bacitracin (Bacitracin Oint) 1 applic TOP BID [facility] Last Admin: 06/29/17 08:50 Dose: 1 applic Heparin Sodium (Porcine) (Heparin) 5,000 units SC Q12 TERRY PRN Reason: Protocol Last Admin: 06/29/17 08:52 Dose: 5,000 units Fluconazole (Diflucan Iv 100 Mg/50 Ml Ns) 50 mls @ 50 mls/hr IVPB DAILY TERRY PRN Reason: Protocol Last Admin: 06/29/17 10:36 Dose: 50 mls/hr Metronidazole (Flagyl 500mg/100ml Ns) 100 mls @ 100 mls/hr IVPB Q8 TERRY PRN Reason: Protocol Last Admin: 06/29/17 11:44 Dose: 100 mls/hr Piperacillin Sod/Tazobactam (Sod 3.375 gm/ Sodium Chloride) 100 mls @ 100 mls/ hr IVPB Q6 TERRY PRN Reason: Protocol Last Admin: 06/29/17 11:00 Dose: 100 mls/hr Levalbuterol HCl (Xopenex) 1.25 mg INH RQ8 [facility] Last Admin: 06/29/17 15:04 Dose: 1.25 mg Metoprolol Tartrate (Lopressor) 2.5 mg IVP Q6 [facility] Last Admin: 06/22/17 05:07 Dose: Not Given Morphine Sulfate (Morphine) 2 mg IVP Q4 PRN PRN Reason: Pain, severe (8-10) Last Admin: 06/28/17 01:35 Dose: 2 mg Morphine Sulfate (Morphine) 1 mg IVP Q4 PRN PRN Reason: Pain, moderate (4-7) Last Admin: 06/27/17 22:09 Dose: 1 mg Ondansetron HCl (Zofran Inj) 4 mg IVP Q6 PRN PRN Reason: Nausea/Vomiting Pantoprazole Sodium (Protonix Inj) 40 mg IVP DAILY [facility] Last Admin: 06/29/17 08:51 Dose: 40 mg - Labs Labs: 06/29/17 05:45 06/29/17 05:45 PT 18.5 Seconds (9.8-13.1) H 06/29/17 05:45 INR 1.7 (0.9-1.2) H 06/29/17 05:45 APTT 34.3 Seconds (25.6-37.1) 06/29/17 05:45
[2017-06-29] MEDS: Levalbuterol 1.25 MG/3 ML Inhal Soln UD INH SCH (15:04)
[2017-06-29 15:57] LABS: RBC URINE 2 /hpf (0-3); URINE BACTERIA RARE (<OCC); URINE BILIRUBIN NEGATIVE (NEGATIVE); URINE BLOOD SMALL (NEGATIVE); URINE COLOR STRAW (YELLOW); URINE GLUCOSE (UA) NEG (Normal); URINE KETONE NEGATIVE (NEGATIVE); URINE LEUKOCYTE ESTERASE NEG Leu/uL (Negative); URINE PROTEIN NEGATIVE (NEGATIVE); URINE UROBILINOGEN 0.2-1.0 mg/dL (0.2-1.0); WBC URINE 1 /hpf (0-5)
[2017-06-30] MEDS: Levalbuterol 1.25 MG/3 ML Inhal Soln UD INH SCH ×3 (00:19→16:01)
[2017-06-30] MEDS: metroNIDAZOLE 500mg/100ml NS 100 ML IVPB SCH ×3 (00:21→17:15)
[2017-06-30] MEDS: Piperacillin/Tazobact 3.375 GM in Sodium Chloride 0.9% 100 ML IVPB SCH ×3 (04:22→21:03)
[2017-06-30 05:28] LABS: HEMATOCRIT 33.3 % (34.0-47.0); MEAN CELL VOLUME 91.3 fl (81.0-99.0); MEAN CORPUSCULAR HEMOGLOBIN 29.9 pg (27.0-31.0); MEAN CORPUSCULAR HGB CONC 32.7 g/dL (33.0-37.0); RED CELL DISTRIBUTION WIDTH 13.9 % (11.5-14.5); WHITE BLOOD COUNT 11.3 K/uL (4.8-10.8)
[2017-06-30 06:46] LABS: BLOOD UREA NITROGEN 14 mg/dl (7-17); CALCIUM 7.3 mg/dL (8.4-10.2); CARBON DIOXIDE 44 mmol/L (22-30); CHLORIDE 90 mmol/L (98-107); GFR AFRICAN-AMERICAN > 60; GLUCOSE,RANDOM 115 mg/dL (65-105); MAGNESIUM 1.2 MG/DL (1.6-2.3); POTASSIUM 2.3 MMOL/L (3.6-5.0); SODIUM 140 mmol/l (132-148)
[2017-06-30] MEDS ORDERED: Potassium CL 10mEq/100ml 100 ML IVPB SCH (08:00)
[2017-06-30] MEDS ORDERED: Magnesium Sulfate 2 gm/50 ml 2 GM/50 ML BAG IVPB ONE (08:06)
--- NOTE | 2017-06-30 08:32 | CP.PCM.PN ---
Subjective - Date & Time of Evaluation Date of Evaluation: 06/30/17 Time of Evaluation: 08:32 - Subjective Subjective: MORE AWAKE AND ALERT CLINICALLY IMPROVING RESPONDS APPROPRIATELY TO VERBAL COMMANDS Objective - Vital Signs/Intake and Output Vital Signs (last 24 hours): Temp Pulse Resp BP Pulse Ox 98.1 F 82 18 123/80 97 06/30/17 08:27 06/30/17 08:27 06/30/17 08:27 06/30/17 08:27 06/30/17 08:27 Intake and Output: 06/30/17 06/30/17 06:59 18:59 Intake Total 300 Output Total 1140 Balance -840 - Medications Medications: Current Medications Acetaminophen (Tylenol 650 Mg Supp) 650 mg RI Q6 PRN PRN Reason: Fever >100.4 F Bacitracin (Bacitracin Oint) 1 applic TOP BID [facility] Last Admin: 06/29/17 17:26 Dose: 1 applic Furosemide (Lasix) 20 mg PO DAILY [facility] Heparin Sodium (Porcine) (Heparin) 5,000 units SC Q12 TERRY PRN Reason: Protocol Last Admin: 06/29/17 21:33 Dose: 5,000 units Fluconazole (Diflucan Iv 100 Mg/50 Ml Ns) 50 mls @ 50 mls/hr IVPB DAILY TERRY PRN Reason: Protocol Last Admin: 06/29/17 10:36 Dose: 50 mls/hr Metronidazole (Flagyl 500mg/100ml Ns) 100 mls @ 100 mls/hr IVPB Q8 [facility]ERRY PRN Reason: Protocol Last Admin: 06/30/17 00:21 Dose: 100 mls/hr Piperacillin Sod/Tazobactam (Sod 3.375 gm/ Sodium Chloride) 100 mls @ 100 mls/ hr IVPB Q6 [facility]ERRY PRN Reason: Protocol Last Admin: 06/30/17 04:22 Dose: 100 mls/hr Magnesium Sulfate (Magnesium Sulfate 2 Gm/50 Ml Water) 2 gm in 50 mls @ 50 mls/ hr IVPB ONCE ONE PRN Reason: 2 GM/HR Stop: 06/30/17 09:05 Potassium Chloride (Potassium Cl 10meq/50ml Sterile Water) 50 mls @ 50 mls/hr IVPB Q1 [facility]ERRY Stop: 06/30/17 12:59 Levalbuterol HCl (Xopenex) 1.25 mg INH RQ8 [facility] Last Admin: 06/30/17 07:45 Dose: 1.25 mg Magnesium Oxide (Mag-Ox) 400 mg PO BID [facility] Metoprolol Tartrate (Lopressor) 2.5 mg IVP Q6 [facility] Last Admin: 06/22/17 05:07 Dose: Not Given Mirtazapine (Remeron) 15 mg PO HS [facility] Last Admin: 06/29/17 21:19 Dose: 15 mg Ondansetron HCl (Zofran Inj) 4 mg IVP Q6 PRN PRN Reason: Nausea/Vomiting Pantoprazole Sodium (Protonix Inj) 40 mg IVP DAILY [facility] Last Admin: 06/29/17 08:51 Dose: 40 mg Potassium Chloride (K-Dur 20 Meq Er Tab) 40 meq PO BID [facility] - Labs Labs: 06/30/17 04:25 06/30/17 04:25 PT 18.5 Seconds (9.8-13.1) H 06/29/17 05:45 INR 1.7 (0.9-1.2) H 06/29/17 05:45 APTT 34.3 Seconds (25.6-37.1) 06/29/17 05:45 - Constitutional Appears: Well - Head Exam Head Exam: ATRAUMATIC, NORMAL INSPECTION, NORMOCEPHALIC - Eye Exam Eye Exam: EOMI, Normal appearance, PERRL Pupil Exam: NORMAL ACCOMODATION, PERRL - ENT Exam ENT Exam: Mucous Membranes Moist, Normal Exam - Neck Exam Neck Exam: Full ROM, Normal Inspection. absent: Lymphadenopathy - Respiratory Exam Respiratory Exam: Decreased Breath Sounds, Rales, NORMAL BREATHING PATTERN - Cardiovascular Exam Cardiovascular Exam: REGULAR RHYTHM, +S1, +S2. absent: Murmur - GI/Abdominal Exam GI & Abdominal Exam: Soft, Tenderness, Normal Bowel Sounds - Rectal Exam Rectal Exam: NORMAL INSPECTION - Extremities Exam Extremities Exam: Full ROM, Normal Capillary Refill, Normal Inspection. absent : Joint Swelling, Pedal Edema - Back Exam Back Exam: NORMAL INSPECTION - Neurological Exam Neurological Exam: Alert, Awake, CN II-XII Intact, Normal Gait, Oriented x3 - Psychiatric Exam Psychiatric exam: Normal Affect, Normal Mood - Skin Skin Exam: Dry, Intact, Normal Color, Warm Assessment and Plan - Assessment and Plan (Free Text) Assessment: RESPIRATORY DISTRESS IMPROVING DESPITE PULMONARY CONGESTION ON CXR Plan: CONTINUE DIURETIC RX SERIAL CXRS PT EVAL
--- NOTE | 2017-06-30 09:11 | CP.PCM.PN ---
Subjective - Date & Time of Evaluation Date of Evaluation: 06/30/17 Time of Evaluation: 07:00 - Subjective Subjective: GENERAL SURGERY PROGRESS NOTE FOR DR. SANCHEZ Patient seen and examined at bedside. She is on high flow O2 and more awake today. She is tolerating her regular diet. She feels nauseous but denies vomiting. She reports some abdominal pain. Liquid stool in colostomy bag. She is voiding on her own. She had PT yesterday and sat at the edge of the bed. Ryan had 65cc output over past 24 hours. Objective - Vital Signs/Intake and Output Vital Signs (last 24 hours): Temp Pulse Resp BP Pulse Ox 98.1 F 82 18 123/80 97 06/30/17 08:27 06/30/17 08:27 06/30/17 08:27 06/30/17 08:27 06/30/17 08:27 Intake and Output: 06/30/17 06/30/17 06:59 18:59 Intake Total 300 Output Total 1140 Balance -840 - Medications Medications: Current Medications Acetaminophen (Tylenol 650 Mg Supp) 650 mg MD Q6 PRN PRN Reason: Fever >100.4 F Bacitracin (Bacitracin Oint) 1 applic TOP BID [facility] Last Admin: 06/29/17 17:26 Dose: 1 applic Furosemide (Lasix) 20 mg PO DAILY [facility] Heparin Sodium (Porcine) (Heparin) 5,000 units SC Q12 TERRY PRN Reason: Protocol Last Admin: 06/29/17 21:33 Dose: 5,000 units Fluconazole (Diflucan Iv 100 Mg/50 Ml Ns) 50 mls @ 50 mls/hr IVPB DAILY [facility] PRN Reason: Protocol Last Admin: 06/29/17 10:36 Dose: 50 mls/hr Metronidazole (Flagyl 500mg/100ml Ns) 100 mls @ 100 mls/hr IVPB Q8 [facility] PRN Reason: Protocol Last Admin: 06/30/17 00:21 Dose: 100 mls/hr Piperacillin Sod/Tazobactam (Sod 3.375 gm/ Sodium Chloride) 100 mls @ 100 mls/ hr IVPB Q6 [facility] PRN Reason: Protocol Last Admin: 06/30/17 04:22 Dose: 100 mls/hr Potassium Chloride (Potassium Cl 10meq/50ml Sterile Water) 50 mls @ 50 mls/hr IVPB Q1 [facility] Stop: 06/30/17 12:59 Levalbuterol HCl (Xopenex) 1.25 mg INH RQ8 [facility] Last Admin: 06/30/17 07:45 Dose: 1.25 mg Magnesium Oxide (Mag-Ox) 400 mg PO BID [facility] Metoprolol Tartrate (Lopressor) 2.5 mg IVP Q6 [facility] Last Admin: 06/22/17 05:07 Dose: Not Given Mirtazapine (Remeron) 15 mg PO HS [facility] Last Admin: 06/29/17 21:19 Dose: 15 mg Ondansetron HCl (Zofran Inj) 4 mg IVP Q6 PRN PRN Reason: Nausea/Vomiting Pantoprazole Sodium (Protonix Inj) 40 mg IVP DAILY [facility] Last Admin: 06/29/17 08:51 Dose: 40 mg Potassium Chloride (K-Dur 20 Meq Er Tab) 40 meq PO BID [facility] - Labs Labs: 06/30/17 04:25 06/30/17 04:25 PT 18.5 Seconds (9.8-13.1) H 06/29/17 05:45 INR 1.7 (0.9-1.2) H 06/29/17 05:45 APTT 34.3 Seconds (25.6-37.1) 06/29/17 05:45 - Constitutional Appears: Non-toxic, No Acute Distress - Respiratory Exam Respiratory Exam: NORMAL BREATHING PATTERN (on high flow O2). absent: Respiratory Distress - Cardiovascular Exam Cardiovascular Exam: +S1, +S2 - GI/Abdominal Exam GI & Abdominal Exam: Soft, Tenderness (mild diffuse tenderness). absent: Distended, Firm, Guarding, Rigid, Rebound Additional comments: Colostomy bag with small amount liquid stool Ryan drain with serous drainage Gordon in place over midline incision Packing removed and repacked with very small amount of packing - Neurological Exam Neurological Exam: Alert, Awake, Oriented x3 - Psychiatric Exam Psychiatric exam: Normal Affect, Normal Mood - Skin Skin Exam: Dry, Normal Color, Warm Assessment and Plan - Assessment and Plan (Free Text) Assessment: 86yo F with perforated diverticulitis s/p colon resection with end colostomy POD #7 - Afebrile, VSS - Leukocytosis improving WBC 11.3 - Hypokalemia returned with K 2.3 today, being replaced by primary team - Magnesium being replaced by primary team - Tolerating HHD - Ensure supplements - Encourage IS use, OOB and ambulation - Doing physical therapy, pt needs to be OOB - Continue antibiotics per ID, currently on Zosyn & Flagyl - Wound cx = ESBL - Heparin for DVT prophylaxis - Packing changed this morning in midline incision and dressing changed - Ryan drain removed - Discussed plan with Dr. Galindo Vila PGY-3
[2017-06-30] MEDS: Potassium CL 10 MEQ/50 ML 50 ML IVPB SCH ×4 (09:22→18:57)
[2017-06-30] MEDS: Fluconazole IV 100mg/50 ml NS 50 ML IVPB SCH (09:24)
[2017-06-30] MEDS: Potassium Chloride 20 mEq ER Tab PO SCH ×2 (09:25→17:30)
[2017-06-30] MEDS: Bacitracin OINT 15GM TOP SCH ×2 (09:25→17:15)
[2017-06-30] MEDS: Magnesium Oxide 400 mg Tab UD PO SCH ×2 (13:14→18:57)
--- NOTE | 2017-06-30 14:58 | CP.PCM.PN ---
Subjective - Date & Time of Evaluation Date of Evaluation: 06/30/17 Time of Evaluation: 11:00 - Subjective Subjective: Patient seen and examined at bedside. She feels a little better today. No abdominal pain today on palpation Patient denies fever, chills, headache She says her breathing is a little easier but still labored. Saturating well on room air at this time. Objective - Vital Signs/Intake and Output Vital Signs (last 24 hours): Temp Pulse Resp BP Pulse Ox 97.4 F L 86 20 111/68 99 06/30/17 12:32 06/30/17 12:32 06/30/17 14:14 06/30/17 12:32 06/30/17 12:32 Intake and Output: 06/30/17 06/30/17 06:59 18:59 Intake Total 300 Output Total 1140 Balance -840 - Medications Medications: Current Medications Acetaminophen (Tylenol 650 Mg Supp) 650 mg [place] Q6 PRN PRN Reason: Fever >100.4 F Bacitracin (Bacitracin Oint) 1 applic TOP BID [facility] Last Admin: 06/30/17 09:25 Dose: 1 applic Furosemide (Lasix) 20 mg PO DAILY [facility] Last Admin: 06/30/17 09:25 Dose: 20 mg Heparin Sodium (Porcine) (Heparin) 5,000 units SC Q12 [facility] PRN Reason: Protocol Last Admin: 06/30/17 09:25 Dose: 5,000 units Fluconazole (Diflucan Iv 100 Mg/50 Ml Ns) 50 mls @ 50 mls/hr IVPB DAILY [facility] PRN Reason: Protocol Last Admin: 06/30/17 09:24 Dose: 50 mls/hr Metronidazole (Flagyl 500mg/100ml Ns) 100 mls @ 100 mls/hr IVPB Q8 [facility] PRN Reason: Protocol Last Admin: 06/30/17 09:24 Dose: 100 mls/hr Piperacillin Sod/Tazobactam (Sod 3.375 gm/ Sodium Chloride) 100 mls @ 100 mls/ hr IVPB Q6 [facility] PRN Reason: Protocol Last Admin: 06/30/17 09:24 Dose: 100 mls/hr Levalbuterol HCl (Xopenex) 1.25 mg INH RQ8 [facility] Last Admin: 06/30/17 07:45 Dose: 1.25 mg Magnesium Oxide (Mag-Ox) 400 mg PO BID [facility] Last Admin: 06/30/17 13:14 Dose: 400 mg Metoprolol Tartrate (Lopressor) 2.5 mg IVP Q6 [facility] Last Admin: 06/22/17 05:07 Dose: Not Given Mirtazapine (Remeron) 15 mg PO HS [facility] Last Admin: 06/29/17 21:19 Dose: 15 mg Ondansetron HCl (Zofran Inj) 4 mg IVP Q6 PRN PRN Reason: Nausea/Vomiting Pantoprazole Sodium (Protonix Inj) 40 mg IVP DAILY [facility] Last Admin: 06/30/17 09:26 Dose: 40 mg Potassium Chloride (K-Dur 20 Meq Er Tab) 40 meq PO BID [facility] Last Admin: 06/30/17 09:25 Dose: 40 meq - Labs Labs: 06/30/17 04:25 06/30/17 04:25 PT 18.5 Seconds (9.8-13.1) H 06/29/17 05:45 INR 1.7 (0.9-1.2) H 06/29/17 05:45 APTT 34.3 Seconds (25.6-37.1) 06/29/17 05:45 - Additional Findings Additional findings: Physical exam: Constitutional- cooperative, awake, alert. Head- NCAT, PERRL Eye- PERRL, normal accommodation ENT- normal exam, MMM. Neck- normal inspection, supple, no JVD Respiratory- CTAB, no wheezes rales rhonchi Cardiovascular- RRR, +S1, +S2 no MRG GI/Abdominal- Nontender today. Mildly distended. Patient has colostomy bag with dark brown drainage. Surgical scar intact. ASA drain on RLQ Extremities Exam- normal capillary refill, normal inspection Neurological Exam- alert, stable gait Psych- normal mood, normal affect Assessment and Plan - Assessment and Plan (Free Text) Plan: Assessment: 86y/o lady with hx of Cardiac Arrhythmia s/p PPM , on Xarelto , came in because of abdominal pain. CT of abdomen showed Perforated Sigmoid Diverticulitis Initially admitted to [facility] , started on IVF fluid and IV antibiotics, Surgery consulted. 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 Patient was taken to OR 06/23 ,by surgery and underwent colon resection with colostomy . At present, she is hemodynamically stable, afebrile, with output from colostomy and started on Regular diet. Had episode of resp failure due to fluid overload- on High Flow Oxygen 1. Septic shock sec to perforated sigmoid Diverticulitis Acute s/p colon resection with colostomy performed 06/23. Surgery following colostomy bag to LLQ with brownish liquid output . Bowel sounds + Was on levophed drip initially ( admission)but at present maintaining her BP without pressors , afebrile On Zosyn , Flagyl and diflucan ESBL E coli on Wound c/s ( small area in surgical wound had some drainage) sensitive to Zosyn 2.Perforated sigmoid colon s/p Colon Resection with Colostomy Acute as above s/p colon resection with colostomy 3. ALBER (acute kidney injury)-improved Acute likely sec to Sepsis initially oliguric,but at present with good urine output and renal function is normal 4.Anemia of acute blood loss Hgb dropped from 12-- 11 s/p 2 unit PRBC transfusion Hem/on consulted Dr. Blanchard Hg 10.8 today- continue to monitor 5. Thrombocytopenia/ Coagulopathy, improved prob sec to Sepsis resolved INR=1.7 on admission ( patient also was on xarelto ) s/p 1 unit Platelet transfusion and 4 FFP Hematology consult with Dr Dawn Blanchard appreciated Given DDAVP and Vit K 10 mg IV preop to correct anticoagulation since patient was on xarelto 6. Respiratory insufficiency post op- slowly improving Pt was not extubated post surgery , s/p extubation 2 06/26 some respiratory distress most likely secondary to volume overload and pleural effusion. Possible mucus plugging as well seen on CT Placed on Venti mask FIo2 50% Xopenex and Lasix 40 mg given CXR showed vascular congestion and RLL pleural effusion Last night , again with some SOB, noted rales, + JVD likely from fluid overload - Placed on High Flow Oxygen 30 L , 70% FiO2 d/c IVF Lasix given elevated proBNP Pulm consult : Dr Hidalgo , discussed case Incentive Spirometry Serial CXR 7. History of cardiac arrhythmia Chronic unclear cardiac diagnosis hx of Pacemaker placement pt was on Xarelto at home , now on hold Cardiology consulted- Dr Blanchard and patient cleared for surgery 8. Abn LFT sec to Shock liver improving 9.Hypokalemia- Severe 2.3 today secondary to NPO status and GI loss replaced with runs of KCL and PO, Recheck this afternoon and in AM 10.DVT prophylaxis SCD Heparin 11. Hypertension controlled without meds Home medications Norvasc, Coreg, HCTZ/ valsartan on hold
[2017-06-30 18:06] LABS: BLOOD UREA NITROGEN 14 mg/dl (7-17); CALCIUM 7.8 mg/dL (8.4-10.2); CARBON DIOXIDE > 40 mmol/L (22-30); CHLORIDE 89 mmol/L (98-107); GFR AFRICAN-AMERICAN > 60; GLUCOSE,RANDOM 119 mg/dL (65-105); POTASSIUM 3.2 MMOL/L (3.6-5.0); SODIUM 137 mmol/l (132-148)
[2017-07-01] MEDS: metroNIDAZOLE 500mg/100ml NS 100 ML IVPB SCH ×3 (00:20→16:38)
[2017-07-01] MEDS: Levalbuterol 1.25 MG/3 ML Inhal Soln UD INH SCH ×4 (00:34→23:13)
[2017-07-01] MEDS: Piperacillin/Tazobact 3.375 GM in Sodium Chloride 0.9% 100 ML IVPB SCH ×4 (05:05→21:06)
[2017-07-01 06:51] LABS: CALCIUM 7.7 mg/dL (8.4-10.2); CARBON DIOXIDE 38 mmol/L (22-30); CHLORIDE 93 mmol/L (98-107); GFR AFRICAN-AMERICAN > 60; GLUCOSE,RANDOM 107 mg/dL (65-105); MAGNESIUM 1.7 MG/DL (1.6-2.3); POTASSIUM 3.3 MMOL/L (3.6-5.0); SODIUM 139 mmol/l (132-148)
[2017-07-01 06:52] LABS: BLOOD UREA NITROGEN 11 mg/dl (7-17)
[2017-07-01] MEDS: Fluconazole IV 100mg/50 ml NS 50 ML IVPB SCH (08:00)
[2017-07-01] MEDS: Bacitracin OINT 15GM TOP SCH ×2 (09:01→16:38)
[2017-07-01] MEDS: Potassium Chloride 20 mEq ER Tab PO SCH ×2 (09:10→16:39)
[2017-07-01] MEDS: Magnesium Oxide 400 mg Tab UD PO SCH ×2 (09:11→16:39)
--- NOTE | 2017-07-01 09:18 | CP.PCM.PN ---
<Bhavna Vila - Last Filed: 07/01/17 10:20> Subjective - Date & Time of Evaluation Date of Evaluation: 07/01/17 Time of Evaluation: 07:00 - Subjective Subjective: GENERAL SURGERY PROGRESS NOTE FOR DR. WEIR Patient seen and examined at bedside. She is on high flow O2. She is tolerating her regular diet. She denies nausea or vomiting. She reports some abdominal pain. Liquid stool in colostomy bag. She is voiding on her own. Ryan drain and packing were removed yesterday. PT was not done yesterday due to hypokalemia and CO2 level. Objective - Vital Signs/Intake and Output Vital Signs (last 24 hours): Temp Pulse Resp BP Pulse Ox 98.0 F 83 20 129/76 98 07/01/17 08:00 07/01/17 08:00 07/01/17 08:23 07/01/17 09:10 07/01/17 08:00 Intake and Output: 07/01/17 07/01/17 06:59 18:59 Output Total 75 Balance -75 - Medications Medications: Current Medications Acetaminophen (Tylenol 650 Mg Supp) 650 mg [place] Q6 PRN PRN Reason: Fever >100.4 F Bacitracin (Bacitracin Oint) 1 applic TOP BID [facility] Last Admin: 07/01/17 09:01 Dose: 1 applic Furosemide (Lasix) 20 mg PO DAILY [facility] Last Admin: 07/01/17 09:10 Dose: 20 mg Heparin Sodium (Porcine) (Heparin) 5,000 units SC Q12 [facility] PRN Reason: Protocol Last Admin: 07/01/17 09:03 Dose: 5,000 units Fluconazole (Diflucan Iv 100 Mg/50 Ml Ns) 50 mls @ 50 mls/hr IVPB DAILY [facility] PRN Reason: Protocol Last Admin: 06/30/17 09:24 Dose: 50 mls/hr Metronidazole (Flagyl 500mg/100ml Ns) 100 mls @ 100 mls/hr IVPB Q8 [facility] PRN Reason: Protocol Last Admin: 07/01/17 00:20 Dose: 100 mls/hr Piperacillin Sod/Tazobactam (Sod 3.375 gm/ Sodium Chloride) 100 mls @ 100 mls/ hr IVPB Q6 [facility] PRN Reason: Protocol Last Admin: 07/01/17 09:01 Dose: 100 mls/hr Levalbuterol HCl (Xopenex) 1.25 mg INH RQ8 [facility] Last Admin: 07/01/17 08:22 Dose: 1.25 mg Magnesium Oxide (Mag-Ox) 400 mg PO BID [facility] Last Admin: 07/01/17 09:11 Dose: 400 mg Metoprolol Tartrate (Lopressor) 2.5 mg IVP Q6 [facility] Last Admin: 06/22/17 05:07 Dose: Not Given Mirtazapine (Remeron) 15 mg PO HS [facility] Last Admin: 06/30/17 21:03 Dose: 15 mg Ondansetron HCl (Zofran Inj) 4 mg IVP Q6 PRN PRN Reason: Nausea/Vomiting Pantoprazole Sodium (Protonix Inj) 40 mg IVP DAILY [facility] Last Admin: 07/01/17 09:11 Dose: 40 mg Potassium Chloride (K-Dur 20 Meq Er Tab) 40 meq PO BID [facility] Last Admin: 07/01/17 09:10 Dose: 40 meq - Labs Labs: 06/30/17 04:25 07/01/17 06:15 PT 18.5 Seconds (9.8-13.1) H 06/29/17 05:45 INR 1.7 (0.9-1.2) H 06/29/17 05:45 APTT 34.3 Seconds (25.6-37.1) 06/29/17 05:45 - Constitutional Appears: Non-toxic, No Acute Distress - Head Exam Head Exam: ATRAUMATIC, NORMAL INSPECTION - Eye Exam Eye Exam: EOMI, Normal appearance - Respiratory Exam Respiratory Exam: NORMAL BREATHING PATTERN (on high flow O2). absent: Respiratory Distress - Cardiovascular Exam Cardiovascular Exam: +S1, +S2 - GI/Abdominal Exam GI & Abdominal Exam: Soft, Tenderness (tender superior to incision ). absent: Distended, Firm, Guarding, Rigid, Rebound Additional comments: Colostomy bag with small amount liquid stool Barney in place over midline incision No more drainage able to be expressed from incision - no more packing needed - Neurological Exam Neurological Exam: Alert, Awake - Psychiatric Exam Psychiatric exam: Normal Affect, Normal Mood - Skin Skin Exam: Dry, Normal Color, Warm Assessment and Plan - Assessment and Plan (Free Text) Assessment: 86yo F with perforated diverticulitis s/p colon resection with end colostomy POD #8 - Afebrile, VSS - Hypokalemia with K 3.3 today, on PO KCl daily by primary team - Magnesium normal today - Tolerating HHD - Continue Ensure supplements - Encourage IS use, OOB and ambulation - Doing physical therapy, pt needs to be OOB but PT was not done yesterday due to labs - Continue antibiotics per ID, currently on Zosyn & Flagyl - Heparin for DVT prophylaxis - Packing removed yesterday, no more packing needed - Ryan drain removed yesterday - Discussed plan with Dr. Carmella Vila PGY-3 <Jhon Weir - Last Filed: 07/01/17 10:22> Subjective - Date & Time of Evaluation Time of Evaluation: 10:00 - Subjective Subjective: Patient was seen and examined at the bedside. Agree with resident's note above. Objective - Vital Signs/Intake and Output Vital Signs (last 24 hours): Temp Pulse Resp BP Pulse Ox 98.0 F 83 20 129/76 98 07/01/17 08:00 07/01/17 08:00 07/01/17 08:23 07/01/17 09:10 07/01/17 10:20 Intake and Output: 07/01/17 07/01/17 06:59 18:59 Output Total 75 Balance -75 - Medications Medications: Current Medications Acetaminophen (Tylenol 650 Mg Supp) 650 mg [place] Q6 PRN PRN Reason: Fever >100.4 F Bacitracin (Bacitracin Oint) 1 applic TOP BID [facility] Last Admin: 07/01/17 09:01 Dose: 1 applic Furosemide (Lasix) 20 mg PO DAILY [facility] Last Admin: 07/01/17 09:10 Dose: 20 mg Heparin Sodium (Porcine) (Heparin) 5,000 units SC Q12 [facility] PRN Reason: Protocol Last Admin: 07/01/17 09:03 Dose: 5,000 units Fluconazole (Diflucan Iv 100 Mg/50 Ml Ns) 50 mls @ 50 mls/hr IVPB DAILY [facility] PRN Reason: Protocol Last Admin: 06/30/17 09:24 Dose: 50 mls/hr Metronidazole (Flagyl 500mg/100ml Ns) 100 mls @ 100 mls/hr IVPB Q8 [facility] PRN Reason: Protocol Last Admin: 07/01/17 00:20 Dose: 100 mls/hr Piperacillin Sod/Tazobactam (Sod 3.375 gm/ Sodium Chloride) 100 mls @ 100 mls/ hr IVPB Q6 [facility] PRN Reason: Protocol Last Admin: 07/01/17 09:01 Dose: 100 mls/hr Levalbuterol HCl (Xopenex) 1.25 mg INH RQ8 [facility] Last Admin: 07/01/17 08:22 Dose: 1.25 mg Magnesium Oxide (Mag-Ox) 400 mg PO BID [facility] Last Admin: 07/01/17 09:11 Dose: 400 mg Metoprolol Tartrate (Lopressor) 2.5 mg IVP Q6 [facility] Last Admin: 06/22/17 05:07 Dose: Not Given Mirtazapine (Remeron) 15 mg PO HS [facility] Last Admin: 06/30/17 21:03 Dose: 15 mg Ondansetron HCl (Zofran Inj) 4 mg IVP Q6 PRN PRN Reason: Nausea/Vomiting Pantoprazole Sodium (Protonix Inj) 40 mg IVP DAILY [facility] Last Admin: 07/01/17 09:11 Dose: 40 mg Potassium Chloride (K-Dur 20 Meq Er Tab) 40 meq PO BID [facility] Last Admin: 07/01/17 09:10 Dose: 40 meq - Labs Labs: 06/30/17 04:25 07/01/17 06:15 PT 18.5 Seconds (9.8-13.1) H 06/29/17 05:45 INR 1.7 (0.9-1.2) H 06/29/17 05:45 APTT 34.3 Seconds (25.6-37.1) 06/29/17 05:45
--- NOTE | 2017-07-01 09:32 | CP.PCM.PN ---
Subjective - Date & Time of Evaluation Date of Evaluation: 07/01/17 Time of Evaluation: 09:10 - Subjective Subjective: Recovering ever so slowly Afebrile and tolerating oral feedings Has large pleural effusions (High PCO2 due to poor air exchange due to reduced vital capacity) Pt is hypoalbuminimic In sinus rhythm at 80 BPM with BP 140/80 mm Hg JVP flat, no pedal oedema, mild sacral oedema+ Evidence of bilat pleural effusions Labs noted (K + improving) Pt on oral lasix Spoke with Dr. Hidalgo Pt will benefit from pleural taps He will evaluate pt for it. Objective - Vital Signs/Intake and Output Vital Signs (last 24 hours): Temp Pulse Resp BP Pulse Ox 98.0 F 83 20 129/76 98 07/01/17 08:00 07/01/17 08:00 07/01/17 08:23 07/01/17 09:10 07/01/17 08:00 Intake and Output: 07/01/17 07/01/17 06:59 18:59 Output Total 75 Balance -75 - Medications Medications: Current Medications Acetaminophen (Tylenol 650 Mg Supp) 650 mg [place] Q6 PRN PRN Reason: Fever >100.4 F Bacitracin (Bacitracin Oint) 1 applic TOP BID [facility] Last Admin: 07/01/17 09:01 Dose: 1 applic Furosemide (Lasix) 20 mg PO DAILY [facility] Last Admin: 07/01/17 09:10 Dose: 20 mg Heparin Sodium (Porcine) (Heparin) 5,000 units SC Q12 [facility] PRN Reason: Protocol Last Admin: 07/01/17 09:03 Dose: 5,000 units Fluconazole (Diflucan Iv 100 Mg/50 Ml Ns) 50 mls @ 50 mls/hr IVPB DAILY [facility] PRN Reason: Protocol Last Admin: 06/30/17 09:24 Dose: 50 mls/hr Metronidazole (Flagyl 500mg/100ml Ns) 100 mls @ 100 mls/hr IVPB Q8 [facility] PRN Reason: Protocol Last Admin: 07/01/17 00:20 Dose: 100 mls/hr Piperacillin Sod/Tazobactam (Sod 3.375 gm/ Sodium Chloride) 100 mls @ 100 mls/ hr IVPB Q6 [facility] PRN Reason: Protocol Last Admin: 07/01/17 09:01 Dose: 100 mls/hr Levalbuterol HCl (Xopenex) 1.25 mg INH RQ8 [facility] Last Admin: 07/01/17 08:22 Dose: 1.25 mg Magnesium Oxide (Mag-Ox) 400 mg PO BID [facility] Last Admin: 07/01/17 09:11 Dose: 400 mg Metoprolol Tartrate (Lopressor) 2.5 mg IVP Q6 [facility] Last Admin: 06/22/17 05:07 Dose: Not Given Mirtazapine (Remeron) 15 mg PO HS [facility] Last Admin: 06/30/17 21:03 Dose: 15 mg Ondansetron HCl (Zofran Inj) 4 mg IVP Q6 PRN PRN Reason: Nausea/Vomiting Pantoprazole Sodium (Protonix Inj) 40 mg IVP DAILY [facility] Last Admin: 07/01/17 09:11 Dose: 40 mg Potassium Chloride (K-Dur 20 Meq Er Tab) 40 meq PO BID [facility] Last Admin: 07/01/17 09:10 Dose: 40 meq - Labs Labs: 06/30/17 04:25 07/01/17 06:15 PT 18.5 Seconds (9.8-13.1) H 06/29/17 05:45 INR 1.7 (0.9-1.2) H 06/29/17 05:45 APTT 34.3 Seconds (25.6-37.1) 06/29/17 05:45
[2017-07-01] MEDS ORDERED: Oxycodone/Acetaminophen 5/325 mg Tab PO PRN (11:04)
--- NOTE | 2017-07-01 11:39 | RAD ---
PROCEDURE: CHEST RADIOGRAPH, 1 VIEW HISTORY: CHF COMPARISON: Comparison chest dated 06/29/2017. FINDINGS: LUNGS: Pulmonary vascular congestive changes with bilateral lower lobe alveolar-type infiltrates and bilateral effusions. PLEURA: No pneumothorax or pleural fluid seen. CARDIOVASCULAR: No change single lead pacemaker/ defibrillator. Cardiomegaly. OSSEOUS STRUCTURES: No significant abnormalities. VISUALIZED UPPER ABDOMEN: Normal. OTHER FINDINGS: None. IMPRESSION: Pulmonary edema/ CHF with bilateral lower lobe alveolar-type infiltrates and bilateral effusions.
--- NOTE | 2017-07-01 13:16 | CP.PCM.PN ---
Subjective - Date & Time of Evaluation Date of Evaluation: 07/01/17 Time of Evaluation: 13:18 - Subjective Subjective: STILL HAS DIFFICULTY BREATHING NO CHEST PAINS ON HIGH FLOW O2 Objective - Vital Signs/Intake and Output Vital Signs (last 24 hours): Temp Pulse Resp BP Pulse Ox 98.2 F 87 20 101/61 97 07/01/17 12:00 07/01/17 12:00 07/01/17 12:00 07/01/17 12:00 07/01/17 12:00 Intake and Output: 07/01/17 07/01/17 06:59 18:59 Output Total 75 Balance -75 - Medications Medications: Current Medications Acetaminophen (Tylenol 650 Mg Supp) 650 mg [place] Q6 PRN PRN Reason: Fever >100.4 F Acetaminophen (Tylenol 325mg Tab) 650 mg PO Q6 PRN PRN Reason: Pain, Mild (1-3) Last Admin: 07/01/17 11:17 Dose: 650 mg Bacitracin (Bacitracin Oint) 1 applic TOP BID [facility] Last Admin: 07/01/17 09:01 Dose: 1 applic Furosemide (Lasix) 20 mg PO DAILY [facility] Last Admin: 07/01/17 09:10 Dose: 20 mg Heparin Sodium (Porcine) (Heparin) 5,000 units SC Q12 [facility] PRN Reason: Protocol Last Admin: 07/01/17 09:03 Dose: 5,000 units Fluconazole (Diflucan Iv 100 Mg/50 Ml Ns) 50 mls @ 50 mls/hr IVPB DAILY [facility] PRN Reason: Protocol Last Admin: 07/01/17 08:00 Dose: 50 mls/hr Metronidazole (Flagyl 500mg/100ml Ns) 100 mls @ 100 mls/hr IVPB Q8 [facility] PRN Reason: Protocol Last Admin: 07/01/17 10:30 Dose: 100 mls/hr Piperacillin Sod/Tazobactam (Sod 3.375 gm/ Sodium Chloride) 100 mls @ 100 mls/ hr IVPB Q6 [facility] PRN Reason: Protocol Last Admin: 07/01/17 09:01 Dose: 100 mls/hr Levalbuterol HCl (Xopenex) 1.25 mg INH RQ8 [facility] Last Admin: 07/01/17 08:22 Dose: 1.25 mg Magnesium Oxide (Mag-Ox) 400 mg PO BID [facility] Last Admin: 07/01/17 09:11 Dose: 400 mg Metoprolol Tartrate (Lopressor) 2.5 mg IVP Q6 [facility] Last Admin: 06/22/17 05:07 Dose: Not Given Mirtazapine (Remeron) 15 mg PO HS [facility] Last Admin: 06/30/17 21:03 Dose: 15 mg Ondansetron HCl (Zofran Inj) 4 mg IVP Q6 PRN PRN Reason: Nausea/Vomiting Pantoprazole Sodium (Protonix Inj) 40 mg IVP DAILY [facility] Last Admin: 07/01/17 09:11 Dose: 40 mg Potassium Chloride (K-Dur 20 Meq Er Tab) 40 meq PO BID [facility] Last Admin: 07/01/17 09:10 Dose: 40 meq - Labs Labs: 06/30/17 04:25 07/01/17 06:15 PT 18.5 Seconds (9.8-13.1) H 06/29/17 05:45 INR 1.7 (0.9-1.2) H 06/29/17 05:45 APTT 34.3 Seconds (25.6-37.1) 06/29/17 05:45 - Constitutional Appears: Chronically Ill - Head Exam Head Exam: ATRAUMATIC, NORMAL INSPECTION, NORMOCEPHALIC - Eye Exam Eye Exam: EOMI, Normal appearance, PERRL Pupil Exam: NORMAL ACCOMODATION, PERRL - ENT Exam ENT Exam: Mucous Membranes Moist, Normal Exam - Neck Exam Neck Exam: Full ROM, Normal Inspection. absent: Lymphadenopathy - Respiratory Exam Respiratory Exam: Decreased Breath Sounds, Rales, NORMAL BREATHING PATTERN - Cardiovascular Exam Cardiovascular Exam: REGULAR RHYTHM, +S1, +S2. absent: Murmur - GI/Abdominal Exam GI & Abdominal Exam: Soft, Normal Bowel Sounds. absent: Tenderness - Rectal Exam Rectal Exam: NORMAL INSPECTION - Extremities Exam Extremities Exam: Full ROM, Normal Capillary Refill, Normal Inspection. absent : Joint Swelling, Pedal Edema - Back Exam Back Exam: NORMAL INSPECTION - Neurological Exam Neurological Exam: Alert, Awake, CN II-XII Intact, Normal Gait, Oriented x3 - Psychiatric Exam Psychiatric exam: Normal Affect, Normal Mood - Skin Skin Exam: Dry, Intact, Normal Color, Warm Assessment and Plan - Assessment and Plan (Free Text) Assessment: SHORTNESS OF BREATH PLEURAL EFFUSION Plan: WILL BENEFIT FROM EMERGENT THORACENTESES CASE DISCUSSED WITH SHEEBA VELASQUEZ AND DR MEADOWS CASE DISCUSSED WITH DR MCGOWAN--IR WHO WILL PERFORM THORACENTESES TODAYGH
[2017-07-01] MEDS ORDERED: Lidocaine 1% Inj (20ml) ONE (13:35)
--- NOTE | 2017-07-01 14:06 | PCM.SURG1 ---
Surgeon's Initial Post Op Note - Surgeon's Notes Surgeon: Drerick Bella MD Car Inspector: NONE Type of Anesthesia: Local Pre-Operative Diagnosis: Bilateral pleural effusion Operative Findings: US showed moderate right pleural effusion and small left effusion. Post-Operative Diagnosis: Bilateral pleural effusion Operation Performed: US guided right thoracentesis. Specimen/Specimens Removed: 500 cc of yellow fluid Estimated Blood Loss: EBL {In ML}: 0 Blood Products Given: N/A Drains Used: No Drains Post-Op Condition: Fair Date of Surgery/Procedure: 07/01/17 Time of Surgery/Procedure: 14:05
--- NOTE | 2017-07-01 14:31 | US ---
PROCEDURE: Date of procedure: 07/01/2017 Procedure: 1. Ultrasound-guided Right thoracentesis, CPT 54200 Medications: 6 cc 1% Lidocaine HISTORY: Right pleural effusion, shortness of breath TECHNIQUE: Following informed consent, limited ultrasound patient's right chest was performed. Ultrasound showed a moderate right effusion and a smaller left effusion. The Patients' right chest was marked. Procedure time-out was called, and the patient was placed in the lateral position. The patient's right back was prepped and draped in the usual sterile fashion. After the skin was anesthetized with lidocaine, a drainage catheter was advanced under ultrasound guidance into the pleural space. Ultrasound-guided thoracentesis was performed. A total of 500 cubic centimeters of straw-colored fluid removed without complication. A Xeroform dressing was applied. IMPRESSION: Ultrasound guided Right thoracentesis. There were no immediate complications.
--- NOTE | 2017-07-01 14:31 | RAD ---
PROCEDURE: CHEST RADIOGRAPH, 1 VIEW HISTORY: Status post right thoracentesis. COMPARISON: None available. FINDINGS: LUNGS: Improved aeration of the right lung. Minimal atelectatic changes right lung base. A small left effusion. PLEURA: No pneumothorax or pleural fluid seen. CARDIOVASCULAR: Unchanged from previous study. Single lead pacemaker in place. Cardiomegaly. OSSEOUS STRUCTURES: No significant abnormalities. VISUALIZED UPPER ABDOMEN: Normal. OTHER FINDINGS: None. IMPRESSION: Improved aeration of the right lung following thoracentesis. There is no pneumothorax.
--- NOTE | 2017-07-01 14:37 | CP.PCM.PN ---
Subjective - Date & Time of Evaluation Date of Evaluation: 07/01/17 Time of Evaluation: 14:00 - Subjective Subjective: pt. not in room has gone down for thoracenthesis. continue current antibiotics pending furthere results. advise to send pleural fluid for cell count and gram stain and culture . 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 Objective - Vital Signs/Intake and Output Vital Signs (last 24 hours): Temp Pulse Resp BP Pulse Ox 98.4 F 91 H 19 128/60 100 07/01/17 14:05 07/01/17 14:05 07/01/17 14:05 07/01/17 14:05 07/01/17 14:05 Intake and Output: 07/01/17 07/01/17 06:59 18:59 Output Total 75 Balance -75 - Medications Medications: Current Medications Acetaminophen (Tylenol 650 Mg Supp) 650 mg [place] Q6 PRN PRN Reason: Fever >100.4 F Acetaminophen (Tylenol 325mg Tab) 650 mg PO Q6 PRN PRN Reason: Pain, Mild (1-3) Last Admin: 07/01/17 11:17 Dose: 650 mg Bacitracin (Bacitracin Oint) 1 applic TOP BID [facility] Last Admin: 07/01/17 09:01 Dose: 1 applic Furosemide (Lasix) 20 mg PO DAILY [facility] Last Admin: 07/01/17 09:10 Dose: 20 mg Heparin Sodium (Porcine) (Heparin) 5,000 units SC Q12 [facility] PRN Reason: Protocol Last Admin: 07/01/17 09:03 Dose: 5,000 units Fluconazole (Diflucan Iv 100 Mg/50 Ml Ns) 50 mls @ 50 mls/hr IVPB DAILY [facility] PRN Reason: Protocol Last Admin: 07/01/17 08:00 Dose: 50 mls/hr Metronidazole (Flagyl 500mg/100ml Ns) 100 mls @ 100 mls/hr IVPB Q8 [facility] PRN Reason: Protocol Last Admin: 07/01/17 10:30 Dose: 100 mls/hr Piperacillin Sod/Tazobactam (Sod 3.375 gm/ Sodium Chloride) 100 mls @ 100 mls/ hr IVPB Q6 [facility] PRN Reason: Protocol Last Admin: 07/01/17 09:01 Dose: 100 mls/hr Levalbuterol HCl (Xopenex) 1.25 mg INH RQ8 [facility] Last Admin: 07/01/17 08:22 Dose: 1.25 mg Magnesium Oxide (Mag-Ox) 400 mg PO BID [facility] Last Admin: 07/01/17 09:11 Dose: 400 mg Metoprolol Tartrate (Lopressor) 2.5 mg IVP Q6 [facility] Last Admin: 06/22/17 05:07 Dose: Not Given Mirtazapine (Remeron) 15 mg PO HS [facility] Last Admin: 06/30/17 21:03 Dose: 15 mg Ondansetron HCl (Zofran Inj) 4 mg IVP Q6 PRN PRN Reason: Nausea/Vomiting Pantoprazole Sodium (Protonix Inj) 40 mg IVP DAILY [facility] Last Admin: 07/01/17 09:11 Dose: 40 mg Potassium Chloride (K-Dur 20 Meq Er Tab) 40 meq PO BID [facility] Last Admin: 07/01/17 09:10 Dose: 40 meq - Labs Labs: 06/30/17 04:25 07/01/17 06:15 PT 18.5 Seconds (9.8-13.1) H 06/29/17 05:45 INR 1.7 (0.9-1.2) H 06/29/17 05:45 APTT 34.3 Seconds (25.6-37.1) 06/29/17 05:45 Assessment and Plan (1) Perforated sigmoid colon Status: Acute (2) Septic shock Status: Acute (3) History of cardiac arrhythmia Status: Chronic (4) Pleural effusion Status: Acute
[2017-07-01 15:25] LABS: BODY FLUID TYPE PLEURAL/THORACENTESI
[2017-07-01 15:40] LABS: BF GROSS APPEARANCE SL CLOUDY (CLEAR)
[2017-07-01 16:00] LABS: LDH,BODY FLUID 542 IU (NONE ESTABLISHED)
--- NOTE | 2017-07-01 17:29 | CP.PCM.PN ---
Subjective - Date & Time of Evaluation Date of Evaluation: 07/01/17 Time of Evaluation: 10:00 - Subjective Subjective: Patient seen and examined bedside. On high flow oxygen 30 LPM FIO2 70 % saturating 98 % , still with breathing difficulty , coughing spells and minimal abdominal discomfort especially when coughing.Tolerating diet but still with poor appetite. Minimal expectoration . BP 129/76 o2Sat 98 % afebrile Colostomy to LLQ with liquid brownish stool ASA drain and packing has been removed Midline surgical incision with nydia in place Objective - Vital Signs/Intake and Output Vital Signs (last 24 hours): Temp Pulse Resp BP Pulse Ox 98.1 F 87 17 110/65 100 07/01/17 16:46 07/01/17 16:46 07/01/17 16:46 07/01/17 16:46 07/01/17 16:46 Intake and Output: 07/01/17 07/01/17 06:59 18:59 Output Total 75 Balance -75 - Medications Medications: Current Medications Acetaminophen (Tylenol 650 Mg Supp) 650 mg [place] Q6 PRN PRN Reason: Fever >100.4 F Acetaminophen (Tylenol 325mg Tab) 650 mg PO Q6 PRN PRN Reason: Pain, Mild (1-3) Last Admin: 07/01/17 11:17 Dose: 650 mg Bacitracin (Bacitracin Oint) 1 applic TOP BID [facility] Last Admin: 07/01/17 16:38 Dose: 1 applic Furosemide (Lasix) 20 mg PO DAILY [facility] Last Admin: 07/01/17 09:10 Dose: 20 mg Heparin Sodium (Porcine) (Heparin) 5,000 units SC Q12 [facility] PRN Reason: Protocol Last Admin: 07/01/17 09:03 Dose: 5,000 units Fluconazole (Diflucan Iv 100 Mg/50 Ml Ns) 50 mls @ 50 mls/hr IVPB DAILY [facility] PRN Reason: Protocol Last Admin: 07/01/17 08:00 Dose: 50 mls/hr Metronidazole (Flagyl 500mg/100ml Ns) 100 mls @ 100 mls/hr IVPB Q8 [facility] PRN Reason: Protocol Last Admin: 07/01/17 16:38 Dose: 100 mls/hr Piperacillin Sod/Tazobactam (Sod 3.375 gm/ Sodium Chloride) 100 mls @ 100 mls/ hr IVPB Q6 [facility] PRN Reason: Protocol Last Admin: 07/01/17 16:39 Dose: 100 mls/hr Levalbuterol HCl (Xopenex) 1.25 mg INH RQ8 [facility] Last Admin: 07/01/17 15:36 Dose: 1.25 mg Magnesium Oxide (Mag-Ox) 400 mg PO BID [facility] Last Admin: 07/01/17 16:39 Dose: 400 mg Metoprolol Tartrate (Lopressor) 2.5 mg IVP Q6 [facility] Last Admin: 06/22/17 05:07 Dose: Not Given Mirtazapine (Remeron) 15 mg PO HS [facility] Last Admin: 06/30/17 21:03 Dose: 15 mg Ondansetron HCl (Zofran Inj) 4 mg IVP Q6 PRN PRN Reason: Nausea/Vomiting Pantoprazole Sodium (Protonix Inj) 40 mg IVP DAILY [facility] Last Admin: 07/01/17 09:11 Dose: 40 mg Potassium Chloride (K-Dur 20 Meq Er Tab) 40 meq PO BID [facility] Last Admin: 07/01/17 16:39 Dose: 40 meq - Labs Labs: 06/30/17 04:25 07/01/17 06:15 PT 18.5 Seconds (9.8-13.1) H 06/29/17 05:45 INR 1.7 (0.9-1.2) H 06/29/17 05:45 APTT 34.3 Seconds (25.6-37.1) 06/29/17 05:45 - Constitutional Appears: Non-toxic, Other (mild respiratory distress ) - Head Exam Head Exam: ATRAUMATIC, NORMAL INSPECTION, NORMOCEPHALIC - Eye Exam Eye Exam: EOMI, Normal appearance, PERRL Pupil Exam: NORMAL ACCOMODATION - ENT Exam ENT Exam: Mucous Membranes Moist, Normal Exam - Neck Exam Neck Exam: Full ROM, Normal Inspection - Respiratory Exam Respiratory Exam: Decreased Breath Sounds (bibasilar right more than left ), Prolonged Expiratory Phase, Respiratory Distress - Cardiovascular Exam Cardiovascular Exam: REGULAR RHYTHM, RRR, +S1, +S2. absent: JVD - GI/Abdominal Exam GI & Abdominal Exam: Soft, Normal Bowel Sounds. absent: Guarding, Tenderness, Rebound Additional comments: midline surgical incision with nydia in place . small opening midlle LLQ colostomy in place - Rectal Exam Rectal Exam: Deferred - Extremities Exam Extremities Exam: Full ROM, Normal Inspection. absent: Pedal Edema - Back Exam Back Exam: NORMAL INSPECTION - Neurological Exam Neurological Exam: Alert, Awake, CN II-XII Intact, Oriented x3 - Psychiatric Exam Psychiatric exam: Normal Affect - Skin Skin Exam: Dry, Pallor, Warm Assessment and Plan - Assessment and Plan (Free Text) Assessment: 86y/o lady with hx of Cardiac Arrhythmia s/p PPM , on Xarelto , came in because of abdominal pain. CT of abdomen showed Perforated Sigmoid Diverticulitis Initially admitted to [facility] , started on IVF fluid and IV antibiotics, Surgery consulted. Pt then had [employer] for Hypotension - transferred to ICU - started on IVF and Levophed. Patient was taken to OR 06/23 by surgery and underwent colon resection with colostomy . At present, she is hemodynamically stable, afebrile, with output from colostomy and tolerating Regular diet. Currently on high flow Oxygen FIO2 70 % 30 LPM due to respiratory distress. CXR with bilateral pleural effusion 1. Septic shock sec to perforated sigmoid Diverticulitis Acute s/p colon resection with colostomy performed 06/23. Surgery following colostomy bag to LLQ with brownish liquid output . Bowel sounds +, tolerating diet Was on levophed drip initially ( admission)but at present maintaining her BP without pressors , afebrile On Zosyn , Flagyl and diflucan ESBL E coli on Wound c/s ( small area in surgical wound had some drainage) sensitive to Zosyn. Packing removed 2.Perforated sigmoid colon s/p Colon Resection with Colostomy Acute as above s/p colon resection with colostomy switched diet to finely chopped Start PT , out of bed to chair 3. Respiratory insufficiency Pt was not extubated post surgery , s/p extubation 2 06/26 with respiratory distress most likely secondary to volume overload and bilateral pleural effusion. Possible mucus plugging as well seen on CT still on high flow FIO2 70 % 30 LPM O2 lasix given with not much improvement Repeta CXR today showed moderate right plewural effusion s/p right thoracentheiss with removal 500 ml fluid continue Xopenex and Lasix Pulm consult with Dr Hidalgo appreciated and case discussed Incentive Spirometry Serial CXR 4. Bilateral pleural effusion as above 5. ALBER (acute kidney injury)-improved Acute likely sec to Sepsis initially oliguric,but at present with good urine output and renal function is normal 6.Anemia of acute blood loss Hgb dropped from 12-- 10.9 s/p 2 unit PRBC transfusion Hem/on consulted Dr. Blanchard continue to monitor 7. Thrombocytopenia/ Coagulopathy, improved prob sec to Sepsis resolved INR=1.7 on admission ( patient also was on xarelto ) s/p 1 unit Platelet transfusion and 4 FFP Hematology consult with Dr Dawn Blanchard appreciated Given DDAVP and Vit K 10 mg IV preop to correct anticoagulation since patient was on xarelto 8. History of cardiac arrhythmia Chronic unclear cardiac diagnosis hx of Pacemaker placement pt was on Xarelto at home , now on hold Cardiology consulted- Dr Blanchard 9. Abn LFT sec to Shock liver improving 10.Hypokalemia- Severe k 3.3 today secondary to poor PO intake and GI losses Continue K supplements repeat In AM 11. Hypertension controlled without meds Home medications Norvasc, Coreg, HCTZ/ valsartan on hold 12.DVT prophylaxis SCD Heparin
[2017-07-01 17:30] LABS: BODY FLUID TOTAL COUNT 100 (0-0)
[2017-07-02] MEDS: metroNIDAZOLE 500mg/100ml NS 100 ML IVPB SCH ×3 (01:48→16:39)
[2017-07-02] MEDS: Piperacillin/Tazobact 3.375 GM in Sodium Chloride 0.9% 100 ML IVPB SCH ×4 (04:38→21:15)
[2017-07-02 07:57] LABS: BLOOD UREA NITROGEN 9 mg/dl (7-17); CALCIUM 8.1 mg/dL (8.4-10.2); CARBON DIOXIDE 38 mmol/L (22-30); CHLORIDE 96 mmol/L (98-107); GFR AFRICAN-AMERICAN > 60; GLUCOSE,RANDOM 100 mg/dL (65-105); MAGNESIUM 1.7 MG/DL (1.6-2.3); PHOSPHOROUS 2.4 mg/dl (2.5-4.5); POTASSIUM 4.1 MMOL/L (3.6-5.0); SODIUM 135 mmol/l (132-148)
[2017-07-02 07:59] LABS: BASO % 0.4 % (0.0-2.0); EOS # 0.2 K/uL (0.0-0.7); EOS % 2.6 % (0.0-4.0); LYMPH # 0.9 K/uL (1.0-4.3); LYMPH % 10.1 % (20.0-40.0); MEAN CELL VOLUME 91.9 fl (81.0-99.0); MEAN CORPUSCULAR HEMOGLOBIN 30.1 pg (27.0-31.0); MEAN CORPUSCULAR HGB CONC 32.8 g/dL (33.0-37.0); MEAN PLATELET VOLUME 10.5 fl (7.2-11.7); MONO # 0.6 K/uL (0.0-0.8); MONO % 6.3 % (0.0-10.0); NEUT # 7.4 K/uL (1.8-7.0); NEUT % 80.6 % (50.0-75.0); WHITE BLOOD COUNT 9.2 K/uL (4.8-10.8)
[2017-07-02] MEDS: Levalbuterol 1.25 MG/3 ML Inhal Soln UD INH SCH ×2 (08:07→15:46)
[2017-07-02] MEDS: Bacitracin OINT 15GM TOP SCH ×2 (08:57→16:40)
[2017-07-02] MEDS: Potassium Chloride 20 mEq ER Tab PO SCH ×2 (09:03→16:41)
[2017-07-02] MEDS: Magnesium Oxide 400 mg Tab UD PO SCH ×2 (09:04→16:41)
--- NOTE | 2017-07-02 09:43 | CP.PCM.PN ---
Subjective - Date & Time of Evaluation Date of Evaluation: 07/02/17 Time of Evaluation: 06:40 - Subjective Subjective: General Surgery Dr. Medley Pt S&E @bedside. Pt had thorcentesis yesterday for R pleural effusion during which 500cc fluid removed. Pt tolerated the procedure well w/ no complications. NAEO. Pt reports improved pain. continues to have non-productive cough. Py denies F/C, N/V. tolerating diet. Objective - Vital Signs/Intake and Output Vital Signs (last 24 hours): Temp Pulse Resp BP Pulse Ox 98.0 F 82 20 122/68 100 07/02/17 08:00 07/02/17 08:00 07/02/17 08:08 07/02/17 09:04 07/02/17 08:00 Intake and Output: 07/02/17 07/02/17 06:59 18:59 Intake Total 1750 Output Total 2050 Balance -300 - Medications Medications: Current Medications Acetaminophen (Tylenol 650 Mg Supp) 650 mg [place] Q6 PRN PRN Reason: Fever >100.4 F Acetaminophen (Tylenol 325mg Tab) 650 mg PO Q6 PRN PRN Reason: Pain, Mild (1-3) Last Admin: 07/01/17 21:38 Dose: 650 mg Bacitracin (Bacitracin Oint) 1 applic TOP BID [facility] Last Admin: 07/02/17 08:57 Dose: 1 applic Furosemide (Lasix) 20 mg PO DAILY [facility] Last Admin: 07/02/17 09:04 Dose: 20 mg Heparin Sodium (Porcine) (Heparin) 5,000 units SC Q12 [facility] PRN Reason: Protocol Last Admin: 07/02/17 09:02 Dose: 5,000 units Fluconazole (Diflucan Iv 100 Mg/50 Ml Ns) 50 mls @ 50 mls/hr IVPB DAILY [facility] PRN Reason: Protocol Last Admin: 07/01/17 08:00 Dose: 50 mls/hr Metronidazole (Flagyl 500mg/100ml Ns) 100 mls @ 100 mls/hr IVPB Q8 [facility] PRN Reason: Protocol Last Admin: 07/02/17 08:59 Dose: 100 mls/hr Piperacillin Sod/Tazobactam (Sod 3.375 gm/ Sodium Chloride) 100 mls @ 100 mls/ hr IVPB Q6 [facility] PRN Reason: Protocol Last Admin: 07/02/17 04:38 Dose: 100 mls/hr Levalbuterol HCl (Xopenex) 1.25 mg INH RQ8 [facility] Last Admin: 07/02/17 08:07 Dose: 1.25 mg Magnesium Oxide (Mag-Ox) 400 mg PO BID [facility] Last Admin: 07/02/17 09:04 Dose: 400 mg Metoprolol Tartrate (Lopressor) 2.5 mg IVP Q6 [facility] Last Admin: 06/22/17 05:07 Dose: Not Given Mirtazapine (Remeron) 15 mg PO HS [facility] Last Admin: 07/01/17 21:05 Dose: 15 mg Ondansetron HCl (Zofran Inj) 4 mg IVP Q6 PRN PRN Reason: Nausea/Vomiting Pantoprazole Sodium (Protonix Inj) 40 mg IVP DAILY [facility] Last Admin: 07/02/17 09:05 Dose: 40 mg Potassium Chloride (K-Dur 20 Meq Er Tab) 40 meq PO BID [facility] Last Admin: 07/02/17 09:03 Dose: 40 meq - Labs Labs: 07/02/17 05:30 07/02/17 05:30 PT 18.5 Seconds (9.8-13.1) H 06/29/17 05:45 INR 1.7 (0.9-1.2) H 06/29/17 05:45 APTT 34.3 Seconds (25.6-37.1) 06/29/17 05:45 - Constitutional Appears: Non-toxic, No Acute Distress - Head Exam Head Exam: NORMAL INSPECTION - Eye Exam Eye Exam: Normal appearance - ENT Exam ENT Exam: Mucous Membranes Moist - Respiratory Exam Respiratory Exam: NORMAL BREATHING PATTERN. absent: Accessory Muscle Use - Cardiovascular Exam Cardiovascular Exam: absent: Bradycardia, Tachycardia - GI/Abdominal Exam GI & Abdominal Exam: Soft, Tenderness (mild jerson-incision TTP). absent: Distended, Guarding, Rebound Additional comments: incision c/d/i stool present in ostomy appliance - Extremities Exam Extremities Exam: Normal Inspection - Neurological Exam Neurological Exam: Alert, Awake, Oriented x3 - Psychiatric Exam Psychiatric exam: Normal Affect, Normal Mood - Skin Skin Exam: Dry, Intact, Normal Color, Warm Assessment and Plan - Assessment and Plan (Free Text) Assessment: 86 y/o F w/ perforated diverticulitis POD# 9 Nogueira's w/ end colostomy - cont pain management - encourage PO intake - OOB to chair for all meals - encourage Amb/IS use - cont physical therapy - cont Abx per ID - change dressings PRN - GI/DVT PPx Pt discussed w/ Dr. Galindo Yen DO PGY2
[2017-07-02] MEDS: Fluconazole IV 100mg/50 ml NS 50 ML IVPB SCH (10:18)
--- NOTE | 2017-07-02 11:02 | CP.PCM.PN ---
Subjective - Date & Time of Evaluation Date of Evaluation: 07/02/17 Time of Evaluation: 10:25 - Subjective Subjective: Had Rt thoracentasis yesterday with 500 Ml of fluid removed Doing much better today Vital signs stable Chest x- ray dramatically improved Labs show normal Bun/Creatinin and electrolytes Plans to be OOB for lunch Appears to be recovering well at this point Objective - Vital Signs/Intake and Output Vital Signs (last 24 hours): Temp Pulse Resp BP Pulse Ox 98.0 F 82 20 122/68 100 07/02/17 08:00 07/02/17 08:00 07/02/17 08:08 07/02/17 09:04 07/02/17 08:00 Intake and Output: 07/02/17 07/02/17 06:59 18:59 Intake Total 1750 Output Total 2050 Balance -300 - Medications Medications: Current Medications Acetaminophen (Tylenol 650 Mg Supp) 650 mg [place] Q6 PRN PRN Reason: Fever >100.4 F Acetaminophen (Tylenol 325mg Tab) 650 mg PO Q6 PRN PRN Reason: Pain, Mild (1-3) Last Admin: 07/01/17 21:38 Dose: 650 mg Bacitracin (Bacitracin Oint) 1 applic TOP BID [facility] Last Admin: 07/02/17 08:57 Dose: 1 applic Furosemide (Lasix) 20 mg PO DAILY [facility] Last Admin: 07/02/17 09:04 Dose: 20 mg Heparin Sodium (Porcine) (Heparin) 5,000 units SC Q12 [facility] PRN Reason: Protocol Last Admin: 07/02/17 09:02 Dose: 5,000 units Fluconazole (Diflucan Iv 100 Mg/50 Ml Ns) 50 mls @ 50 mls/hr IVPB DAILY [facility] PRN Reason: Protocol Last Admin: 07/02/17 10:18 Dose: 50 mls/hr Metronidazole (Flagyl 500mg/100ml Ns) 100 mls @ 100 mls/hr IVPB Q8 [facility] PRN Reason: Protocol Last Admin: 07/02/17 08:59 Dose: 100 mls/hr Piperacillin Sod/Tazobactam (Sod 3.375 gm/ Sodium Chloride) 100 mls @ 100 mls/ hr IVPB Q6 [facility] PRN Reason: Protocol Last Admin: 07/02/17 04:38 Dose: 100 mls/hr Levalbuterol HCl (Xopenex) 1.25 mg INH RQ8 [facility] Last Admin: 07/02/17 08:07 Dose: 1.25 mg Magnesium Oxide (Mag-Ox) 400 mg PO BID [facility] Last Admin: 07/02/17 09:04 Dose: 400 mg Metoprolol Tartrate (Lopressor) 2.5 mg IVP Q6 [facility] Last Admin: 06/22/17 05:07 Dose: Not Given Mirtazapine (Remeron) 15 mg PO HS [facility] Last Admin: 07/01/17 21:05 Dose: 15 mg Ondansetron HCl (Zofran Inj) 4 mg IVP Q6 PRN PRN Reason: Nausea/Vomiting Pantoprazole Sodium (Protonix Inj) 40 mg IVP DAILY [facility] Last Admin: 07/02/17 09:05 Dose: 40 mg Potassium Chloride (K-Dur 20 Meq Er Tab) 40 meq PO BID [facility] Last Admin: 07/02/17 09:03 Dose: 40 meq - Labs Labs: 07/02/17 05:30 07/02/17 05:30 PT 18.5 Seconds (9.8-13.1) H 06/29/17 05:45 INR 1.7 (0.9-1.2) H 06/29/17 05:45 APTT 34.3 Seconds (25.6-37.1) 06/29/17 05:45
--- NOTE | 2017-07-02 11:29 | CP.PCM.PN ---
Subjective - Date & Time of Evaluation Date of Evaluation: 07/02/17 Time of Evaluation: 11:32 - Subjective Subjective: more awake and alert shortness of breath improved s/p thoracentesis Objective - Vital Signs/Intake and Output Vital Signs (last 24 hours): Temp Pulse Resp BP Pulse Ox 98 F 82 20 122/68 100 07/02/17 09:00 07/02/17 09:00 07/02/17 09:00 07/02/17 09:04 07/02/17 08:00 Intake and Output: 07/02/17 07/02/17 06:59 18:59 Intake Total 1750 Output Total 2050 150 Balance -300 -150 - Medications Medications: Current Medications Acetaminophen (Tylenol 650 Mg Supp) 650 mg [place] Q6 PRN PRN Reason: Fever >100.4 F Acetaminophen (Tylenol 325mg Tab) 650 mg PO Q6 PRN PRN Reason: Pain, Mild (1-3) Last Admin: 07/01/17 21:38 Dose: 650 mg Bacitracin (Bacitracin Oint) 1 applic TOP BID [facility] Last Admin: 07/02/17 08:57 Dose: 1 applic Furosemide (Lasix) 20 mg PO DAILY [facility] Last Admin: 07/02/17 09:04 Dose: 20 mg Heparin Sodium (Porcine) (Heparin) 5,000 units SC Q12 [facility] PRN Reason: Protocol Last Admin: 07/02/17 09:02 Dose: 5,000 units Fluconazole (Diflucan Iv 100 Mg/50 Ml Ns) 50 mls @ 50 mls/hr IVPB DAILY [facility] PRN Reason: Protocol Last Admin: 07/02/17 10:18 Dose: 50 mls/hr Metronidazole (Flagyl 500mg/100ml Ns) 100 mls @ 100 mls/hr IVPB Q8 [facility] PRN Reason: Protocol Last Admin: 07/02/17 08:59 Dose: 100 mls/hr Piperacillin Sod/Tazobactam (Sod 3.375 gm/ Sodium Chloride) 100 mls @ 100 mls/ hr IVPB Q6 [facility] PRN Reason: Protocol Last Admin: 07/02/17 04:38 Dose: 100 mls/hr Levalbuterol HCl (Xopenex) 1.25 mg INH RQ8 [facility] Last Admin: 07/02/17 08:07 Dose: 1.25 mg Magnesium Oxide (Mag-Ox) 400 mg PO BID [facility] Last Admin: 07/02/17 09:04 Dose: 400 mg Metoprolol Tartrate (Lopressor) 2.5 mg IVP Q6 [facility] Last Admin: 06/22/17 05:07 Dose: Not Given Mirtazapine (Remeron) 15 mg PO HS [facility] Last Admin: 07/01/17 21:05 Dose: 15 mg Ondansetron HCl (Zofran Inj) 4 mg IVP Q6 PRN PRN Reason: Nausea/Vomiting Pantoprazole Sodium (Protonix Inj) 40 mg IVP DAILY [facility] Last Admin: 07/02/17 09:05 Dose: 40 mg Potassium Chloride (K-Dur 20 Meq Er Tab) 40 meq PO BID [facility] Last Admin: 07/02/17 09:03 Dose: 40 meq - Labs Labs: 07/02/17 05:30 07/02/17 05:30 PT 18.5 Seconds (9.8-13.1) H 06/29/17 05:45 INR 1.7 (0.9-1.2) H 06/29/17 05:45 APTT 34.3 Seconds (25.6-37.1) 06/29/17 05:45 - Constitutional Appears: No Acute Distress - Head Exam Head Exam: ATRAUMATIC, NORMAL INSPECTION, NORMOCEPHALIC - Eye Exam Eye Exam: EOMI, Normal appearance, PERRL Pupil Exam: NORMAL ACCOMODATION, PERRL - ENT Exam ENT Exam: Mucous Membranes Moist, Normal Exam - Neck Exam Neck Exam: Full ROM, Normal Inspection. absent: Lymphadenopathy - Respiratory Exam Respiratory Exam: NORMAL BREATHING PATTERN Additional comments: better aeration - Cardiovascular Exam Cardiovascular Exam: REGULAR RHYTHM, +S1, +S2. absent: Murmur - GI/Abdominal Exam GI & Abdominal Exam: Soft, Normal Bowel Sounds. absent: Tenderness - Rectal Exam Rectal Exam: NORMAL INSPECTION - Extremities Exam Extremities Exam: Full ROM, Normal Capillary Refill, Normal Inspection. absent : Joint Swelling, Pedal Edema - Back Exam Back Exam: NORMAL INSPECTION - Neurological Exam Neurological Exam: Alert, Awake, CN II-XII Intact, Oriented x3 - Psychiatric Exam Psychiatric exam: Normal Affect, Normal Mood - Skin Skin Exam: Dry, Intact, Normal Color, Warm Assessment and Plan - Assessment and Plan (Free Text) Assessment: pleural effusion improved[transudate] Plan: continue rx as ordered will probably benefit from tcu/subacute care will obtain abg and cxr in am
--- NOTE | 2017-07-02 11:59 | CP.PCM.PN ---
Subjective - Date & Time of Evaluation Date of Evaluation: 07/02/17 Time of Evaluation: 08:00 - Subjective Subjective: Patient was seen and examined at bedside. She is s/p thoracentesis on the right side and had 500 ml of fluid removed. VSS, NAD, states her breathing is much improved today. Doing better overall today. Colostomy with liquid brown stool. Chest X ray from yesterday looks much better today. Pt denies cp, sob, fever. Objective - Vital Signs/Intake and Output Vital Signs (last 24 hours): Temp Pulse Resp BP Pulse Ox 98 F 82 20 122/68 100 07/02/17 09:00 07/02/17 09:00 07/02/17 09:00 07/02/17 09:04 07/02/17 08:00 Intake and Output: 07/02/17 07/02/17 06:59 18:59 Intake Total 1750 Output Total 2050 150 Balance -300 -150 - Medications Medications: Current Medications Acetaminophen (Tylenol 650 Mg Supp) 650 mg [place] Q6 PRN PRN Reason: Fever >100.4 F Acetaminophen (Tylenol 325mg Tab) 650 mg PO Q6 PRN PRN Reason: Pain, Mild (1-3) Last Admin: 07/01/17 21:38 Dose: 650 mg Bacitracin (Bacitracin Oint) 1 applic TOP BID [facility] Last Admin: 07/02/17 08:57 Dose: 1 applic Furosemide (Lasix) 20 mg PO DAILY [facility] Last Admin: 07/02/17 09:04 Dose: 20 mg Heparin Sodium (Porcine) (Heparin) 5,000 units SC Q12 [facility] PRN Reason: Protocol Last Admin: 07/02/17 09:02 Dose: 5,000 units Fluconazole (Diflucan Iv 100 Mg/50 Ml Ns) 50 mls @ 50 mls/hr IVPB DAILY [facility] PRN Reason: Protocol Last Admin: 07/02/17 10:18 Dose: 50 mls/hr Metronidazole (Flagyl 500mg/100ml Ns) 100 mls @ 100 mls/hr IVPB Q8 [facility] PRN Reason: Protocol Last Admin: 07/02/17 08:59 Dose: 100 mls/hr Piperacillin Sod/Tazobactam (Sod 3.375 gm/ Sodium Chloride) 100 mls @ 100 mls/ hr IVPB Q6 [facility] PRN Reason: Protocol Last Admin: 07/02/17 11:30 Dose: 100 mls/hr Levalbuterol HCl (Xopenex) 1.25 mg INH RQ8 [facility] Last Admin: 07/02/17 08:07 Dose: 1.25 mg Magnesium Oxide (Mag-Ox) 400 mg PO BID [facility] Last Admin: 07/02/17 09:04 Dose: 400 mg Metoprolol Tartrate (Lopressor) 2.5 mg IVP Q6 [facility] Last Admin: 06/22/17 05:07 Dose: Not Given Mirtazapine (Remeron) 15 mg PO HS [facility] Last Admin: 07/01/17 21:05 Dose: 15 mg Ondansetron HCl (Zofran Inj) 4 mg IVP Q6 PRN PRN Reason: Nausea/Vomiting Pantoprazole Sodium (Protonix Inj) 40 mg IVP DAILY [facility] Last Admin: 07/02/17 09:05 Dose: 40 mg Potassium Chloride (K-Dur 20 Meq Er Tab) 40 meq PO BID [facility] Last Admin: 07/02/17 09:03 Dose: 40 meq - Labs Labs: 07/02/17 05:30 07/02/17 05:30 PT 18.5 Seconds (9.8-13.1) H 06/29/17 05:45 INR 1.7 (0.9-1.2) H 06/29/17 05:45 APTT 34.3 Seconds (25.6-37.1) 06/29/17 05:45 - Additional Findings Additional findings: Physical exam: Constitutional- cooperative, awake, alert. Head- NCAT, PERRL Eye- PERRL, normal accommodation ENT- normal exam, MMM. Neck- normal inspection, supple, no JVD Respiratory- CTAB, breath sounds more audible on the right today, prolonged expiratory phase. no respiratory distress today. Cardiovascular- RRR, +S1, +S2 no MRG GI/Abdominal- normal bowel sounds, soft, no mass, no hsm Skin- warm, dry. Midline surgical incision. LLQ colostomy in place. Extremities Exam- normal capillary refill, normal inspection Neurological Exam- alert, stable gait Psych- normal mood, normal affect Assessment and Plan - Assessment and Plan (Free Text) Plan: Assessment: 86y/o lady with hx of Cardiac Arrhythmia s/p PPM , on Xarelto , came in because of abdominal pain. CT of abdomen showed Perforated Sigmoid Diverticulitis Initially admitted to [facility] , started on IVF fluid and IV antibiotics, Surgery consulted. Pt then had [employer] for Hypotension - transferred to ICU - started on IVF and Levophed. Patient was taken to OR 06/23 by surgery and underwent colon resection with colostomy . At present, she is hemodynamically stable, afebrile, with output from colostomy and tolerating Regular diet. Currently on high flow Oxygen FIO2 70 % 30 LPM due to respiratory distress. CXR with bilateral pleural effusion 1. Septic shock sec to perforated sigmoid Diverticulitis- resolving Acute s/p colon resection with colostomy performed 06/23. Surgery following colostomy bag to LLQ with brownish liquid output . Bowel sounds +, tolerating diet Was on levophed drip initially ( admission)but at present maintaining her BP without pressors , afebrile On Zosyn , Flagyl and diflucan- continue abx as per Dr. Rice ID on consultation. ESBL E coli on Wound c/s ( small area in surgical wound had some drainage) sensitive to Zosyn. Packing removed 2.Perforated sigmoid colon s/p Colon Resection with Colostomy Acute as above s/p colon resection with colostomy switched diet to finely chopped Start PT , out of bed to chair for lunch today 3. Respiratory insufficiency Pt was not extubated post surgery , s/p extubation 2 06/26 with respiratory distress most likely secondary to volume overload and bilateral pleural effusion. Possible mucus plugging as well seen on CT still on high flow FIO2 70 % 30 LPM O2 lasix given with not much improvement Repeat CXR yesterday much better s/p thoracentesis. s/p right thoracentheiss with removal 500 ml fluid continue Xopenex and Lasix Pulm consult with Dr Hidalgo appreciated and case discussed Incentive Spirometry Serial CXR 4. Bilateral pleural effusion as above 5. ALBER (acute kidney injury)-improved Acute likely sec to Sepsis initially oliguric,but at present with good urine output and renal function is normal 6.Anemia of acute blood loss- stabilizing Hgb dropped from 12-- 10.9-->10.8 today s/p 2 unit PRBC transfusion Hem/on consulted Dr. Blanchard continue to monitor 7. Thrombocytopenia/ Coagulopathy, improved prob sec to Sepsis resolved INR=1.7 on admission ( patient also was on xarelto ) s/p 1 unit Platelet transfusion and 4 FFP Hematology consult with Dr Dawn Blanchard appreciated Given DDAVP and Vit K 10 mg IV preop to correct anticoagulation since patient was on xarelto 8. History of cardiac arrhythmia Chronic unclear cardiac diagnosis hx of Pacemaker placement pt was on Xarelto at home , now on hold Cardiology consulted- Dr Blanchard 9. Abn LFT sec to Shock liver improving 10.Hypokalemia- resolved k 3.3 today --> 4.1 today secondary to poor PO intake and GI losses Continue K supplements repeat In AM 11. Hypertension controlled without meds Home medications Norvasc, Coreg, HCTZ/ valsartan on hold 12.DVT prophylaxis SCD Heparin
[2017-07-03] MEDS: Levalbuterol 1.25 MG/3 ML Inhal Soln UD INH SCH ×3 (00:26→15:47)
[2017-07-03] MEDS: metroNIDAZOLE 500mg/100ml NS 100 ML IVPB SCH ×3 (00:33→18:04)
[2017-07-03] MEDS: Piperacillin/Tazobact 3.375 GM in Sodium Chloride 0.9% 100 ML IVPB SCH ×4 (04:32→22:08)
[2017-07-03 05:05] LABS: ABG ALLEN TEST YES; ARTERIAL BLOOD FLOW 30; ARTERIAL BLOOD GAS HCO3 33.1 mmol/L (21-28); ARTERIAL BLOOD GAS MODE HFOV; ARTERIAL BLOOD GAS O2 CAPACITY 14.9 mL/dL (16-24); ARTERIAL BLOOD GAS O2 CONTENT 14.6 ML/dL (15-23); ARTERIAL BLOOD GAS PH 7.49 (7.35-7.45); ARTERIAL BLOOD GAS PO2 103 mm/Hg (80-100); ARTERIAL BLOOD HGB O2 SAT 95.3 % (95.0-98.0); CARBOXYHEMOGLOBIN 1.1 % (0.5-1.5); HHB 2.1 % (0.0-5.0); METHEMOGLOBIN 1.5 % (0.0-3.0)
[2017-07-03 07:59] LABS: HEMATOCRIT 33.1 % (34.0-47.0); MEAN CELL VOLUME 91.7 fl (81.0-99.0); MEAN CORPUSCULAR HGB CONC 32.7 g/dL (33.0-37.0); RED CELL DISTRIBUTION WIDTH 14.2 % (11.5-14.5); WHITE BLOOD COUNT 8.8 K/uL (4.8-10.8)
[2017-07-03 08:00] LABS: BLOOD UREA NITROGEN 9 mg/dl (7-17); CALCIUM 8.4 mg/dL (8.4-10.2); CARBON DIOXIDE 33 mmol/L (22-30); CHLORIDE 96 mmol/L (98-107); GFR AFRICAN-AMERICAN > 60; GLUCOSE,RANDOM 101 mg/dL (65-105); POTASSIUM 4.4 MMOL/L (3.6-5.0); SODIUM 135 mmol/l (132-148)
[2017-07-03] MEDS: Fluconazole IV 100mg/50 ml NS 50 ML IVPB SCH (08:54)
[2017-07-03] MEDS: Potassium Chloride 20 mEq ER Tab PO SCH ×2 (08:55→18:03)
[2017-07-03] MEDS: Magnesium Oxide 400 mg Tab UD PO SCH ×2 (08:55→18:03)
[2017-07-03] MEDS: Bacitracin OINT 15GM TOP SCH ×2 (09:00→18:03)
--- NOTE | 2017-07-03 09:10 | CP.PCM.PN ---
Subjective - Date & Time of Evaluation Date of Evaluation: 07/03/17 Time of Evaluation: 07:00 - Subjective Subjective: GENERAL SURGERY PROGRESS NOTE FOR DR. SANCHEZ Patient seen and examined at bedside. She is on high flow O2. She is tolerating her regular diet. She reports some nausea but denies vomiting. She denies abdominal pain except when she coughs. States that she is breathing better now. Objective - Vital Signs/Intake and Output Vital Signs (last 24 hours): Temp Pulse Resp BP Pulse Ox 98.1 F 102 H 20 154/81 H 98 07/03/17 08:00 07/03/17 08:00 07/03/17 08:04 07/03/17 08:55 07/03/17 08:00 - Medications Medications: Current Medications Acetaminophen (Tylenol 650 Mg Supp) 650 mg [place] Q6 PRN PRN Reason: Fever >100.4 F Acetaminophen (Tylenol 325mg Tab) 650 mg PO Q6 PRN PRN Reason: Pain, Mild (1-3) Last Admin: 07/02/17 15:12 Dose: 650 mg Bacitracin (Bacitracin Oint) 1 applic TOP BID [facility] Last Admin: 07/03/17 09:00 Dose: 1 applic Furosemide (Lasix) 20 mg PO DAILY [facility] Last Admin: 07/03/17 08:55 Dose: 20 mg Heparin Sodium (Porcine) (Heparin) 5,000 units SC Q12 [facility] PRN Reason: Protocol Last Admin: 07/03/17 08:54 Dose: 5,000 units Fluconazole (Diflucan Iv 100 Mg/50 Ml Ns) 50 mls @ 50 mls/hr IVPB DAILY [facility] PRN Reason: Protocol Last Admin: 07/03/17 08:54 Dose: 50 mls/hr Metronidazole (Flagyl 500mg/100ml Ns) 100 mls @ 100 mls/hr IVPB Q8 [facility] PRN Reason: Protocol Last Admin: 07/03/17 08:54 Dose: 100 mls/hr Piperacillin Sod/Tazobactam (Sod 3.375 gm/ Sodium Chloride) 100 mls @ 100 mls/ hr IVPB Q6 [facility] PRN Reason: Protocol Last Admin: 07/03/17 09:01 Dose: 100 mls/hr Levalbuterol HCl (Xopenex) 1.25 mg INH RQ8 [facility] Last Admin: 07/03/17 07:50 Dose: 1.25 mg Magnesium Oxide (Mag-Ox) 400 mg PO BID [facility] Last Admin: 07/03/17 08:55 Dose: 400 mg Metoprolol Tartrate (Lopressor) 2.5 mg IVP Q6 [facility] Last Admin: 06/22/17 05:07 Dose: Not Given Mirtazapine (Remeron) 15 mg PO HS [facility] Last Admin: 07/02/17 21:16 Dose: 15 mg Ondansetron HCl (Zofran Inj) 4 mg IVP Q6 PRN PRN Reason: Nausea/Vomiting Pantoprazole Sodium (Protonix Inj) 40 mg IVP DAILY [facility] Last Admin: 07/03/17 08:56 Dose: 40 mg Potassium Chloride (K-Dur 20 Meq Er Tab) 40 meq PO BID [facility] Last Admin: 07/03/17 08:55 Dose: 40 meq - Labs Labs: 07/03/17 06:30 07/03/17 06:30 PT 18.5 Seconds (9.8-13.1) H 06/29/17 05:45 INR 1.7 (0.9-1.2) H 06/29/17 05:45 APTT 34.3 Seconds (25.6-37.1) 06/29/17 05:45 - Constitutional Appears: Non-toxic, No Acute Distress - Respiratory Exam Respiratory Exam: NORMAL BREATHING PATTERN (on high flow O2). absent: Respiratory Distress - Cardiovascular Exam Cardiovascular Exam: Tachycardia (mild), +S1, +S2 - GI/Abdominal Exam GI & Abdominal Exam: Soft, Tenderness (very mild tenderness around incision). absent: Distended, Firm, Guarding, Rigid, Rebound Additional comments: Colostomy bag with more formed stool [place] in place over midline incision - Neurological Exam Neurological Exam: Alert, Awake - Psychiatric Exam Psychiatric exam: Normal Affect, Normal Mood - Skin Skin Exam: Dry, Normal Color, Warm Assessment and Plan - Assessment and Plan (Free Text) Assessment: 86yo F with perforated diverticulitis s/p colon resection with end colostomy POD #10 - Hypokalemia resolved - Tolerating diet - Encourage IS use, OOB and ambulation - Doing physical therapy, pt needs to be OOB as much as possible - Continue antibiotics per ID, currently on Zosyn & Flagyl - Heparin for DVT prophylaxis - Clear for DC from surgical standpoint to rehab/TCU, will discuss with manager case - Discussed plan with Dr. Galindo Vila PGY-3
--- NOTE | 2017-07-03 10:10 | CP.PCM.PN ---
Subjective - Date & Time of Evaluation Date of Evaluation: 07/03/17 Time of Evaluation: 10:10 - Subjective Subjective: NO CHEST PAINS OR SOB 02 SAT ADEQUATE Objective - Vital Signs/Intake and Output Vital Signs (last 24 hours): Temp Pulse Resp BP Pulse Ox 98.1 F 102 H 20 154/81 H 98 07/03/17 08:00 07/03/17 08:00 07/03/17 08:04 07/03/17 08:55 07/03/17 08:00 - Medications Medications: Current Medications Acetaminophen (Tylenol 650 Mg Supp) 650 mg [place] Q6 PRN PRN Reason: Fever >100.4 F Acetaminophen (Tylenol 325mg Tab) 650 mg PO Q6 PRN PRN Reason: Pain, Mild (1-3) Last Admin: 07/02/17 15:12 Dose: 650 mg Bacitracin (Bacitracin Oint) 1 applic TOP BID [facility] Last Admin: 07/03/17 09:00 Dose: 1 applic Furosemide (Lasix) 20 mg PO DAILY [facility] Last Admin: 07/03/17 08:55 Dose: 20 mg Heparin Sodium (Porcine) (Heparin) 5,000 units SC Q12 [facility] PRN Reason: Protocol Last Admin: 07/03/17 08:54 Dose: 5,000 units Fluconazole (Diflucan Iv 100 Mg/50 Ml Ns) 50 mls @ 50 mls/hr IVPB DAILY [facility] PRN Reason: Protocol Last Admin: 07/03/17 08:54 Dose: 50 mls/hr Metronidazole (Flagyl 500mg/100ml Ns) 100 mls @ 100 mls/hr IVPB Q8 [facility] PRN Reason: Protocol Last Admin: 07/03/17 08:54 Dose: 100 mls/hr Piperacillin Sod/Tazobactam (Sod 3.375 gm/ Sodium Chloride) 100 mls @ 100 mls/ hr IVPB Q6 [facility] PRN Reason: Protocol Last Admin: 07/03/17 09:01 Dose: 100 mls/hr Levalbuterol HCl (Xopenex) 1.25 mg INH RQ8 [facility] Last Admin: 07/03/17 07:50 Dose: 1.25 mg Magnesium Oxide (Mag-Ox) 400 mg PO BID [facility] Last Admin: 07/03/17 08:55 Dose: 400 mg Metoprolol Tartrate (Lopressor) 2.5 mg IVP Q6 [facility] Last Admin: 06/22/17 05:07 Dose: Not Given Mirtazapine (Remeron) 15 mg PO HS [facility] Last Admin: 07/02/17 21:16 Dose: 15 mg Ondansetron HCl (Zofran Inj) 4 mg IVP Q6 PRN PRN Reason: Nausea/Vomiting Pantoprazole Sodium (Protonix Inj) 40 mg IVP DAILY [facility] Last Admin: 07/03/17 08:56 Dose: 40 mg Potassium Chloride (K-Dur 20 Meq Er Tab) 40 meq PO BID [facility] Last Admin: 07/03/17 08:55 Dose: 40 meq - Labs Labs: 07/03/17 06:30 07/03/17 06:30 PT 18.5 Seconds (9.8-13.1) H 06/29/17 05:45 INR 1.7 (0.9-1.2) H 06/29/17 05:45 APTT 34.3 Seconds (25.6-37.1) 06/29/17 05:45 - Constitutional Appears: Chronically Ill - Head Exam Head Exam: ATRAUMATIC, NORMAL INSPECTION, NORMOCEPHALIC - Eye Exam Eye Exam: EOMI, Normal appearance, PERRL Pupil Exam: NORMAL ACCOMODATION, PERRL - ENT Exam ENT Exam: Mucous Membranes Moist, Normal Exam - Neck Exam Neck Exam: Full ROM, Normal Inspection. absent: Lymphadenopathy - Respiratory Exam Respiratory Exam: Decreased Breath Sounds, NORMAL BREATHING PATTERN - Cardiovascular Exam Cardiovascular Exam: REGULAR RHYTHM, +S1, +S2. absent: Murmur - GI/Abdominal Exam GI & Abdominal Exam: Soft, Normal Bowel Sounds. absent: Tenderness - Rectal Exam Rectal Exam: NORMAL INSPECTION - Extremities Exam Extremities Exam: Full ROM, Normal Capillary Refill, Normal Inspection. absent : Joint Swelling, Pedal Edema - Back Exam Back Exam: NORMAL INSPECTION - Neurological Exam Neurological Exam: Alert, Awake, CN II-XII Intact, Oriented x3 - Psychiatric Exam Psychiatric exam: Normal Affect, Normal Mood - Skin Skin Exam: Dry, Intact, Normal Color, Warm Assessment and Plan - Assessment and Plan (Free Text) Assessment: PLEURAL EFFUSION IMPROVED Plan: CONTINUE PRESENT RX WILL TRY NC O2 IN AM WILL BENEFIT FROM TCU/SUBACUTE CARE
--- NOTE | 2017-07-03 10:18 | CP.PCM.PN ---
Subjective - Date & Time of Evaluation Date of Evaluation: 07/03/17 Time of Evaluation: 09:45 - Subjective Subjective: No fever feels better SOB resolved - pt still on High Flow POxygen at 70% FiO2 Denies CP minimal abd tenderness dark stool in Colostomy bag Objective - Vital Signs/Intake and Output Vital Signs (last 24 hours): Temp Pulse Resp BP Pulse Ox 98.1 F 102 H 20 154/81 H 98 07/03/17 08:00 07/03/17 08:00 07/03/17 08:04 07/03/17 08:55 07/03/17 08:00 - Medications Medications: Current Medications Acetaminophen (Tylenol 650 Mg Supp) 650 mg [place] Q6 PRN PRN Reason: Fever >100.4 F Acetaminophen (Tylenol 325mg Tab) 650 mg PO Q6 PRN PRN Reason: Pain, Mild (1-3) Last Admin: 07/02/17 15:12 Dose: 650 mg Bacitracin (Bacitracin Oint) 1 applic TOP BID [facility] Last Admin: 07/03/17 09:00 Dose: 1 applic Furosemide (Lasix) 20 mg PO DAILY [facility] Last Admin: 07/03/17 08:55 Dose: 20 mg Heparin Sodium (Porcine) (Heparin) 5,000 units SC Q12 [facility] PRN Reason: Protocol Last Admin: 07/03/17 08:54 Dose: 5,000 units Fluconazole (Diflucan Iv 100 Mg/50 Ml Ns) 50 mls @ 50 mls/hr IVPB DAILY [facility] PRN Reason: Protocol Last Admin: 07/03/17 08:54 Dose: 50 mls/hr Metronidazole (Flagyl 500mg/100ml Ns) 100 mls @ 100 mls/hr IVPB Q8 [facility] PRN Reason: Protocol Last Admin: 07/03/17 08:54 Dose: 100 mls/hr Piperacillin Sod/Tazobactam (Sod 3.375 gm/ Sodium Chloride) 100 mls @ 100 mls/ hr IVPB Q6 [facility] PRN Reason: Protocol Last Admin: 07/03/17 09:01 Dose: 100 mls/hr Levalbuterol HCl (Xopenex) 1.25 mg INH RQ8 [facility] Last Admin: 07/03/17 07:50 Dose: 1.25 mg Magnesium Oxide (Mag-Ox) 400 mg PO BID [facility] Last Admin: 07/03/17 08:55 Dose: 400 mg Metoprolol Tartrate (Lopressor) 2.5 mg IVP Q6 [facility] Last Admin: 06/22/17 05:07 Dose: Not Given Mirtazapine (Remeron) 15 mg PO HS [facility] Last Admin: 07/02/17 21:16 Dose: 15 mg Ondansetron HCl (Zofran Inj) 4 mg IVP Q6 PRN PRN Reason: Nausea/Vomiting Pantoprazole Sodium (Protonix Inj) 40 mg IVP DAILY [facility] Last Admin: 07/03/17 08:56 Dose: 40 mg Potassium Chloride (K-Dur 20 Meq Er Tab) 40 meq PO BID [facility] Last Admin: 07/03/17 08:55 Dose: 40 meq - Labs Labs: 07/03/17 06:30 07/03/17 06:30 PT 18.5 Seconds (9.8-13.1) H 06/29/17 05:45 INR 1.7 (0.9-1.2) H 06/29/17 05:45 APTT 34.3 Seconds (25.6-37.1) 06/29/17 05:45 - Constitutional Appears: No Acute Distress, Chronically Ill - Head Exam Head Exam: NORMAL INSPECTION, NORMOCEPHALIC - Eye Exam Eye Exam: EOMI, Normal appearance Pupil Exam: NORMAL ACCOMODATION - ENT Exam ENT Exam: Mucous Membranes Moist, Normal External Ear Exam - Neck Exam Neck Exam: Full ROM. absent: Meningismus - Respiratory Exam Respiratory Exam: Rales, Rhonchi. absent: Wheezes Additional comments: on High Flow Oxygen - Cardiovascular Exam Cardiovascular Exam: REGULAR RHYTHM, +S1, +S2 Additional comments: + Pacemaker - GI/Abdominal Exam GI & Abdominal Exam: Distended, Soft, Tenderness Additional comments: Colostomy bag with dark brown stool surgical scar intact with nydia - Extremities Exam Extremities Exam: Full ROM, Normal Capillary Refill. absent: Calf Tenderness, Pedal Edema - Back Exam Back Exam: absent: CVA tenderness (L), CVA tenderness (R) - Neurological Exam Neurological Exam: Alert, Awake, CN II-XII Intact Neuro motor strength exam: Left Upper Extremity: 5, Right Upper Extremity: 5, Left Lower Extremity: 5, Right Lower Extremity: 5 - Psychiatric Exam Psychiatric exam: Normal Affect, Normal Mood - Skin Skin Exam: Dry, Normal Color, Warm Assessment and Plan (1) Septic shock Status: Acute (2) Perforated sigmoid colon Status: Acute (3) ALBER (acute kidney injury) Status: Acute (4) History of cardiac arrhythmia Status: Chronic (5) Thrombocytopenia Status: Acute (6) Shock liver Status: Acute (7) Hypokalemia Status: Acute (8) Hypomagnesemia Status: Acute - Assessment and Plan (Free Text) Assessment: 86y/o lady with hx of Cardiac Arrhythmia s/p PPM , on Xarelto , came in because of abdominal pain. CT of abdomen showed Perforated Sigmoid Diverticulitis Initially admitted to [facility] , started on IVF fluid and IV antibiotics, Surgery consulted. Pt then had [employer] for Hypotension - transferred to ICU - started on IVF and Levophed. Patient was taken to OR 06/23 by surgery and underwent colon resection with colostomy . At present, she is hemodynamically stable, afebrile, with output from colostomy and tolerating Regular diet. Currently on high flow Oxygen FIO2 70 % 30 LPM due to respiratory distress. CXR with bilateral pleural effusion 1. Septic shock sec to perforated sigmoid Diverticulitis Acute s/p colon resection with colostomy performed 06/23. Surgery following colostomy bag to LLQ with brownish liquid output . Bowel sounds +, tolerating diet Was on levophed drip initially ( admission)but at present maintaining her BP without pressors , afebrile On Zosyn , Flagyl and diflucan ESBL E coli on Wound c/s ( small area in surgical wound had some drainage) sensitive to Zosyn. Packing removed RLQ drain also removed 2.Perforated sigmoid colon s/p Colon Resection with Colostomy Acute as above s/p colon resection with colostomy switched diet to finely chopped Start PT , out of bed to chair 3. Respiratory insufficiency Pt was not extubated post surgery , s/p extubation 2 06/26 with respiratory distress most likely secondary to volume overload and bilateral pleural effusion. Possible mucus plugging as well seen on CT still on high flow FIO2 70 % 30 LPM O2 lasix given with not much improvement Repeat CXR showed moderate right pleural effusion s/p right thoracentheiss with removal 500 ml fluid continue Xopenex and Lasix Pulm consult with Dr Hidalgo appreciated and case discussed - will d/c High Flow in am Incentive Spirometry Serial CXR 4. Bilateral pleural effusion s/p Thoracentesis as above 5. ALBER (acute kidney injury)-improved Acute likely sec to Sepsis initially oliguric,but at present with good urine output and renal function is normal 6.Anemia of acute blood loss Hgb dropped from 12-- 10.9 s/p 2 unit PRBC transfusion Hem/on consulted Dr. Blanchard continue to monitor 7. Thrombocytopenia/ Coagulopathy, improved prob sec to Sepsis resolved INR=1.7 on admission ( patient also was on xarelto ) s/p 1 unit Platelet transfusion and 4 FFP Hematology consult with Dr aDwn Blanchard appreciated Given DDAVP and Vit K 10 mg IV preop to correct anticoagulation since patient was on xarelto 8. History of cardiac arrhythmia Chronic unclear cardiac diagnosis hx of Pacemaker placement pt was on Xarelto at home , now on hold Cardiology consulted- Dr Blanchard 9. Abn LFT sec to Shock liver improving 10.Hypokalemia- Severe k 3.3 today secondary to poor PO intake and GI losses Continue K supplements repeat In AM 11. Hypertension controlled without meds Home medications Norvasc, Coreg, HCTZ/ valsartan on hold 12.DVT prophylaxis SCD Heparin
--- NOTE | 2017-07-03 11:32 | RAD ---
PROCEDURE: CHEST RADIOGRAPH, 1 VIEW HISTORY: pleural effusion COMPARISON: 07/01/2017 FINDINGS: LUNGS: Slight worsening bilateral interstitial infiltrates. PLEURA: Left pleural effusion. CARDIOVASCULAR: Normal. OSSEOUS STRUCTURES: No significant abnormalities. VISUALIZED UPPER ABDOMEN: Normal. OTHER FINDINGS: None. IMPRESSION: Slight worsening bilateral interstitial infiltrates. Left pleural effusion.
[2017-07-04] MEDS: Levalbuterol 1.25 MG/3 ML Inhal Soln UD INH SCH ×3 (00:06→15:58)
[2017-07-04] MEDS: metroNIDAZOLE 500mg/100ml NS 100 ML IVPB SCH ×3 (01:07→16:51)
[2017-07-04] MEDS: Piperacillin/Tazobact 3.375 GM in Sodium Chloride 0.9% 100 ML IVPB SCH ×4 (03:10→21:40)
--- NOTE | 2017-07-04 07:47 | CP.PCM.PN ---
<Jennifer Roldan - Last Filed: 07/04/17 08:27> Subjective - Date & Time of Evaluation Date of Evaluation: 07/04/17 Time of Evaluation: 07:45 - Subjective Subjective: General surgery progress note for Dr. Demond Roldan, PGY-1 Pt S & E at bedside. Pt doing well overnight, denies N & V, F & C, abdominal pain. Objective - Vital Signs/Intake and Output Vital Signs (last 24 hours): Temp Pulse Resp BP Pulse Ox 98.2 F 99 H 18 124/77 100 07/04/17 04:52 07/04/17 04:52 07/04/17 05:09 07/04/17 04:52 07/04/17 04:52 Intake and Output: 07/04/17 07/04/17 06:59 18:59 Intake Total 1950 Output Total 400 Balance 1550 - Medications Medications: Current Medications Acetaminophen (Tylenol 650 Mg Supp) 650 mg [place] Q6 PRN PRN Reason: Fever >100.4 F Acetaminophen (Tylenol 325mg Tab) 650 mg PO Q6 PRN PRN Reason: Pain, Mild (1-3) Last Admin: 07/03/17 22:05 Dose: 650 mg Bacitracin (Bacitracin Oint) 1 applic TOP BID [facility] Last Admin: 07/03/17 18:03 Dose: 1 applic Furosemide (Lasix) 20 mg PO DAILY [facility] Last Admin: 07/03/17 08:55 Dose: 20 mg Heparin Sodium (Porcine) (Heparin) 5,000 units SC Q12 [facility] PRN Reason: Protocol Last Admin: 07/03/17 22:04 Dose: 5,000 units Fluconazole (Diflucan Iv 100 Mg/50 Ml Ns) 50 mls @ 50 mls/hr IVPB DAILY [facility] PRN Reason: Protocol Last Admin: 07/03/17 08:54 Dose: 50 mls/hr Metronidazole (Flagyl 500mg/100ml Ns) 100 mls @ 100 mls/hr IVPB Q8 [facility] PRN Reason: Protocol Last Admin: 07/04/17 01:07 Dose: 100 mls/hr Piperacillin Sod/Tazobactam (Sod 3.375 gm/ Sodium Chloride) 100 mls @ 100 mls/ hr IVPB Q6 [facility] PRN Reason: Protocol Last Admin: 07/04/17 03:10 Dose: 100 mls/hr Levalbuterol HCl (Xopenex) 1.25 mg INH RQ8 [facility] Last Admin: 07/04/17 07:41 Dose: 1.25 mg Magnesium Oxide (Mag-Ox) 400 mg PO BID [facility] Last Admin: 07/03/17 18:03 Dose: 400 mg Metoprolol Tartrate (Lopressor) 2.5 mg IVP Q6 [facility] Last Admin: 06/22/17 05:07 Dose: Not Given Mirtazapine (Remeron) 15 mg PO HS [facility] Last Admin: 07/03/17 22:04 Dose: 15 mg Ondansetron HCl (Zofran Inj) 4 mg IVP Q6 PRN PRN Reason: Nausea/Vomiting Pantoprazole Sodium (Protonix Inj) 40 mg IVP DAILY [facility] Last Admin: 07/03/17 08:56 Dose: 40 mg Potassium Chloride (K-Dur 20 Meq Er Tab) 40 meq PO BID [facility] Last Admin: 07/03/17 18:03 Dose: 40 meq - Labs Labs: 07/03/17 06:30 07/03/17 06:30 PT 18.5 Seconds (9.8-13.1) H 06/29/17 05:45 INR 1.7 (0.9-1.2) H 06/29/17 05:45 APTT 34.3 Seconds (25.6-37.1) 06/29/17 05:45 - Constitutional Appears: Non-toxic, No Acute Distress - Head Exam Head Exam: ATRAUMATIC, NORMAL INSPECTION, NORMOCEPHALIC - Eye Exam Eye Exam: EOMI, Normal appearance - ENT Exam ENT Exam: Mucous Membranes Moist, Normal Exam - Neck Exam Neck Exam: Full ROM, Normal Inspection - Respiratory Exam Respiratory Exam: NORMAL BREATHING PATTERN - Cardiovascular Exam Cardiovascular Exam: REGULAR RHYTHM, +S1, +S2 - GI/Abdominal Exam GI & Abdominal Exam: Soft, Tenderness (mildly tender to palpation over midline incision). absent: Distended, Firm, Guarding, Rigid, Normal Bowel Sounds - Extremities Exam Extremities Exam: Normal Inspection - Neurological Exam Neurological Exam: Alert, Awake, CN II-XII Intact, Oriented x3 - Psychiatric Exam Psychiatric exam: Normal Affect, Normal Mood - Skin Skin Exam: Dry, Intact, Normal Color, Warm Additional comments: Midline incision site with nydia in place. Colostomy patent with soft dark brown stool in ostomy bag Assessment and Plan - Assessment and Plan (Free Text) Assessment: 86yo F with perforated diverticulitis s/p colon resection with end colostomy POD #11 Plan: Encourage IS use OOBTC Ambulate with assistance PT Cont Abx Heparin for DVT ppx Ok for transfer to rehab/TCU from surgical standpoint Will DW attending Yuli, PGY-1 <Jhon Weir - Last Filed: 07/04/17 09:25> Subjective - Date & Time of Evaluation Time of Evaluation: 09:25 - Subjective Subjective: Patient was seen and examined at the bedside. Agree with resident's note above. Objective - Vital Signs/Intake and Output Vital Signs (last 24 hours): Temp Pulse Resp BP Pulse Ox 98.8 F 103 H 20 128/73 99 07/04/17 08:00 07/04/17 08:00 07/04/17 08:17 07/04/17 08:37 07/04/17 08:00 Intake and Output: 07/04/17 07/04/17 06:59 18:59 Intake Total 1950 Output Total 400 Balance 1550 - Medications Medications: Current Medications Acetaminophen (Tylenol 650 Mg Supp) 650 mg [place] Q6 PRN PRN Reason: Fever >100.4 F Acetaminophen (Tylenol 325mg Tab) 650 mg PO Q6 PRN PRN Reason: Pain, Mild (1-3) Last Admin: 07/03/17 22:05 Dose: 650 mg Bacitracin (Bacitracin Oint) 1 applic TOP BID [facility] Last Admin: 07/04/17 08:40 Dose: 1 applic Furosemide (Lasix) 20 mg PO DAILY [facility] Last Admin: 07/04/17 08:37 Dose: 20 mg Heparin Sodium (Porcine) (Heparin) 5,000 units SC Q12 [facility] PRN Reason: Protocol Last Admin: 07/04/17 08:38 Dose: 5,000 units Fluconazole (Diflucan Iv 100 Mg/50 Ml Ns) 50 mls @ 50 mls/hr IVPB DAILY [facility] PRN Reason: Protocol Last Admin: 07/04/17 08:39 Dose: 50 mls/hr Metronidazole (Flagyl 500mg/100ml Ns) 100 mls @ 100 mls/hr IVPB Q8 [facility] PRN Reason: Protocol Last Admin: 07/04/17 08:38 Dose: 100 mls/hr Piperacillin Sod/Tazobactam (Sod 3.375 gm/ Sodium Chloride) 100 mls @ 100 mls/ hr IVPB Q6 [facility] PRN Reason: Protocol Last Admin: 07/04/17 03:10 Dose: 100 mls/hr Levalbuterol HCl (Xopenex) 1.25 mg INH RQ8 [facility] Last Admin: 07/04/17 07:41 Dose: 1.25 mg Magnesium Oxide (Mag-Ox) 400 mg PO BID [facility] Last Admin: 07/04/17 08:37 Dose: 400 mg Metoprolol Tartrate (Lopressor) 2.5 mg IVP Q6 [facility] Last Admin: 06/22/17 05:07 Dose: Not Given Mirtazapine (Remeron) 15 mg PO HS [facility] Last Admin: 07/03/17 22:04 Dose: 15 mg Ondansetron HCl (Zofran Inj) 4 mg IVP Q6 PRN PRN Reason: Nausea/Vomiting Pantoprazole Sodium (Protonix Inj) 40 mg IVP DAILY [facility] Last Admin: 07/04/17 08:36 Dose: 40 mg Potassium Chloride (K-Dur 20 Meq Er Tab) 40 meq PO BID [facility] Last Admin: 07/04/17 08:39 Dose: 40 meq - Labs Labs: 07/03/17 06:30 07/03/17 06:30 PT 18.5 Seconds (9.8-13.1) H 06/29/17 05:45 INR 1.7 (0.9-1.2) H 06/29/17 05:45 APTT 34.3 Seconds (25.6-37.1) 06/29/17 05:45
[2017-07-04] MEDS: Magnesium Oxide 400 mg Tab UD PO SCH ×2 (08:37→16:51)
[2017-07-04] MEDS: Potassium Chloride 20 mEq ER Tab PO SCH ×2 (08:39→16:51)
[2017-07-04] MEDS: Fluconazole IV 100mg/50 ml NS 50 ML IVPB SCH (08:39)
[2017-07-04] MEDS: Bacitracin OINT 15GM TOP SCH ×2 (08:40→17:10)
--- NOTE | 2017-07-04 08:53 | CP.PCM.PN ---
Subjective - Date & Time of Evaluation Date of Evaluation: 07/04/17 Time of Evaluation: 08:53 - Subjective Subjective: SOB IMPROVED AWAKE AND ALERT NO CHEST PAINS Objective - Vital Signs/Intake and Output Vital Signs (last 24 hours): Temp Pulse Resp BP Pulse Ox 98.8 F 103 H 20 128/73 99 07/04/17 08:00 07/04/17 08:00 07/04/17 08:17 07/04/17 08:37 07/04/17 08:00 Intake and Output: 07/04/17 07/04/17 06:59 18:59 Intake Total 1950 Output Total 400 Balance 1550 - Medications Medications: Current Medications Acetaminophen (Tylenol 650 Mg Supp) 650 mg [place] Q6 PRN PRN Reason: Fever >100.4 F Acetaminophen (Tylenol 325mg Tab) 650 mg PO Q6 PRN PRN Reason: Pain, Mild (1-3) Last Admin: 07/03/17 22:05 Dose: 650 mg Bacitracin (Bacitracin Oint) 1 applic TOP BID [facility] Last Admin: 07/04/17 08:40 Dose: 1 applic Furosemide (Lasix) 20 mg PO DAILY [facility] Last Admin: 07/04/17 08:37 Dose: 20 mg Heparin Sodium (Porcine) (Heparin) 5,000 units SC Q12 [facility] PRN Reason: Protocol Last Admin: 07/04/17 08:38 Dose: 5,000 units Fluconazole (Diflucan Iv 100 Mg/50 Ml Ns) 50 mls @ 50 mls/hr IVPB DAILY [facility] PRN Reason: Protocol Last Admin: 07/04/17 08:39 Dose: 50 mls/hr Metronidazole (Flagyl 500mg/100ml Ns) 100 mls @ 100 mls/hr IVPB Q8 [facility] PRN Reason: Protocol Last Admin: 07/04/17 08:38 Dose: 100 mls/hr Piperacillin Sod/Tazobactam (Sod 3.375 gm/ Sodium Chloride) 100 mls @ 100 mls/ hr IVPB Q6 [facility] PRN Reason: Protocol Last Admin: 07/04/17 03:10 Dose: 100 mls/hr Levalbuterol HCl (Xopenex) 1.25 mg INH RQ8 [facility] Last Admin: 07/04/17 07:41 Dose: 1.25 mg Magnesium Oxide (Mag-Ox) 400 mg PO BID [facility] Last Admin: 07/04/17 08:37 Dose: 400 mg Metoprolol Tartrate (Lopressor) 2.5 mg IVP Q6 [facility] Last Admin: 06/22/17 05:07 Dose: Not Given Mirtazapine (Remeron) 15 mg PO HS [facility] Last Admin: 07/03/17 22:04 Dose: 15 mg Ondansetron HCl (Zofran Inj) 4 mg IVP Q6 PRN PRN Reason: Nausea/Vomiting Pantoprazole Sodium (Protonix Inj) 40 mg IVP DAILY [facility] Last Admin: 07/04/17 08:36 Dose: 40 mg Potassium Chloride (K-Dur 20 Meq Er Tab) 40 meq PO BID [facility] Last Admin: 07/04/17 08:39 Dose: 40 meq - Labs Labs: 07/03/17 06:30 07/03/17 06:30 PT 18.5 Seconds (9.8-13.1) H 06/29/17 05:45 INR 1.7 (0.9-1.2) H 06/29/17 05:45 APTT 34.3 Seconds (25.6-37.1) 06/29/17 05:45 - Constitutional Appears: No Acute Distress - Head Exam Head Exam: ATRAUMATIC, NORMAL INSPECTION, NORMOCEPHALIC - Eye Exam Eye Exam: EOMI, Normal appearance, PERRL Pupil Exam: NORMAL ACCOMODATION, PERRL - ENT Exam ENT Exam: Mucous Membranes Moist, Normal Exam - Neck Exam Neck Exam: Full ROM, Normal Inspection. absent: Lymphadenopathy - Respiratory Exam Respiratory Exam: Prolonged Expiratory Phase, NORMAL BREATHING PATTERN - Cardiovascular Exam Cardiovascular Exam: REGULAR RHYTHM, +S1, +S2. absent: Murmur - GI/Abdominal Exam GI & Abdominal Exam: Soft, Normal Bowel Sounds. absent: Tenderness - Rectal Exam Rectal Exam: NORMAL INSPECTION - Extremities Exam Extremities Exam: Full ROM, Normal Capillary Refill, Normal Inspection. absent : Joint Swelling, Pedal Edema - Back Exam Back Exam: NORMAL INSPECTION - Neurological Exam Neurological Exam: Alert, Awake, CN II-XII Intact, Oriented x3 - Psychiatric Exam Psychiatric exam: Normal Affect, Normal Mood - Skin Skin Exam: Dry, Intact, Normal Color, Warm Assessment and Plan - Assessment and Plan (Free Text) Assessment: PLEURAL EFFUSION IMPROVED Plan: WEAN OFF HIGH FLOW O2 PHYSICAL AND OCCUPATIONAL RX
--- NOTE | 2017-07-04 09:15 | CP.PCM.PN ---
Subjective - Date & Time of Evaluation Date of Evaluation: 07/04/17 Time of Evaluation: 09:00 - Subjective Subjective: Awake, alert, comfortable Afebrile with improving appetite Sinus rhythm at 90 BPM/ BP 126/80 mm Hg JVP flat, good air entry at both bases Abd soft, intestinal sounds normal Labs show no leucocytosis, stable Hb/HCT Normal BUN/ Creatinin and K+/Na+ Pt may be advanced off of telemetry floor for PT Objective - Vital Signs/Intake and Output Vital Signs (last 24 hours): Temp Pulse Resp BP Pulse Ox 98.8 F 103 H 20 128/73 99 07/04/17 08:00 07/04/17 08:00 07/04/17 08:17 07/04/17 08:37 07/04/17 08:00 Intake and Output: 07/04/17 07/04/17 06:59 18:59 Intake Total 1950 Output Total 400 Balance 1550 - Medications Medications: Current Medications Acetaminophen (Tylenol 650 Mg Supp) 650 mg [place] Q6 PRN PRN Reason: Fever >100.4 F Acetaminophen (Tylenol 325mg Tab) 650 mg PO Q6 PRN PRN Reason: Pain, Mild (1-3) Last Admin: 07/03/17 22:05 Dose: 650 mg Bacitracin (Bacitracin Oint) 1 applic TOP BID [facility] Last Admin: 07/04/17 08:40 Dose: 1 applic Furosemide (Lasix) 20 mg PO DAILY [facility] Last Admin: 07/04/17 08:37 Dose: 20 mg Heparin Sodium (Porcine) (Heparin) 5,000 units SC Q12 [facility] PRN Reason: Protocol Last Admin: 07/04/17 08:38 Dose: 5,000 units Fluconazole (Diflucan Iv 100 Mg/50 Ml Ns) 50 mls @ 50 mls/hr IVPB DAILY [facility] PRN Reason: Protocol Last Admin: 07/04/17 08:39 Dose: 50 mls/hr Metronidazole (Flagyl 500mg/100ml Ns) 100 mls @ 100 mls/hr IVPB Q8 [facility] PRN Reason: Protocol Last Admin: 07/04/17 08:38 Dose: 100 mls/hr Piperacillin Sod/Tazobactam (Sod 3.375 gm/ Sodium Chloride) 100 mls @ 100 mls/ hr IVPB Q6 [facility] PRN Reason: Protocol Last Admin: 07/04/17 03:10 Dose: 100 mls/hr Levalbuterol HCl (Xopenex) 1.25 mg INH RQ8 [facility] Last Admin: 07/04/17 07:41 Dose: 1.25 mg Magnesium Oxide (Mag-Ox) 400 mg PO BID [facility] Last Admin: 07/04/17 08:37 Dose: 400 mg Metoprolol Tartrate (Lopressor) 2.5 mg IVP Q6 [facility] Last Admin: 06/22/17 05:07 Dose: Not Given Mirtazapine (Remeron) 15 mg PO HS [facility] Last Admin: 07/03/17 22:04 Dose: 15 mg Ondansetron HCl (Zofran Inj) 4 mg IVP Q6 PRN PRN Reason: Nausea/Vomiting Pantoprazole Sodium (Protonix Inj) 40 mg IVP DAILY [facility] Last Admin: 07/04/17 08:36 Dose: 40 mg Potassium Chloride (K-Dur 20 Meq Er Tab) 40 meq PO BID [facility] Last Admin: 07/04/17 08:39 Dose: 40 meq - Labs Labs: 07/03/17 06:30 07/03/17 06:30 PT 18.5 Seconds (9.8-13.1) H 06/29/17 05:45 INR 1.7 (0.9-1.2) H 06/29/17 05:45 APTT 34.3 Seconds (25.6-37.1) 06/29/17 05:45
--- NOTE | 2017-07-04 15:38 | CP.PCM.PN ---
Subjective - Date & Time of Evaluation Date of Evaluation: 07/04/17 Time of Evaluation: 10:00 - Subjective Subjective: No fever Remains on High Flow Oxygen SOB very much better no CP appetite better still weak Dark greenish brown sudhir in Colostomy , more formed No N/V Objective - Vital Signs/Intake and Output Vital Signs (last 24 hours): Temp Pulse Resp BP Pulse Ox 98.2 F 92 H 20 117/75 100 07/04/17 15:35 07/04/17 15:35 07/04/17 15:35 07/04/17 15:35 07/04/17 15:35 Intake and Output: 07/04/17 07/04/17 06:59 18:59 Intake Total 1950 Output Total 400 Balance 1550 - Medications Medications: Current Medications Acetaminophen (Tylenol 650 Mg Supp) 650 mg [place] Q6 PRN PRN Reason: Fever >100.4 F Acetaminophen (Tylenol 325mg Tab) 650 mg PO Q6 PRN PRN Reason: Pain, Mild (1-3) Last Admin: 07/03/17 22:05 Dose: 650 mg Bacitracin (Bacitracin Oint) 1 applic TOP BID [facility] Last Admin: 07/04/17 08:40 Dose: 1 applic Furosemide (Lasix) 20 mg PO DAILY [facility] Last Admin: 07/04/17 08:37 Dose: 20 mg Heparin Sodium (Porcine) (Heparin) 5,000 units SC Q12 [facility] PRN Reason: Protocol Last Admin: 07/04/17 08:38 Dose: 5,000 units Fluconazole (Diflucan Iv 100 Mg/50 Ml Ns) 50 mls @ 50 mls/hr IVPB DAILY [facility] PRN Reason: Protocol Last Admin: 07/04/17 08:39 Dose: 50 mls/hr Metronidazole (Flagyl 500mg/100ml Ns) 100 mls @ 100 mls/hr IVPB Q8 [facility] PRN Reason: Protocol Last Admin: 07/04/17 08:38 Dose: 100 mls/hr Piperacillin Sod/Tazobactam (Sod 3.375 gm/ Sodium Chloride) 100 mls @ 100 mls/ hr IVPB Q6 [facility] PRN Reason: Protocol Last Admin: 07/04/17 10:53 Dose: 100 mls/hr Levalbuterol HCl (Xopenex) 1.25 mg INH RQ8 [facility] Last Admin: 07/04/17 07:41 Dose: 1.25 mg Magnesium Oxide (Mag-Ox) 400 mg PO BID [facility] Last Admin: 07/04/17 08:37 Dose: 400 mg Metoprolol Tartrate (Lopressor) 2.5 mg IVP Q6 [facility] Last Admin: 06/22/17 05:07 Dose: Not Given Mirtazapine (Remeron) 15 mg PO HS [facility] Last Admin: 07/03/17 22:04 Dose: 15 mg Ondansetron HCl (Zofran Inj) 4 mg IVP Q6 PRN PRN Reason: Nausea/Vomiting Pantoprazole Sodium (Protonix Inj) 40 mg IVP DAILY [facility] Last Admin: 07/04/17 08:36 Dose: 40 mg Potassium Chloride (K-Dur 20 Meq Er Tab) 40 meq PO BID [facility] Last Admin: 07/04/17 08:39 Dose: 40 meq - Labs Labs: 07/03/17 06:30 07/03/17 06:30 PT 18.5 Seconds (9.8-13.1) H 06/29/17 05:45 INR 1.7 (0.9-1.2) H 06/29/17 05:45 APTT 34.3 Seconds (25.6-37.1) 06/29/17 05:45 - Constitutional Appears: No Acute Distress, Chronically Ill - Head Exam Head Exam: NORMAL INSPECTION, NORMOCEPHALIC - Eye Exam Eye Exam: EOMI, Normal appearance Pupil Exam: NORMAL ACCOMODATION - ENT Exam ENT Exam: Mucous Membranes Moist, Normal External Ear Exam - Neck Exam Neck Exam: Full ROM. absent: Meningismus - Respiratory Exam Respiratory Exam: Rales, Rhonchi. absent: Wheezes Additional comments: on High Flow Oxygen - Cardiovascular Exam Cardiovascular Exam: REGULAR RHYTHM, +S1, +S2 Additional comments: + Pacemaker - GI/Abdominal Exam GI & Abdominal Exam: Distended, Soft, Tenderness Additional comments: Colostomy bag with dark brown stool surgical scar intact with nydia - Extremities Exam Extremities Exam: Full ROM, Normal Capillary Refill. absent: Calf Tenderness, Pedal Edema - Back Exam Back Exam: absent: CVA tenderness (L), CVA tenderness (R) - Neurological Exam Neurological Exam: Alert, Awake, CN II-XII Intact Neuro motor strength exam: Left Upper Extremity: 5, Right Upper Extremity: 5, Left Lower Extremity: 5, Right Lower Extremity: 5 - Psychiatric Exam Psychiatric exam: Normal Affect, Normal Mood - Skin Skin Exam: Dry, Normal Color, Warm Assessment and Plan (1) Septic shock Status: Acute (2) Perforated sigmoid colon Status: Acute (3) ALBER (acute kidney injury) Status: Acute (4) History of cardiac arrhythmia Status: Chronic (5) Thrombocytopenia Status: Acute (6) Shock liver Status: Acute (7) Hypokalemia Status: Acute (8) Hypomagnesemia Status: Acute - Assessment and Plan (Free Text) Assessment: 86y/o lady with hx of Cardiac Arrhythmia s/p PPM , on Xarelto , came in because of abdominal pain. CT of abdomen showed Perforated Sigmoid Diverticulitis Initially admitted to [facility] , started on IVF fluid and IV antibiotics, Surgery consulted. Pt then had [employer] for Hypotension - transferred to ICU - started on IVF and Levophed. Patient was taken to OR 06/23 by surgery and underwent colon resection with colostomy . At present, she is hemodynamically stable, afebrile, with output from colostomy and tolerating Regular diet. Currently on high flow Oxygen FIO2 70 % 30 LPM due to respiratory distress. 1. Septic shock sec to perforated sigmoid Diverticulitis Acute s/p colon resection with colostomy performed 06/23. Surgery following colostomy bag to LLQ with brownish liquid output . Bowel sounds +, tolerating diet Was on levophed drip initially ( admission)but at present maintaining her BP without pressors , afebrile On Zosyn , Flagyl and diflucan ESBL E coli on Wound c/s ( small area in surgical wound had some drainage) sensitive to Zosyn. Packing removed RLQ drain also removed 2.Perforated sigmoid colon s/p Colon Resection with Colostomy Acute as above s/p colon resection with colostomy switched diet to finely chopped Start PT , out of bed to chair 3. Respiratory insufficiency Pt was not extubated post surgery , s/p extubation 06/25 06/26 with respiratory distress most likely secondary to volume overload and bilateral pleural effusion. Possible mucus plugging as well seen on CT still on high flow FIO2 70 % 30 LPM O2 - discussed with Dr Hidalgo - plan to rpt ABG then change to NC if possible Repeat CXR showed moderate right pleural effusion s/p right thoracentesis with removal 500 ml fluid continue Xopenex and Lasix Incentive Spirometry Serial CXR 4. Bilateral pleural effusion s/p Thoracentesis as above 5. ALBER (acute kidney injury)-improved Acute likely sec to Sepsis initially oliguric,but at present with good urine output and renal function is normal 6.Anemia of acute blood loss Hgb dropped from 12-- 10.9 s/p 2 unit PRBC transfusion Hem/on consulted Dr. Blanchard continue to monitor 7. Thrombocytopenia/ Coagulopathy, improved prob sec to Sepsis resolved INR=1.7 on admission ( patient also was on xarelto ) s/p 1 unit Platelet transfusion and 4 FFP Hematology consult with Dr Dawn Blanchard appreciated Given DDAVP and Vit K 10 mg IV preop to correct anticoagulation since patient was on xarelto 8. History of cardiac arrhythmia Chronic unclear cardiac diagnosis hx of Pacemaker placement pt was on Xarelto at home , now on hold Cardiology consulted- Dr Blanchard 9. Abn LFT sec to Shock liver improving 10.Hypokalemia- Severe secondary to poor PO intake and GI losses Continue K supplements repeat In AM 11. Hypertension controlled without meds Home medications Norvasc, Coreg, HCTZ/ valsartan - on hold , BP normal 12.DVT prophylaxis SCD Heparin, will restart NOAC on dc
[2017-07-04 16:10] LABS: ABG ALLEN TEST YES; ARTERIAL BLOOD FLOW 30; ARTERIAL BLOOD GAS HCO3 32.4 mmol/L (21-28); ARTERIAL BLOOD GAS O2 CONTENT 15.7 ML/dL (15-23); ARTERIAL BLOOD GAS PH 7.48 (7.35-7.45); ARTERIAL BLOOD GAS PO2 122 mm/Hg (80-100); CARBOXYHEMOGLOBIN 1.1 % (0.5-1.5); HHB 1.6 % (0.0-5.0); METHEMOGLOBIN 1.4 % (0.0-3.0)
[2017-07-05] MEDS: metroNIDAZOLE 500mg/100ml NS 100 ML IVPB SCH ×2 (00:27→08:00)
[2017-07-05] MEDS: Levalbuterol 1.25 MG/3 ML Inhal Soln UD INH SCH ×2 (01:01→07:58)
[2017-07-05] MEDS: Piperacillin/Tazobact 3.375 GM in Sodium Chloride 0.9% 100 ML IVPB SCH ×2 (04:56→09:23)
[2017-07-05 05:30] VITALS: O2SAT 99
[2017-07-05 08:27] VITALS: RESP 20
--- NOTE | 2017-07-05 09:07 | CP.PCM.PN ---
Subjective - Date & Time of Evaluation Date of Evaluation: 07/05/17 Time of Evaluation: 09:07 - Subjective Subjective: FEELS BETTER NO CHEST PAINS SOB IMPROVED ABGS ADEQUATE Objective - Vital Signs/Intake and Output Vital Signs (last 24 hours): Temp Pulse Resp BP Pulse Ox 97.8 F 107 H 20 133/80 99 07/05/17 08:29 07/05/17 08:29 07/05/17 08:29 07/05/17 08:29 07/05/17 08:29 - Medications Medications: Current Medications Acetaminophen (Tylenol 650 Mg Supp) 650 mg [place] Q6 PRN PRN Reason: Fever >100.4 F Acetaminophen (Tylenol 325mg Tab) 650 mg PO Q6 PRN PRN Reason: Pain, Mild (1-3) Last Admin: 07/03/17 22:05 Dose: 650 mg Bacitracin (Bacitracin Oint) 1 applic TOP BID [facility] Last Admin: 07/04/17 17:10 Dose: 1 applic Furosemide (Lasix) 20 mg PO DAILY [facility] Last Admin: 07/04/17 08:37 Dose: 20 mg Heparin Sodium (Porcine) (Heparin) 5,000 units SC Q12 [facility] PRN Reason: Protocol Last Admin: 07/04/17 21:40 Dose: 5,000 units Fluconazole (Diflucan Iv 100 Mg/50 Ml Ns) 50 mls @ 50 mls/hr IVPB DAILY [facility] PRN Reason: Protocol Last Admin: 07/04/17 08:39 Dose: 50 mls/hr Metronidazole (Flagyl 500mg/100ml Ns) 100 mls @ 100 mls/hr IVPB Q8 [facility] PRN Reason: Protocol Last Admin: 07/05/17 00:27 Dose: 100 mls/hr Piperacillin Sod/Tazobactam (Sod 3.375 gm/ Sodium Chloride) 100 mls @ 100 mls/ hr IVPB Q6 [facility] PRN Reason: Protocol Last Admin: 07/05/17 04:56 Dose: 100 mls/hr Levalbuterol HCl (Xopenex) 1.25 mg INH RQ8 [facility] Last Admin: 07/05/17 07:58 Dose: 1.25 mg Magnesium Oxide (Mag-Ox) 400 mg PO BID [facility] Last Admin: 07/04/17 16:51 Dose: 400 mg Metoprolol Tartrate (Lopressor) 2.5 mg IVP Q6 [facility] Last Admin: 06/22/17 05:07 Dose: Not Given Mirtazapine (Remeron) 15 mg PO HS [facility] Last Admin: 07/04/17 21:40 Dose: 15 mg Ondansetron HCl (Zofran Inj) 4 mg IVP Q6 PRN PRN Reason: Nausea/Vomiting Pantoprazole Sodium (Protonix Inj) 40 mg IVP DAILY [facility] Last Admin: 07/04/17 08:36 Dose: 40 mg Potassium Chloride (K-Dur 20 Meq Er Tab) 40 meq PO BID [facility] Last Admin: 07/04/17 16:51 Dose: 40 meq - Labs Labs: 07/03/17 06:30 07/03/17 06:30 PT 18.5 Seconds (9.8-13.1) H 06/29/17 05:45 INR 1.7 (0.9-1.2) H 06/29/17 05:45 APTT 34.3 Seconds (25.6-37.1) 06/29/17 05:45 - Constitutional Appears: No Acute Distress - Head Exam Head Exam: ATRAUMATIC, NORMAL INSPECTION, NORMOCEPHALIC - Eye Exam Eye Exam: EOMI, Normal appearance, PERRL Pupil Exam: NORMAL ACCOMODATION, PERRL - ENT Exam ENT Exam: Mucous Membranes Moist, Normal Exam - Neck Exam Neck Exam: Full ROM, Normal Inspection. absent: Lymphadenopathy - Respiratory Exam Respiratory Exam: Clear to Ausculation Bilateral, NORMAL BREATHING PATTERN - Cardiovascular Exam Cardiovascular Exam: REGULAR RHYTHM, +S1, +S2. absent: Murmur - GI/Abdominal Exam GI & Abdominal Exam: Soft, Normal Bowel Sounds. absent: Tenderness - Rectal Exam Rectal Exam: NORMAL INSPECTION - Extremities Exam Extremities Exam: Full ROM, Normal Capillary Refill, Normal Inspection. absent : Joint Swelling, Pedal Edema - Back Exam Back Exam: NORMAL INSPECTION - Neurological Exam Neurological Exam: Alert, Awake, CN II-XII Intact, Normal Gait, Oriented x3 - Psychiatric Exam Psychiatric exam: Normal Affect, Normal Mood - Skin Skin Exam: Dry, Intact, Normal Color, Warm Assessment and Plan - Assessment and Plan (Free Text) Assessment: PLEURAL EFFUSION WITH RESPIRATORY INSUFFICIENCY IMPROVED Plan: CHANGE O2 TO NC OK TO TRANSFER OFF TELEMETRY INCREASE ACTIVITY
--- NOTE | 2017-07-05 09:07 | CP.PCM.PN ---
Subjective - Date & Time of Evaluation Date of Evaluation: 07/05/17 Time of Evaluation: 08:50 - Subjective Subjective: Had a [id number] night Ate well for breakfast Denies dyspnoea, still has mildly productive cough Afebrile Sinus rhythm at 88 BPM BP 130/70 mm Hg Chest: good air entry at both bases Scattered rhonchi and basal crepitations+ Abd soft, colostomy functions well Labs: Stable Pt should have Harris cath removed and go to rehab unit Discussed with Dr. Hidalgo Objective - Vital Signs/Intake and Output Vital Signs (last 24 hours): Temp Pulse Resp BP Pulse Ox 97.8 F 107 H 20 133/80 99 07/05/17 08:29 07/05/17 08:29 07/05/17 08:29 07/05/17 08:29 07/05/17 08:29 - Medications Medications: Current Medications Acetaminophen (Tylenol 650 Mg Supp) 650 mg DE Q6 PRN PRN Reason: Fever >100.4 F Acetaminophen (Tylenol 325mg Tab) 650 mg PO Q6 PRN PRN Reason: Pain, Mild (1-3) Last Admin: 07/03/17 22:05 Dose: 650 mg Bacitracin (Bacitracin Oint) 1 applic TOP BID [facility] Last Admin: 07/04/17 17:10 Dose: 1 applic Furosemide (Lasix) 20 mg PO DAILY [facility] Last Admin: 07/04/17 08:37 Dose: 20 mg Heparin Sodium (Porcine) (Heparin) 5,000 units SC Q12 TERRY PRN Reason: Protocol Last Admin: 07/04/17 21:40 Dose: 5,000 units Fluconazole (Diflucan Iv 100 Mg/50 Ml Ns) 50 mls @ 50 mls/hr IVPB DAILY TERRY PRN Reason: Protocol Last Admin: 07/04/17 08:39 Dose: 50 mls/hr Metronidazole (Flagyl 500mg/100ml Ns) 100 mls @ 100 mls/hr IVPB Q8 TERRY PRN Reason: Protocol Last Admin: 07/05/17 00:27 Dose: 100 mls/hr Piperacillin Sod/Tazobactam (Sod 3.375 gm/ Sodium Chloride) 100 mls @ 100 mls/ hr IVPB Q6 TERRY PRN Reason: Protocol Last Admin: 07/05/17 04:56 Dose: 100 mls/hr Levalbuterol HCl (Xopenex) 1.25 mg INH RQ8 [facility] Last Admin: 07/05/17 07:58 Dose: 1.25 mg Magnesium Oxide (Mag-Ox) 400 mg PO BID [facility] Last Admin: 07/04/17 16:51 Dose: 400 mg Metoprolol Tartrate (Lopressor) 2.5 mg IVP Q6 [facility] Last Admin: 06/22/17 05:07 Dose: Not Given Mirtazapine (Remeron) 15 mg PO HS [facility] Last Admin: 07/04/17 21:40 Dose: 15 mg Ondansetron HCl (Zofran Inj) 4 mg IVP Q6 PRN PRN Reason: Nausea/Vomiting Pantoprazole Sodium (Protonix Inj) 40 mg IVP DAILY [facility] Last Admin: 07/04/17 08:36 Dose: 40 mg Potassium Chloride (K-Dur 20 Meq Er Tab) 40 meq PO BID [facility] Last Admin: 07/04/17 16:51 Dose: 40 meq - Labs Labs: 07/03/17 06:30 07/03/17 06:30 PT 18.5 Seconds (9.8-13.1) H 06/29/17 05:45 INR 1.7 (0.9-1.2) H 06/29/17 05:45 APTT 34.3 Seconds (25.6-37.1) 06/29/17 05:45
[2017-07-05] MEDS: Bacitracin OINT 15GM TOP SCH (09:20)
[2017-07-05] MEDS: Potassium Chloride 20 mEq ER Tab PO SCH (09:24)
[2017-07-05] MEDS: Magnesium Oxide 400 mg Tab UD PO SCH (09:24)
--- NOTE | 2017-07-05 09:35 | CP.PCM.DIS ---
Provider - Provider Date of Admission: 06/21/17 20:17 Attending physician: Jerald Haynes Primary care physician: Dr Luz Romo Consults: Surgery : Dr Medley Pulm: Dr Hidalgo Cardio: Dr Zunilda Blanchard Hematology: Dr Dawn Blanchard ID : DR Rice Time Spent in preparation of Discharge (in minutes): 40 Diagnosis - Discharge Diagnosis (1) Septic shock Status: Acute (2) Perforated sigmoid colon Status: Acute (3) ALBER (acute kidney injury) Status: Acute (4) History of cardiac arrhythmia Status: Chronic (5) Thrombocytopenia Status: Acute (6) Shock liver Status: Acute (7) Hypokalemia Status: Acute (8) Hypomagnesemia Status: Acute (9) Respiratory insufficiency Status: Acute (10) Pleural effusion Status: Acute Hospital Course - Lab Results Lab Results: Micro Results 07/01/17 14:30 Body Fluid - Lung-Right Gram Stain - Final 07/01/17 14:30 Body Fluid - Lung-Right Body Fluid Culture - Preliminary NO GROWTH AFTER 3 DAYS 06/29/17 15:46 Urine,Clean Catch Urine Culture - Final No Growth (<1,000 CFU/ML) 06/26/17 21:20 Nose MRSA Culture (Admit) - Final MRSA NOT DETECTED 06/21/17 20:35 Blood Blood Culture - Final NO GROWTH AFTER 5 DAYS 06/21/17 20:35 Blood Gram Stain - Final TEST NOT PERFORMED 06/21/17 20:15 Blood Blood Culture - Final NO GROWTH AFTER 5 DAYS 06/21/17 20:15 Blood Gram Stain - Final TEST NOT PERFORMED 06/24/17 14:00 Sputum Gram Stain - Final 06/24/17 14:00 Sputum Sputum Culture - Final NORMAL ORAL BRITTNEY 06/23/17 16:54 Other: Please Indicate Gram Stain - Final 06/23/17 16:54 Other: Please Indicate Wound Culture - Final Escherichia Coli 06/21/17 18:30 Urine,Catheterized Urine Culture - Final No Growth (<1,000 CFU/ML) 06/22/17 11:24 Naris MRSA Culture (Admit) - Final MRSA NOT DETECTED Most Recent Lab Values WBC 8.8 K/uL (4.8-10.8) 07/03/17 06:30 RBC 3.61 Mil/uL (3.80-5.20) L 07/03/17 06:30 Hgb 10.8 g/dL (12.0-16.0) L 07/03/17 06:30 Hct 33.1 % (34.0-47.0) L 07/03/17 06:30 MCV 91.7 fl (81.0-99.0) 07/03/17 06:30 MCH 30.0 pg (27.0-31.0) 07/03/17 06:30 MCHC 32.7 g/dL (33.0-37.0) L 07/03/17 06:30 RDW 14.2 % (11.5-14.5) 07/03/17 06:30 Plt Count 217 K/uL (130-400) 07/03/17 06:30 MPV 10.5 fl (7.2-11.7) 07/02/17 05:30 Neut % (Auto) 80.6 % (50.0-75.0) H 07/02/17 05:30 Lymph % (Auto) 10.1 % (20.0-40.0) L 07/02/17 05:30 [place] % (Auto) 6.3 % (0.0-10.0) 07/02/17 05:30 Eos % (Auto) 2.6 % (0.0-4.0) 07/02/17 05:30 Baso % (Auto) 0.4 % (0.0-2.0) 07/02/17 05:30 Neut # 7.4 K/uL (1.8-7.0) H 07/02/17 05:30 Lymph # 0.9 K/uL (1.0-4.3) L 07/02/17 05:30 [place] # 0.6 K/uL (0.0-0.8) 07/02/17 05:30 Eos # 0.2 K/uL (0.0-0.7) 07/02/17 05:30 Baso # 0.0 K/uL (0.0-0.2) 07/02/17 05:30 Neutrophils % (Manual) 83 % (42-75) H 06/23/17 04:20 Band Neutrophils % 5 % (0-2) H 06/23/17 04:20 Lymphocytes % (Manual) 10 % (20-50) L 06/23/17 04:20 Monocytes % (Manual) 1 % (0-10) 06/23/17 04:20 Metamyelocytes % 1 % (0-0) H 06/23/17 04:20 Toxic Granulation Present 06/23/17 04:20 Platelet Estimate Decreased (NORMAL) L 06/23/17 04:20 Large Platelets Present 06/22/17 04:40 Hypochromasia (manual) Slight 06/23/17 04:20 Tear Drop Cells Slight 06/22/17 04:40 Ovalocytes Slight 06/23/17 04:20 [place] Cells Slight 06/22/17 04:40 Schistocytes Slight 06/22/17 04:40 PT 18.5 Seconds (9.8-13.1) H 06/29/17 05:45 INR 1.7 (0.9-1.2) H 06/29/17 05:45 APTT 34.3 Seconds (25.6-37.1) 06/29/17 05:45 pCO2 46 mm/Hg (35-45) H 07/04/17 16:02 pO2 122 mm/Hg (80-100) H 07/04/17 16:02 HCO3 32.4 mmol/L (21-28) H 07/04/17 16:02 ABG pH 7.48 (7.35-7.45) H 07/04/17 16:02 ABG Total CO2 35.7 mmol/L (22-28) H 07/04/17 16:02 ABG O2 Saturation 98.4 % (95-98) H 07/04/17 16:02 ABG O2 Content 15.7 ML/dL (15-23) 07/04/17 16:02 ABG Base Excess 9.6 mmol/L (-2.0-3.0) H 07/04/17 16:02 ABG Hemoglobin 11.5 g/dL (11.7-17.4) L 07/04/17 16:02 ABG Carboxyhemoglobin 1.1 % (0.5-1.5) 07/04/17 16:02 POC ABG HHb (Measured) 1.6 % (0.0-5.0) 07/04/17 16:02 ABG Methemoglobin 1.4 % (0.0-3.0) 07/04/17 16:02 ABG O2 Capacity 16.0 mL/dL (16-24) 07/04/17 16:02 Rich Test Yes 07/04/17 16:02 ABG Potassium 3.0 mmol/L (3.6-5.2) L 06/24/17 05:32 VBG pH 7.29 (7.32-7.43) L 06/23/17 05:16 VBG pCO2 44 mmHg (40-60) 06/23/17 05:16 VBG HCO3 19.9 mmol/L 06/23/17 05:16 VBG Total CO2 22.6 mmol/L (22-28) 06/23/17 05:16 VBG O2 Sat (Calc) 79.9 % (40-65) H 06/23/17 05:16 VBG Base Excess -5.3 mmol/L (0.0-2.0) L 06/23/17 05:16 VBG Potassium 3.8 mmol/L (3.6-5.2) 06/23/17 05:16 A-a O2 Difference 320.0 mm/Hg 07/04/17 16:02 Hgb O2 Saturation 96.0 % (95.0-98.0) 07/04/17 16:02 Sodium 139.0 mmol/L (132-148) 06/24/17 05:32 Chloride 111.0 mmol/L (98-107) H 06/24/17 05:32 Glucose 106 mg/dL (65-105) H 06/24/17 05:32 Lactate 1.2 mmol/L (0.7-2.1) 06/24/17 05:32 Liter Flow 30 07/04/17 16:02 Vent Mode Hfov 07/03/17 04:57 Mechanical Rate 12 06/24/17 05:32 FiO2 70.0 % 07/04/17 16:02 Tidal Volume 450 06/24/17 05:32 PEEP 4 06/24/17 05:32 Crit Value Called To Zoey sims 06/28/17 20:55 Crit Value Called By Aracely 06/28/17 20:55 Crit Value Read Back Y 06/28/17 20:55 Blood Gas Notified Time 205606/28/17 20:55 Sodium 135 mmol/l (132-148) 07/03/17 06:30 Potassium 4.4 MMOL/L (3.6-5.0) 07/03/17 06:30 Chloride 96 mmol/L (98-107) L 07/03/17 06:30 Carbon Dioxide 33 mmol/L (22-30) H 07/03/17 06:30 Anion Gap 10 (10-20) 07/03/17 06:30 BUN 9 mg/dl (7-17) 07/03/17 06:30 Creatinine 0.8 mg/dl (0.7-1.2) 07/03/17 06:30 Est GFR ( Amer) > 60 07/03/17 06:30 Est GFR (Non-Af Amer) > 60 07/03/17 06:30 POC Glucose (mg/dL) 121 mg/dL (65-110) H 06/22/17 03:02 Random Glucose 101 mg/dL (65-105) 07/03/17 06:30 Lactic Acid 1.8 MMOL/L (0.7-2.1) 06/24/17 05:30 Calcium 8.4 mg/dL (8.4-10.2) 07/03/17 06:30 Phosphorus 2.4 mg/dl (2.5-4.5) L 07/02/17 05:30 Magnesium 1.7 MG/DL (1.6-2.3) 07/02/17 05:30 Total Bilirubin 0.6 mg/dl (0.2-1.3) 06/29/17 05:45 AST 22 U/L (14-36) 06/29/17 05:45 ALT 64 U/L (9-52) H 06/29/17 05:45 Alkaline Phosphatase 66 U/L (38-126) 06/29/17 05:45 NT-Pro-B Natriuret Pep 85024 pg/ml (0-900) H 06/28/17 09:36 Total Protein 5.3 G/DL (6.3-8.2) L 06/29/17 05:45 Albumin 2.7 g/dL (3.5-5.0) L 06/29/17 05:45 Globulin 2.6 gm/dL (2.2-3.9) 06/29/17 05:45 Albumin/Globulin Ratio 1.1 (1.0-2.1) 06/29/17 05:45 Procalcitonin 33.88 NG/ML (0.19-0.49) H 06/23/17 04:20 Arterial Blood Potassium 3.0 mmol/L (3.6-5.2) L 06/24/17 05:32 Venous Blood Potassium 3.8 mmol/L (3.6-5.2) 06/23/17 05:16 Urine Color Straw (YELLOW) 06/29/17 15:46 Urine Clarity Clear (Clear) 06/29/17 15:46 Urine pH 6.0 (5.0-8.0) 06/29/17 15:46 Ur Specific [place] 1.012 (1.003-1.030) 06/29/17 15:46 Urine Protein Negative mg/dL (NEGATIVE) 06/29/17 15:46 Urine Glucose (UA) Neg mg/dL (Normal) 06/29/17 15:46 Urine Ketones Negative mg/dL (NEGATIVE) 06/29/17 15:46 Urine Blood Small (NEGATIVE) 06/29/17 15:46 Urine Nitrate Negative (NEGATIVE) 06/29/17 15:46 Urine Bilirubin Negative (NEGATIVE) 06/29/17 15:46 Urine Urobilinogen 0.2-1.0 mg/dL (0.2-1.0) 06/29/17 15:46 Ur Leukocyte Esterase Neg [place]/uL (Negative) 06/29/17 15:46 Urine RBC (Auto) 2 /hpf (0-3) 06/29/17 15:46 Urine Microscopic WBC 1 /hpf (0-5) 06/29/17 15:46 Ur Squamous Epith Cells 3 /hpf (0-5) 06/29/17 15:46 Urine Bacteria Rare (<OCC) 06/29/17 15:46 Fluid Source Pleural/thoracentesi 07/01/17 14:30 Fluid Appearance Sl cloudy (CLEAR) 07/01/17 14:30 Fluid WBC 119.0 /mm3 (0.0-300.0) 07/01/17 14:30 Fluid RBC 679.0 /mm3 (0.0-0.0) H 07/01/17 14:30 Fluid Tot Cell Count 100 (0-0) H 07/01/17 14:30 Fluid Neutrophils 30.0 % (0-0) H 07/01/17 14:30 Fluid Lymphocytes 50.0 % (0-0) H 07/01/17 14:30 Fld Monocyte/Macrophag 20 % (0-0) H 07/01/17 14:30 Fluid Glucose 129 mg/dL (NONE ESTABLISHED) 07/01/17 14:30 Fluid Total Protein < 2.0 g/dL (NONE ESTABLISHED) 07/01/17 14:30 Fluid LDH 542 IU (NONE ESTABLISHED) 07/01/17 14:30 Fluid Comment Yellowish 07/01/17 14:30 Blood Type O POSITIVE 06/21/17 21:30 Antibody Screen Negative 06/21/17 21:30 Crossmatch See Detail 06/21/17 21:30 BBK History Checked No verified bt 06/21/17 21:30 - Hospital Course Hospital Course: 86y/o lady with hx of Cardiac Arrhythmia s/p PPM , on Xarelto , came in because of abdominal pain. CT of abdomen showed Perforated Sigmoid Diverticulitis Initially admitted to [facility] , started on IVF fluid and IV antibiotics, Surgery consulted. Pt then had [employer] for Hypotension - transferred to ICU - started on IVF and Levophed. Patient was taken to OR 06/23 by surgery and underwent colon resection with colostomy . Her stay was complicated by episode of respiratory insufficiency sec to Pleural effusion/fluid overload. She was placed on High Flow Oxygen and had Thoracentesis. Her respiratory symptoms improved and she was weaned off High Flow and placed on NC 2 LPM At present, she is hemodynamically stable, afebrile, with output from colostomy and tolerating Regular diet. She is saturating fine on 2 liters NC. Plan for transfer to TCU for Physical therapy and to continue IV Zosyn for 5 more days . 1. Septic shock sec to perforated sigmoid Diverticulitis Acute s/p colon resection with colostomy performed 06/23. Surgery following colostomy bag with dark green brown stool . Bowel sounds +, tolerating diet Was on levophed drip initially ( on admission)but at present maintaining her BP without pressors , afebrile On Zosyn , Flagyl and diflucan ESBL E coli on Wound c/s ( small area in surgical wound had some drainage) sensitive to Zosyn. Packing removed RLQ drain also removed 2.Perforated sigmoid colon s/p Colon Resection with Colostomy Acute as above s/p colon resection with colostomy switched diet to finely chopped Start PT , out of bed to chair 3. Respiratory insufficiency Pt was not extubated post surgery , s/p extubation 06/25 06/26 with respiratory distress most likely secondary to volume overload and bilateral pleural effusion. Possible mucus plugging as well seen on CT High Flow changed to 2 LPM O2 per NC - saturation 96-98% s/p right thoracentesis with removal 500 ml fluid continue Xopenex and Lasix Incentive Spirometry 4. Bilateral pleural effusion s/p Thoracentesis as above 5. ALBER (acute kidney injury)-improved Acute likely sec to Sepsis initially oliguric,but at present with good urine output and renal function is normal 6.Anemia of acute blood loss Hgb dropped from 12-- 10.9 s/p 2 unit PRBC transfusion Hem/on consulted Dr. Blanchard continue to monitor 7. Thrombocytopenia/ Coagulopathy, improved prob sec to Sepsis resolved INR=1.7 on admission ( patient also was on xarelto ) s/p 1 unit Platelet transfusion and 4 FFP Hematology consult with Dr Dawn Blanchard appreciated Given DDAVP and Vit K 10 mg IV preop to correct anticoagulation since patient was on xarelto 8. History of cardiac arrhythmia Chronic unclear cardiac diagnosis hx of Pacemaker placement pt was on Xarelto at home -was held due to the surgery and coagulopathy - will restart Cardiology consulted- Dr Blanchard 9. Abn LFT sec to Shock liver improved 10.Hypokalemia secondary to poor PO intake and GI losses K supplements 11. Hypertension controlled without meds Home medications Norvasc, Coreg, HCTZ/ valsartan restart Coreg and Valsartan 12.DVT prophylaxis SCD Heparin, will restart NOAC on dc Discharge Exam - Head Exam Head Exam: ATRAUMATIC, NORMAL INSPECTION, NORMOCEPHALIC - Eye Exam Eye Exam: EOMI, Normal appearance Pupil Exam: NORMAL ACCOMODATION - ENT Exam ENT Exam: Mucous Membranes Moist, Normal External Ear Exam - Neck Exam Neck exam: Full Rom - Respiratory Exam Respiratory Exam: Rales, Rhonchi. absent: Wheezes, Respiratory Distress - Cardiovascular Exam Cardiovascular Exam: Tachycardia, REGULAR RHYTHM, +S1, +S2 - GI/Abdominal Exam GI & Abdominal Exam: Normal Bowel Sounds, Soft, Tenderness Additional comments: + Colostomy Surgical wound intact - Extremities Exam Extremities exam: normal capillary refill, pedal pulses present - Back Exam Back exam: absent: CVA tenderness (L), CVA tenderness (R), vertebral tenderness - Neurological Exam Neurological exam: Alert, CN II-XII Intact, Oriented x3, Reflexes Normal - Psychiatric Exam Psychiatric exam: Normal Affect, Normal Mood - Skin Skin Exam: Dry, Normal Color, Warm Discharge Plan - Discharge Medications Prescriptions: Fluconazole 100 mg PO DAILY #5 tablet Metronidazole [Flagyl] 500 mg PO TID #5 tablet Piperacill/Tazo 3.375gm in Dex [Zosyn 3.375 Gm IV] 3.375 gm IVPB Q8 5 Days bag - Follow Up Plan Condition: GOOD Disposition: TRANSF TO SNF Instructions: Diverticulitis (DC), Sepsis (GEN) Additional Instructions: d/c to TCU
--- NOTE | 2017-07-05 09:39 | CP.PCM.PN ---
<Bhavna Vila - Last Filed: 07/05/17 09:44> Subjective - Date & Time of Evaluation Date of Evaluation: 07/05/17 Time of Evaluation: 07:00 - Subjective Subjective: GENERAL SURGERY PROGRESS NOTE FOR DR. WEIR Patient seen and examined at bedside. She is on high flow O2, 20 LPM. She is tolerating her regular diet but not eating that much per pt. She denies nausea or vomiting. She denies abdominal pain except when she coughs. Objective - Vital Signs/Intake and Output Vital Signs (last 24 hours): Temp Pulse Resp BP Pulse Ox 97.8 F 107 H 20 133/80 99 07/05/17 08:29 07/05/17 08:29 07/05/17 08:29 07/05/17 09:24 07/05/17 08:29 - Medications Medications: Current Medications Acetaminophen (Tylenol 650 Mg Supp) 650 mg DC Q6 PRN PRN Reason: Fever >100.4 F Acetaminophen (Tylenol 325mg Tab) 650 mg PO Q6 PRN PRN Reason: Pain, Mild (1-3) Last Admin: 07/03/17 22:05 Dose: 650 mg Bacitracin (Bacitracin Oint) 1 applic TOP BID [facility] Last Admin: 07/05/17 09:20 Dose: 1 applic Carvedilol (Coreg) 3.125 mg PO Q12 TERRY Furosemide (Lasix) 20 mg PO DAILY [facility] Last Admin: 07/05/17 09:24 Dose: 20 mg Guaifenesin/Dextromethorphan (Robitussin Dm) 10 ml PO Q8 TERRY Heparin Sodium (Porcine) (Heparin) 5,000 units SC Q12 TERRY PRN Reason: Protocol Last Admin: 07/05/17 09:22 Dose: 5,000 units Fluconazole (Diflucan Iv 100 Mg/50 Ml Ns) 50 mls @ 50 mls/hr IVPB DAILY TERRY PRN Reason: Protocol Last Admin: 07/04/17 08:39 Dose: 50 mls/hr Metronidazole (Flagyl 500mg/100ml Ns) 100 mls @ 100 mls/hr IVPB Q8 TERRY PRN Reason: Protocol Last Admin: 07/05/17 08:00 Dose: 100 mls/hr Piperacillin Sod/Tazobactam (Sod 3.375 gm/ Sodium Chloride) 100 mls @ 100 mls/ hr IVPB Q6 [facility] PRN Reason: Protocol Last Admin: 07/05/17 09:23 Dose: 100 mls/hr Levalbuterol HCl (Xopenex) 1.25 mg INH RQ8 [facility] Last Admin: 07/05/17 07:58 Dose: 1.25 mg Magnesium Oxide (Mag-Ox) 400 mg PO BID [facility] Last Admin: 07/05/17 09:24 Dose: 400 mg Metoprolol Tartrate (Lopressor) 2.5 mg IVP Q6 [facility] Last Admin: 06/22/17 05:07 Dose: Not Given Mirtazapine (Remeron) 15 mg PO HS [facility] Last Admin: 07/04/17 21:40 Dose: 15 mg Ondansetron HCl (Zofran Inj) 4 mg IVP Q6 PRN PRN Reason: Nausea/Vomiting Pantoprazole Sodium (Protonix Inj) 40 mg IVP DAILY [facility] Last Admin: 07/05/17 09:24 Dose: 40 mg Potassium Chloride (K-Dur 20 Meq Er Tab) 40 meq PO BID [facility] Last Admin: 07/05/17 09:24 Dose: 40 meq - Labs Labs: 07/03/17 06:30 07/03/17 06:30 PT 18.5 Seconds (9.8-13.1) H 06/29/17 05:45 INR 1.7 (0.9-1.2) H 06/29/17 05:45 APTT 34.3 Seconds (25.6-37.1) 06/29/17 05:45 - Constitutional Appears: Non-toxic, No Acute Distress - Head Exam Head Exam: ATRAUMATIC, NORMAL INSPECTION - Eye Exam Eye Exam: EOMI, Normal appearance - Respiratory Exam Respiratory Exam: NORMAL BREATHING PATTERN (on high flow O2). absent: Respiratory Distress - Cardiovascular Exam Cardiovascular Exam: Tachycardia (mild), +S1, +S2 - GI/Abdominal Exam GI & Abdominal Exam: Soft. absent: Distended, Firm, Guarding, Rigid, Tenderness , Rebound Additional comments: Colostomy bag with soft, formed stool [place] in place over midline incision - Neurological Exam Neurological Exam: Alert, Awake, Oriented x3 - Psychiatric Exam Psychiatric exam: Normal Affect, Normal Mood - Skin Skin Exam: Dry, Normal Color, Warm Assessment and Plan - Assessment and Plan (Free Text) Assessment: 86yo F with perforated diverticulitis s/p colon resection with end colostomy POD #12 - Tolerating diet - Encourage IS use, OOB and ambulation - Doing physical therapy, pt needs to be OOB as much as possible - Continue antibiotics per ID, currently on Zosyn & Flagyl - Heparin for DVT prophylaxis - Clear for DC from surgical standpoint to rehab/TCU - Will remove nydia on POD#14 - Discussed plan with Dr. Carmella Vila PGY-3 <Jhon Weir - Last Filed: 07/05/17 12:59> Subjective - Date & Time of Evaluation Time of Evaluation: 11:00 - Subjective Subjective: Patient was seen and examined at the bedside. Agree with resident's note above. Objective - Vital Signs/Intake and Output Vital Signs (last 24 hours): Temp Pulse Resp BP Pulse Ox 98.7 F 110 H 20 149/83 99 07/05/17 12:33 07/05/17 12:33 07/05/17 12:33 07/05/17 12:33 07/05/17 12:33 - Medications Medications: Current Medications Acetaminophen (Tylenol 650 Mg Supp) 650 mg DC Q6 PRN PRN Reason: Fever >100.4 F Acetaminophen (Tylenol 325mg Tab) 650 mg PO Q6 PRN PRN Reason: Pain, Mild (1-3) Last Admin: 07/03/17 22:05 Dose: 650 mg Bacitracin (Bacitracin Oint) 1 applic TOP BID [facility] Last Admin: 07/05/17 09:20 Dose: 1 applic Carvedilol (Coreg) 3.125 mg PO Q12 TERRY Last Admin: 07/05/17 10:26 Dose: 3.125 mg Furosemide (Lasix) 20 mg PO DAILY TERRY Last Admin: 07/05/17 09:24 Dose: 20 mg Guaifenesin/Dextromethorphan (Robitussin Dm) 10 ml PO Q8 TERRY Last Admin: 07/05/17 10:27 Dose: 10 ml Heparin Sodium (Porcine) (Heparin) 5,000 units SC Q12 TERRY PRN Reason: Protocol Last Admin: 07/05/17 09:22 Dose: 5,000 units Fluconazole (Diflucan Iv 100 Mg/50 Ml Ns) 50 mls @ 50 mls/hr IVPB DAILY TERRY PRN Reason: Protocol Last Admin: 07/05/17 10:26 Dose: 50 mls/hr Metronidazole (Flagyl 500mg/100ml Ns) 100 mls @ 100 mls/hr IVPB Q8 TERRY PRN Reason: Protocol Last Admin: 07/05/17 08:00 Dose: 100 mls/hr Piperacillin Sod/Tazobactam (Sod 3.375 gm/ Sodium Chloride) 100 mls @ 100 mls/ hr IVPB Q6 TERRY PRN Reason: Protocol Last Admin: 07/05/17 09:23 Dose: 100 mls/hr Levalbuterol HCl (Xopenex) 1.25 mg INH RQ8 [facility] Last Admin: 07/05/17 07:58 Dose: 1.25 mg Magnesium Oxide (Mag-Ox) 400 mg PO BID [facility] Last Admin: 07/05/17 09:24 Dose: 400 mg Metoprolol Tartrate (Lopressor) 2.5 mg IVP Q6 [facility] Last Admin: 06/22/17 05:07 Dose: Not Given Mirtazapine (Remeron) 15 mg PO HS [facility] Last Admin: 07/04/17 21:40 Dose: 15 mg Ondansetron HCl (Zofran Inj) 4 mg IVP Q6 PRN PRN Reason: Nausea/Vomiting Pantoprazole Sodium (Protonix Inj) 40 mg IVP DAILY [facility] Last Admin: 07/05/17 09:24 Dose: 40 mg Potassium Chloride (K-Dur 20 Meq Er Tab) 40 meq PO BID [facility] Last Admin: 07/05/17 09:24 Dose: 40 meq - Labs Labs: 07/03/17 06:30 07/03/17 06:30 PT 18.5 Seconds (9.8-13.1) H 06/29/17 05:45 INR 1.7 (0.9-1.2) H 06/29/17 05:45 APTT 34.3 Seconds (25.6-37.1) 06/29/17 05:45
[2017-07-05] MEDS ORDERED: guaiFENesin DM 100 mg-10 mg/5 ml UD PO SCH (09:45)
[2017-07-05] MEDS ORDERED: guaiFENesin DM 200 mg-20 mg/10 ml UD PO SCH (10:00)
[2017-07-05] MEDS: Fluconazole IV 100mg/50 ml NS 50 ML IVPB SCH (10:26)
[2017-07-05 12:34] VITALS: BP 149/83; PULSE 110; TEMP 98.7
== END 2017-07-05 15:40 | DRG 853 ==
LOC: H.ER 14:39 → H.ERHOLD 20:17 → H.TEL 22:37 → H.ICU/CCU 06-22 05:44 → H.TEL 06-25 18:58 → H.ICU/CCU 06-25 19:59 → H.TEL 06-25 23:17
PROVIDERS: ADMIT Internal Medicine; ATTEND Internal Medicine
PROC: 30233L1 Transfusion of Nonautologous Fresh Plasma into Peripheral Vein, Percutaneous Approach (ICD-10-PCS; 2017-06-22)
PROC: 06HM33Z Insertion of Infusion Device into Right Femoral Vein, Percutaneous Approach (ICD-10-PCS; 2017-06-22)
PROC: 0D1N0Z4 Bypass Sigmoid Colon to Cutaneous, Open Approach (ICD-10-PCS; 2017-06-23)
PROC: 30233N1 Transfusion of Nonautologous Red Blood Cells into Peripheral Vein, Percutaneous Approach (ICD-10-PCS; 2017-06-23)
PROC: 5A1935Z Respiratory Ventilation, Less than 24 Consecutive Hours (ICD-10-PCS; 2017-06-23)
PROC: 0BH17EZ Insertion of Endotracheal Airway into Trachea, Via Natural or Artificial Opening (ICD-10-PCS; 2017-06-23)
PROC: 0DTN0ZZ Resection of Sigmoid Colon, Open Approach (ICD-10-PCS; principal; 2017-06-23 13:00)
PROC: 0W9930Z Drainage of Right Pleural Cavity with Drainage Device, Percutaneous Approach (ICD-10-PCS; 2017-07-01)
DX: A41.9 Sepsis, unspecified organism (principal); K72.00 Acute and subacute hepatic failure without coma; R65.21 Severe sepsis with septic shock; K57.20 Diverticulitis of large intestine with perforation and abscess without bleeding; J96.90 Respiratory failure, unspecified, unspecified whether with hypoxia or hypercapnia; J90 Pleural effusion, not elsewhere classified; D62 Acute posthemorrhagic anemia; E83.42 Hypomagnesemia; N17.9 Acute kidney failure, unspecified; K56.7 Ileus, unspecified; D68.9 Coagulation defect, unspecified; J98.11 Atelectasis; D69.59 Other secondary thrombocytopenia; E87.6 Hypokalemia; E86.0 Dehydration; E78.5 Hyperlipidemia, unspecified; N73.5 Female pelvic peritonitis, unspecified; E87.70 Fluid overload, unspecified; B96.20 Unspecified Escherichia coli [E. coli] as the cause of diseases classified elsewhere; I10 Essential (primary) hypertension; Z96.652 Presence of left artificial knee joint; Z95.810 Presence of automatic (implantable) cardiac defibrillator; T45.515A Adverse effect of anticoagulants, initial encounter; Z79.01 Long term (current) use of anticoagulants; Z79.82 Long term (current) use of aspirin

== ENCOUNTER 2017-07-04 15:33 | Inpatient (IN) | payer OTHER, MEDICARE, MEDICAID ==
[2017-07-05 15:00] VITALS: BMI 25.2
[2017-07-05] MEDS ORDERED: Patient's Own Med (Piperacill/Tazo 3.375gm In Dex [Zosyn 3.375 Gm Iv] 3.375 GM) IVPB SCH (17:00)
[2017-07-05] MEDS ORDERED: Piperacillin/Tazobact 3.375 GM in Sodium Chloride 0.9% 100 ML IVPB SCH (17:00)
[2017-07-05] MEDS ORDERED: guaiFENesin DM 100 mg-10 mg/5 ml UD PO SCH (17:00)
[2017-07-05] MEDS: Bacitracin OINT 15GM TOP SCH (17:17)
[2017-07-05] MEDS: Levalbuterol 1.25 MG/3 ML Inhal Soln UD INH SCH ×2 (19:02→23:01)
[2017-07-05 20:03] LABS: HEMOGLOBIN 11.4 g/dL (12.0-16.0); MEAN CELL VOLUME 91.3 fl (81.0-99.0); MEAN CORPUSCULAR HEMOGLOBIN 29.8 pg (27.0-31.0); MEAN CORPUSCULAR HGB CONC 32.7 g/dL (33.0-37.0); RBC 3.81 Mil/uL (3.80-5.20); RED CELL DISTRIBUTION WIDTH 14.1 % (11.5-14.5); WHITE BLOOD COUNT 10.6 K/uL (4.8-10.8)
[2017-07-05 20:05] LABS: BLOOD UREA NITROGEN 15 mg/dl (7-17); CALCIUM 8.6 mg/dL (8.4-10.2); GFR AFRICAN-AMERICAN > 60; GFR NON-AFRICAN AMERICAN 53
[2017-07-05] MEDS: Piperacillin/Tazobact 3.375 GM in Sodium Chloride 0.9% 100 ML IVPB SCH (21:37)
[2017-07-06] MEDS: guaiFENesin DM 200 mg-20 mg/10 ml UD PO SCH ×3 (00:19→17:25)
[2017-07-06] MEDS ORDERED: guaiFENesin DM 200 mg-20 mg/10 ml UD PO STA (03:42)
[2017-07-06] MEDS: Piperacillin/Tazobact 3.375 GM in Sodium Chloride 0.9% 100 ML IVPB SCH ×3 (04:27→21:33)
[2017-07-06 05:22] LABS: SQUAMOUS EPITHIAL 7 /hpf (0-5); URINE BILIRUBIN NEGATIVE (NEGATIVE); URINE BLOOD NEGATIVE (NEGATIVE); URINE CLARITY CLEAR (Clear); URINE COLOR YELLOW (YELLOW); URINE GLUCOSE (UA) NEG (Normal); URINE LEUKOCYTE ESTERASE NEG Leu/uL (Negative); URINE NITRATE NEGATIVE (NEGATIVE); URINE PROTEIN 30 mg/dL (NEGATIVE); URINE UROBILINOGEN 0.2-1.0 mg/dL (0.2-1.0)
[2017-07-06 06:38] LABS: HEMOGLOBIN 11.1 g/dL (12.0-16.0); MEAN CORPUSCULAR HEMOGLOBIN 30.2 pg (27.0-31.0); MEAN CORPUSCULAR HGB CONC 33.1 g/dL (33.0-37.0); RBC 3.69 Mil/uL (3.80-5.20); RED CELL DISTRIBUTION WIDTH 14.2 % (11.5-14.5); WHITE BLOOD COUNT 9.4 K/uL (4.8-10.8)
[2017-07-06 06:47] LABS: BLOOD UREA NITROGEN 15 mg/dl (7-17); CALCIUM 8.5 mg/dL (8.4-10.2); GFR AFRICAN-AMERICAN > 60; GFR NON-AFRICAN AMERICAN 60
[2017-07-06] MEDS: Levalbuterol 1.25 MG/3 ML Inhal Soln UD INH SCH ×3 (07:33→23:52)
[2017-07-06] MEDS: Artificial Tears Opht Soln OU SCH (09:01)
[2017-07-06] MEDS: Bacitracin OINT 15GM TOP SCH ×2 (09:01→17:24)
[2017-07-06] MEDS: Magnesium Oxide 400 mg Tab UD PO SCH (09:03)
--- NOTE | 2017-07-06 11:57 | CP.PCM.HP ---
History of Present Illness - History of Present Illness History of Present Illness: CC: HPI: 86y/o lady with hx of Cardiac Arrhythmia s/p PPM, on Xarelto, came in because of abdominal pain. CT of abdomen showed Perforated Sigmoid Diverticulitis. Initially admitted to [facility], started on IVF fluid and IV antibiotics, Surgery consulted. Pt then had OVEREDGER for Hypotension - transferred to ICU -started on IVF and Levophed. Patient to OR 06/23 by surgery and underwent colon resection with colostomy. Her stay was complicated by episode of respiratory insufficiency sec to Pleural effusion/fluid overload. She was placed on High Flow Oxygen and had Thoracentesis. Her respiratory symptoms improved and she was weaned off High Flow and placed on NC 2 LPM. At present, she is hemodynamically stable, afebrile, with output from colostomy and tolerating Regular diet. She is saturating well on 2 liters NC. Admit to TCU for Physical therapy and to continue IV Zosyn for 5 more days (until 07/10/17). ROS: per HPI ALL OTHER SYSTEMS REVIEWED AND NEG PMH: HTN; HLD; Cardiac dysrrhythmia on Xarelto; PSH: Varicose veins Stripping X4; Appendectomy; Cholecystectomy; Permanent Pace Maker Insertion;Umbilical and left inguinal hernia reapir with Mesh; Left Total Knee replacement SH: Never Smoked; no alcohol; no illegal drugs; Live alone FH: States: Unknown Family Hx Allergies: NKDA Medications: Reviewed VITALS REVIEWED EXAM: GEN: WDWN, ALERT, COOPERATIVE HEENT: NCAT, PERRL, EOMI HEART: +S1+S2, RRR NO MRG LUNG: CTAB, NO WRR ABD: SOFT BSX4 NT ND NO HSM NO MASS EXT: WARM, WELL PERFUSED NEURO: AA0X3, SENSATION EQUAL AND BILATERAL SKIN: WARM DRY PSYCH: NORMAL MOOD NORMAL AFFECT Most Recent Lab Values WBC 9.4 K/uL (4.8-10.8) 07/06/17 05:45 RBC 3.69 Mil/uL (3.80-5.20) L 07/06/17 05:45 Hgb 11.1 g/dL (12.0-16.0) L 07/06/17 05:45 Hct 33.6 % (34.0-47.0) L 07/06/17 05:45 MCV 91.0 fl (81.0-99.0) 07/06/17 05:45 MCH 30.2 pg (27.0-31.0) 07/06/17 05:45 MCHC 33.1 g/dL (33.0-37.0) 07/06/17 05:45 RDW 14.2 % (11.5-14.5) 07/06/17 05:45 Plt Count 258 K/uL (130-400) 07/06/17 05:45 Sodium 133 mmol/l (132-148) 07/06/17 05:45 Potassium 4.3 MMOL/L (3.6-5.0) 07/06/17 05:45 Chloride 97 mmol/L (98-107) L 07/06/17 05:45 Carbon Dioxide 32 mmol/L (22-30) H 07/06/17 05:45 Anion Gap 8 (10-20) L 07/06/17 05:45 BUN 15 mg/dl (7-17) 07/06/17 05:45 Creatinine 0.9 mg/dl (0.7-1.2) 07/06/17 05:45 Est GFR ( Amer) > 60 07/06/17 05:45 Est GFR (Non-Af Amer) 60 07/06/17 05:45 Random Glucose 124 mg/dL (65-105) H 07/06/17 05:45 Calcium 8.5 mg/dL (8.4-10.2) 07/06/17 05:45 Urine Color Yellow (YELLOW) 07/06/17 05:00 Urine Clarity Clear (Clear) 07/06/17 05:00 Urine pH 7.0 (5.0-8.0) 07/06/17 05:00 Ur Specific [place] 1.017 (1.003-1.030) 07/06/17 05:00 Urine Protein 30 mg/dL (NEGATIVE) 07/06/17 05:00 Urine Glucose (UA) Neg mg/dL (Normal) 07/06/17 05:00 Urine Ketones Negative mg/dL (NEGATIVE) 07/06/17 05:00 Urine Blood Negative (NEGATIVE) 07/06/17 05:00 Urine Nitrate Negative (NEGATIVE) 07/06/17 05:00 Urine Bilirubin Negative (NEGATIVE) 07/06/17 05:00 Urine Urobilinogen 0.2-1.0 mg/dL (0.2-1.0) 07/06/17 05:00 Ur Leukocyte Esterase Neg [place]/uL (Negative) 07/06/17 05:00 Urine RBC (Auto) 2 /hpf (0-3) 07/06/17 05:00 Urine Microscopic WBC 1 /hpf (0-5) 07/06/17 05:00 Ur Squamous Epith Cells 7 /hpf (0-5) H 07/06/17 05:00 C. difficile Ag & Toxin Negative (NEGATIVE) 07/05/17 18:00 86y/o lady with hx of Cardiac Arrhythmia s/p PPM, on Xarelto, came in because of abdominal pain. CT of abdomen showed Perforated Sigmoid Diverticulitis. Initially admitted to [facility], started on IVF fluid and IV antibiotics, Surgery consulted. Pt then had OVEREDGER for Hypotension - transferred to ICU -started on IVF and Levophed. Patient to OR 06/23 by surgery and underwent colon resection with colostomy. Her stay was complicated by episode of respiratory insufficiency sec to Pleural effusion/fluid overload. She was placed on High Flow Oxygen and had Thoracentesis. Her respiratory symptoms improved and she was weaned off High Flow and placed on NC 2 LPM. At present, she is hemodynamically stable, afebrile, with output from colostomy and tolerating Regular diet. She is saturating well on 2 liters NC. Admit to TCU for Physical therapy and to continue IV Zosyn for 5 more days (until 07/10/17). 1. Septic shock sec to perforated sigmoid Diverticulitis Acute s/p colon resection with colostomy performed 06/23. Surgery following colostomy bag with dark green brown stool . Bowel sounds +, tolerating diet Was on levophed drip initially ( on admission)but at present maintaining her BP without pressors , afebrile On Zosyn , Flagyl and diflucan ESBL E coli on Wound c/s ( small area in surgical wound had some drainage) sensitive to Zosyn. Packing removed RLQ drain also removed Zosyn 5 more days until 07/10/17. PT OT 2.Perforated sigmoid colon s/p Colon Resection with Colostomy Acute as above s/p colon resection with colostomy switched diet to finely chopped Start PT , out of bed to chair 3. Respiratory insufficiency Pt was not extubated post surgery , s/p extubation 06/25 06/26 with respiratory distress most likely secondary to volume overload and bilateral pleural effusion. Possible mucus plugging as well seen on CT High Flow changed to 2 LPM O2 per NC - saturation 96-98% s/p right thoracentesis with removal 500 ml fluid continue Xopenex and Lasix Incentive Spirometry 4. Bilateral pleural effusion s/p Thoracentesis as above 5. ALBER (acute kidney injury)-improved Acute likely sec to Sepsis initially oliguric,but at present with good urine output and renal function is normal 6.Anemia of acute blood loss Hgb dropped from 12-- 10.9 s/p 2 unit PRBC transfusion Hem/on consulted Dr. Blanchard continue to monitor 7. Thrombocytopenia/ Coagulopathy, improved prob sec to Sepsis resolved INR=1.7 on admission ( patient also was on xarelto ) s/p 1 unit Platelet transfusion and 4 FFP Hematology consult with Dr Dawn Blanchard appreciated Given DDAVP and Vit K 10 mg IV preop to correct anticoagulation since patient was on xarelto 8. History of cardiac arrhythmia Chronic unclear cardiac diagnosis hx of Pacemaker placement pt was on Xarelto at home -was held due to the surgery and coagulopathy - will restart Cardiology consulted- Dr Blanchard 9. Abn LFT sec to Shock liver improved 10.Hypokalemia secondary to poor PO intake and GI losses K supplements 11. Hypertension controlled without meds Home medications Norvasc, Coreg, HCTZ/ valsartan restart Coreg and Valsartan 12.DVT prophylaxis SCD Heparin, will restart NOAC on dc Present on Admission - Present on Admission Any Indicators Present on Admission: No Past Patient History - Past Medical History & Family History Past Medical History?: Yes - Past Social History Smoking Status: Never Smoked - CARDIAC Hx Cardia Arrhythmia: Yes Hx Hypercholesterolemia: Yes Hx Hypertension: Yes Hx Pacemaker: Yes - PULMONARY Hx Respiratory Disorders: No - NEUROLOGICAL Hx Neurological Disorder: No - HEENT Hx HEENT Problems: No - RENAL Hx Chronic Kidney Disease: No - ENDOCRINE/METABOLIC Hx Endocrine Disorders: No - HEMATOLOGICAL/ONCOLOGICAL Hx Blood Disorders: No - INTEGUMENTARY Hx Dermatological Problems: No - MUSCULOSKELETAL/RHEUMATOLOGICAL Hx Musculoskeletal Disorders: No Hx Falls: No - GASTROINTESTINAL Hx Gastrointestinal Disorders: No Hx Bowel Surgery: Yes Hx Diverticulitis: Yes Other/Comment: 06/23 laparotomy sigmoidectomy with colostomy. varicose vein stripping - GENITOURINARY/GYNECOLOGICAL Hx Genitourinary Disorders: No - PSYCHIATRIC Hx Psychophysiologic Disorder: No Hx Substance Use: No - SURGICAL HISTORY Hx Surgeries: Yes Hx Appendectomy: Yes Hx Cholecystectomy: Yes Hx Joint Replacement: Yes (left TKR) Other/Comment: umbilical and inginual hernia repair. thoracentesis. permament pacemaker - ANESTHESIA Hx Anesthesia: Yes Hx Anesthesia Reactions: No Hx Malignant Hyperthermia: No Meds Allergies/Adverse Reactions: Allergies Allergy/AdvReac Type Severity Reaction Status Date / Time No Known Allergies Allergy Verified 07/05/17 14:59 Results - Vital Signs Recent Vital Signs: Last Vital Signs Temp 98.4 F 07/06/17 08:17 Pulse 101 H 07/06/17 09:02 Resp 20 07/06/17 08:17 BP 112/63 07/06/17 09:03 Pulse Ox 99 07/06/17 08:17 - Labs Result Diagrams: 07/06/17 05:45 07/06/17 05:45 Labs: Laboratory Results - last 24 hr 07/05/17 07/05/17 07/05/17 18:00 19:30 19:30 WBC 10.6 RBC 3.81 Hgb 11.4 L Hct 34.8 MCV 91.3 MCH 29.8 MCHC 32.7 L RDW 14.1 Plt Count 253 Sodium 131 L Potassium 4.9 Chloride 95 L Carbon Dioxide 29 Anion Gap 12 BUN 15 Creatinine 1.0 Est GFR ( Amer) > 60 Est GFR (Non-Af Amer) 53 Random Glucose 168 H Calcium 8.6 Urine Color Urine Clarity Urine pH Ur Specific [place] Urine Protein Urine Glucose (UA) Urine Ketones Urine Blood Urine Nitrate Urine Bilirubin Urine Urobilinogen Ur Leukocyte Esterase Urine RBC (Auto) Urine Microscopic WBC Ur Squamous Epith Cells C. difficile Ag & Toxin Negative 07/06/17 07/06/17 07/06/17 05:00 05:45 05:45 WBC 9.4 RBC 3.69 L Hgb 11.1 L Hct 33.6 L MCV 91.0 MCH 30.2 MCHC 33.1 RDW 14.2 Plt Count 258 Sodium 133 Potassium 4.3 Chloride 97 L Carbon Dioxide 32 H Anion Gap 8 L BUN 15 Creatinine 0.9 Est GFR ( Amer) > 60 Est GFR (Non-Af Amer) 60 Random Glucose 124 H Calcium 8.5 Urine Color Yellow Urine Clarity Clear Urine pH 7.0 Ur Specific [place] 1.017 Urine Protein 30 Urine Glucose (UA) Neg Urine Ketones Negative Urine Blood Negative Urine Nitrate Negative Urine Bilirubin Negative Urine Urobilinogen 0.2-1.0 Ur Leukocyte Esterase Neg Urine RBC (Auto) 2 Urine Microscopic WBC 1 Ur Squamous Epith Cells 7 H C. difficile Ag & Toxin
[2017-07-06] MEDS: Pantoprazole 20 mg EC Tab PO SCH (21:37)
[2017-07-07] MEDS: guaiFENesin DM 200 mg-20 mg/10 ml UD PO SCH ×3 (02:25→16:48)
[2017-07-07] MEDS: Piperacillin/Tazobact 3.375 GM in Sodium Chloride 0.9% 100 ML IVPB SCH ×3 (05:26→22:01)
--- NOTE | 2017-07-07 08:05 | CP.PCM.PCO ---
Physician Communication Note - Physician Communication Note Physician Communication Note: Half of nydia removed, will come back in a few days to remove the rest
--- NOTE | 2017-07-07 08:20 | CP.PCM.PN ---
Subjective - Date & Time of Evaluation Date of Evaluation: 07/07/17 Time of Evaluation: 08:00 - Subjective Subjective: General surgery progress note for Dr. Valdemar Roldan, PGY-1 Pt S & E at bedside. Pt with fever over last 24H, Tmax 101.5, now in TCU for rehab. Ab pain much improved, pt continues to c/o of cough. Ostomy bag with small amount of dark brown pasty stool. Objective - Vital Signs/Intake and Output Vital Signs (last 24 hours): Temp Pulse Resp BP Pulse Ox 97.7 F 85 20 111/58 L 99 07/07/17 07:49 07/07/17 07:49 07/07/17 07:49 07/07/17 07:49 07/07/17 07:49 - Medications Medications: Current Medications Acetaminophen (Tylenol 325mg Tab) 650 mg PO Q6 PRN PRN Reason: Pain, Mild (1-3) Last Admin: 07/06/17 23:26 Dose: 650 mg Acetaminophen (Tylenol 650 Mg Supp) 650 mg NE Q6 PRN PRN Reason: Fever >100.4 F Last Admin: 07/05/17 16:28 Dose: 650 mg Artificial Tears (Artificial Tears) 2 drop OU DAILY [facility] Last Admin: 07/06/17 09:01 Dose: 2 drop Bacitracin (Bacitracin Oint) 1 applic TOP BID [facility] Last Admin: 07/06/17 17:24 Dose: 1 applic Carvedilol (Coreg) 6.25 mg PO Q12 [facility] Last Admin: 07/06/17 21:30 Dose: 6.25 mg Famotidine (Pepcid) 20 mg PO DAILY [facility] Last Admin: 07/06/17 09:03 Dose: 20 mg Ferrous Sulfate (Feosol) 325 mg PO DAILY [facility] Last Admin: 07/06/17 09:02 Dose: 325 mg Fluconazole (Diflucan) 100 mg PO DAILY [facility] PRN Reason: Protocol Stop: 07/10/17 09:01 Last Admin: 07/06/17 09:02 Dose: 100 mg Furosemide (Lasix) 20 mg PO DAILY [facility] Last Admin: 07/06/17 09:03 Dose: 20 mg Guaifenesin/Dextromethorphan (Robitussin Dm) 10 ml PO Q8 [facility] Last Admin: 07/07/17 02:25 Dose: Not Given Piperacillin Sod/Tazobactam (Sod 3.375 gm/ Sodium Chloride) 100 mls @ 100 mls/ hr IVPB Q8@0500,1300,2100 [facility] Last Admin: 07/07/17 05:26 Dose: 100 mls/hr Levalbuterol HCl (Xopenex) 1.25 mg INH RQ8 [facility] Last Admin: 07/06/17 23:52 Dose: 1.25 mg Magnesium Oxide (Mag-Ox) 400 mg PO DAILY [facility] Last Admin: 07/06/17 09:03 Dose: 400 mg Metronidazole (Flagyl) 500 mg PO TID [facility] PRN Reason: Protocol Stop: 07/07/17 09:01 Last Admin: 07/06/17 17:25 Dose: 500 mg Mirtazapine (Remeron) 15 mg PO HS [facility] Last Admin: 07/06/17 21:31 Dose: 15 mg Ondansetron HCl (Zofran Inj) 4 mg IVP Q4 PRN PRN Reason: Nausea/Vomiting Last Admin: 07/06/17 20:44 Dose: 4 mg Pantoprazole Sodium (Protonix Ec Tab) 20 mg PO [facility] Last Admin: 07/06/17 21:37 Dose: 20 mg Rivaroxaban (Xarelto) 15 mg PO QD5 [facility] PRN Reason: Protocol Last Admin: 07/06/17 17:25 Dose: 15 mg - Labs Labs: 07/06/17 05:45 07/06/17 05:45 - Constitutional Appears: Non-toxic, No Acute Distress - Head Exam Head Exam: ATRAUMATIC, NORMAL INSPECTION, NORMOCEPHALIC - Eye Exam Eye Exam: EOMI - ENT Exam ENT Exam: Mucous Membranes Moist, Normal Exam - Neck Exam Neck Exam: Full ROM - Respiratory Exam Respiratory Exam: NORMAL BREATHING PATTERN - Cardiovascular Exam Cardiovascular Exam: REGULAR RHYTHM - GI/Abdominal Exam GI & Abdominal Exam: Soft, Tenderness (minimally over surgical incision site). absent: Distended, Firm, Guarding Additional comments: Ostomy with small amount of dark brown pasty stool, stoma patent - Extremities Exam Extremities Exam: Normal Inspection - Neurological Exam Neurological Exam: Alert, Awake, Oriented x3 - Psychiatric Exam Psychiatric exam: Normal Affect, Normal Mood - Skin Skin Exam: Dry, Intact, Normal Color, Warm Assessment and Plan - Assessment and Plan (Free Text) Assessment: 86yo F with perforated diverticulitis s/p colon resection with end colostomy POD #14 Plan: Encourage IS use OOBTC Ambulate with assistance PT Cont Abx Heparin for DVT ppx Half of nydia removed, will remove the remainder later Further care as per primary team Will DW attending Yuli, PGY-1
[2017-07-07] MEDS: Levalbuterol 1.25 MG/3 ML Inhal Soln UD INH SCH ×3 (09:01→23:49)
[2017-07-07] MEDS: Artificial Tears Opht Soln OU SCH (09:07)
[2017-07-07] MEDS: Bacitracin OINT 15GM TOP SCH ×2 (09:07→16:48)
[2017-07-07] MEDS: Magnesium Oxide 400 mg Tab UD PO SCH (09:07)
[2017-07-07] MEDS: Pantoprazole 20 mg EC Tab PO SCH (21:36)
[2017-07-08] MEDS: guaiFENesin DM 200 mg-20 mg/10 ml UD PO SCH ×3 (01:45→16:57)
[2017-07-08] MEDS: Piperacillin/Tazobact 3.375 GM in Sodium Chloride 0.9% 100 ML IVPB SCH ×3 (05:59→22:12)
[2017-07-08] MEDS: Levalbuterol 1.25 MG/3 ML Inhal Soln UD INH SCH ×3 (07:50→23:35)
--- NOTE | 2017-07-08 08:35 | CP.PCM.PCO ---
Physician Communication Note - Physician Communication Note Physician Communication Note: Remainder of nydia removed this morning
[2017-07-08] MEDS: Artificial Tears Opht Soln OU SCH (08:39)
[2017-07-08] MEDS: Bacitracin OINT 15GM TOP SCH (08:39)
[2017-07-08] MEDS: Magnesium Oxide 400 mg Tab UD PO SCH (08:40)
[2017-07-08] MEDS: Pantoprazole 20 mg EC Tab PO SCH (22:10)
[2017-07-09] MEDS: guaiFENesin DM 200 mg-20 mg/10 ml UD PO SCH ×3 (00:07→17:03)
[2017-07-09] MEDS: Piperacillin/Tazobact 3.375 GM in Sodium Chloride 0.9% 100 ML IVPB SCH ×3 (05:23→20:29)
[2017-07-09] MEDS: Levalbuterol 1.25 MG/3 ML Inhal Soln UD INH SCH ×3 (07:45→23:46)
[2017-07-09] MEDS: Artificial Tears Opht Soln OU SCH (09:38)
[2017-07-09] MEDS: Magnesium Oxide 400 mg Tab UD PO SCH (09:39)
[2017-07-09] MEDS: Pantoprazole 20 mg EC Tab PO SCH (21:39)
[2017-07-10] MEDS: guaiFENesin DM 200 mg-20 mg/10 ml UD PO SCH ×3 (01:35→17:17)
[2017-07-10] MEDS: Piperacillin/Tazobact 3.375 GM in Sodium Chloride 0.9% 100 ML IVPB SCH ×3 (05:36→21:22)
[2017-07-10] MEDS: Levalbuterol 1.25 MG/3 ML Inhal Soln UD INH SCH ×2 (07:28→15:59)
[2017-07-10] MEDS: Artificial Tears Opht Soln OU SCH (11:13)
[2017-07-10] MEDS: Magnesium Oxide 400 mg Tab UD PO SCH (11:15)
--- NOTE | 2017-07-10 11:19 | CP.PCM.PN ---
Subjective - Date & Time of Evaluation Date of Evaluation: 07/10/17 Time of Evaluation: 11:16 - Subjective Subjective: ID note- Patient seen and examined today in TCU. pt. was transferred here from [facility] last week for PT and continuation of her medical care. Pt. is sitting in chair and is in good spirits and other than feeling slightly tired she denies any other complaints. She denies any fever or chills, denies any nausea, denies any abd. pain. states she has been tolerating her diet. pt. s/p thoracenthesis last week and fluid cell count was c/w transudate. her ASA drain is also removed. Objective - Vital Signs/Intake and Output Vital Signs (last 24 hours): Temp Pulse Resp BP Pulse Ox 98.4 F 93 H 20 127/56 L 98 07/10/17 09:34 07/10/17 11:13 07/10/17 09:34 07/10/17 11:14 07/10/17 09:34 - Medications Medications: Current Medications Acetaminophen (Tylenol 325mg Tab) 650 mg PO Q6 PRN PRN Reason: Pain, Mild (1-3) Last Admin: 07/08/17 22:10 Dose: 650 mg Acetaminophen (Tylenol 650 Mg Supp) 650 mg MD Q6 PRN PRN Reason: Fever >100.4 F Last Admin: 07/05/17 16:28 Dose: 650 mg Artificial Tears (Artificial Tears) 2 drop OU DAILY [facility] Last Admin: 07/10/17 11:13 Dose: 1 2 Carvedilol (Coreg) 6.25 mg PO Q12 [facility] Last Admin: 07/10/17 11:13 Dose: 6.25 mg Famotidine (Pepcid) 20 mg PO DAILY [facility] Last Admin: 07/10/17 11:15 Dose: 20 mg Ferrous Sulfate (Feosol) 325 mg PO DAILY [facility] Last Admin: 07/10/17 11:14 Dose: 325 mg Furosemide (Lasix) 20 mg PO DAILY [facility] Last Admin: 07/10/17 11:14 Dose: 20 mg Guaifenesin/Dextromethorphan (Robitussin Dm) 10 ml PO Q8 [facility] Last Admin: 07/10/17 11:15 Dose: 10 ml Piperacillin Sod/Tazobactam (Sod 3.375 gm/ Sodium Chloride) 100 mls @ 100 mls/ hr IVPB Q8@0500,1300,2100 [facility] Last Admin: 07/10/17 05:36 Dose: 100 mls/hr Levalbuterol HCl (Xopenex) 1.25 mg INH RQ8 [facility] Last Admin: 07/10/17 07:28 Dose: 1.25 mg Magnesium Oxide (Mag-Ox) 400 mg PO DAILY [facility] Last Admin: 07/10/17 11:15 Dose: 400 mg Metronidazole (Flagyl) 500 mg PO Q8 [facility] PRN Reason: Protocol Last Admin: 07/10/17 11:14 Dose: 500 mg Mirtazapine (Remeron) 15 mg PO HS [facility] Last Admin: 07/09/17 21:38 Dose: 15 mg Ondansetron HCl (Zofran Inj) 4 mg IVP Q4 PRN PRN Reason: Nausea/Vomiting Last Admin: 07/06/17 20:44 Dose: 4 mg Pantoprazole Sodium (Protonix Ec Tab) 20 mg PO HS [facility] Last Admin: 07/09/17 21:39 Dose: 20 mg Rivaroxaban (Xarelto) 15 mg PO QD5 [facility] PRN Reason: Protocol Last Admin: 07/09/17 17:03 Dose: 15 mg - Labs Labs: - Constitutional Appears: No Acute Distress - Head Exam Head Exam: ATRAUMATIC - Eye Exam Eye Exam: PERRL - ENT Exam ENT Exam: Normal Oropharynx - Neck Exam Neck Exam: Full ROM - Respiratory Exam Respiratory Exam: NORMAL BREATHING PATTERN Additional comments: good breath sounds b/l no wheezing - Cardiovascular Exam Cardiovascular Exam: RRR, +S1, +S2 - GI/Abdominal Exam Additional comments: soft, no distention midabdominal surgical site clean/dry/intact no erythema colostomy bag with brown stool no guarding minimal tenderness only to deep palpation around surgical site. - Extremities Exam Extremities Exam: Normal Inspection - Neurological Exam Neurological Exam: Alert, Awake, Oriented x3 - Additional Findings Additional findings: Laboratory Results - last 72 hr 07/09/17 10:59 POC Glucose (mg/dL) 116 H Microbiology 07/05/17 19:30 Blood Blood Culture - Preliminary NO GROWTH AFTER 4 DAYS 07/05/17 19:00 Blood Blood Culture - Preliminary NO GROWTH AFTER 4 DAYS Microbiology 07/01/17 14:30 Body Fluid - Lung-Right Gram Stain - Final 07/01/17 14:30 Body Fluid - Lung-Right Body Fluid Culture - Final No growth. 06/29/17 15:46 Urine,Clean Catch Urine Culture - Final No Growth (<1,000 CFU/ML) 06/24/17 14:00 Sputum Gram Stain - Final 06/24/17 14:00 Sputum Sputum Culture - Final NORMAL ORAL BRITTNEY 06/23/17 16:54 Other: Please Indicate Gram Stain - Final 06/23/17 16:54 Other: Please Indicate Wound Culture - Final Escherichia Coli 06/21/17 20:35 Blood Blood Culture - Final 06/21/17 20:35 Blood Gram Stain - Final NO GROWTH AFTER 5 DAYS TEST NOT PERFORMED 06/21/17 20:15 Blood Blood Culture - Final 06/21/17 20:15 Blood Gram Stain - Final NO GROWTH AFTER 5 DAYS TEST NOT PERFORMED 06/21/17 18:30 Urine,Catheterized Urine Culture - Final No Growth (<1,000 CFU/ML) Assessment and Plan (1) Perforated sigmoid colon Status: Acute (2) Pleural effusion Status: Acute - Assessment and Plan (Free Text) Assessment: A/P- 86 year old female with perforated sigmoid diverticuli . s/p colon resection and colostomy pod #17 clinically much improved no longer has ASA drain surgical site looks clean leukocytosis has resolved as per med records pt. had fever on 12/ and 12/13 but has been afebrile since then. blood cx- neg x 4 urine cx- neg wound cx- e.coli ESBl sensitive to zosyn lactate level has normalized pleural fluid cx- negative and cell count c/w transudate plan- continue with IV zosyn. day #19 continue with IV flagyl and IV fluconazole day #19 in light of 2 episode of fever 12/ and 12/14 would advise to check blood cx x 2 and check cxr. length of abx pending repeat blood cx result. if blood cx negative. would advise another 3 days of Iv abx, All above d/w patient and her nurse and the team.
--- NOTE | 2017-07-10 16:21 | RAD ---
HISTORY: fever COMPARISON: Portable chest 07/03/2017. FINDINGS: LUNGS: No active pulmonary disease. Improved aeration is appreciate bilaterally with normalized pulmonary vascular markings. PLEURA: Trace of pleural effusion again evident. No pneumothorax or right pleural effusion. CARDIOVASCULAR: Stable prominent cardiac silhouette without pulmonary vascular derangement appreciated in the interval. Pacemaker/implanted defibrillator again identified in position. OSSEOUS STRUCTURES: No significant abnormalities. VISUALIZED UPPER ABDOMEN: Normal. OTHER FINDINGS: None. IMPRESSION: Prominent cardiac silhouette again seen with normalizing pulmonary vascular pattern. No definite CHF pattern appreciated. No infiltrate bilaterally.
[2017-07-10] MEDS: Pantoprazole 20 mg EC Tab PO SCH (21:21)
[2017-07-11] MEDS: Levalbuterol 1.25 MG/3 ML Inhal Soln UD INH SCH ×3 (00:11→15:03)
[2017-07-11] MEDS: guaiFENesin DM 200 mg-20 mg/10 ml UD PO SCH ×3 (00:22→16:34)
[2017-07-11] MEDS: Piperacillin/Tazobact 3.375 GM in Sodium Chloride 0.9% 100 ML IVPB SCH ×3 (04:22→21:08)
[2017-07-11 06:20] LABS: BASO # 0.1 K/uL (0.0-0.2); BASO % 1.7 % (0.0-2.0); EOS # 0.2 K/uL (0.0-0.7); EOS % 5.5 % (0.0-4.0); LYMPH # 1.2 K/uL (1.0-4.3); MEAN CELL VOLUME 91.1 fl (81.0-99.0); MEAN CORPUSCULAR HEMOGLOBIN 30.6 pg (27.0-31.0); MEAN CORPUSCULAR HGB CONC 33.5 g/dL (33.0-37.0); MEAN PLATELET VOLUME 10.2 fl (7.2-11.7); MONO # 0.6 K/uL (0.0-0.8); MONO % 15.8 % (0.0-10.0); NEUT # 1.7 K/uL (1.8-7.0); NRBC % 0.2 % (0.0-0.0); RBC 3.26 Mil/uL (3.80-5.20); RED CELL DISTRIBUTION WIDTH 14.5 % (11.5-14.5); WHITE BLOOD COUNT 3.8 K/uL (4.8-10.8)
[2017-07-11] MEDS: Artificial Tears Opht Soln OU SCH (08:37)
[2017-07-11] MEDS: Magnesium Oxide 400 mg Tab UD PO SCH (08:37)
[2017-07-11 17:33] VITALS: RESP 20
[2017-07-11] MEDS: Pantoprazole 20 mg EC Tab PO SCH (21:19)
[2017-07-12] MEDS: guaiFENesin DM 200 mg-20 mg/10 ml UD PO SCH ×3 (00:01→17:11)
[2017-07-12] MEDS: Piperacillin/Tazobact 3.375 GM in Sodium Chloride 0.9% 100 ML IVPB SCH ×3 (04:43→21:51)
[2017-07-12] MEDS: Levalbuterol 1.25 MG/3 ML Inhal Soln UD INH SCH ×2 (07:27→15:25)
[2017-07-12] MEDS: Artificial Tears Opht Soln OU SCH (09:16)
[2017-07-12] MEDS: Magnesium Oxide 400 mg Tab UD PO SCH (09:17)
--- NOTE | 2017-07-12 16:42 | CP.PCM.PN ---
Subjective - Date & Time of Evaluation Date of Evaluation: 07/12/17 Time of Evaluation: 17:30 - Subjective Subjective: Patient seen and examined bedside.Feeling better.Hemodynamically stable, afebrile.Participating with Pt. No acute issues overnight. Objective - Vital Signs/Intake and Output Vital Signs (last 24 hours): Temp Pulse Resp BP Pulse Ox 98.4 F 94 H 20 132/69 96 07/12/17 16:41 07/12/17 16:41 07/12/17 16:41 07/12/17 16:41 07/12/17 16:41 - Medications Medications: Current Medications Acetaminophen (Tylenol 325mg Tab) 650 mg PO Q6 PRN PRN Reason: Pain, Mild (1-3) Last Admin: 07/11/17 00:34 Dose: 650 mg Acetaminophen (Tylenol 650 Mg Supp) 650 mg [place] Q6 PRN PRN Reason: Fever >100.4 F Last Admin: 07/05/17 16:28 Dose: 650 mg Artificial Tears (Artificial Tears) 2 drop OU DAILY [facility] Last Admin: 07/12/17 09:16 Dose: 1 2 Carvedilol (Coreg) 6.25 mg PO Q12 [facility] Last Admin: 07/12/17 09:18 Dose: 6.25 mg Famotidine (Pepcid) 20 mg PO DAILY [facility] Last Admin: 07/12/17 09:18 Dose: 20 mg Ferrous Sulfate (Feosol) 325 mg PO DAILY [facility] Last Admin: 07/12/17 09:17 Dose: 325 mg Furosemide (Lasix) 20 mg PO DAILY [facility] Last Admin: 07/12/17 09:16 Dose: 20 mg Guaifenesin/Dextromethorphan (Robitussin Dm) 10 ml PO Q8 [facility] Last Admin: 07/12/17 09:18 Dose: 10 ml Piperacillin Sod/Tazobactam (Sod 3.375 gm/ Sodium Chloride) 100 mls @ 100 mls/ hr IVPB Q8@0500,1300,2100 [facility] Last Admin: 07/12/17 13:20 Dose: 100 mls/hr Levalbuterol HCl (Xopenex) 1.25 mg INH RQ8 [facility] Last Admin: 07/12/17 15:25 Dose: 1.25 mg Magnesium Oxide (Mag-Ox) 400 mg PO DAILY [facility] Last Admin: 07/12/17 09:17 Dose: 400 mg Metronidazole (Flagyl) 500 mg PO Q8 [facility] PRN Reason: Protocol Last Admin: 07/12/17 09:16 Dose: 500 mg Mirtazapine (Remeron) 15 mg PO HS [facility] Last Admin: 07/11/17 21:19 Dose: 15 mg Ondansetron HCl (Zofran Inj) 4 mg IVP Q4 PRN PRN Reason: Nausea/Vomiting Last Admin: 07/06/17 20:44 Dose: 4 mg Pantoprazole Sodium (Protonix Ec Tab) 20 mg PO HS [facility] Last Admin: 07/11/17 21:19 Dose: 20 mg Rivaroxaban (Xarelto) 15 mg PO QD5 [facility] PRN Reason: Protocol Last Admin: 07/11/17 16:34 Dose: 15 mg - Labs Labs: 07/11/17 05:50 07/06/17 05:45 - Constitutional Appears: Non-toxic, No Acute Distress - Head Exam Head Exam: ATRAUMATIC, NORMAL INSPECTION, NORMOCEPHALIC - Eye Exam Eye Exam: EOMI, Normal appearance, PERRL Pupil Exam: NORMAL ACCOMODATION - ENT Exam ENT Exam: Mucous Membranes Moist, Normal Exam - Neck Exam Neck Exam: Full ROM, Normal Inspection - Respiratory Exam Respiratory Exam: Clear to Ausculation Bilateral, NORMAL BREATHING PATTERN. absent: Rales, Rhonchi, Wheezes - Cardiovascular Exam Cardiovascular Exam: REGULAR RHYTHM, RRR, +S1, +S2. absent: JVD - GI/Abdominal Exam GI & Abdominal Exam: Normal Bowel Sounds Additional comments: midline surgical incison healed LLQ colostomy - Rectal Exam Rectal Exam: Deferred - Extremities Exam Extremities Exam: Full ROM, Normal Capillary Refill, Normal Inspection. absent : Calf Tenderness, Pedal Edema - Back Exam Back Exam: NORMAL INSPECTION - Neurological Exam Neurological Exam: Alert, Awake, CN II-XII Intact, Oriented x3 - Psychiatric Exam Psychiatric exam: Normal Affect, Normal Mood - Skin Skin Exam: Dry, Warm Assessment and Plan - Assessment and Plan (Free Text) Assessment: 86y/o lady with hx of Cardiac Arrhythmia s/p PPM, on Xarelto, came in because of abdominal pain. CT of abdomen showed Perforated Sigmoid Diverticulitis. 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 Patient taken to OR 06/23 by surgery and underwent colon resection with colostomy. Her stay was complicated by episode of respiratory insufficiency sec to Pleural effusion/fluid overload. She was placed on High Flow Oxygen and had Thoracentesis. Her respiratory symptoms improved and she was weaned off High Flow and placed on NC 2 LPM. At present, she is hemodynamically stable, afebrile, with output from colostomy and tolerating Regular diet. She is saturating well on 2 liters O2 NC. Admitted to TCU for Physical therapy and to continue IV Zosyn antibiotics. Participating well with PT . Barney removed by surgery . 1. Septic shock sec to perforated sigmoid Diverticulitis s/p colon resection with colostomy performed 06/23. Surgery following colostomy bag with brown stool . Bowel sounds +, tolerating diet On Flagyl and Zosyn as per ID for 3 more days until 07/13 ESBL E coli on Wound c/s - on IV antibiotics RLQ drain also removed, barney removed continue PT / OT 2.Perforated sigmoid colon s/p Colon Resection with Colostomy s/p colon resection with colostomy switched diet to finely chopped continue PT 3. Respiratory insufficiency s/p extubation 06/25 06/26 with respiratory distress most likely secondary to volume overload and bilateral pleural effusion. Possible mucus plugging as well seen on CT wsa on High Flow changed to 2 LPM O2 per NC - saturation 96-98% s/p right thoracentesis with removal 500 ml fluid - transudate continue Xopenex and Lasix Incentive Spirometry 4. Bilateral pleural effusion s/p Thoracentesis as above 5. ALBER (acute kidney injury)-improved Acute likely sec to Sepsis initially oliguric,but at present with good urine output and renal function is normal 6.Anemia of acute blood loss Hgb dropped from 12-- 10.9 s/p 2 unit PRBC transfusion Hem/on consulted Dr. Blanchard continue to monitor 7. Thrombocytopenia/ Coagulopathy, improved prob sec to Sepsis resolved INR=1.7 on admission ( patient also was on xarelto ) s/p 1 unit Platelet transfusion and 4 FFP Hematology consult with Dr Dawn Blanchard appreciated Given DDAVP and Vit K 10 mg IV preop to correct anticoagulation since patient was on xarelto 8. History of cardiac arrhythmia Chronic unclear cardiac diagnosis hx of Pacemaker placement pt was on Xarelto at home -was held due to the surgery and coagulopathy - restarted xarelto Cardiology consulted- Dr Blanchard 9. Abn LFT sec to Shock liver improved 10.Hypokalemia secondary to poor PO intake and GI losses K supplements 11. Hypertension controlled on Coreg and Valsartan 12.DVT prophylaxis SCD on Xarelto
[2017-07-12] MEDS: Pantoprazole 20 mg EC Tab PO SCH (21:52)
[2017-07-13] MEDS: Levalbuterol 1.25 MG/3 ML Inhal Soln UD INH SCH ×4 (00:34→23:40)
[2017-07-13] MEDS: guaiFENesin DM 200 mg-20 mg/10 ml UD PO SCH ×3 (00:56→16:45)
[2017-07-13] MEDS: Piperacillin/Tazobact 3.375 GM in Sodium Chloride 0.9% 100 ML IVPB SCH ×3 (04:09→22:09)
[2017-07-13] MEDS: Artificial Tears Opht Soln OU SCH (09:07)
[2017-07-13] MEDS: Magnesium Oxide 400 mg Tab UD PO SCH (09:08)
[2017-07-13] MEDS: Pantoprazole 20 mg EC Tab PO SCH (22:07)
[2017-07-14] MEDS: guaiFENesin DM 200 mg-20 mg/10 ml UD PO SCH ×3 (03:25→17:27)
[2017-07-14] MEDS: Piperacillin/Tazobact 3.375 GM in Sodium Chloride 0.9% 100 ML IVPB SCH ×2 (04:23→13:27)
[2017-07-14] MEDS: Levalbuterol 1.25 MG/3 ML Inhal Soln UD INH SCH ×3 (07:25→23:37)
[2017-07-14] MEDS: Artificial Tears Opht Soln OU SCH (09:00)
[2017-07-14] MEDS: Magnesium Oxide 400 mg Tab UD PO SCH (09:01)
--- NOTE | 2017-07-14 10:52 | CP.PCM.PN ---
Subjective - Date & Time of Evaluation Date of Evaluation: 07/14/17 Objective - Vital Signs/Intake and Output Vital Signs (last 24 hours): Temp Pulse Resp BP Pulse Ox 97.9 F 96 H 20 126/74 94 L 07/14/17 08:42 07/14/17 09:01 07/14/17 08:42 07/14/17 09:01 07/14/17 08:42 - Medications Medications: Current Medications Acetaminophen (Tylenol 325mg Tab) 650 mg PO Q6 PRN PRN Reason: Pain, Mild (1-3) Last Admin: 07/13/17 12:18 Dose: 650 mg Acetaminophen (Tylenol 650 Mg Supp) 650 mg [place] Q6 PRN PRN Reason: Fever >100.4 F Last Admin: 07/05/17 16:28 Dose: 650 mg Artificial Tears (Artificial Tears) 2 drop OU DAILY [facility] Last Admin: 07/14/17 09:00 Dose: 1 u Carvedilol (Coreg) 6.25 mg PO Q12 [facility] Last Admin: 07/14/17 09:01 Dose: 6.25 mg Famotidine (Pepcid) 20 mg PO DAILY [facility] Last Admin: 07/14/17 09:01 Dose: 20 mg Ferrous Sulfate (Feosol) 325 mg PO DAILY [facility] Last Admin: 07/14/17 09:01 Dose: 325 mg Furosemide (Lasix) 20 mg PO DAILY [facility] Last Admin: 07/14/17 09:01 Dose: 20 mg Guaifenesin/Dextromethorphan (Robitussin Dm) 10 ml PO Q8 [facility] Last Admin: 07/14/17 09:01 Dose: 10 ml Piperacillin Sod/Tazobactam (Sod 3.375 gm/ Sodium Chloride) 100 mls @ 100 mls/ hr IVPB Q8@0500,1300,2100 [facility] Last Admin: 07/14/17 04:23 Dose: 100 mls/hr Levalbuterol HCl (Xopenex) 1.25 mg INH RQ8 [facility] Last Admin: 07/14/17 07:25 Dose: 1.25 mg Magnesium Oxide (Mag-Ox) 400 mg PO DAILY [facility] Last Admin: 07/14/17 09:01 Dose: 400 mg Metronidazole (Flagyl) 500 mg PO Q8 [facility] PRN Reason: Protocol Last Admin: 07/14/17 09:01 Dose: 500 mg Mirtazapine (Remeron) 15 mg PO HS [facility] Last Admin: 07/13/17 22:08 Dose: 15 mg Ondansetron HCl (Zofran Inj) 4 mg IVP Q4 PRN PRN Reason: Nausea/Vomiting Last Admin: 07/06/17 20:44 Dose: 4 mg Pantoprazole Sodium (Protonix Ec Tab) 20 mg PO HS [facility] Last Admin: 07/13/17 22:07 Dose: 20 mg Rivaroxaban (Xarelto) 15 mg PO QD5 [facility] PRN Reason: Protocol Last Admin: 07/13/17 16:45 Dose: 15 mg Tramadol HCl (Ultram) 50 mg PO Q6 PRN PRN Reason: Pain, moderate (4-7) - Labs Labs: 07/11/17 05:50 07/06/17 05:45 Assessment and Plan (1) Perforated sigmoid colon Status: Acute (2) Pleural effusion Status: Acute
--- NOTE | 2017-07-14 13:55 | CP.PCM.PN ---
Subjective - Date & Time of Evaluation Date of Evaluation: 07/14/17 Time of Evaluation: 11:00 - Subjective Subjective: Patient was seen and examined at bedside. She relates that she is slowly getting her strength back. No acute issues overnight. Objective - Vital Signs/Intake and Output Vital Signs (last 24 hours): Temp Pulse Resp BP Pulse Ox 97.9 F 96 H 20 126/74 94 L 07/14/17 08:42 07/14/17 09:01 07/14/17 08:42 07/14/17 09:01 07/14/17 08:42 - Medications Medications: Current Medications Acetaminophen (Tylenol 325mg Tab) 650 mg PO Q6 PRN PRN Reason: Pain, Mild (1-3) Last Admin: 07/14/17 13:31 Dose: 650 mg Acetaminophen (Tylenol 650 Mg Supp) 650 mg [place] Q6 PRN PRN Reason: Fever >100.4 F Last Admin: 07/05/17 16:28 Dose: 650 mg Artificial Tears (Artificial Tears) 2 drop OU DAILY [facility] Last Admin: 07/14/17 09:00 Dose: 1 u Carvedilol (Coreg) 6.25 mg PO Q12 [facility] Last Admin: 07/14/17 09:01 Dose: 6.25 mg Famotidine (Pepcid) 20 mg PO DAILY [facility] Last Admin: 07/14/17 09:01 Dose: 20 mg Ferrous Sulfate (Feosol) 325 mg PO DAILY [facility] Last Admin: 07/14/17 09:01 Dose: 325 mg Furosemide (Lasix) 20 mg PO DAILY [facility] Last Admin: 07/14/17 09:01 Dose: 20 mg Guaifenesin/Dextromethorphan (Robitussin Dm) 10 ml PO Q8 [facility] Last Admin: 07/14/17 09:01 Dose: 10 ml Levalbuterol HCl (Xopenex) 1.25 mg INH RQ8 [facility] Last Admin: 07/14/17 07:25 Dose: 1.25 mg Magnesium Oxide (Mag-Ox) 400 mg PO DAILY [facility] Last Admin: 07/14/17 09:01 Dose: 400 mg Mirtazapine (Remeron) 15 mg PO HS [facility] Last Admin: 07/13/17 22:08 Dose: 15 mg Ondansetron HCl (Zofran Inj) 4 mg IVP Q4 PRN PRN Reason: Nausea/Vomiting Last Admin: 07/06/17 20:44 Dose: 4 mg Pantoprazole Sodium (Protonix Ec Tab) 20 mg PO HS [facility] Last Admin: 07/13/17 22:07 Dose: 20 mg Rivaroxaban (Xarelto) 15 mg PO QD5 [facility] PRN Reason: Protocol Last Admin: 07/13/17 16:45 Dose: 15 mg Tramadol HCl (Ultram) 50 mg PO Q6 PRN PRN Reason: Pain, moderate (4-7) - Labs Labs: 07/11/17 05:50 07/06/17 05:45 - Additional Findings Additional findings: Physical exam: Constitutional- cooperative, awake, alert. Head- NCAT, PERRL Eye- PERRL, normal accommodation ENT- normal exam, MMM. Neck- normal inspection, supple, no JVD Respiratory- CTAB, no wheezes rales rhonchi Cardiovascular- RRR, +S1, +S2 no MRG GI/Abdominal- + LLQ colostomy. normal bowel sounds, soft, no mass, no hsm Skin- warm, dry Extremities Exam- normal capillary refill, normal inspection Neurological Exam- alert, stable gait Psych- normal mood, normal affect Assessment and Plan - Assessment and Plan (Free Text) Plan: Assessment: 86y/o lady with hx of Cardiac Arrhythmia s/p PPM, on Xarelto, came in because of abdominal pain. CT of abdomen showed Perforated Sigmoid Diverticulitis. 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 Patient taken to OR 06/23 by surgery and underwent colon resection with colostomy. Her stay was complicated by episode of respiratory insufficiency sec to Pleural effusion/fluid overload. She was placed on High Flow Oxygen and had Thoracentesis. Her respiratory symptoms improved and she was weaned off High Flow and placed on NC 2 LPM. At present, she is hemodynamically stable, afebrile, with output from colostomy and tolerating Regular diet. She is saturating well on 2 liters O2 NC. Admitted to TCU for Physical therapy and to continue IV Zosyn antibiotics. Participating well with PT . Barney removed by surgery . 1. Septic shock sec to perforated sigmoid Diverticulitis- resolved s/p colon resection with colostomy performed 06/23. Surgery following colostomy bag with brown stool . Bowel sounds +, tolerating diet Patient was Flagyl and Zosyn as per ID until today, now discontinuing as repeat CX are negative ESBL E coli on Wound c/s - completed abx RLQ drain also removed, barney removed continue PT / OT- tolerating well 2.Perforated sigmoid colon s/p Colon Resection with Colostomy s/p colon resection with colostomy switched diet to finely chopped continue PT 3. Respiratory insufficiency- resolved s/p extubation 06/25 06/26 with respiratory distress most likely secondary to volume overload and bilateral pleural effusion. Possible mucus plugging as well seen on CT wsa on High Flow changed to 2 LPM O2 per NC - saturation 96-98% s/p right thoracentesis with removal 500 ml fluid - transudate continue Xopenex and Lasix Incentive Spirometry 4. Bilateral pleural effusion s/p Thoracentesis as above 5. ALBER (acute kidney injury)-improved Acute likely sec to Sepsis initially oliguric,but at present with good urine output and renal function is normal 6.Anemia of acute blood loss Hgb dropped from 12-- 10.9, 10.0 on 07/11 s/p 2 unit PRBC transfusion Hem/onc consulted Dr. Blanchard continue to monitor 7. Thrombocytopenia/ Coagulopathy, improved prob sec to Sepsis resolved INR=1.7 on admission ( patient also was on xarelto ) s/p 1 unit Platelet transfusion and 4 FFP Hematology consult with Dr Dawn Blanchard appreciated Given DDAVP and Vit K 10 mg IV preop to correct anticoagulation since patient was on xarelto 8. History of cardiac arrhythmia Chronic unclear cardiac diagnosis hx of Pacemaker placement pt was on Xarelto at home -was held due to the surgery and coagulopathy - restarted xarelto Cardiology consulted- Dr Blanchard 9. Abn LFT sec to Shock liver improved 10.Hypokalemia secondary to poor PO intake and GI losses K supplements 11. Hypertension controlled on Coreg and Valsartan 12.DVT prophylaxis SCD on Xarelto
--- NOTE | 2017-07-14 15:34 | CP.PCM.PN ---
Subjective - Date & Time of Evaluation Date of Evaluation: 07/14/17 Time of Evaluation: 15:34 - Subjective Subjective: ID Note- Patient seen and examined today. She is in good spirits and state she feels betetr and is getting stronger . she states she is eating better and tolerating her diet. Objective - Vital Signs/Intake and Output Vital Signs (last 24 hours): Temp Pulse Resp BP Pulse Ox 97.9 F 96 H 20 126/74 94 L 07/14/17 08:42 07/14/17 09:01 07/14/17 08:42 07/14/17 09:01 07/14/17 08:42 - Medications Medications: Current Medications Acetaminophen (Tylenol 325mg Tab) 650 mg PO Q6 PRN PRN Reason: Pain, Mild (1-3) Last Admin: 07/14/17 13:31 Dose: 650 mg Acetaminophen (Tylenol 650 Mg Supp) 650 mg [place] Q6 PRN PRN Reason: Fever >100.4 F Last Admin: 07/05/17 16:28 Dose: 650 mg Artificial Tears (Artificial Tears) 2 drop OU DAILY [facility] Last Admin: 07/14/17 09:00 Dose: 1 u Carvedilol (Coreg) 6.25 mg PO Q12 [facility] Last Admin: 07/14/17 09:01 Dose: 6.25 mg Famotidine (Pepcid) 20 mg PO DAILY [facility] Last Admin: 07/14/17 09:01 Dose: 20 mg Ferrous Sulfate (Feosol) 325 mg PO DAILY [facility] Last Admin: 07/14/17 09:01 Dose: 325 mg Furosemide (Lasix) 20 mg PO DAILY [facility] Last Admin: 07/14/17 09:01 Dose: 20 mg Guaifenesin/Dextromethorphan (Robitussin Dm) 10 ml PO Q8 [facility] Last Admin: 07/14/17 09:01 Dose: 10 ml Levalbuterol HCl (Xopenex) 1.25 mg INH RQ8 [facility] Last Admin: 07/14/17 07:25 Dose: 1.25 mg Magnesium Oxide (Mag-Ox) 400 mg PO DAILY [facility] Last Admin: 07/14/17 09:01 Dose: 400 mg Mirtazapine (Remeron) 15 mg PO HS [facility] Last Admin: 07/13/17 22:08 Dose: 15 mg Ondansetron HCl (Zofran Inj) 4 mg IVP Q4 PRN PRN Reason: Nausea/Vomiting Last Admin: 07/06/17 20:44 Dose: 4 mg Pantoprazole Sodium (Protonix Ec Tab) 20 mg PO HS [facility] Last Admin: 07/13/17 22:07 Dose: 20 mg Rivaroxaban (Xarelto) 15 mg PO QD5 [facility] PRN Reason: Protocol Last Admin: 07/13/17 16:45 Dose: 15 mg Tramadol HCl (Ultram) 50 mg PO Q6 PRN PRN Reason: Pain, moderate (4-7) - Labs Labs: - Additional Findings Additional findings: - Constitutional Appears: No Acute Distress - Head Exam Head Exam: ATRAUMATIC - Eye Exam Eye Exam: PERRL - ENT Exam ENT Exam: Normal Oropharynx - Neck Exam Neck Exam: Full ROM - Respiratory Exam Respiratory Exam: NORMAL BREATHING PATTERN Additional comments: good breath sounds b/l no wheezing - Cardiovascular Exam Cardiovascular Exam: RRR, +S1, +S2 - GI/Abdominal Exam Additional comments: soft, no distention midabdominal surgical site clean/dry/intact no erythema colostomy bag with brown stool no guarding no tenderness - Extremities Exam Extremities Exam: Normal Inspection - Neurological Exam Neurological Exam: Alert, Awake, Oriented x 3 Microbiology 07/10/17 13:19 Blood-Venous Blood Culture - Preliminary NO GROWTH AFTER 4 DAYS 07/10/17 13:19 Blood-Venous Blood Culture - Preliminary NO GROWTH AFTER 4 DAYS 07/05/17 19:30 Blood Blood Culture - Final NO GROWTH AFTER 5 DAYS 07/05/17 19:30 Blood Gram Stain - Final TEST NOT PERFORMED 07/05/17 19:00 Blood Blood Culture - Final NO GROWTH AFTER 5 DAYS 07/05/17 19:00 Blood Gram Stain - Final TEST NOT PERFORMED Assessment and Plan (1) Perforated sigmoid colon Status: Acute (2) Pleural effusion Status: Acute - Assessment and Plan (Free Text) Assessment: A/P- 86 year old female with perforated sigmoid diverticuli . s/p colon resection and colostomy pod #21 clinically much improved no longer has ASA drain surgical site looks clean leukocytosis has resolved has remained afebrile past 7 days. blood cx- neg x 4 urine cx- neg wound cx- e.coli ESBl sensitive to zosyn lactate level has normalized pleural fluid cx- negative and cell count c/w transudate plan- has completed 21 days of Iv zosyna nd flagyl and fluconazole. advise to d/c Iv abx at this time. patient clinically much better. continue with PT as per primary team.
[2017-07-14] MEDS: Pantoprazole 20 mg EC Tab PO SCH (21:32)
[2017-07-15] MEDS: guaiFENesin DM 200 mg-20 mg/10 ml UD PO SCH ×3 (00:46→16:10)
[2017-07-15 06:10] LABS: MEAN CELL VOLUME 91.8 fl (81.0-99.0); MEAN CORPUSCULAR HEMOGLOBIN 29.9 pg (27.0-31.0); MEAN CORPUSCULAR HGB CONC 32.6 g/dL (33.0-37.0); RBC 3.34 Mil/uL (3.80-5.20)
[2017-07-15 07:08] LABS: BLOOD UREA NITROGEN 13 mg/dl (7-17); CALCIUM 8.5 mg/dL (8.4-10.2); GFR AFRICAN-AMERICAN > 60; GFR NON-AFRICAN AMERICAN > 60
[2017-07-15] MEDS: Levalbuterol 1.25 MG/3 ML Inhal Soln UD INH SCH ×2 (08:34→16:32)
[2017-07-15] MEDS: Artificial Tears Opht Soln OU SCH (08:48)
[2017-07-15] MEDS: Magnesium Oxide 400 mg Tab UD PO SCH (08:50)
[2017-07-15] MEDS: Pantoprazole 20 mg EC Tab PO SCH (21:30)
[2017-07-16] MEDS: Levalbuterol 1.25 MG/3 ML Inhal Soln UD INH SCH ×3 (00:29→16:12)
[2017-07-16] MEDS: guaiFENesin DM 200 mg-20 mg/10 ml UD PO SCH ×3 (00:30→17:27)
[2017-07-16] MEDS: Magnesium Oxide 400 mg Tab UD PO SCH (09:31)
[2017-07-16] MEDS: Artificial Tears Opht Soln OU SCH (09:32)
[2017-07-16] MEDS: Pantoprazole 20 mg EC Tab PO SCH (21:42)
[2017-07-17] MEDS: Levalbuterol 1.25 MG/3 ML Inhal Soln UD INH SCH ×3 (00:09→16:25)
[2017-07-17] MEDS: guaiFENesin DM 200 mg-20 mg/10 ml UD PO SCH ×3 (01:46→17:32)
[2017-07-17] MEDS: Artificial Tears Opht Soln OU SCH (09:05)
[2017-07-17] MEDS: Magnesium Oxide 400 mg Tab UD PO SCH (09:06)
[2017-07-17] MEDS: Pantoprazole 20 mg EC Tab PO SCH (21:38)
[2017-07-18] MEDS: guaiFENesin DM 200 mg-20 mg/10 ml UD PO SCH ×3 (01:11→16:54)
[2017-07-18] MEDS: Artificial Tears Opht Soln OU SCH (09:19)
[2017-07-18] MEDS: Magnesium Oxide 400 mg Tab UD PO SCH (09:19)
[2017-07-18] MEDS: Pantoprazole 20 mg EC Tab PO SCH (21:20)
[2017-07-19] MEDS: guaiFENesin DM 200 mg-20 mg/10 ml UD PO SCH ×3 (01:05→16:31)
[2017-07-19] MEDS: Artificial Tears Opht Soln OU SCH (08:38)
[2017-07-19] MEDS: Magnesium Oxide 400 mg Tab UD PO SCH (08:41)
--- NOTE | 2017-07-19 15:23 | CP.PCM.PN ---
Subjective - Date & Time of Evaluation Date of Evaluation: 07/19/17 Time of Evaluation: 13:00 - Subjective Subjective: Patient sitting in chair at bedside. She looks well today and is awake and alert. She is tolerating her diet. Has no complaints today. Afebrile, hemodynamically stable. Objective - Vital Signs/Intake and Output Vital Signs (last 24 hours): Temp Pulse Resp BP Pulse Ox 97.7 F 91 H 20 134/68 96 07/19/17 08:22 07/19/17 08:39 07/19/17 08:22 07/19/17 08:41 07/19/17 08:22 - Medications Medications: Current Medications Acetaminophen (Tylenol 325mg Tab) 650 mg PO Q6 PRN PRN Reason: Pain, Mild (1-3) Last Admin: 07/14/17 13:31 Dose: 650 mg Acetaminophen (Tylenol 650 Mg Supp) 650 mg [place] Q6 PRN PRN Reason: Fever >100.4 F Last Admin: 07/05/17 16:28 Dose: 650 mg Artificial Tears (Artificial Tears) 2 drop OU DAILY [facility] Last Admin: 07/19/17 08:38 Dose: 2 u Carvedilol (Coreg) 6.25 mg PO Q12 [facility] Last Admin: 07/19/17 08:39 Dose: 6.25 mg Famotidine (Pepcid) 20 mg PO DAILY [facility] Last Admin: 07/19/17 08:41 Dose: 20 mg Ferrous Sulfate (Feosol) 325 mg PO DAILY [facility] Last Admin: 07/19/17 08:40 Dose: 325 mg Furosemide (Lasix) 20 mg PO DAILY [facility] Last Admin: 07/19/17 08:41 Dose: 20 mg Guaifenesin/Dextromethorphan (Robitussin Dm) 10 ml PO Q8 [facility] Last Admin: 07/19/17 08:41 Dose: 10 ml Magnesium Oxide (Mag-Ox) 400 mg PO DAILY [facility] Last Admin: 07/19/17 08:41 Dose: 400 mg Mirtazapine (Remeron) 15 mg PO HS [facility] Last Admin: 07/18/17 21:19 Dose: 15 mg Ondansetron HCl (Zofran Inj) 4 mg IVP Q4 PRN PRN Reason: Nausea/Vomiting Last Admin: 07/06/17 20:44 Dose: 4 mg Pantoprazole Sodium (Protonix Ec Tab) 20 mg PO HS [facility] Last Admin: 07/18/17 21:20 Dose: 20 mg Rivaroxaban (Xarelto) 15 mg PO QD5 [facility] PRN Reason: Protocol Last Admin: 07/18/17 16:54 Dose: 15 mg - Labs Labs: 07/15/17 05:45 07/15/17 05:45 - Additional Findings Additional findings: Physical exam: Constitutional- cooperative, awake, alert. Head- NCAT, PERRL Eye- PERRL, normal accommodation ENT- normal exam, MMM. Neck- normal inspection, supple, no JVD Respiratory- CTAB, no wheezes rales rhonchi Cardiovascular- RRR, +S1, +S2 no MRG GI/Abdominal- + LLQ colostomy. normal bowel sounds, soft, no mass, no hsm Skin- warm, dry Extremities Exam- normal capillary refill, normal inspection Neurological Exam- alert, stable gait Psych- normal mood, normal affect Assessment and Plan - Assessment and Plan (Free Text) Plan: Assessment: 86y/o lady with hx of Cardiac Arrhythmia s/p PPM, on Xarelto, came in because of abdominal pain. CT of abdomen showed Perforated Sigmoid Diverticulitis. 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 Patient taken to OR 06/23 by surgery and underwent colon resection with colostomy. Her stay was complicated by episode of respiratory insufficiency sec to Pleural effusion/fluid overload. She was placed on High Flow Oxygen and had Thoracentesis. Her respiratory symptoms improved and she was weaned off High Flow and placed on NC 2 LPM. At present, she is hemodynamically stable, afebrile, with output from colostomy and tolerating Regular diet. She is saturating well on 2 liters O2 NC. Admitted to TCU for Physical therapy and to continue IV Zosyn antibiotics. Participating well with PT . Whitmer removed by surgery . 1. Septic shock sec to perforated sigmoid Diverticulitis- resolved s/p colon resection with colostomy performed 06/23. Surgery following colostomy bag with brown stool . Bowel sounds +, tolerating diet Patient was Flagyl and Zosyn as per ID until today, now discontinuing as repeat CX are negative ESBL E coli on Wound c/s - completed abx RLQ drain also removed, nydia removed continue PT / OT- tolerating well 2.Perforated sigmoid colon s/p Colon Resection with Colostomy s/p colon resection with colostomy switched diet to finely chopped continue PT 3. Respiratory insufficiency- resolved s/p extubation 06/25 06/26 with respiratory distress most likely secondary to volume overload and bilateral pleural effusion. Possible mucus plugging as well seen on CT wsa on High Flow changed to 2 LPM O2 per NC - saturation 96-98% s/p right thoracentesis with removal 500 ml fluid - transudate continue Xopenex and Lasix Incentive Spirometry 4. Bilateral pleural effusion s/p Thoracentesis as above 5. ALBER (acute kidney injury)-improved Acute likely sec to Sepsis initially oliguric,but at present with good urine output and renal function is normal 6.Anemia of acute blood loss Hgb dropped from 12-- 10.9, 10.0 on 07/11, 10.0 on 07/15 as well s/p 2 unit PRBC transfusion Hem/onc consulted Dr. Blanchard continue to monitor 7. Thrombocytopenia/ Coagulopathy, improved prob sec to Sepsis resolved INR=1.7 on admission ( patient also was on xarelto ) s/p 1 unit Platelet transfusion and 4 FFP Hematology consult with Dr Dawn Blanchard appreciated Given DDAVP and Vit K 10 mg IV preop to correct anticoagulation since patient was on xarelto 8. History of cardiac arrhythmia Chronic unclear cardiac diagnosis hx of Pacemaker placement pt was on Xarelto at home -was held due to the surgery and coagulopathy - restarted xarelto Cardiology consulted- Dr Blanchard 9. Abn LFT sec to Shock liver improved 10.Hypokalemia secondary to poor PO intake and GI losses K supplements 11. Hypertension controlled on Coreg and Valsartan 12.DVT prophylaxis SCD on Xarelto
[2017-07-19] MEDS: Pantoprazole 20 mg EC Tab PO SCH (22:05)
[2017-07-20] MEDS: guaiFENesin DM 200 mg-20 mg/10 ml UD PO SCH ×3 (02:20→16:38)
[2017-07-20 06:59] LABS: HEMOGLOBIN 10.6 g/dL (12.0-16.0); MEAN CELL VOLUME 92.5 fl (81.0-99.0); MEAN CORPUSCULAR HEMOGLOBIN 30.2 pg (27.0-31.0); MEAN CORPUSCULAR HGB CONC 32.6 g/dL (33.0-37.0); RBC 3.51 Mil/uL (3.80-5.20); RED CELL DISTRIBUTION WIDTH 15.7 % (11.5-14.5); WHITE BLOOD COUNT 4.6 K/uL (4.8-10.8)
[2017-07-20 07:16] LABS: BLOOD UREA NITROGEN 16 mg/dl (7-17); CALCIUM 8.7 mg/dL (8.4-10.2); GFR AFRICAN-AMERICAN > 60; GFR NON-AFRICAN AMERICAN > 60
[2017-07-20] MEDS: Artificial Tears Opht Soln OU SCH (09:26)
[2017-07-20] MEDS: Magnesium Oxide 400 mg Tab UD PO SCH (09:27)
[2017-07-20] MEDS: Pantoprazole 20 mg EC Tab PO SCH (21:28)
[2017-07-21] MEDS: guaiFENesin DM 200 mg-20 mg/10 ml UD PO SCH ×3 (00:29→16:55)
[2017-07-21] MEDS: Artificial Tears Opht Soln OU SCH (08:40)
[2017-07-21] MEDS: Magnesium Oxide 400 mg Tab UD PO SCH (08:41)
--- NOTE | 2017-07-21 14:44 | CP.PCM.PN ---
Subjective - Date & Time of Evaluation Date of Evaluation: 07/21/17 Time of Evaluation: 12:00 - Subjective Subjective: Patient seen and examined at bedside. She continues to be much better. Denies any problems at this time. No cp/sob. Doing physical therapy. For discharge tomorrow AM. Objective - Vital Signs/Intake and Output Vital Signs (last 24 hours): Temp Pulse Resp BP Pulse Ox 98.2 F 87 20 120/67 99 07/21/17 08:22 07/21/17 08:40 07/21/17 08:22 07/21/17 08:41 07/21/17 08:22 - Medications Medications: Current Medications Acetaminophen (Tylenol 325mg Tab) 650 mg PO Q6 PRN PRN Reason: Pain, Mild (1-3) Last Admin: 07/14/17 13:31 Dose: 650 mg Acetaminophen (Tylenol 650 Mg Supp) 650 mg VT Q6 PRN PRN Reason: Fever >100.4 F Last Admin: 07/05/17 16:28 Dose: 650 mg Artificial Tears (Artificial Tears) 2 drop OU DAILY [facility] Last Admin: 07/21/17 08:40 Dose: 2 u Carvedilol (Coreg) 6.25 mg PO Q12 [facility] Last Admin: 07/21/17 08:40 Dose: 6.25 mg Famotidine (Pepcid) 20 mg PO DAILY [facility] Last Admin: 07/21/17 08:41 Dose: 20 mg Ferrous Sulfate (Feosol) 325 mg PO DAILY [facility] Last Admin: 07/21/17 08:41 Dose: 325 mg Furosemide (Lasix) 20 mg PO DAILY [facility] Last Admin: 07/21/17 08:41 Dose: 20 mg Guaifenesin/Dextromethorphan (Robitussin Dm) 10 ml PO Q8 [facility] Last Admin: 07/21/17 08:41 Dose: 10 ml Magnesium Oxide (Mag-Ox) 400 mg PO DAILY [facility] Last Admin: 07/21/17 08:41 Dose: 400 mg Mirtazapine (Remeron) 15 mg PO HS [facility] Last Admin: 07/20/17 21:28 Dose: 15 mg Ondansetron HCl (Zofran Inj) 4 mg IVP Q4 PRN PRN Reason: Nausea/Vomiting Last Admin: 07/06/17 20:44 Dose: 4 mg Pantoprazole Sodium (Protonix Ec Tab) 20 mg PO HS [facility] Last Admin: 07/20/17 21:28 Dose: 20 mg Rivaroxaban (Xarelto) 15 mg PO QD5 [facility] PRN Reason: Protocol Last Admin: 07/20/17 16:38 Dose: 15 mg - Labs Labs: 07/20/17 06:00 07/20/17 06:00 - Additional Findings Additional findings: Physical exam: Constitutional- cooperative, awake, alert. Head- NCAT, PERRL Eye- PERRL, normal accommodation ENT- normal exam, MMM. Neck- normal inspection, supple, no JVD Respiratory- CTAB, no wheezes rales rhonchi Cardiovascular- RRR, +S1, +S2 no MRG GI/Abdominal- + LLQ colostomy. normal bowel sounds, soft, no mass, no hsm Skin- warm, dry Extremities Exam- normal capillary refill, normal inspection Neurological Exam- alert, stable gait Psych- normal mood, normal affect Assessment and Plan - Assessment and Plan (Free Text) Plan: Assessment: 86y/o lady with hx of Cardiac Arrhythmia s/p PPM, on Xarelto, came in because of abdominal pain. CT of abdomen showed Perforated Sigmoid Diverticulitis. 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 Patient taken to OR 06/23 by surgery and underwent colon resection with colostomy. Her stay was complicated by episode of respiratory insufficiency sec to Pleural effusion/fluid overload. She was placed on High Flow Oxygen and had Thoracentesis. Her respiratory symptoms improved and she was weaned off High Flow and placed on NC 2 LPM. At present, she is hemodynamically stable, afebrile, with output from colostomy and tolerating Regular diet. She is saturating well on 2 liters O2 NC. Admitted to TCU for Physical therapy And IV antibiotics (done now with abx). Participating well with PT . 1. Septic shock sec to perforated sigmoid Diverticulitis- resolved s/p colon resection with colostomy performed 06/23. Surgery following colostomy bag with brown stool . Bowel sounds +, tolerating diet Patient was Flagyl and Zosyn as per ID until today, now discontinuing as repeat CX are negative ESBL E coli on Wound c/s - completed abx RLQ drain also removed, nydia removed continue PT / OT- tolerating well 2.Perforated sigmoid colon s/p Colon Resection with Colostomy s/p colon resection with colostomy switched diet to finely chopped continue PT 3. Respiratory insufficiency- resolved s/p extubation 06/25 06/26 with respiratory distress most likely secondary to volume overload and bilateral pleural effusion. Possible mucus plugging as well seen on CT wsa on High Flow changed to 2 LPM O2 per NC - saturation 96-98% s/p right thoracentesis with removal 500 ml fluid - transudate continue Xopenex and Lasix Incentive Spirometry 4. Bilateral pleural effusion s/p Thoracentesis as above improved 5. ALBER (acute kidney injury)-improved Acute likely sec to Sepsis initially oliguric,but at present with good urine output and renal function is normal 6.Anemia of acute blood loss- stable, improving Hgb dropped from 12-- 10.9, 10.0 on 07/11, 10.0 on 07/15 as well s/p 2 unit PRBC transfusion Hem/onc consulted Dr. Blanchard 7. Thrombocytopenia/ Coagulopathy, improved prob sec to Sepsis resolved INR=1.7 on admission ( patient also was on xarelto ) s/p 1 unit Platelet transfusion and 4 FFP Hematology consult with Dr Dawn Blanchard appreciated Given DDAVP and Vit K 10 mg IV preop to correct anticoagulation since patient was on xarelto 8. History of cardiac arrhythmia Chronic unclear cardiac diagnosis hx of Pacemaker placement pt was on Xarelto at home -was held due to the surgery and coagulopathy - restarted xarelto Cardiology consulted- Dr Blanchard 9. Abn LFT sec to Shock liver improved 10.Hypokalemia secondary to poor PO intake and GI losses K supplements 11. Hypertension controlled on Coreg and Valsartan 12.DVT prophylaxis SCD on Xarelto
[2017-07-21] MEDS: Pantoprazole 20 mg EC Tab PO SCH (21:32)
[2017-07-22] MEDS: guaiFENesin DM 200 mg-20 mg/10 ml UD PO SCH ×3 (04:02→17:43)
[2017-07-22] MEDS: Artificial Tears Opht Soln OU SCH (09:20)
[2017-07-22] MEDS: Magnesium Oxide 400 mg Tab UD PO SCH (09:20)
[2017-07-22] MEDS ORDERED: Alum-Mag Hydrox-Simethicone Susp (30 mL) PO ONE (10:26)
--- NOTE | 2017-07-22 14:38 | CP.PCM.DIS ---
Provider - Provider Date of Admission: 07/05/17 15:45 Attending physician: Slick Esparza MD Primary care physician: Dr. Moreno Consults: Dr. Rice- ID Dr. Hidalgo- pulmonary Dr. Weir- General surgery Dr. Zunilda Blanchard- Cardiology Time Spent in preparation of Discharge (in minutes): 25 Hospital Course - Lab Results Lab Results: Micro Results 07/10/17 13:19 Blood-Venous Blood Culture - Final NO GROWTH AFTER 5 DAYS 07/10/17 13:19 Blood-Venous Gram Stain - Final TEST NOT PERFORMED 07/10/17 13:19 Blood-Venous Blood Culture - Final NO GROWTH AFTER 5 DAYS 07/10/17 13:19 Blood-Venous Gram Stain - Final TEST NOT PERFORMED 07/05/17 19:30 Blood Blood Culture - Final NO GROWTH AFTER 5 DAYS 07/05/17 19:30 Blood Gram Stain - Final TEST NOT PERFORMED 07/05/17 19:00 Blood Blood Culture - Final NO GROWTH AFTER 5 DAYS 07/05/17 19:00 Blood Gram Stain - Final TEST NOT PERFORMED Most Recent Lab Values WBC 4.6 K/uL (4.8-10.8) L 07/20/17 06:00 RBC 3.51 Mil/uL (3.80-5.20) L 07/20/17 06:00 Hgb 10.6 g/dL (12.0-16.0) L 07/20/17 06:00 Hct 32.4 % (34.0-47.0) L 07/20/17 06:00 MCV 92.5 fl (81.0-99.0) 07/20/17 06:00 MCH 30.2 pg (27.0-31.0) 07/20/17 06:00 MCHC 32.6 g/dL (33.0-37.0) L 07/20/17 06:00 RDW 15.7 % (11.5-14.5) H 07/20/17 06:00 Plt Count 140 K/uL (130-400) 07/20/17 06:00 MPV 10.2 fl (7.2-11.7) 07/11/17 05:50 Neut % (Auto) 46.0 % (50.0-75.0) L 07/11/17 05:50 Lymph % (Auto) 31.0 % (20.0-40.0) 07/11/17 05:50 [place] % (Auto) 15.8 % (0.0-10.0) H 07/11/17 05:50 Eos % (Auto) 5.5 % (0.0-4.0) H 07/11/17 05:50 Baso % (Auto) 1.7 % (0.0-2.0) 07/11/17 05:50 Neut # 1.7 K/uL (1.8-7.0) L 07/11/17 05:50 Lymph # 1.2 K/uL (1.0-4.3) 07/11/17 05:50 [place] # 0.6 K/uL (0.0-0.8) 07/11/17 05:50 Eos # 0.2 K/uL (0.0-0.7) 07/11/17 05:50 Baso # 0.1 K/uL (0.0-0.2) 07/11/17 05:50 Sodium 135 mmol/l (132-148) 07/20/17 06:00 Potassium 4.1 MMOL/L (3.6-5.0) 07/20/17 06:00 Chloride 98 mmol/L (98-107) 07/20/17 06:00 Carbon Dioxide 35 mmol/L (22-30) H 07/20/17 06:00 Anion Gap 6 (10-20) L 07/20/17 06:00 BUN 16 mg/dl (7-17) 07/20/17 06:00 Creatinine 0.8 mg/dl (0.7-1.2) 07/20/17 06:00 Est GFR ( Amer) > 60 07/20/17 06:00 Est GFR (Non-Af Amer) > 60 07/20/17 06:00 POC Glucose (mg/dL) 99 mg/dL (65-110) 07/21/17 10:57 Random Glucose 101 mg/dL (65-105) 07/20/17 06:00 Calcium 8.7 mg/dL (8.4-10.2) 07/20/17 06:00 Procalcitonin 0.16 NG/ML (0.19-0.49) L 07/05/17 19:30 Urine Color Yellow (YELLOW) 07/06/17 05:00 Urine Clarity Clear (Clear) 07/06/17 05:00 Urine pH 7.0 (5.0-8.0) 07/06/17 05:00 Ur Specific [place] 1.017 (1.003-1.030) 07/06/17 05:00 Urine Protein 30 mg/dL (NEGATIVE) 07/06/17 05:00 Urine Glucose (UA) Neg mg/dL (Normal) 07/06/17 05:00 Urine Ketones Negative mg/dL (NEGATIVE) 07/06/17 05:00 Urine Blood Negative (NEGATIVE) 07/06/17 05:00 Urine Nitrate Negative (NEGATIVE) 07/06/17 05:00 Urine Bilirubin Negative (NEGATIVE) 07/06/17 05:00 Urine Urobilinogen 0.2-1.0 mg/dL (0.2-1.0) 07/06/17 05:00 Ur Leukocyte Esterase Neg [place]/uL (Negative) 07/06/17 05:00 Urine RBC (Auto) 2 /hpf (0-3) 07/06/17 05:00 Urine Microscopic WBC 1 /hpf (0-5) 07/06/17 05:00 Ur Squamous Epith Cells 7 /hpf (0-5) H 07/06/17 05:00 C. difficile Ag & Toxin Negative (NEGATIVE) 07/05/17 18:00 - Hospital Course Hospital Course: 86y/o lady with hx of Cardiac Arrhythmia s/p PPM, on Xarelto, came in because of abdominal pain. CT of abdomen showed Perforated Sigmoid Diverticulitis. 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 Patient taken to OR 06/23 by surgery and underwent colon resection with colostomy. Her stay was complicated by episode of respiratory insufficiency sec to Pleural effusion/fluid overload. She was placed on High Flow Oxygen and had Thoracentesis. Her respiratory symptoms improved and she was weaned off High Flow and placed on NC 2 LPM. At present, she is hemodynamically stable, afebrile, with output from colostomy and tolerating Regular diet. Admitted to TCU for Physical therapy And IV antibiotics, which were completed. Today, the patient is for discharge to home after an uncomplicated stay in the TCU. She is hemodynamically stable and afebrile and clinically much improved. She has regained much of her strength in the transitional care unit with ongoing PT/OT. C/o mild bloating and was given Maalox. Stable for discharge home today. 1. Septic shock sec to perforated sigmoid Diverticulitis- resolved s/p colon resection with colostomy performed 06/23. Surgery following colostomy bag with brown stool . Bowel sounds +, tolerating diet Patient was Flagyl and Zosyn as per ID, Dr. Rice, but discontinued as repeat CX are negative ESBL E coli on Wound c/s - completed abx RLQ drain also removed, nydia removed, wound healed well. Much improved with stay in TCU and stable for discharge home 2.Perforated sigmoid colon s/p Colon Resection with Colostomy s/p colon resection with colostomy switched diet to finely chopped continue PT 3. Respiratory insufficiency- resolved s/p extubation 06/25 06/26 with respiratory distress most likely secondary to volume overload and bilateral pleural effusion. Possible mucus plugging as well seen on CT wsa on High Flow changed to 2 LPM O2 per NC - saturation 96-98% s/p right thoracentesis with removal 500 ml fluid - transudate continue Lasix 4. Bilateral pleural effusion s/p Thoracentesis as above improved 5. ALBER (acute kidney injury)-improved Acute likely sec to Sepsis initially oliguric,but at present with good urine output and renal function is normal on discharge 6.Anemia of acute blood loss- stable, improving Hgb dropped from 12-- 10.9, 10.0 on 07/11, 10.0 on 07/15 as well s/p 2 unit PRBC transfusion Hem/onc consulted during TCU stay, Dr. Blanchard 7. Thrombocytopenia/ Coagulopathy, improved prob sec to Sepsis resolved INR=1.7 on admission ( patient also was on xarelto ) s/p 1 unit Platelet transfusion and 4 FFP Hematology consult with Dr Dawn Blanchard appreciated Given DDAVP and Vit K 10 mg IV preop to correct anticoagulation since patient was on xarelto 8. History of cardiac arrhythmia Chronic unclear cardiac diagnosis hx of Pacemaker placement pt was on Xarelto at home -was held due to the surgery and coagulopathy - restarted xarelto Cardiology consulted- Dr Blanchard 9. Abn LFT sec to Shock liver improved 10.Hypokalemia secondary to poor PO intake and GI losses K supplements 11. Hypertension controlled on Coreg and Valsartan Discharge Exam - Additional Findings Additional findings: Physical exam: Constitutional- cooperative, awake, alert. Head- NCAT, PERRL Eye- PERRL, normal accommodation ENT- normal exam, MMM. Neck- normal inspection, supple, no JVD Respiratory- CTAB, no wheezes rales rhonchi Cardiovascular- RRR, +S1, +S2 no MRG GI/Abdominal- + LLQ colostomy. normal bowel sounds, soft, no mass, no hsm Skin- warm, dry Extremities Exam- normal capillary refill, normal inspection Neurological Exam- alert, stable gait Psych- normal mood, normal affect Discharge Plan - Discharge Medications Prescriptions: Carvedilol [Coreg] 3.125 mg PO Q12 #60 tab Famotidine [Pepcid] 20 mg PO DAILY #30 tab Ferrous Sulfate [Feosol] 1 tab PO DAILY #30 tab Furosemide [Lasix] 20 mg PO DAILY #30 tab Glycerin/Propylene Glycol [Soothe Lubricant Eye Drops] 2 drp OU DAILY 30 Days droperette Magnesium Oxide [Magnesium] 400 mg PO DAILY #30 tablet Mirtazapine [Remeron] 15 mg PO DAILY #30 tablet Rivaroxaban [Xarelto] 1 tab PO DAILY #30 tab - Follow Up Plan Condition: GOOD Disposition: HOME/ ROUTINE Instructions: Colostomy Care (DC)
[2017-07-22 17:34] VITALS: BP 119/63; PULSE 84; TEMP 99; O2SAT 97
== END 2017-07-22 18:28 | disposition home health service (06) | DRG 872 ==
LOC: H.TCU 07-05 15:45
PROVIDERS: ADMIT Hospitalist; ATTEND Hospitalist
PROC: 3E03329 Introduction of Other Anti-infective into Peripheral Vein, Percutaneous Approach (ICD-10-PCS; principal; 2017-07-05)
PROC: F07Z9FZ Gait Training/Functional Ambulation Treatment using Assistive, Adaptive, Supportive or Protective Equipment (ICD-10-PCS; 2017-07-05)
PROC: F08Z4FZ Home Management Treatment using Assistive, Adaptive, Supportive or Protective Equipment (ICD-10-PCS; 2017-07-05)
DX: A41.9 Sepsis, unspecified organism (principal); K57.32 Diverticulitis of large intestine without perforation or abscess without bleeding; N17.9 Acute kidney failure, unspecified; D68.9 Coagulation defect, unspecified; D69.59 Other secondary thrombocytopenia; D62 Acute posthemorrhagic anemia; Z48.815 Encounter for surgical aftercare following surgery on the digestive system; Z98.890 Other specified postprocedural states; Z93.3 Colostomy status; E78.5 Hyperlipidemia, unspecified; E87.6 Hypokalemia; B96.29 Other Escherichia coli [E. coli] as the cause of diseases classified elsewhere; I10 Essential (primary) hypertension; Z95.0 Presence of cardiac pacemaker; Z90.49 Acquired absence of other specified parts of digestive tract; Z96.652 Presence of left artificial knee joint; Z79.01 Long term (current) use of anticoagulants

== ENCOUNTER 2018-09-10 10:53 | Emergency (ER) | payer MEDICARE, OTHER ==
[2018-09-10 11:01] VITALS: BMI 24.6
[2018-09-10 11:02] VITALS: RESP 18
[2018-09-10] MEDS ORDERED: Sodium Chloride 0.9% 1,000 ML IV ONE (11:44)
--- NOTE | 2018-09-10 12:00 | ED PDOC ---
HPI: Back Time Seen by Provider: 09/10/18 11:25 Chief Complaint (Nursing): Back Pain Chief Complaint (Provider): Lumbar Pain History Per: Patient, Family History/Exam Limitations: no limitations Onset/Duration Of Symptoms: Days (four ) Current Symptoms Are (Timing): Still Present Quality Of Discomfort: Aching, "Pain" Description Of Injury (Context): pt denies injury or trauma Severity: Mild Previous Symptoms: Back Pain Associated Symptoms: Other (reduced flexion and extension) Exacerbating Factor(s): Movement Additional Complaint(s): Pt presents to the ED complaining of recent and new onset of lower back pain alicia t radiates bilaterally through her hips to the legs. Pt can ambulate with assistance of a walker but indicates that her ability to flex forward is reduced since the onset of pain. Pt denies falls, trauma or injury. Pt has a hx of abdominal surgery for ruptured diverticulitis; this sgx resulted in significant incisional hernias for which she is seeing a surgeon on 09/14. Pt denies nausea, vomiting, diarhhea. Past Medical History Reviewed: Historical Data, Nursing Documentation, Vital Signs Vital Signs: Last Vital Signs Temp 98.2 F 09/10/18 11:01 Pulse 74 09/10/18 11:01 Resp 18 09/10/18 11:01 BP 146/77 09/10/18 11:01 Pulse Ox 99 09/10/18 11:01 - Medical History PMH: Cardia Arrhythmia, Diverticulitis, HTN, Hypercholesterolemia Denies: Chronic Kidney Disease - Surgical History Surgical History: Appendectomy, Cholecystectomy, Pacemaker - Family History Family History: States: Unknown Family Hx - Home Medications Home Medications: Ambulatory Orders Medication Instructions Recorded Acetaminophen [Tylenol 325mg tab] 650 mg PO Q6 PRN tab 07/04/17 Carvedilol [Coreg] 3.125 mg PO Q12 #60 tab 07/22/17 Famotidine [Pepcid] 20 mg PO DAILY #30 tab 07/22/17 Ferrous Sulfate [Feosol] 1 tab PO DAILY #30 tab 07/22/17 Furosemide [Lasix] 20 mg PO DAILY #30 tab 07/22/17 Glycerin/Propylene Glycol [Soothe 2 drp OU DAILY 30 Days droperette 07/22/17 Lubricant Eye Drops] Magnesium Oxide [Magnesium] 400 mg PO DAILY #30 tablet 07/22/17 Mirtazapine [Remeron] 15 mg PO DAILY #30 tablet 07/22/17 Rivaroxaban [Xarelto] 1 tab PO DAILY #30 tab 07/22/17 Diclofenac Sodium [Voltaren] 1 gm TP TID #100 gm 09/10/18 - Allergies Allergies/Adverse Reactions: Allergies Allergy/AdvReac Type Severity Reaction Status Date / Time No Known Allergies Allergy Verified 07/05/17 14:59 Review of Systems ROS Statement: Except As Marked, All Systems Reviewed And Found Negative Gastrointestinal: Positive for: Other (Incisional hernia ) Musculoskeletal: Positive for: Back Pain Physical Exam - Reviewed Nursing Documentation Reviewed: Yes Vital Signs Reviewed: Yes - Physical Exam Appears: Positive for: Well, No Acute Distress, Uncomfortable Head Exam: Positive for: ATRAUMATIC, NORMAL INSPECTION Skin: Positive for: Normal Color, Warm, Dry. Negative for: Diaphoresis, Pallor, Rash Eye Exam: Positive for: Normal appearance. Negative for: Nystagmus, Periorbital swelling, Periorbital tenderness ENT: Positive for: Normal ENT Inspection Neck: Positive for: Normal, Painless ROM, Supple. Negative for: Decreased ROM Cardiovascular/Chest: Positive for: Regular Rate, Rhythm Respiratory: Positive for: Normal Breath Sounds Pulses-Carotid (L): 2+ Pulses-Carotid (R): 2+ Pulses-Radial (L): 2+ Pulses-Radial (R): 2+ Back: Positive for: Normal Inspection, Decreased ROM, Other (straight leg raise positive at 20 degrees on the left and 30 degrees on the right. ). Negative for: L CVA Tenderness, R CVA Tenderness, Vertebral Tenderness Extremity: Positive for: Normal ROM. Negative for: Tenderness, Swelling - Laboratory Results Result Diagrams: 09/10/18 12:17 09/10/18 12:17 - ECG O2 Sat by Pulse Oximetry: 99 Disposition - Clinical Impression Clinical Impression: Spondylolysis, Low back pain - Patient ED Disposition Is Patient to be Admitted: No Counseled Patient/Family Regarding: Diagnosis, Need For Followup, Rx Given - Disposition Referrals: Non [facility] Provider, [Primary Care Provider] - Angel Bradford MD [Medical Doctor] - Angel Bradford MD [Medical Doctor] - Disposition: Routine/Home Disposition Time: 13:46 Condition: STABLE Prescriptions: Diclofenac Sodium [Voltaren] 1 gm TP TID #100 gm Instructions: Low Back Pain (DC), Spondylolysis (DC) Forms: [facility] (Kazakh), [facility] (Faroese) Print Language: TAJIK
[2018-09-10 12:39] LABS: BASO % 0.3 % (0.0-2.0); EOS # 0.1 K/uL (0.0-0.7); EOS % 2.3 % (0.0-4.0); HEMOGLOBIN 11.6 g/dL (12.0-16.0); LYMPH # 1.5 K/uL (1.0-4.3); LYMPH % 27.1 % (20.0-40.0); MEAN CELL VOLUME 92.3 fl (81.0-99.0); MEAN CORPUSCULAR HEMOGLOBIN 29.8 pg (27.0-31.0); MEAN CORPUSCULAR HGB CONC 32.4 g/dL (33.0-37.0); MEAN PLATELET VOLUME 11.2 fl (7.2-11.7); MONO # 0.5 K/uL (0.0-0.8); MONO % 8.1 % (0.0-10.0); NEUT # 3.5 K/uL (1.8-7.0); NEUT % 62.2 % (50.0-75.0); NRBC % 0.1 % (0.0-0.0); RBC 3.87 Mil/uL (3.80-5.20); RED CELL DISTRIBUTION WIDTH 13.6 % (11.5-14.5); WHITE BLOOD COUNT 5.6 K/uL (4.8-10.8)
--- NOTE | 2018-09-10 12:48 | CT ---
Date of service: 09/10/2018 PROCEDURE: CT Lumbar Spine without contrast HISTORY: sudden onset lumbar pain COMPARISON: None available. TECHNIQUE: Axial computed tomography images were obtained of the lumbar spine without the use of intravenous contrast. Coronal and sagittal reformatted images were created and reviewed. Radiation dose: Total exam DLP = 302.91 mGy-cm. This CT exam was performed using one or more of the following dose reduction techniques: Automated exposure control, adjustment of the mA and/or kV according to patient size, and/or use of iterative reconstruction technique. FINDINGS: VERTEBRAE: Unremarkable. No fracture. Normal alignment. DISCS/SPINAL CANAL/NEURAL FORAMINA: L1-2: Unremarkable. L2-3: Unremarkable. L3-4: Unremarkable. L4-5: Disc bulge.. L5-S1: Ilgrade 1 anterolisthesis with bilateral spondylolysis.. PARASPINAL SOFT TISSUES: Unremarkable. 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 IMPRESSION: No acute fracture..
[2018-09-10 12:54] LABS: ALB/GLOB RATIO 1.3 (1.0-2.1); ALBUMIN 4.1 g/dL (3.5-5.0); ALT/SGPT 27 U/L (9-52); AST/SGOT 25 U/L (14-36); BLOOD UREA NITROGEN 22 mg/dl (7-17); CALCIUM 9.7 mg/dL (8.4-10.2); GFR NON-AFRICAN AMERICAN 53
[2018-09-10 19:53] VITALS: BP 148/68; PULSE 69; TEMP 97.9; O2SAT 98
== END 2018-09-10 15:48 | disposition home or self-care (01) ==
LOC: H.ER 10:53 → SUPCPDRO 10:53 → H.ER 15:48
DX: M47.812 Spondylosis without myelopathy or radiculopathy, cervical region (principal); M54.5 Low back pain; E78.00 Pure hypercholesterolemia, unspecified; I10 Essential (primary) hypertension; Z95.0 Presence of cardiac pacemaker
CPT/HCPCS: 72131; 80053; 85025; 96360; 99285; J7030